=== PATIENT | male | born 1945 | race Caucasian/White ===

== ENCOUNTER 2016-08-05 01:53 | Inpatient (IN) | payer OTHER, MEDICARE ==
[2016-08-05] VITALS (31 sets, daily range): BP systolic 84–171; BP diastolic 50–73; PULSE 90–131; RESP 12–26; TEMP 97.7–98.4; O2SAT 83–100
[~2016-08-05] VITALS: Ht 182.9 cm; Wt 70.2 kg
[~2016-08-05 01:53] MED LIST: ALBU0.086 INH; PILO5TAB PO; PROT40TA PO; SYMB160A INH; SYNT75TA PO
[2016-08-05] MEDS ORDERED: methylPREDNISolone SOD SUCC 125 MG/2 ML VIAL IVP ONE (02:15)
[2016-08-05] MEDS ORDERED: SODIUM CHLORID 0.9% 500 ML INJ 500 ML IV ONE (02:15)
[2016-08-05] MEDS ORDERED: SODIUM CHLORIDE 0.9% FLUSH 5 ML FLUSH IVF PRN ×2 (02:15→03:45)
[2016-08-05] MEDS ORDERED: RESP: ALBUTEROL 2.5 MG/IPRATROPIUM 0.5 MG NEB (SCH) INH ONE (02:15)
[2016-08-05 02:23] LABS: AUTOMATED NEUTROPHIL # 12.1 TH/MM3 (1.8-7.7); BASOPHIL # 0.2 TH/MM3 (0-0.2); BASOPHIL % 1.7 % (0.0-2.0); HEMATOCRIT 45.5 % (39.0-51.0); LYMPH % 3.1 % (9.0-44.0); LYMPHOCYTE # 0.4 TH/MM3 (1.0-4.8); MEAN CELL VOLUME 83.2 FL (80.0-100.0); MEAN CORPUSCULAR HEMOGLOBIN 26.9 PG (27.0-34.0); MEAN CORPUSCULAR HGB CONC 32.4 % (32.0-36.0); MONO % 5.5 % (0.0-8.0); NEUT % 89.7 % (16.0-70.0); PLATELET COUNT 189 TH/MM3 (150-450); RED BLOOD COUNT 5.47 MIL/MM3 (4.50-5.90); RED CELL DISTRIBUTION WIDTH 12.4 % (11.6-17.2); WHITE BLOOD COUNT 13.4 TH/MM3 (4.0-11.0)
[2016-08-05 02:25] LABS: HEMO FLAGS DIFF FINAL
[2016-08-05 02:29] LABS: CHLORIDE 99 MEQ/L (98-107); POTASSIUM 3.5 MEQ/L (3.5-5.1); SODIUM (NA) 138 MEQ/L (136-145)
[2016-08-05 02:33] LABS: ANION GAP 11 MEQ/L (5-15); BLOOD UREA NITROGEN 17 MG/DL (7-18); MAGNESIUM 1.8 MG/DL (1.5-2.5)
[2016-08-05 02:34] LABS: APTT (PATIENT) 25.4 SEC (24.3-30.1); PROTHROMBIN TIME - PATIENT 11.1 SEC (9.8-11.6)
[2016-08-05 02:36] LABS: ALT (GPT) 21 U/L (12-78); AST (GOT) 16 U/L (15-37); GLOMERULAR FILTRATION RATE 60 ML/MIN (>89)
[2016-08-05 02:38] LABS: TOTAL BILIRUBIN ADULT 0.8 MG/DL (0.2-1.0)
[2016-08-05 02:39] LABS: ALKALINE PHOSPHATASE 87 U/L (45-117)
[2016-08-05 02:40] LABS: CREATINE KINASE 99 U/L (39-308)
[2016-08-05] MEDS ORDERED: ZOFR4TAB G-TUBE (02:45)
[2016-08-05] MEDS ORDERED: RESP: ALBUTEROL 2.5 MG/IPRATROPIUM 0.5 MG NEB (SCH) NEB ONE ×3 (02:45→04:15)
[2016-08-05] MEDS ORDERED: LEVO.075 G-TUBE (02:45)
[2016-08-05] MEDS ORDERED: SODIUM CHLOR 0.9% 1000 ML INJ 1,000 ML IV ONE ×4 (02:45→13:30)
[2016-08-05] MEDS ORDERED: CEFEPIME INJ 2,000 MG in SODIUM CHLORIDE 0.9% INJ 100 ML IV ONE (02:45)
[2016-08-05] MEDS ORDERED: ALBU0.08 NEB (02:45)
[2016-08-05] MEDS ORDERED: VANCOMYCIN INJ 1,000 MG in SODIUM CHLOR 0.9% 250 ML INJ 250 ML IV ONE (02:45)
[2016-08-05] MEDS ORDERED: SYMB160A INH (02:45)
--- NOTE | 2016-08-05 02:52 | RADHPO ---
EXAM DATE/TIME: 08/05/2016 02:17 [facility] COMPARISON: CHEST SINGLE AP, February 12, 2013, 2:16. INDICATIONS : Shortness of breath. MEDICAL HISTORY : None. SURGICAL HISTORY : None. ENCOUNTER: Initial ACUITY: 1 day PAIN SCORE: 0/10 LOCATION: Bilateral chest FINDINGS: The cardiac silhouette is normal in transverse diameter. There is patchy alveolar disease on the righ t compatible with pneumonia. The left lung is free of acute parenchymal opacity. No pleural effusions are identified. CONCLUSION: 1. Right basilar pneumonia Corey Preston MD on August 05, 2016 at 2:50 Board Certified Radiologist. This report was verified electronically.
--- NOTE | 2016-08-05 02:55 | PD ---
HPI Chief Complaint: Respiratory Distress Time Seen by Provider: 02:01 Travel History International Travel<30 days: No Contact w/Intl Traveler<30days: No Traveled to known affect area: No History of Present Illness HPI 70-year-old male presents to the emergency department for complaint of acute worsening shortness of breath. Patient is noted shortness of breath for today. Patient been coughing up yellow sputum with blood streaks. 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 Patient's urine is that specialist is Dr. Zepeda. Patient denies having any episodes of choking but did have an episode of spitting up bile today. Patient does not take anything by mouth and has a PEG tube in place. Patient has noted increasing shortness of breath. Patient denies any chest pain or pleuritic pain. Patient has not noticed any swelling of her pain to the lower extremities. No prior history of DVT or PE. Patient is no longer tobacco user. Patient has history of COPD and hypothyroidism. Patient was last hospitalized in 2012 with pneumonia and difficulty with breathing. Patient's had previous tracheostomy and has history of aphasia and dyskinesia the esophagus. Patient also has history of esophageal stricture chronic laryngitis and states that his current hoarseness is his baseline and has not worsened.. PFSH Past Medical History Narrative Medical COPD hypothyroidism pneumonia posterior tongue laryngeal cancer with chemotherapy radiation therapy and excisional therapy previous tracheostomy PEG tube no tobacco use nursing notes reviewed Anemia: Yes Blood Disorders: No Cancer: Yes Cardiovascular Problems: No Chemotherapy: Yes COPD: Yes Endocrine: No Gastrointestinal Disorders: Yes (G-TUBE PLACED: 2012 "EPIGLOTTIS DOESN'T WORK ") Genitourinary: No Immune Disorder: No Inguinal Hernia: Yes Kidney Stones: Yes Musculoskeletal: No Neurologic: No Psychiatric: No Reproductive: No Respiratory: No Pneumonia: Yes (ASPIRATION) Radiation Therapy: Yes Thyroid Disease: Yes Tetanus Vaccination: > 5 Years Influenza Vaccination: Yes Past Surgical History Abdominal Surgery: Yes (HERNIA) Oral Surgery: Yes (THROAT SURGERY RELATED TO CA.) Pacemaker: No Tonsillectomy: Yes Other Surgery: Yes (THROAT CANCER) Social History Alcohol Use: No Tobacco Use: No (QUIT 50 YRS AGO) Substance Use: No Allergies-Medications (Allergen,Severity, Reaction): Coded Allergies: No Known Allergies (Unverified , 08/05/16) Reported Meds & Prescriptions Reported Meds & Active Scripts Active Reported Synthroid (Levothyroxine Sodium) 75 Mcg Tab 75 Mcg G-TUBE DAILY Zofran (Ondansetron HCl) 4 Mg Tab 4 Mg G-TUBE Q6HR PRN Symbicort Inh (Budesonide/Formoterol Fumarate) 160-4.5 Mcg/Act Aero 2 Puff INH Q12HR Albuterol Neb (Albuterol Sulfate) 2.5 Mg/3 Ml Neb 2.5 Mg NEB Q4HR NEB PRN Review of Systems Except as stated in HPI: all other systems reviewed are Neg General / Constitutional: No: Fever, Chills HENT: Positive: Congestion Cardiovascular: No: Chest Pain or Discomfort Respiratory: Positive: Cough, Shortness of Breath, Wheezing Gastrointestinal: No: Abdominal Pain Genitourinary: No: Flank Pain Musculoskeletal: No: Myalgias, Arthralgias Skin: No Rash Neurologic: No: Weakness Psychiatric: No: Anxiety Hematologic/Lymphatic: No: Easy Bruising Physical Exam Narrative GENERAL: Thin well-developed male in moderate respiratory distress SKIN: Warm and dry. HEAD: Normocephalic. EYES: No scleral icterus. No injection or drainage. NECK: Supple, trachea midline. No JVD or lymphadenopathy. CARDIOVASCULAR: Increased Regular rate and rhythm without murmurs, gallops, or rubs. RESPIRATORY: Breath sounds equal bilaterally and diminished. No accessory muscle use. GASTROINTESTINAL: Abdomen soft, non-tender, nondistended. PEG tube noted. MUSCULOSKELETAL: No cyanosis, or edema. BACK: Nontender without obvious deformity. No CVA tenderness. Neurologic exam: Alert and oriented person place time and events cranial nerves II through XII grossly intact sensorimotor exams are grossly within range as tested ENT: Airway is patent mucous membranes moist posterior pharynx no edema erythema or exudative change Data Data Last Documented VS Vital Signs Date Time Temp Pulse Resp B/P Pulse Ox O2 Delivery O2 Flow Rate FiO2 08/05/16 03:18 Aerosol Mask 08/05/16 03:12 126 24 119/63 100 3.5 08/05/16 02:45 98.4 Orders Complete Blood Count With Diff (08/05/16 02:01) Comprehensive Metabolic Panel (08/05/16 02:01) B-Type Natriuretic Peptide (08/05/16 02:01) Act Partial Throm Time (Ptt) (08/05/16 02:01) Prothrombin Time / Inr (Pt) (08/05/16 02:01) Magnesium (Mg) (08/05/16 02:01) Ckmb (Isoenzyme) Profile (08/05/16 02:01) Troponin I (08/05/16 02:01) Arterial Blood Gas (Abg) (08/05/16 02:01) Blood Culture (08/05/16 02:01) Iv Access Insert/Monitor (08/05/16 02:01) Electrocardiogram (08/05/16 02:01) Ecg Monitoring (08/05/16 02:01) Oximetry (08/05/16 02:01) Oxygen Administration (08/05/16 02:01) Chest, Single Ap (08/05/16 02:01) Sodium Chloride 0.9% Flush (Ns Flush) (08/05/16 02:15) Methylprednisolone So Succ Inj (Solumedr (08/05/16 02:15) Albuterol-Ipratropium Neb (Duoneb Neb) (08/05/16 02:15) Sodium Chlorid 0.9% 500 Ml Inj (Ns 500 M (08/05/16 02:15) Lactic Acid (08/05/16 02:01) Cefepime Inj (Maxipime Inj) (08/05/16 02:45) Vancomycin Inj (Vancomycin Inj) (08/05/16 02:45) Albuterol-Ipratropium Neb (Duoneb Neb) (08/05/16 02:45) Sodium Chlor 0.9% 1000 Ml Inj (Ns 1000 M (08/05/16 02:45) Sputum Culture And Gram Stain (08/05/16 02:43) Ct Soft Tiss Neck W Iv Cont (08/05/16 ) Ct Pulmonary Angiogram (08/05/16 ) Albuterol-Ipratropium Neb (Duoneb Neb) (08/05/16 03:15) Admit Order (Ed Use Only) (08/05/16 ) ^ Saline Lock (08/05/16 03:38) Resp Oxygen Yogi C Titrat 1-4 L (08/05/16 ) ^ Notify Dr: Other (08/05/16 03:38) Sodium Chloride 0.9% Flush (Ns Flush) (08/05/16 09:00) Sodium Chloride 0.9% Flush (Ns Flush) (08/05/16 03:45) Labs Laboratory Tests Test 08/05/16 08/05/16 02:11 02:53 White Blood Count 13.4 TH/MM3 Red Blood Count 5.47 MIL/MM3 Hemoglobin 14.7 GM/DL Hematocrit 45.5 % Mean Corpuscular Volume 83.2 FL Mean Corpuscular Hemoglobin 26.9 PG Mean Corpuscular Hemoglobin 32.4 % Concent Red Cell Distribution Width 12.4 % Platelet Count 189 TH/MM3 Mean Platelet Volume 8.8 FL Neutrophils (%) (Auto) 89.7 % Lymphocytes (%) (Auto) 3.1 % Monocytes (%) (Auto) 5.5 % Eosinophils (%) (Auto) 0.0 % Basophils (%) (Auto) 1.7 % Neutrophils # (Auto) 12.1 TH/MM3 Lymphocytes # (Auto) 0.4 TH/MM3 Monocytes # (Auto) 0.7 TH/MM3 Eosinophils # (Auto) 0.0 TH/MM3 Basophils # (Auto) 0.2 TH/MM3 CBC Comment DIFF FINAL Differential Comment Prothrombin Time 11.1 SEC Prothromb Time International 1.0 RATIO Ratio Activated Partial 25.4 SEC Thromboplast Time Sodium Level 138 MEQ/L Potassium Level 3.5 MEQ/L Chloride Level 99 MEQ/L Carbon Dioxide Level 28.0 MEQ/L Anion Gap 11 MEQ/L Blood Urea Nitrogen 17 MG/DL Creatinine 1.20 MG/DL Estimat Glomerular Filtration 60 ML/MIN Rate Random Glucose 180 MG/DL Lactic Acid Level 4.3 mmol/L Calcium Level 9.1 MG/DL Magnesium Level 1.8 MG/DL Total Bilirubin 0.8 MG/DL Aspartate Amino Transf 16 U/L (AST/SGOT) Alanine Aminotransferase 21 U/L (ALT/SGPT) Alkaline Phosphatase 87 U/L Total Creatine Kinase 99 U/L Troponin I LESS THAN 0.02 NG/ML B-Type Natriuretic Peptide 42 PG/ML Total Protein 7.5 GM/DL Albumin 3.8 GM/DL Blood Gas Puncture Site LT RADIAL Blood Gas Patient Temperature 98.6 Blood Gas HCO3 25 mmol/L Blood Gas Base Excess 0.7 mmol/L Blood Gas Oxygen Saturation 88 % Arterial Blood pH 7.42 Arterial Blood Partial 39 mmHG Pressure CO2 Arterial Blood Partial 56 mmHG Pressure O2 Arterial Blood Oxygen Content 17.8 Vol % Arterial Blood 1.9 % Carboxyhemoglobin Arterial Blood Methemoglobin 1.0 % Blood Gas Hemoglobin 14.4 G/DL Oxygen Delivery Device NASAL CANNULA Blood Gas Liter Flow 2 L/M MDM Medical Decision Making Medical Screen Exam Complete: Yes Emergency Medical Condition: Yes Medical Record Reviewed: Yes Interpretation(s) Last Impressions Chest X-Ray 08/05/16 0201 Signed Impressions: Service Date/Time: Friday, August 05, 2016 02:17 - CONCLUSION: 1. Right basilar pneumonia Corey Preston MD Neck CT 08/05/16 0000 Signed Impressions: Service Date/Time: Friday, August 05, 2016 03:33 - CONCLUSION: 1. Unremarkable CT scan of the neck. No masses are identified. Corey Preston MD CT Angiography 08/05/16 0000 Signed Impressions: Service Date/Time: Friday, August 05, 2016 03:33 - CONCLUSION: 1. No evidence of pulmonary embolism. 2. Right basilar pneumonia Corey Preston MD Vital Signs Date Time Temp Pulse Resp B/P Pulse Ox O2 Delivery O2 Flow Rate FiO2 08/05/16 02:45 98.4 123 20 171/65 96 Nasal Cannula 2 08/05/16 02:12 92 Nasal Cannula 2.00 08/05/16 02:08 Aerosol Mask 08/05/16 01:59 88 Nasal Cannula 2 08/05/16 01:58 98.2 131 26 119/66 83 Room Air CBC & BMP Diagram 08/05/16 02:11 Differential Diagnosis Dyspnea, exacerbation COPD, pneumonia, aspiration pneumonia, pneumothorax, pleural effusion, PE, ACS, CHF Narrative Course Patient placed on cardiac technologist IV access obtained specimens collected and sent for resulting EKG performed shows sinus tachycardia without acute injury pattern change; patient given DuoNeb updraft and Solu-Medrol Blood cultures obtained along with lactic acid patient given presumptive IV antibiotic with cefepime and vancomycin Patient with ongoing updraft treatment and Solu-Medrol Chest x-ray consistent with right lower lobe infiltrate/pneumonia Patient's case discussed with on-call forensic document examiner will admit to their service aware that CT of the soft tissue of the neck and CT bony angiogram studies are pending CT soft tissue of neck. Reading radiologist reveals no acute abnormality and CT bony angiogram shows no evidence of PE and continues to show evidence of right lower lobe pneumonia Patient is aware plan for admission to ICU to [facility] Critical Care Narrative Aggregate critical care time was 40 minutes minutes. Time to perform other separately billable procedures was not included in the critical care time. My time did not include minutes spent treating any other patients simultaneously or on activities that did not directly contribute to the patient's treatment. The services I provided to this patient were to treat and/or prevent clinically significant deterioration that could result in: Respiratory failure, respiratory arrest, septic shock, I provided critical care services requiring my management, as noted below: Chart data review, documentation time, medication orders and management, vital sign assessments/reviewing monitor data, ordering and reviewing lab tests, ordering and interpreting/reviewing x-rays and diagnostic studies, care of the patient and discussion of the patient with the admitting physicians. Sepsis Criteria SIRS Criteria (2 or more): Heart rate over 90, RR > 20 or PaCO2 < 32, WBC > 03570, < 4000 or > 10% bands Sepsis Criteria (SIRS+source): Infect source susp/known Severe Sepsis (+one): Lactate >2 Physician Communication Physician Communication discussed with DR Garzon--[facility] ICU admission to forensic document examiner service Diagnosis Primary Impression: Pneumonia Qualified Code: J18.1 - Pneumonia of right lower lobe due to infectious organism Additional Impressions: COPD exacerbation Sepsis Qualified Code: A41.9 - Sepsis, due to unspecified organism Admitting Information Admitting Physician Requests: Admit Chiquita Leon MD Aug 05, 2016 02:55
[2016-08-05 02:58] LABS: BLOOD GAS BASE EXCESS 0.7 mmol/L (-2-2); BLOOD GAS CARBOXYHEMOGLOBIN 1.9 % (0-4); BLOOD GAS HCO3 25 mmol/L (22-26); BLOOD GAS O2 HGB SATURATION 88 % (90-100); BLOOD GAS OXYGEN CONTENT 17.8 Vol % (12.0-20.0); BLOOD GAS PCO2 39 mmHG (38-42); BLOOD GAS PO2 56 mmHG (61-120); BLOOD GAS TOTAL HGB 14.4 G/DL (12.0-16.0); CRITICAL VALUE YES; DRAW SITE LT RADIAL; LITER FLOW 2 L/M; NUMBER OF ARTERIAL PUNCTURES 1; OXYGEN DEVICE NASAL CANNULA; STAT YES; TEMP CORR TO 98.6; ULNAR PULSE Y
[2016-08-05] MEDS ORDERED: IOHEXOL 350 MG/ML 10 ML VIAL (for RAD DIAG) IV ONE (04:02)
[2016-08-05] MEDS ORDERED: IBUPROFEN SUSP 100 MG/5 ML UDC PEG ONE (04:15)
--- NOTE | 2016-08-05 04:16 | RADHPO ---
EXAM DATE/TIME: 08/05/2016 03:33 [facility] COMPARISON: CT PULMONARY ANGIOGRAM, February 12, 2013, 4:00. INDICATIONS : Shortness of breath. IV CONTRAST: 75 cc Omnipaque 350 (iohexol) IV ; Cumulative dose for multiple exams. RADIATION DOSE: 8.73 CTDIvol (mGy) MEDICAL HISTORY : Carcinoma, throat. SURGICAL HISTORY : Gastric feeding tube. ENCOUNTER: Initial ACUITY: 1 day PAIN SCALE: 5/10 LOCATION: chest TECHNIQUE: Volumetric scanning of the chest was performed using a pulmonary embolism protocol MIP images were re constructed. Using automated exposure control and adjustment of the mA and/or kV according to patien t size, radiation dose was kept as low as reasonably achievable to obtain optimal diagnostic quality images. FINDINGS: Examination of the pulmonary vasculature demonstrates good filling of the main, lobar and segmental b ranches. There are no filling defects to suggest pulmonary embolism. Multiplanar reconstructions are also unremarkable. There is right basilar alveolar disease characteristics of pneumonia. The left lung is free of acute parenchymal opacity. No pleural effusions are identified. Examination of the mediastinum demonstrates no abnormally enlarged lymph nodes by CT criteria. No axillary or hilar abnormalities are identified . Coronary artery calcifications are not present. The visualized upper abdomen demonstrates no abnorm ality. Gastrostomy tube is present in the stomach. CONCLUSION: 1. No evidence of pulmonary embolism. 2. Right basilar pneumonia Corey Preston MD on August 05, 2016 at 4:11 Board Certified Radiologist. This report was verified electronically.
--- NOTE | 2016-08-05 04:25 | RADHPO ---
EXAM DATE/TIME: 08/05/2016 03:33 [facility] COMPARISON: CT SOFT TISSUE NECK W CONTRAST, March 02, 2013, 22:45. INDICATIONS : Throat pain. IV CONTRAST: 75 cc Omnipaque 350 (iohexol) IV ; Cumulative dose for multiple exams. RADIATION DOSE: 19.85 CTDIvol (mGy) MEDICAL HISTORY : Chronic obstructive pulmonary disease. Carcinoma, throat. SURGICAL HISTORY : None. ENCOUNTER: Initial ACUITY: 1 day PAIN SCALE: 7/10 LOCATION: Bilateral neck TECHNIQUE: Volumetric scanning of the neck was performed. Using automated exposure control and adjustment of th e mA and/or kV according to patient size, radiation dose was kept as low as reasonably achievable to obtain optimal diagnostic quality images. FINDINGS: Examination of the skull base demonstrates no evidence of deep infiltrating mucosal lesion. The oroph arynx, hypopharynx, glottic and subglottic airway demonstrate no abnormality. Examination of the neck for adenopathy demonstrates no abnormally large lymph nodes by CT criteria. T he thyroid gland demonstrates no abnormality. Lung apices demonstrate no evidence of pulmonary nodule. Bone windows are unremarkable. CONCLUSION: 1. Unremarkable CT scan of the neck. No masses are identified. Corey Preston MD on August 05, 2016 at 4:20 Board Certified Radiologist. This report was verified electronically.
[2016-08-05] MEDS ORDERED: SODIUM CHLOR 0.9% 1000 ML INJ 1,000 ML IV SCH (05:53)
[2016-08-05] MEDS ORDERED: RESP: ALBUTEROL 2.5 MG/3 ML NEB (PRN) INH (06:00)
[2016-08-05] MEDS ORDERED: CHLORHEXIDINE GLUCONATE 2 % 1 PACK (2 CLOTHS) TOP PRN ×2 (06:00→06:45)
[2016-08-05] MEDS ORDERED: MISCELLANEOUS NURSING INFORMATION XX SCH ×2 (06:00→06:45)
[2016-08-05] MEDS ORDERED: SODIUM CHLORIDE 0.9% FLUSH 5 ML FLUSH IV FLUSH PRN ×2 (06:00→06:45)
[2016-08-05 06:42] LABS: BLOOD GAS BASE EXCESS -7.6 mmol/L (-2-2); BLOOD GAS CARBOXYHEMOGLOBIN 1.7 % (0-4); BLOOD GAS HCO3 17 mmol/L (22-26); BLOOD GAS METHEMOGLOBIN 1.2 % (0-2); BLOOD GAS O2 HGB SATURATION 95 % (90-100); BLOOD GAS OXYGEN CONTENT 17.4 Vol % (12.0-20.0); BLOOD GAS PCO2 35 mmHG (38-42); BLOOD GAS PO2 94 mmHG (61-120); TEMP CORR TO 98.6
[2016-08-05 06:43] LABS: CRITICAL VALUE YES; DRAW SITE LT RADIAL; LITER FLOW 3.5 L/M; NUMBER OF ARTERIAL PUNCTURES 1; OXYGEN DEVICE NASAL CANNULA; STAT YES; ULNAR PULSE Y
[2016-08-05] MEDS ORDERED: MAGNESIUM SULFATE INJ 4 GM in SODIUM CHLORIDE 0.9% INJ 92 ML IV PRN (06:45)
[2016-08-05] MEDS ORDERED: POTASSIUM CHLOR 20 MEQ PREMIX 100 ML IV PRN ×2 (06:45)
[2016-08-05] MEDS ORDERED: MAGNESIUM OXIDE 400 MG TAB PO PRN (06:45)
[2016-08-05] MEDS ORDERED: DEXTROSE 50% IN WATER 50 ML VIAL(D50) IV PUSH PRN (06:45)
[2016-08-05] MEDS ORDERED: POTASSIUM PHOSPHATE MONOBASIC 500 MG TAB PO PRN (06:45)
[2016-08-05] MEDS ORDERED: POTASSIUM PHOSPHATE INJ 30 MMOL in SODIUM CHLOR 0.9% 250 ML INJ 250 ML IV PRN (06:45)
[2016-08-05] MEDS ORDERED: POTASSIUM PHOSPHATE MONOBASIC 500 MG TAB PO/TUBE PRN (06:45)
[2016-08-05] MEDS ORDERED: SODIUM PHOSPHATE INJ 30 MMOL in SODIUM CHLOR 0.9% 250 ML INJ 240 ML IV PRN (06:45)
[2016-08-05] MEDS ORDERED: GLUCAGON 1 MG/ML VIAL OTHER PRN (06:45)
[2016-08-05] MEDS ORDERED: POTASSIUM CHLOR 40 MEQ PREMIX 100 ML IV PRN ×2 (06:45)
[2016-08-05] MEDS ORDERED: MAGNESIUM SULFATE INJ 2 GM in SODIUM CHLORIDE 0.9% INJ 96 ML IV PRN (06:45)
[2016-08-05] MEDS ORDERED: POTASSIUM CL 40 MEQ/30 ML LIQ UDC PO/TUBE PRN ×2 (06:45)
[2016-08-05] MEDS ORDERED: ACETAMINOPHEN 325 MG TAB PO PRN (06:45)
[2016-08-05] MEDS ORDERED: RESP: ALBUTEROL 2.5 MG/IPRATROPIUM 0.5 MG NEB (PRN) INH (06:45)
--- NOTE | 2016-08-05 07:21 | HHI.HP ---
[facility] Service Critical Care Medicine Primary Care Physician Lizandro [facility] Admission Diagnosis pneumonia; sepsis; copd;h/o larygeal cancer Diagnosis: Travel History International Travel<30 Days: No Contact w/Intl Traveler <30 Da: No Traveled to Known Affected Are: No History of Present Illness This is 70-year-old male that presented to the ED with complaints of acute progressive dyspnea. 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 Patient does not take anything by mouth and has a PEG tube in place. Patient has noted increasing shortness of breath. Patient has history of COPD and hypothyroidism. Patient was last hospitalized in 2012 with aspiration pneumonia and difficulty with breathing. Patient's had previous tracheostomy and has history of aphasia and dyskinesia the esophagus. Patient also has history of esophageal stricture chronic laryngitis and states that his current hoarseness is his baseline. In the ED, laboratory and imaging studies were obtained, revealing right lower lobe pneumonia, and an elevated lactic acid. Initially PaO2 on 2 L revealed a PaO2 of 58. The patient received bronchodilators, steroids, and antibiotics. Critical-care medicine is consulted for treatment and management. PFSH Past Medical History Narrative Medical COPD hypothyroidism pneumonia posterior tongue laryngeal cancer with chemotherapy radiation therapy and excisional therapy previous tracheostomy PEG tube no tobacco use nursing notes reviewed Anemia: Yes Blood Disorders: No Cancer: Yes Cardiovascular Problems: No Chemotherapy: Yes COPD: Yes Endocrine: No Gastrointestinal Disorders: Yes (G-TUBE PLACED: 2012 "EPIGLOTTIS DOESN'T WORK ") Genitourinary: No Immune Disorder: No Inguinal Hernia: Yes Kidney Stones: Yes Musculoskeletal: No Neurologic: No Psychiatric: No Reproductive: No Respiratory: No Pneumonia: Yes (ASPIRATION) Radiation Therapy: Yes Thyroid Disease: Yes Tetanus Vaccination: > 5 Years Influenza Vaccination: Yes Past Surgical History Abdominal Surgery: Yes (HERNIA) Oral Surgery: Yes (THROAT SURGERY RELATED TO CA.) Pacemaker: No Tonsillectomy: Yes Other Surgery: Yes (THROAT CANCER) Social History Alcohol Use: No Tobacco Use: No (QUIT 50 YRS AGO) Substance Use: No Allergies-Medications (Allergen,Severity, Reaction): Coded Allergies: No Known Allergies (Unverified , 08/05/16) Reported Meds & Prescriptions Reported Meds & Active Scripts Active Reported Synthroid (Levothyroxine Sodium) 75 Mcg Tab 75 Mcg G-TUBE DAILY Zofran (Ondansetron HCl) 4 Mg Tab 4 Mg G-TUBE Q6HR PRN Symbicort Inh (Budesonide/Formoterol Fumarate) 160-4.5 Mcg/Act Aero 2 Puff INH Q12HR Albuterol Neb (Albuterol Sulfate) 2.5 Mg/3 Ml Neb 2.5 Mg NEB Q4HR NEB PRN Review of Systems Except as stated in HPI: all other systems reviewed are Neg General / Constitutional: No: Fever, Chills HENT: Positive: Congestion Cardiovascular: No: Chest Pain or Discomfort Respiratory: Positive: Cough, Shortness of Breath, Wheezing Gastrointestinal: No: Abdominal Pain Genitourinary: No: Flank Pain Musculoskeletal: No: Myalgias, Arthralgias Skin: No Rash Neurologic: No: Weakness Psychiatric: No: Anxiety Hematologic/Lymphatic: No: Easy Bruising Physical Exam Vital Signs Vital Signs Date Time Temp Pulse Resp B/P Pulse Ox O2 Delivery O2 Flow Rate FiO2 08/05/16 05:49 117 20 113/53 96 Nasal Cannula 3.5 08/05/16 04:06 128 20 162/73 97 Nasal Cannula 4 08/05/16 03:18 Aerosol Mask 08/05/16 03:12 126 24 119/63 100 Nasal Cannula 3.5 08/05/16 02:45 98.4 123 20 171/65 96 Nasal Cannula 2 08/05/16 02:12 92 Nasal Cannula 2.00 08/05/16 02:08 Aerosol Mask 08/05/16 01:59 88 Nasal Cannula 2 08/05/16 01:58 98.2 131 26 119/66 83 Room Air 08/05/16 01:55 28 Physical Exam GENERAL: This is a thin critically ill-appearing male semi-recumbent in mild respiratory distress. SKIN: Warm and dry. HEAD: Atraumatic. Normocephalic. EYES: Pupils equal and round. No scleral icterus. No injection or drainage. ENT: No nasal bleeding or discharge. Mucous membranes pink and moist. Nasal cannula NECK: Trachea midline. No JVD. CARDIOVASCULAR: Normal rate, regular rhythm. RESPIRATORY: No accessory muscle use. Clear to auscultation. Breath sounds equal bilaterally. GASTROINTESTINAL: Abdomen soft, non-tender, nondistended. No guarding. PEG noted MUSCULOSKELETAL: Extremities without clubbing, cyanosis, or edema. No obvious deformities. NEUROLOGICAL: Awake and alert. RASS 0. No gross focal/sensory deficits. Follows commands in all 4 extremities. Laboratory Laboratory Tests Test 08/05/16 08/05/16 08/05/16 02:11 02:53 06:35 White Blood Count 13.4 Red Blood Count 5.47 Hemoglobin 14.7 Hematocrit 45.5 Mean Corpuscular Volume 83.2 Mean Corpuscular Hemoglobin 26.9 Mean Corpuscular Hemoglobin 32.4 Concent Red Cell Distribution Width 12.4 Platelet Count 189 Mean Platelet Volume 8.8 Neutrophils (%) (Auto) 89.7 Lymphocytes (%) (Auto) 3.1 Monocytes (%) (Auto) 5.5 Eosinophils (%) (Auto) 0.0 Basophils (%) (Auto) 1.7 Neutrophils # (Auto) 12.1 Lymphocytes # (Auto) 0.4 Monocytes # (Auto) 0.7 Eosinophils # (Auto) 0.0 Basophils # (Auto) 0.2 CBC Comment DIFF FINAL Differential Comment Prothrombin Time 11.1 Prothromb Time International 1.0 Ratio Activated Partial 25.4 Thromboplast Time Sodium Level 138 Potassium Level 3.5 Chloride Level 99 Carbon Dioxide Level 28.0 Anion Gap 11 Blood Urea Nitrogen 17 Creatinine 1.20 Estimat Glomerular Filtration 60 Rate Random Glucose 180 Lactic Acid Level 4.3 Calcium Level 9.1 Magnesium Level 1.8 Total Bilirubin 0.8 Aspartate Amino Transf 16 (AST/SGOT) Alanine Aminotransferase 21 (ALT/SGPT) Alkaline Phosphatase 87 Total Creatine Kinase 99 Troponin I LESS THAN 0.02 B-Type Natriuretic Peptide 42 Total Protein 7.5 Albumin 3.8 Blood Gas Puncture Site LT RADIAL LT RADIAL Blood Gas Patient Temperature 98.6 98.6 Blood Gas HCO3 25 17 Blood Gas Base Excess 0.7 -7.6 Blood Gas Oxygen Saturation 88 95 Arterial Blood pH 7.42 7.31 Arterial Blood Partial 39 35 Pressure CO2 Arterial Blood Partial 56 94 Pressure O2 Arterial Blood Oxygen Content 17.8 17.4 Arterial Blood 1.9 1.7 Carboxyhemoglobin Arterial Blood Methemoglobin 1.0 1.2 Blood Gas Hemoglobin 14.4 13.0 Oxygen Delivery Device NASAL CANNULA NASAL CANNULA Blood Gas Liter Flow 2 3.5 Date/Time Procedure Status Source Growth 08/05/16 03:10 Gram Stain Received Sputum Expectorated Sputum Pending 08/05/16 03:10 Sputum Culture Received Sputum Expectorated Sputum Pending 08/05/16 02:15 Aerobic Blood Culture Received Blood Peripheral Pending 08/05/16 02:15 Anaerobic Blood Culture Received Blood Peripheral Pending Result Diagram: 08/05/16 0211 08/05/16 0211 Imaging Last 24 hours Impressions Chest X-Ray 08/05/16 0201 Signed Impressions: Service Date/Time: Friday, August 05, 2016 02:17 - CONCLUSION: 1. Right basilar pneumonia Corye Preston MD Neck CT 08/05/16 0000 Signed Impressions: Service Date/Time: Friday, August 05, 2016 03:33 - CONCLUSION: 1. Unremarkable CT scan of the neck. No masses are identified. Corey Preston MD CT Angiography 08/05/16 0000 Signed Impressions: Service Date/Time: Friday, August 05, 2016 03:33 - CONCLUSION: 1. No evidence of pulmonary embolism. 2. Right basilar pneumonia Corey Preston MD Septic Shock Reassessment Heart: Other (tachycardia) Lungs: Clear Skin: Warm Peripheral Pulses: Bounding Right Radial Bounding Left Radial Bounding Right Dorsalis Pedis Bounding Left Dorsalis Pedis Capillary Refill: Brisk Assessment and Plan Assessment and Plan This is a 70-year-old male with a history of carcinoma of the throat, S/P surgery ,chemotherapy, radiation therapy, subsequent incompetence epiglottis and resultant PEG placement. The patient has had multiple episodes of aspiration pneumonia in the past. This most likely represents aspiration pneumonia however there may be additionally a bacterial component . The patient currently has mild respiratory distress, will admit to ICU for close monitoring and intervention if needed for management of airway. Plan by systems: Neurologic: No acute issues Neurochecks per ICU protocol Respiratory: Acute respiratory distress Pneumonia (right lower lobe) most likely aspiration Recurrent aspiration Maintain O2 sat greater than 92%. O2 via nasal cannula 3 L/m currently 93-94% ABG 7.42/39/56/25/0.7 upon presentation to the ED Repeat ABG Bronchodilators every 6 hours scheduled, every 2 hours when necessary Repeat chest x-ray in the a.m. Empiric coverage with antibiotics Cardiovascular: Sinus tachycardia Bolus 1 L normal saline Normal saline at 84 cc/hour Renal: Renal insufficiency Monitor BMP Creatinine 1.2 -- Strict I/Os No Romero FEN/GI: PEG Esophageal dyskinesia Dysphagia Dietary consult Maintain nothing by mouth, incompetent epiglottis. All medications to be administered IV or via PEG Patient normally consumes 2200-calories, Ensure Plus 6.5-7 cans daily Heme/ID: Right lower lobe pneumonia Leukocytosis Follow-up bacterial and sputum cultures Empiric coverage Zosyn, azithromycin additionally Flagyl for aspiration coverage Obtain serial lactate levels F/U pneumococcal, Legionella antigens, influenza A/B Monitor CBC, WBC 13.8 Endocrine: Hypothyroidism Hyperglycemia critical illness Obtain TSH level Continue levothyroxine (home medication) Glucose 180 Glucose monitoring every 6 hours, low dose regimen -- SSI MSK: PT evaluate and treat OOB to bedside commode, if tolerated Prophylaxis: GI Prophylaxis Protonix IV DVT Prophylaxis -- SCDs Heparin 5000u BID Lines: Peripheral IVs x 2 Dispo: This patient remains critically ill with one or more organ systems which are or may become a threat to life. I have spent in excess of 60 minutes discontinuously in the care and management of this patient. This time is exclusive of procedures, and includes, but is not limited to, evaluation of the patient, review of the medical record, discussions with family, consultants, nursing staff, or respiratory therapy, and documentation in the medical record. Code Status Full code Discussed Condition With Patient, Dr. Leon, and COLLISION ESTIMATOR Margo Tiwari MD Aug 05, 2016 07:21
[2016-08-05] MEDS ORDERED: RESP: ALBUTEROL 2.5 MG/IPRATROPIUM 0.5 MG NEB (SCH) INH (08:00)
[2016-08-05] MEDS: DOCUSATE SODIUM 100 MG CAP GT SCH ×2 (08:00→20:00)
[2016-08-05] MEDS: metroNIDAZOLE 500 MG INJ 100 ML IV SCH ×3 (08:13→23:48)
[2016-08-05] MEDS: SODIUM CHLOR 0.9% 1000 ML INJ 1,000 ML IV SCH ×2 (08:18→20:50)
[2016-08-05] MEDS: HEPARIN SODIUM - SQ 10,000 UNITS/ML VIAL SQ SCH ×2 (08:31→19:50)
[2016-08-05] MEDS: LEVOTHYROXINE SODIUM 75 MCG TAB G-TUBE SCH (08:31)
[2016-08-05] MEDS: PANTOPRAZOLE SODIUM 40 MG VIAL IV SCH (08:42)
[2016-08-05] MEDS ORDERED: PANTOPRAZOLE SODIUM 40 MG VIAL IV SCH (09:00)
[2016-08-05] MEDS ORDERED: SODIUM CHLORIDE 0.9% FLUSH 5 ML FLUSH IVF SCH (09:00)
[2016-08-05] MEDS ORDERED: SODIUM CHLORIDE 0.9% FLUSH 5 ML FLUSH IV FLUSH SCH (09:00)
[2016-08-05] MEDS: AZITHROMYCIN INJ 500 MG in SODIUM CHLOR 0.9% 250 ML INJ 250 ML IV SCH (09:26)
[2016-08-05] MEDS: SODIUM CHLORIDE 0.9% FLUSH 5 ML FLUSH IV FLUSH SCH ×2 (09:27→20:52)
[2016-08-05] MEDS: RESP: ALBUTEROL 2.5 MG/IPRATROPIUM 0.5 MG NEB (SCH) INH ×3 (10:06→21:29)
[2016-08-05] MEDS: PIPERACIL-TAZO 4.5 GM PREMIX 100 ML IV SCH ×3 (11:14→20:50)
[2016-08-05] MEDS: [UNRECOGNIZED DRUG - REMARK] SQ SCH ×3 (13:24→23:48)
[2016-08-05] MEDS: BUDESONIDE-FORMOTEROL 160/4.5 MCG INHALER INH SCH ×2 (13:30→20:50)
--- NOTE | 2016-08-05 16:41 | EKG ---
Date Performed: 08/05/2016 Time Performed: 01:57:44 PTAGE: 70 years EKG: Sinus tachycardia. Borderline atrial abnormality Generalized low voltage. When compared to previous tracing, QRS voltage is lower and Heart rate is faster. Abnormal ECG PREVIOUS TRACING : 03/04/2013 11.07.04 DOCTOR: Chan Spivey Interpretating Date/Time 08/05/2016 16:41:02
[2016-08-05] MEDS: ONDANSETRON HCL 4 MG/2 ML VIAL IV PRN (19:50)
[2016-08-05 23:05] LABS: POTASSIUM 4.1 MEQ/L (3.5-5.1)
[2016-08-06] VITALS (26 sets, daily range): BP systolic 115–180; BP diastolic 54–90; PULSE 92–112; RESP 17–28; TEMP 98.2–99.1; O2SAT 94–98
[2016-08-06] MEDS: PIPERACIL-TAZO 4.5 GM PREMIX 100 ML IV SCH ×4 (03:01→21:01)
[2016-08-06] MEDS: SODIUM CHLOR 0.9% 1000 ML INJ 1,000 ML IV SCH ×3 (03:01→23:46)
[2016-08-06] MEDS: RESP: ALBUTEROL 2.5 MG/IPRATROPIUM 0.5 MG NEB (SCH) INH ×4 (03:17→21:26)
[2016-08-06] MEDS ORDERED: CHLORHEXIDINE GLUCONATE 2 % 1 PACK (2 CLOTHS) TOP SCH (04:00)
[2016-08-06] MEDS: LEVOTHYROXINE SODIUM 75 MCG TAB G-TUBE SCH (05:37)
[2016-08-06] MEDS: CHLORHEXIDINE GLUCONATE 2 % 1 PACK (2 CLOTHS) TOP SCH (05:38)
[2016-08-06] MEDS: [UNRECOGNIZED DRUG - REMARK] SQ SCH ×3 (06:00→18:00)
[2016-08-06 06:07] LABS: AUTOMATED NEUTROPHIL # 19.9 TH/MM3 (1.8-7.7); BASOPHIL # 0.5 TH/MM3 (0-0.2); BASOPHIL % 2.3 % (0.0-2.0); LYMPH % 5.2 % (9.0-44.0); LYMPHOCYTE # 1.2 TH/MM3 (1.0-4.8); MEAN CELL VOLUME 84.7 FL (80.0-100.0); MEAN CORPUSCULAR HEMOGLOBIN 27.7 PG (27.0-34.0); MEAN CORPUSCULAR HGB CONC 32.7 % (32.0-36.0); MONO % 4.4 % (0.0-8.0); NEUT % 88.1 % (16.0-70.0); PLATELET COUNT 150 TH/MM3 (150-450); RED BLOOD COUNT 4.13 MIL/MM3 (4.50-5.90); RED CELL DISTRIBUTION WIDTH 13.3 % (11.6-17.2); WHITE BLOOD COUNT 22.6 TH/MM3 (4.0-11.0)
[2016-08-06 06:13] LABS: HEMO FLAGS AUTO DIFF
--- NOTE | 2016-08-06 06:28 | RADHPO ---
EXAM DATE/TIME: 08/06/2016 06:01 [facility] COMPARISON: CHEST SINGLE AP, August 05, 2016, 2:17. INDICATIONS : Shortness of breath. MEDICAL HISTORY : Carcinoma, throat SURGICAL HISTORY : Gastric feeding tube. ENCOUNTER: Subsequent ACUITY: 2 days PAIN SCORE: 5/10 LOCATION: Bilateral chest FINDINGS: The cardiac silhouette is normal in transverse diameter. There is patchy alveolar disease bilaterally compatible with edema or pneumonia. The findings have worsened when compared with the prior examinat ion. No pleural effusions are identified. CONCLUSION: 1. Worsening bilateral edema versus pneumonia Corey Preston MD on August 06, 2016 at 6:26 Board Certified Radiologist. This report was verified electronically.
[2016-08-06 06:39] LABS: BICARBONATE 24.9 MEQ/L (21.0-32.0); POTASSIUM 4.2 MEQ/L (3.5-5.1)
[2016-08-06 06:58] LABS: SCAN/DIFF AUTO DIFF CONFIRMED
[2016-08-06] MEDS: DOCUSATE SODIUM 100 MG CAP GT SCH ×2 (08:00→20:00)
[2016-08-06] MEDS: metroNIDAZOLE 500 MG INJ 100 ML IV SCH (08:13)
[2016-08-06] MEDS: PANTOPRAZOLE SODIUM 40 MG VIAL IV SCH (08:14)
[2016-08-06] MEDS: BUDESONIDE-FORMOTEROL 160/4.5 MCG INHALER INH SCH ×2 (08:15→21:01)
[2016-08-06] MEDS: HEPARIN SODIUM - SQ 10,000 UNITS/ML VIAL SQ SCH ×2 (08:15→21:02)
[2016-08-06] MEDS: SODIUM CHLORIDE 0.9% FLUSH 5 ML FLUSH IV FLUSH SCH ×2 (10:00→21:00)
[2016-08-06] MEDS: AZITHROMYCIN INJ 500 MG in SODIUM CHLOR 0.9% 250 ML INJ 250 ML IV SCH (10:38)
[2016-08-06] MEDS: ONDANSETRON HCL 4 MG/2 ML VIAL IV PRN ×2 (11:21→18:35)
[2016-08-06] MEDS ORDERED: FUROSEMIDE 40 MG/4 ML VIAL IV PUSH SCH (11:30)
--- NOTE | 2016-08-06 12:14 | HHI.PR ---
Subjective Remarks 70 year-old male who originally presented to hospital with several bouts of emesis. 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 The patient presents emergency department found to have signs of sepsis with leukocytosis, pneumonia, elevated lactic acid. On 2 L nasal cannula he had a PaO2 of 58. Because of those reasons patient was initially admitted to critical care in the ICU. Patient was evaluated by the critical care physicians and has been stabilized and request care transfer to medical team for continued management. Patient does have signs of right sided pneumonia likely aspiration. Patient has been stabilized and on 3 L nasal cannula for O2 supplementation. He is on Zosyn, Zithromax, Flagyl for antibiotic coverage. Patient states that is doing well. He is not expressing shortness of breath or dyspnea. Patient remains afebrile. Objective Vitals Vital Signs Date Time Temp Pulse Resp B/P Pulse Ox O2 Delivery O2 Flow Rate FiO2 08/06/16 09:19 95 Nasal Cannula 3.00 08/06/16 08:00 106 17 145/76 94 08/06/16 07:00 98.3 94 19 118/65 96 08/06/16 06:00 104 23 144/80 96 08/06/16 06:00 104 08/06/16 05:00 98 22 115/59 96 08/06/16 04:00 100 08/06/16 04:00 100 21 123/62 97 08/06/16 03:00 92 24 133/73 95 08/06/16 02:00 98 08/06/16 02:00 98 22 150/68 97 08/06/16 01:00 96 19 117/54 95 08/06/16 00:00 96 08/06/16 00:00 98.2 96 22 122/59 97 08/05/16 23:00 100 23 111/62 97 08/05/16 22:00 102 08/05/16 22:00 102 21 104/55 97 08/05/16 21:30 96 Nasal Cannula 3.00 08/05/16 21:00 100 23 126/71 97 08/05/16 20:00 95 08/05/16 20:00 97.7 94 21 115/65 97 08/05/16 19:00 96 21 119/67 98 08/05/16 18:00 90 2/18/17 18:00 90 18 104/64 97 08/05/16 17:00 96 08/05/16 17:00 96 19 117/55 97 08/05/16 16:00 98.2 98 22 113/58 96 08/05/16 16:00 98 08/05/16 15:00 106 23 136/73 95 08/05/16 15:00 106 08/05/16 14:00 106 23 136/73 95 08/05/16 14:00 96 08/05/16 14:00 96 18 124/60 100 08/05/16 13:00 94 18 100/55 98 08/05/16 13:00 94 08/05/16 12:00 98.3 102 16 98/54 95 08/05/16 12:00 102 I/O 08/05/16 08/05/16 08/05/16 08/06/16 08/06/16 08/06/16 07:00 15:00 23:00 07:00 15:00 23:00 Intake Total 1850 ml 2535 ml 1159 ml Output Total 500 ml 1100 ml 675 ml Balance 1350 ml 1435 ml 484 ml Intake Oral 0 ml 0 ml IV Total 1850 ml 2535 ml 1059 ml Tube Feeding 0 ml Tube Irrigant 100 ml Output Urine Total 500 ml 1100 ml 675 ml # Voids 2 # Bowel Movements 0 1 Result Diagram: 08/06/16 0535 08/06/16 0535 Objective Remarks GENERAL: Well-developed, well-nourished, in no acute distress. alert and orientated HEENT: Head is normocephalic without any lesions or masses noted. Facial features are symmetric. Eyes: Extraocular muscles are intact. Conjunctivae were clear. NECK: Supple without any masses. Trachea midline no deviation. No JVD, no bruits are appreciated CARDIAC: Regular rhythm, regular rate. S1/S2 are heard. No murmurs gallops or rubs. LUNGS: Clear to auscultation bilaterally. No wheeze, rhonchi or rales. No use of accessory muscles on inspiration or expiration. ABDOMEN: Soft, nontender. Nondistended. Bowel sounds heard in all 4 quadrants. No organomegaly or masses. Negative rebound, negative guarding. PEG tube noted EXTREMITIES: No edema, pulses are equal bilaterally. No cyanosis or clubbing NEUROLOGY: Mood and affect appear appropriate. Cranial nerves II through XII grossly intact. Moving all extremities, speech is clear Urinary Catheter: No Vascular Central Line Catheter: No A/P Assessment and Plan Sepsis. Patient still meets criteria with leukocytosis, tachycardia, lactic acid acidosis, pneumonia. Continue treatment for aspiration pneumonia. Influenza testing was negative. Legionella, strep pneumonia testing was negative. Blood cultures are negative for 1 day. Continue to follow CBC for leukocytosis. Follow lactic acid level Acute hypoxic respiratory failure, resolved. Secondary to aspiration pneumonia. Continue O2 supplementation to maintain O2 sats greater than 92%. Continue nebulizer treatments. Continue Symbicort. Acute aspiration pneumonia: Secondary to esophageal dyskinesia, dysphagia. Chest x-ray does indicate right basilar pneumonia. Repeat chest x-ray today does indicate worsening bilateral edema versus pneumonia. Patient on antibiotics to include Zosyn, Zithromax, Flagyl. Will discontinue Flagyl. Await sputum culture for appropriate antibiotics. Continue nebulizer treatments. Renal sufficiency: Improved. Continue monitor renal function. Avoid nephrotoxins Dysphagia, esophageal dyskinesia, history of tongue/throat cancer: Patient does have a PEG tube in place. Dietary was consulted to evaluate for PEG tube feeding. Resume tube feeds in a.m. (pt does not want to start now due to nausea) . He takes ensure plus 6 cans per day. Hyperglycemia: Likely from critical illness. Check hemoglobin A1c, patient on Accu-Cheks with sliding scale insulin. Has only required 1 unit of insulin since admission. If no longer requires insulin for tomorrow. Will discontinue Accu-Cheks and sliding scale Hypothyroidism: Replace her therapy continued DVT prevention: Subcutaneous heparin Written by Guille Keita PA-C, acting as scribe for Dr. Zabala on 08/06/16 at 15:00. The documentation accurately reflects the work and decisions performed face-to- face by Dr. Zabala on 08/06/16 at 15:00. Guille Keita Aug 06, 2016 12:14 Karon Zabala MD Aug 06, 2016 15:25
[2016-08-06] MEDS ORDERED: FUROSEMIDE 40 MG/4 ML VIAL IV PUSH ONE (17:15)
[2016-08-07] VITALS (20 sets, daily range): BP systolic 101–160; BP diastolic 58–87; PULSE 92–106; RESP 17–41; TEMP 97.8–98.6; O2SAT 94–98
[2016-08-07] MEDS: CHLORHEXIDINE GLUCONATE 2 % 1 PACK (2 CLOTHS) TOP SCH (02:54)
[2016-08-07] MEDS: PIPERACIL-TAZO 4.5 GM PREMIX 100 ML IV SCH ×2 (02:54→08:49)
[2016-08-07] MEDS: RESP: ALBUTEROL 2.5 MG/IPRATROPIUM 0.5 MG NEB (SCH) INH ×4 (03:29→20:50)
[2016-08-07 05:21] LABS: AUTOMATED NEUTROPHIL # 16.5 TH/MM3 (1.8-7.7); BASOPHIL % 0.2 % (0.0-2.0); EOSINOPHIL # 0.1 TH/MM3 (0-0.4); EOSINOPHIL % 0.4 % (0.0-4.0); HEMO FLAGS DIFF FINAL; LYMPH % 7.8 % (9.0-44.0); LYMPHOCYTE # 1.5 TH/MM3 (1.0-4.8); MEAN CELL VOLUME 84.5 FL (80.0-100.0); MEAN CORPUSCULAR HEMOGLOBIN 27.5 PG (27.0-34.0); MEAN CORPUSCULAR HGB CONC 32.6 % (32.0-36.0); MONO % 4.2 % (0.0-8.0); NEUT % 87.4 % (16.0-70.0); PLATELET COUNT 144 TH/MM3 (150-450); RED BLOOD COUNT 4.39 MIL/MM3 (4.50-5.90); RED CELL DISTRIBUTION WIDTH 12.9 % (11.6-17.2); WHITE BLOOD COUNT 18.9 TH/MM3 (4.0-11.0)
[2016-08-07] MEDS: LEVOTHYROXINE SODIUM 75 MCG TAB G-TUBE SCH (05:49)
[2016-08-07] MEDS: [UNRECOGNIZED DRUG - REMARK] SQ SCH ×2 (05:52)
[2016-08-07 06:05] LABS: BICARBONATE 28.3 MEQ/L (21.0-32.0); POTASSIUM 3.3 MEQ/L (3.5-5.1)
--- NOTE | 2016-08-07 06:52 | RADHPO ---
EXAM DATE/TIME: 08/07/2016 06:38 [facility] COMPARISON: CHEST SINGLE AP, August 06, 2016, 6:01. INDICATIONS : Short of breath. MEDICAL HISTORY : Carcinoma of the throat. SURGICAL HISTORY : Gastric feeding tube. ENCOUNTER: Subsequent ACUITY: 3 days PAIN SCORE: 5/10 LOCATION: Bilateral chest FINDINGS: The heart size is normal. There are bibasilar areas of consolidation being worse on the right. A sign ificant effusion is not seen. CONCLUSION: Bibasilar areas of consolidation being worse on the right. Bc Her MD on August 07, 2016 at 6:50 Board Certified Radiologist. This report was verified electronically.
[2016-08-07] MEDS: DOCUSATE SODIUM 100 MG CAP GT SCH ×2 (08:00→20:00)
[2016-08-07] MEDS: BUDESONIDE-FORMOTEROL 160/4.5 MCG INHALER INH SCH ×2 (08:48→21:21)
[2016-08-07] MEDS: HEPARIN SODIUM - SQ 10,000 UNITS/ML VIAL SQ SCH ×2 (08:48→21:19)
[2016-08-07] MEDS: PANTOPRAZOLE SODIUM 40 MG VIAL IV SCH (08:49)
[2016-08-07] MEDS ORDERED: FUROSEMIDE 40 MG/4 ML VIAL IV PUSH SCH ×2 (09:00)
[2016-08-07] MEDS: ONDANSETRON HCL 4 MG/2 ML VIAL IV PRN (09:38)
[2016-08-07] MEDS: AZITHROMYCIN INJ 500 MG in SODIUM CHLOR 0.9% 250 ML INJ 250 ML IV SCH (09:44)
--- NOTE | 2016-08-07 10:21 | HHI.PR ---
Subjective Remarks Patient seen and examined today with Dr. Zabala. Patient states that he is feeling much better. Only on 1 L nasal cannula for O2 supplementation. Objective Vitals Vital Signs Date Time Temp Pulse Resp B/P Pulse Ox O2 Delivery O2 Flow Rate FiO2 08/07/16 10:07 97 Nasal Cannula 1.00 08/07/16 06:01 106 27 160/87 96 08/07/16 06:00 106 08/07/16 05:00 94 19 114/67 96 08/07/16 04:00 98 08/07/16 04:00 97.8 98 18 129/65 97 08/07/16 03:00 92 17 101/58 95 08/07/16 02:00 96 24 129/67 97 08/07/16 02:00 96 08/07/16 01:00 96 18 131/80 97 08/07/16 00:00 100 08/07/16 00:00 98.0 100 18 141/76 96 08/06/16 23:00 104 20 118/64 96 08/06/16 22:00 112 20 159/81 96 08/06/16 22:00 112 08/06/16 21:25 98 Nasal Cannula 2.00 08/06/16 21:00 98 22 144/87 97 08/06/16 20:00 99.1 96 18 133/66 97 08/06/16 20:00 101 08/06/16 19:00 102 24 140/79 98 08/06/16 18:00 108 08/06/16 18:00 108 28 155/89 97 08/06/16 17:00 102 18 151/85 97 08/06/16 16:00 104 08/06/16 16:00 98.5 104 20 147/77 96 08/06/16 15:00 106 08/06/16 15:00 106 23 150/84 96 08/06/16 14:00 104 08/06/16 14:00 104 23 148/77 96 08/06/16 13:00 108 08/06/16 13:00 108 22 161/85 96 08/06/16 12:00 110 08/06/16 12:00 98.6 110 22 180/90 95 08/06/16 11:00 110 08/06/16 11:00 110 19 137/71 94 I/O 208/06/16 08/06/16 08/07/16 08/07/16 08/07/16 07:00 15:00 23:00 07:00 15:00 23:00 Intake Total 1159 ml 1004 ml 783 ml 860 ml Output Total 675 ml 2900 ml 1275 ml 400 ml Balance 484 ml -1896 ml -492 ml 460 ml Intake Oral 0 ml 0 ml 0 ml IV Total 1059 ml 1004 ml 723 ml 800 ml Tube Feeding 0 ml Tube Irrigant 100 ml Other 60 ml 60 ml Output Urine Total 675 ml 2900 ml 1275 ml 400 ml # Bowel Movements 1 0 0 0 Result Diagram: 08/07/1642908/07/16429 Objective Remarks GENERAL: Well-developed, well-nourished, in no acute distress. alert and orientated HEENT: Head is normocephalic without any lesions or masses noted. Facial features are symmetric. Eyes: Extraocular muscles are intact. Conjunctivae were clear. NECK: Supple without any masses. Trachea midline no deviation. No JVD, no bruits are appreciated CARDIAC: Regular rhythm, regular rate. S1/S2 are heard. No murmurs gallops or rubs. LUNGS: Clear to auscultation bilaterally but diminished in bases. No wheeze, rhonchi or rales. No use of accessory muscles on inspiration or expiration. ABDOMEN: Soft, nontender. Nondistended. Bowel sounds heard in all 4 quadrants. No organomegaly or masses. Negative rebound, negative guarding. PEG tube noted EXTREMITIES: No edema, pulses are equal bilaterally. No cyanosis or clubbing NEUROLOGY: Mood and affect appear appropriate. Cranial nerves II through XII grossly intact. Moving all extremities, speech is clear Urinary Catheter: No Vascular Central Line Catheter: No A/P Assessment and Plan Sepsis due to aspiration pneumonia in RLL. Influenza testing was negative. Legionella, strep pneumonia testing was negative. Blood cultures are negative for 1 day. Sputum culture heavy growth normal respiratory michael. Continue to follow CBC for leukocytosis. Lactic acid level returned to normal. Cont abx as below. Acute hypoxic respiratory failure, resolved. Secondary to aspiration pneumonia. Continue O2 supplementation to maintain O2 sats greater than 92%. Continue nebulizer treatments. Continue Symbicort. Acute aspiration pneumonia: Likely Secondary to esophageal dyskinesia, dysphagia. Chest x-ray does indicate right basilar pneumonia. Repeat chest x- ray today does indicate worsening bilateral edema versus pneumonia. Patient on antibiotics to include Zosyn, Zithromax, sputum culture heavy growth normal respiratory michael.. Continue nebulizer treatments. Renal sufficiency: Improved. Continue monitor renal function. Avoid nephrotoxins Dysphagia, esophageal dyskinesia, history of tongue/throat cancer: Patient does have a PEG tube in place. Dietary was consulted and made to feeding recommendations. Hyperglycemia: Likely from critical illness. Awaiting hemoglobin A1c, patient on Accu-Cheks with sliding scale insulin. Has only required 1 unit of insulin since admission. Discontinue Accu-Cheks and sliding scale insulin Hypothyroidism: Replacement therapy continued DVT prevention: Subcutaneous heparin Written by Guille Keita PA-C, acting as scribe for Dr. Zabala on 08/07/16 at 1100. The documentation accurately reflects the work and decisions performed face-to- face by Dr. Zabala on 08/07/16 at 1100. Discharge Planning Discharge home in 24-48 hours Guille Keita Aug 07, 2016 10:21 Karon Zabala MD Aug 07, 2016 11:05
[2016-08-07] MEDS ORDERED: POTASSIUM CL 40 MEQ/30 ML LIQ UDC PO ONE (10:30)
[2016-08-07] MEDS: SODIUM CHLORIDE 0.9% FLUSH 5 ML FLUSH IV FLUSH SCH ×2 (14:41→21:25)
[2016-08-07] MEDS: PIPERACILLIN/TAZ 4.5 GM VIAL 4.5 GM in SODIUM CHLORIDE 0.9% INJ 100 ML IV SCH ×2 (16:00→21:22)
[2016-08-07 16:25] LABS: HEMOGLOBIN A1a 1.3 %; HEMOGLOBIN A1b 0.9 %; HEMOGLOBIN Ao 84.3 %; HEMOGLOBIN F 2.4 %; HEMOGLOBIN LA1C 1.4 %; HEMOGLOBIN P3 3.4 %
[2016-08-07] MEDS: FERROUS SULFATE 300 MG /5ML UDC PEG SCH ×2 (17:44→21:27)
[2016-08-08] VITALS (7 sets, daily range): BP systolic 119–134; BP diastolic 71–88; PULSE 89–94; RESP 18–20; TEMP 96.4–98.5; O2SAT 95–96
[2016-08-08] MEDS: PIPERACILLIN/TAZ 4.5 GM VIAL 4.5 GM in SODIUM CHLORIDE 0.9% INJ 100 ML IV SCH (02:13)
[2016-08-08] MEDS: RESP: ALBUTEROL 2.5 MG/IPRATROPIUM 0.5 MG NEB (SCH) INH ×4 (02:44→20:51)
[2016-08-08] MEDS: CHLORHEXIDINE GLUCONATE 2 % 1 PACK (2 CLOTHS) TOP SCH (04:00)
[2016-08-08] MEDS: LEVOTHYROXINE SODIUM 75 MCG TAB G-TUBE SCH (05:39)
[2016-08-08 07:00] LABS: AUTOMATED NEUTROPHIL # 5.1 TH/MM3 (1.8-7.7); BASOPHIL # 0.1 TH/MM3 (0-0.2); EOSINOPHIL % 0.7 % (0.0-4.0); HEMATOCRIT 38.3 % (39.0-51.0); HEMO FLAGS DIFF FINAL; LYMPH % 15.9 % (9.0-44.0); LYMPHOCYTE # 1.1 TH/MM3 (1.0-4.8); MEAN CELL VOLUME 84.5 FL (80.0-100.0); MEAN CORPUSCULAR HEMOGLOBIN 27.4 PG (27.0-34.0); MEAN CORPUSCULAR HGB CONC 32.5 % (32.0-36.0); MONO % 8.7 % (0.0-8.0); NEUT % 73.7 % (16.0-70.0); PLATELET COUNT 181 TH/MM3 (150-450); RED BLOOD COUNT 4.54 MIL/MM3 (4.50-5.90); RED CELL DISTRIBUTION WIDTH 13.1 % (11.6-17.2); WHITE BLOOD COUNT 6.9 TH/MM3 (4.0-11.0)
[2016-08-08 07:07] LABS: POTASSIUM 3.7 MEQ/L (3.5-5.1)
[2016-08-08 07:13] LABS: BICARBONATE 28.2 MEQ/L (21.0-32.0)
[2016-08-08] MEDS: LANSOPRAZOLE SOLUTAB 30 MG TAB NG SCH (08:25)
[2016-08-08] MEDS: FERROUS SULFATE 300 MG /5ML UDC PEG SCH ×2 (08:25→21:56)
[2016-08-08] MEDS: FUROSEMIDE 20 MG TAB PO SCH (08:25)
[2016-08-08] MEDS: HEPARIN SODIUM - SQ 10,000 UNITS/ML VIAL SQ SCH ×2 (08:25→21:54)
[2016-08-08] MEDS: DOCUSATE SODIUM 100 MG CAP GT SCH ×2 (08:25→20:00)
[2016-08-08] MEDS: SODIUM CHLORIDE 0.9% FLUSH 5 ML FLUSH IV FLUSH SCH ×2 (08:26→21:53)
[2016-08-08] MEDS: BUDESONIDE-FORMOTEROL 160/4.5 MCG INHALER INH SCH ×2 (08:34→21:52)
[2016-08-08] MEDS ORDERED: PIPERACIL-TAZO 4.5 GM PREMIX 100 ML IV SCH (09:00)
[2016-08-08] MEDS: LEVOFLOXACIN 750 MG TAB PO SCH (10:08)
--- NOTE | 2016-08-08 13:05 | HHI.PR ---
Subjective Remarks The patient is stable on room air. He passed his walk tests and does not require home oxygen. He feels slightly more energetic. Leukocytosis has resolved. Objective Vitals Vital Signs Date Time Temp Pulse Resp B/P Pulse Ox O2 Delivery O2 Flow Rate FiO2 08/08/16 09:15 95 21 08/08/16 08:00 96.9 91 20 124/77 96 08/08/16 00:00 98.3 89 18 134/79 96 08/07/16 20:50 95 21 08/07/16 20:00 98.6 94 20 105/67 97 08/07/16 16:39 94 21 08/07/16 16:10 97.9 20 112/65 97 08/07/16 16:00 94 22 I/O 08/07/16 08/07/16 08/07/16 08/08/16 08/08/16 08/08/16 07:00 15:00 23:00 07:00 15:00 23:00 Intake Total 860 ml 735 ml 441 ml 515 ml Output Total 400 ml 1750 ml 450 ml 325 ml Balance 460 ml -1015 ml -9 ml 190 ml Intake Oral 0 ml 0 ml 0 ml IV Total 800 ml 615 ml 150 ml 150 ml Tube Feeding 120 ml 291 ml 365 ml Other 60 ml Output Urine Total 400 ml 1750 ml 450 ml 325 ml # Voids 5 # Bowel Movements 0 1 0 Result Diagram: 08/08/1663608/08/1637 Objective Remarks GENERAL: Well-developed, well-nourished, in no acute distress. alert and orientated HEENT: Head is normocephalic without any lesions or masses noted. Facial features are symmetric. Eyes: Extraocular muscles are intact. Conjunctivae were clear. NECK: Supple without any masses. Trachea midline no deviation. No JVD, no bruits are appreciated CARDIAC: Regular rhythm, regular rate. S1/S2 are heard. No murmurs gallops or rubs. LUNGS: Crackles in the right base and rhonchi in the left base. Nonlabored breathing on room air. ABDOMEN: Soft, nontender. Nondistended. Bowel sounds heard in all 4 quadrants. No organomegaly or masses. Negative rebound, negative guarding. PEG tube noted EXTREMITIES: No edema, pulses are equal bilaterally. No cyanosis or clubbing NEUROLOGY: Mood and affect appear appropriate. Cranial nerves II through XII grossly intact. Moving all extremities, speech is clear A/P Assessment and Plan Sepsis due to aspiration pneumonia in RLL. Influenza testing was negative. Legionella, strep pneumonia testing was negative. Blood cultures are negative. Sputum culture heavy growth normal respiratory michael. Leukocytosis has resolved. We'll transition to by mouth Levaquin today. Acute hypoxic respiratory failure, resolved now stable on room air. Secondary to aspiration pneumonia. Continue O2 supplementation to maintain O2 sats greater than 92%. Continue nebulizer treatments. Continue Symbicort. Acute aspiration pneumonia: Likely Secondary to esophageal dyskinesia, dysphagia. Chest x-ray does indicate right basilar pneumonia. sputum culture heavy growth normal respiratory michael Will transition to by mouth Levaquin. Continue nebulizer treatments. Renal sufficiency: Improved. Continue monitor renal function. Avoid nephrotoxins Dysphagia, esophageal dyskinesia, history of tongue/throat cancer: Patient does have a PEG tube in place. Dietary was consulted and made to feeding recommendations. Hyperglycemia: Likely from critical illness. Awaiting hemoglobin A1c, patient on Accu-Cheks with sliding scale insulin. Has only required 1 unit of insulin since admission. Discontinue Accu-Cheks and sliding scale insulin Hypothyroidism: Replacement therapy continued DVT prevention: Subcutaneous heparin Discharge Planning Anticipate discharge home tomorrow if remains stable on by mouth Levaquin. Karon Zabala MD Aug 08, 2016 13:05
[2016-08-09] VITALS: BP 121/68; PULSE 86; RESP 18; TEMP 96.1; O2SAT 96
[2016-08-09] MEDS: RESP: ALBUTEROL 2.5 MG/IPRATROPIUM 0.5 MG NEB (SCH) INH ×2 (03:44→10:00)
[2016-08-09] MEDS: CHLORHEXIDINE GLUCONATE 2 % 1 PACK (2 CLOTHS) TOP SCH (03:48)
[2016-08-09] MEDS: LEVOTHYROXINE SODIUM 75 MCG TAB G-TUBE SCH (05:50)
[2016-08-09 08:00] VITALS: BP 142/80; PULSE 91; RESP 22; TEMP 96; O2SAT 95
[2016-08-09] MEDS: LANSOPRAZOLE SOLUTAB 30 MG TAB NG SCH (09:43)
[2016-08-09] MEDS: FUROSEMIDE 20 MG TAB PO SCH (09:43)
[2016-08-09] MEDS: DOCUSATE SODIUM 100 MG CAP GT SCH (09:43)
[2016-08-09] MEDS: LEVOFLOXACIN 750 MG TAB PO SCH (09:43)
[2016-08-09] MEDS: BUDESONIDE-FORMOTEROL 160/4.5 MCG INHALER INH SCH (09:43)
[2016-08-09] MEDS: HEPARIN SODIUM - SQ 10,000 UNITS/ML VIAL SQ SCH (09:43)
[2016-08-09] MEDS: FERROUS SULFATE 300 MG /5ML UDC PEG SCH (09:44)
[2016-08-09] MEDS: SODIUM CHLORIDE 0.9% FLUSH 5 ML FLUSH IV FLUSH SCH (09:44)
[2016-08-09 10:04] VITALS: O2SAT 93
[2016-08-09] MEDS ORDERED: LEVA750T PO (10:40)
--- NOTE | 2016-08-09 10:42 | HHI.DCPOC ---
Discharge Care Plan Diagnosis: (1) Pneumonia Goals to Promote Your Health * To prevent worsening of your condition and complications * To maintain your health at the optimal level Directions to Meet Your Goals Take your medications as prescribed Follow your dietary instruction Follow activity as directed Keep your appointments as scheduled Take your immunizations and boosters as scheduled If your symptoms worsen call your PCP, if no PCP go to Urgent Care Center or Emergency Room Smoking is Dangerous to Your Health. Avoid second hand smoke Call the 24-hour hour crisis hotline for domestic abuse at Kami Juárez MD Aug 09, 2016 10:42
--- NOTE | 2016-08-09 10:45 | HHI.DS ---
Discharge Summary Admission Date Aug 05, 2016 at 03:40 Discharge Date: Aug 09, 2016 Admitting Diagnosis pneumonia; sepsis; copd;h/o larygeal cancer (1) Pneumonia ICD Code: J18.9 (2) Dysphagia ICD Code: R13.10 Procedures None Brief History - From Admission This is 70-year-old male that presented to the ED with complaints of acute progressive dyspnea. 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 Patient does not take anything by mouth and has a PEG tube in place. Patient has noted increasing shortness of breath. Patient has history of COPD and hypothyroidism. Patient was last hospitalized in 2012 with aspiration pneumonia and difficulty with breathing. Patient's had previous tracheostomy and has history of aphasia and dyskinesia the esophagus. Patient also has history of esophageal stricture chronic laryngitis and states that his current hoarseness is his baseline. In the ED, laboratory and imaging studies were obtained, revealing right lower lobe pneumonia, and an elevated lactic acid. Initially PaO2 on 2 L revealed a PaO2 of 58. The patient received bronchodilators, steroids, and antibiotics. Critical-care medicine is consulted for treatment and management. [facility] Past Medical History Narrative Medical COPD hypothyroidism pneumonia posterior tongue laryngeal cancer with chemotherapy radiation therapy and excisional therapy previous tracheostomy PEG tube no tobacco use nursing notes reviewed Anemia: Yes Blood Disorders: No Cancer: Yes Cardiovascular Problems: No Chemotherapy: Yes COPD: Yes Endocrine: No Gastrointestinal Disorders: Yes (G-TUBE PLACED: 2012 "EPIGLOTTIS DOESN'T WORK ") Genitourinary: No Immune Disorder: No Inguinal Hernia: Yes Kidney Stones: Yes Musculoskeletal: No Neurologic: No Psychiatric: No Reproductive: No Respiratory: No Pneumonia: Yes (ASPIRATION) Radiation Therapy: Yes Thyroid Disease: Yes Tetanus Vaccination: > 5 Years Influenza Vaccination: Yes Past Surgical History Abdominal Surgery: Yes (HERNIA) Oral Surgery: Yes (THROAT SURGERY RELATED TO CA.) Pacemaker: No Tonsillectomy: Yes Other Surgery: Yes (THROAT CANCER) Social History Alcohol Use: No Tobacco Use: No (QUIT 50 YRS AGO) Substance Use: No Allergies-Medications (Allergen,Severity, Reaction): Coded Allergies: No Known Allergies (Unverified , 08/05/16) Reported Meds & Prescriptions Reported Meds & Active Scripts Active Reported Synthroid (Levothyroxine Sodium) 75 Mcg Tab 75 Mcg G-TUBE DAILY Zofran (Ondansetron HCl) 4 Mg Tab 4 Mg G-TUBE Q6HR PRN Symbicort Inh (Budesonide/Formoterol Fumarate) 160-4.5 Mcg/Act Aero 2 Puff INH Q12HR Albuterol Neb (Albuterol Sulfate) 2.5 Mg/3 Ml Neb 2.5 Mg NEB Q4HR NEB PRN Review of Systems Except as stated in HPI: all other systems reviewed are Neg General / Constitutional: No: Fever, Chills HENT: Positive: Congestion Cardiovascular: No: Chest Pain or Discomfort Respiratory: Positive: Cough, Shortness of Breath, Wheezing Gastrointestinal: No: Abdominal Pain Genitourinary: No: Flank Pain Musculoskeletal: No: Myalgias, Arthralgias Skin: No Rash Neurologic: No: Weakness Psychiatric: No: Anxiety Hematologic/Lymphatic: No: Easy Bruising CBC/BMP: 08/08/16 0637 08/08/16 0637 Significant Findings Laboratory Tests Test 08/07/16 08/08/16 04:30 06:37 White Blood Count 18.9 TH/MM3 (4.0-11.0) Red Blood Count 4.39 MIL/MM3 (4.50-5.90) Hemoglobin 12.1 GM/DL 12.4 GM/DL (13.0-17.0) (13.0-17.0) Hematocrit 37.0 % 38.3 % (39.0-51.0) (39.0-51.0) Platelet Count 144 TH/MM3 (150-450) Neutrophils (%) (Auto) 87.4 % 73.7 % (16.0-70.0) (16.0-70.0) Lymphocytes (%) (Auto) 7.8 % (9.0-44.0) Neutrophils # (Auto) 16.5 TH/MM3 (1.8-7.7) Potassium Level 3.3 MEQ/L (3.5-5.1) Calcium Level 8.3 MG/DL 8.1 MG/DL (8.5-10.1) (8.5-10.1) Monocytes (%) (Auto) 8.7 % (0.0-8.0) Blood Urea Nitrogen 22 MG/DL (7-18) PE at Discharge GENERAL: This is a well-nourished, well-developed patient, in no apparent distress. CARDIOVASCULAR: Regular rate and rhythm without murmurs, gallops, or rubs. RESPIRATORY: Clear to auscultation. Breath sounds equal bilaterally. No wheezes , rales, or rhonchi. GASTROINTESTINAL: peg, Abdomen soft, non-tender, nondistended. Normal active bowel sounds MUSCULOSKELETAL: Extremities without clubbing, cyanosis, or edema. NEURO: Alert & Oriented x4 to person, place, time, situation. Moves all ext x4 Pt update on day of discharge Patient seen today in follow-up for discharge planning. Care plan discussed with patient, nursing team and with respiratory therapy. Questions answered for discharge plans patient Hospital Course Patient was seen and treated for pneumonia. He also did have COPD exacerbation. His tube feedings (patient has dysphasia due to incompetent epiglottis with throat cancer/carcinoma status post surgery and radiation. He has been doing much better with the bronchodilators and started antibiotics. No events overnight and patient be discharged home. Pt Condition on Discharge: Good Discharge Disposition: Discharge Home Discharge Time: > 30 minutes Discharge Instructions DIET: Follow Instructions for: As Tolerated, No Restrictions, On Tube Feeding Activities you can perform: Regular-No Restrictions Follow up Referrals: PCP Follow-up - [facility] New Medications: Levofloxacin (Levaquin) 750 Mg Tab 750 MG PO DAILY Infection #6 TAB Continued Medications: Albuterol Neb (Albuterol Neb) 2.5 Mg/3 Ml Neb 2.5 MG NEB Q4HR NEB PRN SHORTNESS OF BREATH #60 Ref 0 NEBULE Budesonide-Formoterol Inh (Symbicort Inh) 160-4.5 Mcg/Act Aero 2 PUFF INH Q12HR #1 Ref 0 INHALER Levothyroxine (Synthroid) 75 Mcg Tab 75 MCG G-TUBE DAILY Thyroid #30 Ref 0 TAB Ondansetron (Zofran) 4 Mg Tab 4 MG G-TUBE Q6HR PRN NAUSEA OR VOMITING Ref 0 TAB Additional Information Patient also discharged on Glucerna tube feeding as per dietitian recommendations Kami Juárez MD Aug 09, 2016 10:44
== END 2016-08-09 12:00 | disposition home or self-care (01) | DRG 871 ==
LOC: PHED 01:53 → PHEDA 03:40 → PHICU 07:50 → PH3A 08-07 17:45
PROVIDERS: ADMIT Hospitalist; ATTEND Hospitalist
DX: A41.9 Sepsis, unspecified organism (principal); J69.0 Pneumonitis due to inhalation of food and vomit; J96.01 Acute respiratory failure with hypoxia; E87.2 Acidosis; J44.0 Chronic obstructive pulmonary disease with (acute) lower respiratory infection; R13.12 Dysphagia, oropharyngeal phase; J44.1 Chronic obstructive pulmonary disease with (acute) exacerbation; R65.20 Severe sepsis without septic shock; E03.9 Hypothyroidism, unspecified; J37.0 Chronic laryngitis; D64.9 Anemia, unspecified; K22.4 Dyskinesia of esophagus; R73.9 Hyperglycemia, unspecified; Z93.1 Gastrostomy status; Z92.3 Personal history of irradiation; Z85.21 Personal history of malignant neoplasm of larynx
CPT/HCPCS: 36600; 70491; 71010; 71275; 76937; 80048; 80053; 82550; 82805; 82948; 83036; 83605; 83735; 83880; 84100; 84132; 84443; 84484; 85025; 85610; 85730; 87040; 87070; 87205; 87449; 87641; 87804; 93005; 94620; 94640; 94664; 96361; 96365; 96375; C9113; J0456; J0692; J1644; J1940; J2405; J2543; J2930; J3370; J3480; J7030; J7040; J7050; Q9967

== ENCOUNTER 2016-12-02 12:11 | Inpatient (IN) | payer OTHER, MEDICARE ==
[2016-12-02] VITALS (7 sets, daily range): BP systolic 94–149; BP diastolic 61–77; PULSE 85–117; RESP 16–20; TEMP 97.5–100.2; O2SAT 93–99
[~2016-12-02] VITALS: Ht 182.9 cm; Wt 73.5 kg
[~2016-12-02 12:11] MED LIST changes: +ALBU0.08 NEB; -ALBU0.086 INH; +LEVA750T PO; +LEVO.075 G-TUBE; -PILO5TAB PO; -PROT40TA PO; -SYNT75TA PO; +ZOFR4TAB G-TUBE
[2016-12-02 12:33] LABS: BLOOD, URINE SMALL (NEG); GLUCOSE,URINE NEG (NEG); KETONE, URINE NEG (NEG); NITRITE,URINE NEG (NEG); PH, URINE 6.5 (5.0-8.5)
[2016-12-02] MEDS ORDERED: SODIUM CHLOR 0.9% 1000 ML INJ 1,000 ML IV ONE ×2 (12:35)
[2016-12-02] MEDS ORDERED: SODIUM CHLOR 0.9% 1000 ML INJ 400 ML IV ONE (12:35)
[2016-12-02 12:36] LABS: METHOD OF COLLECTION CLEAN CATCH
[2016-12-02 12:37] LABS: COMMENT (UR) CULT NOT INDICATED; CULTURE IF INDICATED CULT NOT INDICATED; SQUAMOUS EPITHELIAL CELL URINE 0-5 /hpf (0-5); URINE COLOR YELLOW (YELLW/STRAW); WBC, URINE 0-2 /hpf (0-5)
[2016-12-02] MEDS ORDERED: PROCHLORPERAZINE INJ 10 MG/2 ML VIAL IV PUSH ONE (12:45)
[2016-12-02] MEDS ORDERED: ACETAMINOPHEN 325 MG TAB G-TUBE ONE (12:45)
[2016-12-02] MEDS ORDERED: diphenhydrAMINE HCL 50 MG/ML VIAL IV PUSH ONE (12:45)
[2016-12-02 12:56] LABS: AUTOMATED NEUTROPHIL # 8.7 TH/MM3 (1.8-7.7); BASOPHIL # 0.3 TH/MM3 (0-0.2); BASOPHIL % 2.6 % (0.0-2.0); EOSINOPHIL % 0.2 % (0.0-4.0); HEMATOCRIT 41.1 % (39.0-51.0); LYMPH % 4.7 % (9.0-44.0); LYMPHOCYTE # 0.5 TH/MM3 (1.0-4.8); MEAN CELL VOLUME 83.4 FL (80.0-100.0); MEAN CORPUSCULAR HEMOGLOBIN 28.2 PG (27.0-34.0); MEAN CORPUSCULAR HGB CONC 33.8 % (32.0-36.0); NEUT % 88.5 % (16.0-70.0); PLATELET COUNT 143 TH/MM3 (150-450); RED BLOOD COUNT 4.93 MIL/MM3 (4.50-5.90); RED CELL DISTRIBUTION WIDTH 12.3 % (11.6-17.2); WHITE BLOOD COUNT 9.9 TH/MM3 (4.0-11.0)
[2016-12-02 13:01] LABS: HEMO FLAGS DIFF FINAL
[2016-12-02 13:11] LABS: CHLORIDE 104 MEQ/L (98-107); POTASSIUM 4.2 MEQ/L (3.5-5.1); SODIUM (NA) 139 MEQ/L (136-145)
[2016-12-02 13:14] LABS: ANION GAP 8 MEQ/L (5-15); BICARBONATE 27.3 MEQ/L (21.0-32.0)
[2016-12-02 13:15] LABS: BLOOD UREA NITROGEN 17 MG/DL (7-18)
[2016-12-02 13:17] LABS: ALT (GPT) 28 U/L (12-78); AST (GOT) 22 U/L (15-37); GLOMERULAR FILTRATION RATE 77 ML/MIN (>89)
[2016-12-02 13:19] LABS: TOTAL BILIRUBIN ADULT 0.9 MG/DL (0.2-1.0)
[2016-12-02 13:20] LABS: ALKALINE PHOSPHATASE 98 U/L (45-117)
[2016-12-02] MEDS ORDERED: ACETAMINOPHEN 650 MG/20.3 ML UDC G-TUBE ONE (13:45)
--- NOTE | 2016-12-02 13:50 | RADHPO ---
EXAM DATE/TIME: 12/02/2016 13:27 [place] COMPARISON: CHEST SINGLE AP, August 06, 2016, 6:01. CHEST SINGLE AP, August 07, 2016, 6:38. INDICATIONS : Fever, cough MEDICAL HISTORY : Carcinoma, oral cavity. SURGICAL HISTORY : None. ENCOUNTER: Initial ACUITY: 1 day PAIN SCORE: 0/10 LOCATION: Bilateral chest FINDINGS: Portable AP view of the chest demonstrates a normal-sized cardiac silhouette. Mild opacity overlies t he right midlung zone. No effusion or pneumothorax is identified. Bones and soft tissues demonstrate no acute finding. CONCLUSION: There is a mild airspace opacity overlying the right midlung zone which could represent an infectious process given the clinical history of cough and fever. No effusion is seen. Suggest followup chest x -ray to confirm resolution. Bc Figueredo MD on December 02, 2016 at 13:47 Board Certified Radiologist. This report was verified electronically.
--- NOTE | 2016-12-02 14:01 | PD ---
HPI . Fevers and chills Chief Complaint: GI Complaint Time Seen by Provider: 12:25 Travel History International Travel<30 days: No Contact w/Intl Traveler<30days: No Traveled to known affect area: No History of Present Illness HPI Patient presents with the chief complaint of the acute onset of fevers, chills, weakness, vomiting, diarrhea. He also has some abdominal pain. All of his symptoms started today. He reports a MAXIMUM TEMPERATURE at home of 102. He rates his abdominal pain as 3/10. His states that the symptoms that he is having today are very similar to previous symptoms when he had aspiration pneumonia. Not had a cough or shortness of breath today. History of COPD so always have some difficulty breathing. Patient and notes no exacerbating or relieving factors. Symptoms have been pretty continuous since he became ill this morning. PFSH Past Medical History Anemia: Yes Cancer: Yes ("BASE OF THE TONGUE, THROAT") Cardiovascular Problems: No Chemotherapy: Yes (2006) COPD: Yes Diabetes: No Endocrine: No Gastrointestinal Disorders: Yes (G-TUBE PLACED: 2012 "EPIGLOTTIS DOESN'T WORK ") Genitourinary: Yes Immune Disorder: No Inguinal Hernia: Yes Kidney Stones: Yes Musculoskeletal: No Neurologic: No Psychiatric: No Reproductive: No Respiratory: Yes Pneumonia: Yes (ASPIRATION) Radiation Therapy: Yes (2006) Thyroid Disease: Yes Influenza Vaccination: Yes ?: Not Past Surgical History Abdominal Surgery: Yes ( INGUINAL HERNIA REPAIRS X3) Cardiac Surgery: No Ear Surgery: No Endocrine Surgery: No Eye Surgery: No Genitourinary Surgery: No Oral Surgery: Yes (THROAT SURGERY RELATED TO CA.) Pacemaker: No Thoracic Surgery: No Tonsillectomy: Yes Other Surgery: Yes (THROAT CANCER) Social History Alcohol Use: No Tobacco Use: No (QUIT AGE 20) Substance Use: No Allergies-Medications (Allergen,Severity, Reaction): Coded Allergies: *MDRO Multi-Drug Resistant Organism (Verified Allergy, Unknown, MRSA, 12/02) MRSA PCR (nares) POSITIVE - 08/05/16 Reported Meds & Prescriptions Reported Meds & Active Scripts Active Reported Synthroid (Levothyroxine Sodium) 75 Mcg Tab 75 Mcg G-TUBE DAILY Symbicort Inh (Budesonide/Formoterol Fumarate) 160-4.5 Mcg/Act Aero 2 Puff INH Q12HR Albuterol Neb (Albuterol Sulfate) 2.5 Mg/3 Ml Neb 2.5 Mg NEB Q4HR NEB PRN Review of Systems Except as stated in HPI: all other systems reviewed are Neg General / Constitutional: Positive: Fever, Chills Cardiovascular: No: Chest Pain or Discomfort Respiratory: No: Shortness of Breath Gastrointestinal: Positive: Nausea, Vomiting, Diarrhea, Abdominal Pain Genitourinary: No: Urgency, Frequency, Dysuria Neurologic: Positive: Weakness Physical Exam Narrative Vital Signs Date Time Temp Pulse Resp B/P Pulse Ox O2 Delivery O2 Flow Rate FiO2 12/02/16 12:54 105 18 94/61 96 12/02/16 12:50 96 Room Air 12/02/16 12:20 100.2 117 16 123/75 93 ENERAL: This is a chronically ill-appearing man who does not appear to be in any acute distress. SKIN: Warm and dry. He is hot to the touch. HEAD: Atraumatic. Normocephalic. EYES: Pupils equal and round. Extraocular movements are intact. ENT: No nasal bleeding or discharge. Mucous membranes pink and moist. NECK: Trachea midline. Neck is very thin. It is supple. CARDIOVASCULAR: Mild tachycardia. RESPIRATORY: No accessory muscle use. Lungs sounded clear with good air movement throughout. GASTROINTESTINAL: Abdomen soft, non-tender, nondistended. PEG tube in place. MUSCULOSKELETAL: No obvious deformities. No edema. NEUROLOGICAL: Awake and alert. No obvious cranial nerve deficits. Motor grossly within normal limits. Normal speech. PSYCHIATRIC: Appropriate mood and affect; insight and judgment normal. Data Data Last Documented VS Vital Signs Date Time Temp Pulse Resp B/P Pulse Ox O2 Delivery O2 Flow Rate FiO2 12/02/16 12:54 105 18 94/61 96 12/02/16 12:50 Room Air 12/02/16 12:20 100.2 Orders Urinalysis - C+S If Indicated (12/02/16 12:26) Complete Blood Count With Diff (12/02/16 12:35) Comprehensive Metabolic Panel (12/02/16 12:35) Lactic Acid Sepsis Protocol (12/02/16 12:35) Blood Culture (12/02/16 12:35) Chest, Single Ap (12/02/16 12:35) Blood Glucose (12/02/16 12:35) Ecg Monitoring (12/02/16 12:35) Iv Access Insert/Monitor (12/02/16 12:35) Oximetry (12/02/16 12:35) Oxygen Administration (12/02/16 12:35) Acetaminophen (Tylenol) (12/02/16 12:45) Sodium Chlor 0.9% 1000 Ml Inj (Ns 1000 M (12/02/16 12:35) Sodium Chlor 0.9% 1000 Ml Inj (Ns 1000 M (12/02/16 12:35) Sodium Chlor 0.9% 1000 Ml Inj (Ns 1000 M (12/02/16 12:35) Prochlorperazine Inj (Compazine Inj) (12/02/16 12:45) Diphenhydramine Inj (Benadryl Inj) (12/02/16 12:45) Acetaminophen 650 Mg/20 Ml Liq (Tylenol (12/02/16 13:45) Labs Laboratory Tests Test 12/02/16 12/02/16 12:25 12:45 Urine Collection Type CLEAN CATCH Urine Color YELLOW Urine Turbidity SLIGHT Urine pH 6.5 Urine Specific [place] 1.017 Urine Protein NEG mg/dL Urine Glucose (UA) NEG mg/dL Urine Ketones NEG mg/dL Urine Occult Blood SMALL Urine Nitrite NEG Urine Bilirubin NEG Urine Leukocyte Esterase NEG Urine RBC 10-14 /hpf Urine WBC 0-2 /hpf Urine Squamous Epithelial 0-5 /hpf Cells Urine Amorphous Sediment MOD Microscopic Urinalysis Comment CULT NOT INDICATED Urine Collection Time 12:25 White Blood Count 9.9 TH/MM3 Red Blood Count 4.93 MIL/MM3 Hemoglobin 13.9 GM/DL Hematocrit 41.1 % Mean Corpuscular Volume 83.4 FL Mean Corpuscular Hemoglobin 28.2 PG Mean Corpuscular Hemoglobin 33.8 % Concent Red Cell Distribution Width 12.3 % Platelet Count 143 TH/MM3 Mean Platelet Volume 8.3 FL Neutrophils (%) (Auto) 88.5 % Lymphocytes (%) (Auto) 4.7 % Monocytes (%) (Auto) 4.0 % Eosinophils (%) (Auto) 0.2 % Basophils (%) (Auto) 2.6 % Neutrophils # (Auto) 8.7 TH/MM3 Lymphocytes # (Auto) 0.5 TH/MM3 Monocytes # (Auto) 0.4 TH/MM3 Eosinophils # (Auto) 0.0 TH/MM3 Basophils # (Auto) 0.3 TH/MM3 CBC Comment DIFF FINAL Differential Comment Sodium Level 139 MEQ/L Potassium Level 4.2 MEQ/L Chloride Level 104 MEQ/L Carbon Dioxide Level 27.3 MEQ/L Anion Gap 8 MEQ/L Blood Urea Nitrogen 17 MG/DL Creatinine 0.97 MG/DL Estimat Glomerular Filtration 77 ML/MIN Rate Random Glucose 122 MG/DL Lactic Acid Level 1.6 mmol/L Calcium Level 8.8 MG/DL Total Bilirubin 0.9 MG/DL Aspartate Amino Transf 22 U/L (AST/SGOT) Alanine Aminotransferase 28 U/L (ALT/SGPT) Alkaline Phosphatase 98 U/L Total Protein 7.3 GM/DL Albumin 3.7 GM/DL [facility] Medical Decision Making Medical Screen Exam Complete: Yes Emergency Medical Condition: Yes Medical Record Reviewed: Yes (medical history significant for cancer at the base of the tongue and throat. He is an incompetent epiglottitis. He is fed through a PEG tube. He has been treated with chemotherapy and radiation therapy. Other medical problems include COPD and hypothyroidism.) Differential Diagnosis Differential diagnosis includes but is not limited to viral gastritis, food poisoning, pancreatitis, pneumonia, hepatitis, acute coronary syndrome, Narrative Course Patient presents for the evaluation of the acute onset of vomiting, diarrhea, abdominal pain, weakness, fevers and chills. An IV was established. He is receiving IV fluids. He has had Tylenol per PEG tube for fever. A septic workup has been done. CBC & BMP Diagram 12/02/16 12:45 Lactic acid is 1.6. UA has no signs of infection. CXR>>Portable AP view of the chest demonstrates a normal-sized cardiac silhouette. Mild opacity overlies the right midlung zone. No effusion or pneumothorax is identified. Bones and soft tissues demonstrate no acute finding. The chest x-ray was independently viewed by me. Patient feels that he should probably be admitted overnight. I agree. Diagnosis Primary Impression: Pneumonia Qualified Code: J18.1 - Pneumonia of right middle lobe due to infectious organism Admitting Information Admitting Physician Requests: Observation Condition: Stable Melody Salamanca MD Dec 02, 2016 14:00
[2016-12-02] MEDS ORDERED: cefTRIAXone INJ 2,000 MG in SODIUM CHLORIDE 0.9% INJ 100 ML IV ONE (14:15)
[2016-12-02] MEDS ORDERED: AZITHROMYCIN INJ 500 MG in SODIUM CHLOR 0.9% 250 ML INJ 250 ML IV ONE (14:15)
[2016-12-02] MEDS ORDERED: SODIUM CHLORIDE 0.9% FLUSH 10 ML FLUSH IV FLUSH PRN (14:30)
[2016-12-02] MEDS ORDERED: RESP: ALBUTEROL 2.5 MG/3 ML NEB (PRN) NEB (14:30)
--- NOTE | 2016-12-02 14:39 | HHI.HP ---
[facility] Service [facility] Primary Care Physician [facility] Admission Diagnosis pneumonia Diagnoses: Chief Complaint: Fevers and chills and cough Travel History International Travel<30 Days: No Contact w/Intl Traveler <30 Da: No Traveled to Known Affected Are: No Sepsis Criteria SIRS Criteria (2 or more): Temp > 100.9 or < 96.8, Heart rate over 90 Severe Sepsis (+one): Hypotension History of Present Illness Patient is a 71-year-old gentleman with a known history of laryngeal carcinoma and chronic aspiration who presented to the emergency room with 1 day of fevers and chills and vomiting. Abdominal pain and was instructed by his spouse to home to the hospital. Temperature home was 102. He has maintained a fever here. And has been tachycardic and hypotensive. X-rays on my review do show a right sided infiltrate. Patient has had multiple episodes of aspiration. So this is pretty similar. He was hypoxemic mildly on arrival at 93% on room air. He does have history of COPD and normally takes his bronchodilator at home. No chest pain complaint and the patient has been feeling "run down"for the last week. For these reasons the patient is admitted to the hospital for further evaluation. He has felt better with some IV hydration and with antiemetics and antibiotics. Review of Systems Constitutional: DENIES: Diaphoretic episodes, Fatigue, Fever, Weight gain, Weight loss, Chills, Dizziness, Change in appetite, Night Sweats Endocrine: DENIES: Heat/cold intolerance, Polydipsia, Polyuria, Polyphagia Eyes: DENIES: Blurred vision, Diplopia, Eye inflammation, Eye pain, Vision loss , Photosensitivity, Double Vision Ears, nose, mouth, throat: DENIES: Tinnitus, Hearing loss, Vertigo, Nasal discharge, Oral lesions, Throat pain, Hoarseness, Ear Pain, Running Nose, Epistaxis, Sinus Pain, Toothache, Odynophagia Respiratory: COMPLAINS OF: Cough, Sputum production, Shortness of breath, DENIES: Apneas, Snoring, Wheezing, Hemoptysis Cardiovascular: DENIES: Chest pain, Palpitations, Syncope, Dyspnea on Exertion , PND, Lower Extremity Edema, Orthopnea, Claudication Gastrointestinal: COMPLAINS OF: Difficulty Swallowing, DENIES: Abdominal pain , Black stools, Bloody stools, Constipation, Diarrhea, Nausea, Vomiting, Anorexia Genitourinary: DENIES: Sexual dysfunction, Urinary frequency, Urinary incontinence, Urgency, Hematuria, Dysuria, Nocturia, Penile Discharge, Testicular Pain, Testicular Swelling Musculoskeletal: DENIES: Joint pain, Muscle aches, Stiffness, Joint Swelling, Back pain, Neck pain Integumentary: DENIES: Abnormal pigmentation, Nail changes, Pruritus, Rash Hematologic/lymphatic: DENIES: Bruising, Lymphadenopathy Immunologic/allergic: DENIES: Eczema, Urticaria Neurologic: DENIES: Abnormal gait, Headache, Localized weakness, Paresthesias, Seizures, Speech Problems, Tremor, Poor Balance Psychiatric: DENIES: Anxiety, Confusion, Mood changes, Depression, Hallucinations, Agitation, Suicidal Ideation, Homicidal Ideation, Delusions Past Family Social History Past Medical History COPD Hypothyroidism Oral pharyngeal cancer status post chemotherapy and radiation Past Surgical History Previous tracheostomy, PEG tube placement and excisional treatment of a laryngeal cancer Reported Medications Reviewed in the medical record, no new medicines Allergies: Coded Allergies: *MDRO Multi-Drug Resistant Organism (Verified Allergy, Unknown, MRSA, 12/02) MRSA PCR (nares) POSITIVE - 08/05/16 Active Ordered Medications Reviewed in the medical record Family History Family history of hypertension Social History Patient denies any tobacco or alcohol dependency, lives with his Physical Exam Vital Signs Vital Signs Date Time Temp Pulse Resp B/P Pulse Ox O2 Delivery O2 Flow Rate FiO2 12/02/16 14:16 98 20 125/66 99 Nasal Cannula 2 12/02/16 12:54 105 18 94/61 96 12/02/16 12:50 96 Room Air 12/02/16 12:20 100.2 117 16 123/75 93 Physical Exam GENERAL: This is a frail, well-developed patient, coughing SKIN: No rashes, ecchymoses or lesions. Cool and dry. HEAD: Atraumatic. Normocephalic. No temporal or scalp tenderness. EYES: Pupils equal round and reactive. Extraocular motions intact. No scleral icterus. No injection or drainage. ENT: Nose without bleeding, purulent drainage or septal hematoma. Throat without erythema, tonsillar hypertrophy or exudate. Uvula midline. Airway patent. NECK: Trachea midline. No JVD or lymphadenopathy. Supple, nontender, no meningeal signs. CARDIOVASCULAR: Regular rate and rhythm without murmurs, gallops, or rubs. RESPIRATORY: Clear to auscultation. Breath sounds equal bilaterally. No wheezes , rales, or rhonchi. GASTROINTESTINAL: PEG tube, Abdomen soft, non-tender, nondistended. No hepato- splenomegaly, or palpable masses. No guarding. MUSCULOSKELETAL: Extremities without clubbing, cyanosis, or edema. No joint tenderness, effusion, or edema noted. No calf tenderness. Negative Homans sign bilaterally. NEUROLOGICAL: Awake and alert. Cranial nerves II through XII intact. Motor and sensory grossly within normal limits. Five out of 5 muscle strength in all muscle groups. Normal speech. Laboratory Laboratory Tests Test 12/02/16 12/02/16 12:25 12:45 Urine Collection Type CLEAN CATCH Urine Color YELLOW Urine Turbidity SLIGHT Urine pH 6.5 Urine Specific [place] 1.017 Urine Protein NEG Urine Glucose (UA) NEG Urine Ketones NEG Urine Occult Blood SMALL Urine Nitrite NEG Urine Bilirubin NEG Urine Leukocyte Esterase NEG Urine RBC 10-14 Urine WBC 0-2 Urine Squamous Epithelial 0-5 Cells Urine Amorphous Sediment MOD Microscopic Urinalysis Comment CULT NOT INDICATED Urine Collection Time 12:25 White Blood Count 9.9 Red Blood Count 4.93 Hemoglobin 13.9 Hematocrit 41.1 Mean Corpuscular Volume 83.4 Mean Corpuscular Hemoglobin 28.2 Mean Corpuscular Hemoglobin 33.8 Concent Red Cell Distribution Width 12.3 Platelet Count 143 Mean Platelet Volume 8.3 Neutrophils (%) (Auto) 88.5 Lymphocytes (%) (Auto) 4.7 Monocytes (%) (Auto) 4.0 Eosinophils (%) (Auto) 0.2 Basophils (%) (Auto) 2.6 Neutrophils # (Auto) 8.7 Lymphocytes # (Auto) 0.5 Monocytes # (Auto) 0.4 Eosinophils # (Auto) 0.0 Basophils # (Auto) 0.3 CBC Comment DIFF FINAL Differential Comment Sodium Level 139 Potassium Level 4.2 Chloride Level 104 Carbon Dioxide Level 27.3 Anion Gap 8 Blood Urea Nitrogen 17 Creatinine 0.97 Estimat Glomerular Filtration 77 Rate Random Glucose 122 Lactic Acid Level 1.6 Calcium Level 8.8 Total Bilirubin 0.9 Aspartate Amino Transf 22 (AST/SGOT) Alanine Aminotransferase 28 (ALT/SGPT) Alkaline Phosphatase 98 Total Protein 7.3 Albumin 3.7 Date/Time Procedure Status Source Growth 12/02/16 12:50 Aerobic Blood Culture Received Blood Peripheral Pending 12/02/16 12:50 Anaerobic Blood Culture Received Blood Peripheral Pending Result Diagram: 12/02/16 1245 12/02/16 1245 Imaging Last Impressions Chest X-Ray 12/02/16 1235 Signed Impressions: Service Date/Time: Friday, December 02, 2016 13:27 - CONCLUSION: There is a mild airspace opacity overlying the right midlung zone which could represent an infectious process given the clinical history of cough and fever. No effusion is seen. Suggest followup chest x-ray to confirm resolution. Bc Figueredo MD Septic Shock Reassessment Heart: Other (Tachycardia) Lungs: Diminished Skin: Warm Peripheral Pulses: Bounding Right Radial Bounding Left Radial Bounding Right Popliteal Bounding Left Popliteal Bounding Right Dorsalis Pedis Bounding Left Dorsalis Pedis Bounding Right Posterior Tibial Bounding Left Posterior Tibial Assessment and Plan Problem List: (1) Sepsis ICD Code: A41.9 Status: Acute Plan: Patient with severe sepsis on presentation which is Likely due to pneumonia (community-acquired versus aspiration) Patient with tachycardia, hypotension and temperature. Continue with azithromycin, clindamycin and Rocephin Sputum cultures pending (2) Pneumonia ICD Code: J18.9 Status: Acute Plan: Right midlung with signs and symptoms of the same. Continue with treatment as above Patient also with a history of COPD for which we will continue with bronchodilators and steroids and follow-up for oxygen needs (3) Dysphagia ICD Code: R13.10 Status: Acute Plan: With chronic incompetent epiglottis (4) Hypothyroidism ICD Code: E03.9 Status: Acute Plan: Continue home Synthroid Assessment and Plan PPI, SCDs plan of are to be determined by hospital course Code Status Full code Discussed Condition With Patient, ER MD Problem Qualifiers (1) Pneumonia: Qualified Code: J18.1 - Pneumonia of right middle lobe due to infectious organism Kami Juárez MD Dec 02, 2016 14:39
[2016-12-02] MEDS: SODIUM CHLOR 0.9% 1000 ML INJ 1,000 ML IV SCH (15:44)
[2016-12-02] MEDS: CLINDAMYCIN INJ 600 MG in SODIUM CHLORIDE 0.9% INJ 100 ML IV SCH (17:00)
[2016-12-02] MEDS: methylPREDNISolone SOD SUCC 125 MG/2 ML VIAL IV PUSH SCH (21:13)
[2016-12-02] MEDS: SODIUM CHLORIDE 0.9% FLUSH 10 ML FLUSH IV FLUSH SCH (21:13)
[2016-12-02] MEDS: BUDESONIDE-FORMOTEROL 160/4.5 MCG INHALER INH SCH (21:14)
[2016-12-02] MEDS: RANITIDINE HCL SYRUP 150 MG/10 ML UDC PO SCH (21:14)
[2016-12-02] MEDS ORDERED: CLINDAMYCIN INJ 600 MG in SODIUM CHLORIDE 0.9% INJ 100 ML IV SCH (22:00)
[2016-12-03 00:15] VITALS: BP 131/70; PULSE 86; RESP 18; TEMP 99.5; O2SAT 99
[2016-12-03] MEDS: SODIUM CHLOR 0.9% 1000 ML INJ 1,000 ML IV SCH ×2 (00:55→08:04)
[2016-12-03] MEDS: CLINDAMYCIN INJ 600 MG in SODIUM CHLORIDE 0.9% INJ 100 ML IV SCH ×2 (00:55→08:04)
[2016-12-03] MEDS ORDERED: LEVOTHYROXINE SODIUM 75 MCG TAB G-TUBE SCH (06:00)
[2016-12-03 07:53] VITALS: BP 135/81; PULSE 79; RESP 18; TEMP 97.7; O2SAT 98
[2016-12-03 07:57] LABS: AUTOMATED NEUTROPHIL # 18.1 TH/MM3 (1.8-7.7); BASOPHIL # 0.1 TH/MM3 (0-0.2); BASOPHIL % 0.3 % (0.0-2.0); EOSINOPHIL % 0.1 % (0.0-4.0); HEMATOCRIT 39.2 % (39.0-51.0); LYMPH % 3.2 % (9.0-44.0); LYMPHOCYTE # 0.6 TH/MM3 (1.0-4.8); MEAN CELL VOLUME 83.2 FL (80.0-100.0); MEAN CORPUSCULAR HEMOGLOBIN 27.9 PG (27.0-34.0); MEAN CORPUSCULAR HGB CONC 33.5 % (32.0-36.0); MONO % 1.9 % (0.0-8.0); NEUT % 94.5 % (16.0-70.0); PLATELET COUNT 140 TH/MM3 (150-450); RED BLOOD COUNT 4.72 MIL/MM3 (4.50-5.90); RED CELL DISTRIBUTION WIDTH 12.5 % (11.6-17.2); WHITE BLOOD COUNT 19.2 TH/MM3 (4.0-11.0)
[2016-12-03] MEDS: BUDESONIDE-FORMOTEROL 160/4.5 MCG INHALER INH SCH (08:03)
[2016-12-03] MEDS: SODIUM CHLORIDE 0.9% FLUSH 10 ML FLUSH IV FLUSH SCH (08:03)
[2016-12-03 08:04] LABS: HEMO FLAGS DIFF FINAL
[2016-12-03] MEDS: RANITIDINE HCL SYRUP 150 MG/10 ML UDC PO SCH ×2 (08:04→08:11)
[2016-12-03] MEDS: methylPREDNISolone SOD SUCC 125 MG/2 ML VIAL IV PUSH SCH (08:04)
[2016-12-03 08:05] LABS: POTASSIUM 4.3 MEQ/L (3.5-5.1)
[2016-12-03 08:06] VITALS: O2SAT 98
[2016-12-03 08:10] LABS: BICARBONATE 26.5 MEQ/L (21.0-32.0)
[2016-12-03] MEDS ORDERED: CLIN1CAP6 PO ×2 (09:05→09:09)
[2016-12-03] MEDS ORDERED: PRED20 PO (09:05)
--- NOTE | 2016-12-03 09:07 | HHI.DCPOC ---
Discharge Care Plan Diagnosis: (1) COPD exacerbation (2) Dysphagia (3) Pneumonia (4) Sepsis Goals to Promote Your Health * To prevent worsening of your condition and complications * To maintain your health at the optimal level Directions to Meet Your Goals Take your medications as prescribed Follow your dietary instruction Follow activity as directed Keep your appointments as scheduled Take your immunizations and boosters as scheduled If your symptoms worsen call your PCP, if no PCP go to Urgent Care Center or Emergency Room Smoking is Dangerous to Your Health. Avoid second hand smoke Call the 24-hour hour crisis hotline for domestic abuse at Kami Juárez MD Dec 03, 2016 09:07
--- NOTE | 2016-12-03 09:08 | HHI.DS ---
Discharge Summary Admission Date Dec 02, 2016 at 14:15 Discharge Date: Dec 03, 2016 Admitting Diagnosis pneumonia (1) Sepsis ICD Code: A41.9 (2) Pneumonia ICD Code: J18.9 (3) Dysphagia ICD Code: R13.10 (4) Hypothyroidism ICD Code: E03.9 Procedures None Brief History - From Admission Patient is a 71-year-old gentleman with a known history of laryngeal carcinoma and chronic aspiration who presented to the emergency room with 1 day of fevers and chills and vomiting. Abdominal pain and was instructed by his spouse to home to the hospital. Temperature home was 102. He has maintained a fever here. And has been tachycardic and hypotensive. X-rays on my review do show a right sided infiltrate. Patient has had multiple episodes of aspiration. So this is pretty similar. He was hypoxemic mildly on arrival at 93% on room air. He does have history of COPD and normally takes his bronchodilator at home. No chest pain complaint and the patient has been feeling "run down"for the last week. For these reasons the patient is admitted to the hospital for further evaluation. He has felt better with some IV hydration and with antiemetics and antibiotics. CBC/BMP: 12/03/16 0745 12/03/16 0745 Significant Findings Laboratory Tests Test 12/02/16 12/02/16 12/03/16 12:25 12:45 07:45 Urine Occult Blood SMALL (NEG) Urine RBC 10-14 /hpf (0-3) Platelet Count 143 TH/MM3 140 TH/MM3 (150-450) (150-450) Neutrophils (%) (Auto) 88.5 % 94.5 % (16.0-70.0) (16.0-70.0) Lymphocytes (%) (Auto) 4.7 % 3.2 % (9.0-44.0) (9.0-44.0) Basophils (%) (Auto) 2.6 % (0.0-2.0) Neutrophils # (Auto) 8.7 TH/MM3 18.1 TH/MM3 (1.8-7.7) (1.8-7.7) Lymphocytes # (Auto) 0.5 TH/MM3 0.6 TH/MM3 (1.0-4.8) (1.0-4.8) Basophils # (Auto) 0.3 TH/MM3 (0-0.2) Estimat Glomerular Filtration 77 ML/MIN (>89) Rate Random Glucose 122 MG/DL 139 MG/DL (74-106) (74-106) White Blood Count 19.2 TH/MM3 (4.0-11.0) Imaging Last Impressions Chest X-Ray 12/02/16 1235 Signed Impressions: Service Date/Time: Friday, December 02, 2016 13:27 - CONCLUSION: There is a mild airspace opacity overlying the right midlung zone which could represent an infectious process given the clinical history of cough and fever. No effusion is seen. Suggest followup chest x-ray to confirm resolution. Bc Figueredo MD PE at Discharge GENERAL: This is a well-nourished, well-developed patient, in no apparent distress. CARDIOVASCULAR: Regular rate and rhythm without murmurs, gallops, or rubs. RESPIRATORY: Clear to auscultation. Breath sounds equal bilaterally. No wheezes , rales, or rhonchi. GASTROINTESTINAL: PEG tube. Abdomen soft, non-tender, nondistended. Normal active bowel sounds MUSCULOSKELETAL: Extremities without clubbing, cyanosis, or edema. NEURO: Alert & Oriented x4 to person, place, time, situation. Moves all ext x4 Pt update on day of discharge Patient seen today and is remarkably improved from his initial presentation. His respiratory status and signs and symptoms of sepsis are improved. Patient is tolerating antibiotics Hospital Course Patient is a 71-year-old gentleman with a history of laryngeal cancer and chronic aspiration. He did develop signs and symptoms of sepsis treated for sepsis related to a possible aspiration pneumonia. Patient did well with antibiotics overnight. He also was treated for mild COPD exacerbation with steroids and bronchodilators. Markedly the patient improved and was discharged home to continue outpatient therapy. Pt Condition on Discharge: Good Discharge Disposition: Discharge Home Discharge Time: > 30 minutes Discharge Instructions DIET: Follow Instructions for: On Tube Feeding Activities you can perform: Regular-No Restrictions New Medications: Clindamycin (Clindamycin) 300 Mg Cap 600 MG PO Q8H Infection #30 Ref 0 CAP Prednisone (Prednisone) 20 Mg Tab 20 MG PO DAILY Inflammation #2 Ref 0 TAB Continued Medications: Albuterol Neb (Albuterol Neb) 2.5 Mg/3 Ml Neb 2.5 MG NEB Q4HR NEB PRN SHORTNESS OF BREATH #60 Ref 0 NEBULE Budesonide-Formoterol Inh (Symbicort Inh) 160-4.5 Mcg/Act Aero 2 PUFF INH Q12HR #1 Ref 0 INHALER Levothyroxine (Synthroid) 75 Mcg Tab 75 MCG G-TUBE DAILY Thyroid #30 Ref 0 TAB Kami Juárez MD Dec 03, 2016 09:08
[2016-12-03] MEDS ORDERED: cefTRIAXone INJ 1,000 MG in SODIUM CHLORIDE 0.9% INJ 100 ML IV SCH (14:00)
[2016-12-03] MEDS ORDERED: AZITHROMYCIN INJ 500 MG in SODIUM CHLOR 0.9% 250 ML INJ 250 ML IV SCH (15:00)
== END 2016-12-03 11:50 | disposition home or self-care (01) | DRG 871 ==
LOC: PHED 12:11 → PHEDA 14:15 → OBSVTOIN 14:40 → PH3A 15:28
PROVIDERS: ADMIT Hospitalist; ATTEND Hospitalist
DX: A41.9 Sepsis, unspecified organism (principal); J69.0 Pneumonitis due to inhalation of food and vomit; J44.0 Chronic obstructive pulmonary disease with (acute) lower respiratory infection; R13.10 Dysphagia, unspecified; J44.1 Chronic obstructive pulmonary disease with (acute) exacerbation; Z93.1 Gastrostomy status; R65.20 Severe sepsis without septic shock; R09.02 Hypoxemia; E03.9 Hypothyroidism, unspecified; Z85.21 Personal history of malignant neoplasm of larynx; Z92.21 Personal history of antineoplastic chemotherapy; Z92.3 Personal history of irradiation; Z87.442 Personal history of urinary calculi; Z87.01 Personal history of pneumonia (recurrent); Z87.891 Personal history of nicotine dependence
CPT/HCPCS: 71010; 80048; 80053; 81001; 83605; 85025; 87040; 87641; 94664; 96361; 96374; 96375; J0456; J0696; J0780; J1200; J2930; J7030; J7050; J7613

== ENCOUNTER 2016-12-12 00:39 | Observation (INO) | payer OTHER, MEDICARE ==
[~2016-12-12] VITALS: Ht 182.9 cm; Wt 72.8 kg
[2016-12-12] VITALS (17 sets, daily range): BP systolic 107–159; BP diastolic 52–97; PULSE 81–115; RESP 16–20; TEMP 96–99.1; O2SAT 95–99
[~2016-12-12 00:39] MED LIST changes: +CLIN1CAP6 PO; -LEVA750T PO; +PRED20 PO; -ZOFR4TAB G-TUBE
[2016-12-12] MEDS ORDERED: SODIUM CHLORIDE 0.9% FLUSH 10 ML FLUSH IVF PRN ×2 (01:00→03:15)
[2016-12-12] MEDS ORDERED: ONDANSETRON HCL 4 MG/2 ML VIAL IV PUSH ONE (01:00)
[2016-12-12] MEDS ORDERED: methylPREDNISolone SOD SUCC 125 MG/2 ML VIAL IVP ONE (01:00)
[2016-12-12] MEDS: RESP: ALBUTEROL 2.5 MG/IPRATROPIUM 0.5 MG NEB (SCH) INH ×2 (01:02→01:12)
[2016-12-12 01:09] LABS: AUTOMATED NEUTROPHIL # 9.7 TH/MM3 (1.8-7.7); BASOPHIL # 0.3 TH/MM3 (0-0.2); BASOPHIL % 2.9 % (0.0-2.0); EOSINOPHIL % 0.3 % (0.0-4.0); HEMATOCRIT 40.8 % (39.0-51.0); HEMO FLAGS DIFF FINAL; LYMPH % 5.6 % (9.0-44.0); LYMPHOCYTE # 0.6 TH/MM3 (1.0-4.8); MEAN CELL VOLUME 84.7 FL (80.0-100.0); MEAN CORPUSCULAR HEMOGLOBIN 27.8 PG (27.0-34.0); MEAN CORPUSCULAR HGB CONC 32.8 % (32.0-36.0); MONO % 0.4 % (0.0-8.0); NEUT % 90.8 % (16.0-70.0); PLATELET COUNT 189 TH/MM3 (150-450); RED BLOOD COUNT 4.82 MIL/MM3 (4.50-5.90); RED CELL DISTRIBUTION WIDTH 12.9 % (11.6-17.2); WHITE BLOOD COUNT 10.6 TH/MM3 (4.0-11.0)
[2016-12-12 01:17] LABS: CHLORIDE 101 MEQ/L (98-107); POTASSIUM 4.2 MEQ/L (3.5-5.1); SODIUM (NA) 139 MEQ/L (136-145)
[2016-12-12 01:20] LABS: ANION GAP 9 MEQ/L (5-15); BICARBONATE 29.3 MEQ/L (21.0-32.0); BLOOD UREA NITROGEN 20 MG/DL (7-18); MAGNESIUM 2.1 MG/DL (1.5-2.5)
--- NOTE | 2016-12-12 01:20 | RADRPT ---
EXAM DATE/TIME: 12/12/2016 00:55 [place] COMPARISON: CHEST SINGLE AP, December 02, 2016, 13:27. INDICATIONS : Shortness of breath. MEDICAL HISTORY : Carcinoma, throat. SURGICAL HISTORY : None. ENCOUNTER: Initial ACUITY: 1 day PAIN SCORE: Non-responsive. LOCATION: Bilateral chest FINDINGS: A single view of the chest demonstrates the lungs to be symmetrically aerated without evidence of mas s, infiltrate or effusion. The cardiomediastinal contours are unremarkable. Both hemidiaphragms nasim l delineated. Osseous structures are intact. CONCLUSION: No infiltrates seen in either lung. Rafy Rm MD on December 12, 2016 at 1:18 Board Certified Radiologist. This report was verified electronically.
[2016-12-12 01:21] LABS: APTT (PATIENT) 25.4 SEC (24.3-30.1); PROTHROMBIN TIME - PATIENT 10.7 SEC (9.8-11.6)
[2016-12-12 01:23] LABS: ALT (GPT) 36 U/L (12-78); AST (GOT) 35 U/L (15-37); GLOMERULAR FILTRATION RATE 82 ML/MIN (>89)
[2016-12-12 01:25] LABS: TOTAL BILIRUBIN ADULT 0.5 MG/DL (0.2-1.0)
[2016-12-12 01:26] LABS: ALKALINE PHOSPHATASE 113 U/L (45-117)
[2016-12-12] MEDS ORDERED: METOCLOPRAMIDE HCL 10 MG/2 ML VIAL IV PUSH ONE (01:30)
[2016-12-12] MEDS ORDERED: SODIUM CHLOR 0.9% 1000 ML INJ 1,000 ML IV ONE (01:30)
[2016-12-12] MEDS ORDERED: PIPERACIL-TAZO 4.5 GM PREMIX 100 ML IV ONE (01:30)
[2016-12-12] MEDS ORDERED: AZITHROMYCIN INJ 500 MG in SODIUM CHLOR 0.9% 250 ML INJ 250 ML IV ONE (01:30)
--- NOTE | 2016-12-12 03:02 | PD ---
HPI Chief Complaint: Respiratory Symptoms Time Seen by Provider: 00:50 Travel History International Travel<30 days: No Contact w/Intl Traveler<30days: No Traveled to known affect area: No History of Present Illness HPI 71-year-old male presents to the emergency department for complaint of progressively worsening shortness of breath work of breathing exacerbation of his COPD and concern for recurrent pneumonia. Patient has history of laryngeal cancer with recurrent aspiration pneumonia. Symptoms began approximately 3 hours prior to arrival to the emergency department with worsening. Patient was noted at home reportedly to have a temperature of 96.7F which family reports rapidly increased to 99.9F. Patient recently hospitalized 12/02/16 for sepsis and pneumonia. Patient has not been on outpatient antibiotic. Patient also reports marked nausea with dry heaving and 1 episode of nonbilious non-coffee- ground nonbloody emesis. Patient also coughing up hand sputum reportedly. Patient denies any chest pain. No diaphoresis. No referred neck jaw back shoulder arm or abdominal pain. PFSH Past Medical History Anemia: Yes Cancer: Yes Cardiovascular Problems: No Chemotherapy: Yes COPD: Yes Diabetes: No Diminished Hearing: No Endocrine: Yes Gastrointestinal Disorders: Yes (G-TUBE PLACED: 2012 "EPIGLOTTIS DOESN'T WORK ") Genitourinary: Yes Immune Disorder: No Inguinal Hernia: Yes Implanted Vascular Access Dvce: Yes Kidney Stones: Yes Musculoskeletal: No Neurologic: No Psychiatric: No Reproductive: No Respiratory: Yes Pneumonia: Yes (ASPIRATION) Radiation Therapy: Yes Thyroid Disease: Yes (HYPO ) Tetanus Vaccination: > 5 Years Influenza Vaccination: Yes Past Surgical History Abdominal Surgery: Yes (3 HERNIA REPAIRS ) Body Medical Devices: G TUBE Cardiac Surgery: No Ear Surgery: No Endocrine Surgery: No Eye Surgery: No Genitourinary Surgery: No Oral Surgery: Yes (THROAT CA- LYMPHNODE REMOVAL, TONSILS ) Pacemaker: No Thoracic Surgery: No Tonsillectomy: Yes Other Surgery: Yes (Tongue surgery from throat cancer) Social History Alcohol Use: No Tobacco Use: No (QUIT AGE 20) Substance Use: No Allergies-Medications (Allergen,Severity, Reaction): Coded Allergies: *MDRO Multi-Drug Resistant Organism (Verified Allergy, Unknown, MRSA, 12/12) MRSA PCR (nares) POSITIVE - 08/05/16 Reported Meds & Prescriptions Reported Meds & Active Scripts Active Reported Ensure Plus (Nutritional Supplements) 1 Liq Liq 2 Can G-TUBE QID Synthroid (Levothyroxine Sodium) 75 Mcg Tab 75 Mcg G-TUBE DAILY Symbicort Inh (Budesonide/Formoterol Fumarate) 160-4.5 Mcg/Act Aero 2 Puff INH Q12HR Albuterol Neb (Albuterol Sulfate) 2.5 Mg/3 Ml Neb 2.5 Mg NEB Q4HR NEB PRN Physical Exam Narrative GENERAL: Thin elderly female in no acute distress no respiratory distress with hoarseness intermittently demonstrating dry heaves and coughing up pack mucous SKIN: Warm and dry. HEAD: Normocephalic. EYES: No scleral icterus. No injection or drainage. NECK: Supple, trachea midline. No JVD or lymphadenopathy. CARDIOVASCULAR: Regular rate and rhythm without murmurs, gallops, or rubs. RESPIRATORY: Breath sounds equal bilaterally with diminished breath sounds and wheezing. No accessory muscle use. GASTROINTESTINAL: Abdomen soft, non-tender, nondistended. MUSCULOSKELETAL: No cyanosis, or edema. Radial and dorsalis pedis pulses 2+ to palpation. BACK: Nontender without obvious deformity. No CVA tenderness. Data Data Last Documented VS Vital Signs Date Time Temp Pulse Resp B/P Pulse Ox O2 Delivery O2 Flow Rate FiO2 12/12/16 02:40 105 18 144/97 99 Room Air 12/12/16 00:45 99.1 Orders Complete Blood Count With Diff (12/12/16 00:51) Comprehensive Metabolic Panel (12/12/16 00:51) Act Partial Throm Time (Ptt) (12/12/16 00:51) Prothrombin Time / Inr (Pt) (12/12/16 00:51) Magnesium (Mg) (12/12/16 00:51) Troponin I (12/12/16 00:51) Blood Culture (12/12/16 00:51) Iv Access Insert/Monitor (12/12/16 00:51) Electrocardiogram (12/12/16 00:51) Ecg Monitoring (12/12/16 00:51) Oximetry (12/12/16 00:51) Oxygen Administration (12/12/16 00:51) Chest, Single Ap (12/12/16 00:51) Sodium Chloride 0.9% Flush (Ns Flush) (12/12/16 01:00) Methylprednisolone So Succ Inj (Solumedr (12/12/16 01:00) Albuterol-Ipratropium Neb (Duoneb Neb) (12/12/16 01:00) Lactic Acid (12/12/16 00:51) Ondansetron Inj (Zofran Inj) (12/12/16 01:00) Sodium Chlor 0.9% 1000 Ml Inj (Ns 1000 M (12/12/16 01:30) Piperacil-Tazo 4.5 Gm Premix (Zosyn 4.5 (12/12/16 01:30) Azithromycin Inj (Zithromax Inj) (12/12/16 01:30) Metoclopramide Inj (Reglan Inj) (12/12/16 01:30) Place In Observation (12/12/16 ) Vital Signs (Adult) Q4H (12/12/16 03:09) Activity Oob With Assistance (12/12/16 03:09) Marketing Summer Intern / Telemetry .CONTINUOUS (12/12/16 03:09) Diet Heart Healthy (12/12/16 Breakfast) Sodium Chloride 0.9% Flush (Ns Flush) (12/12/16 03:15) Sodium Chloride 0.9% Flush (Ns Flush) (12/12/16 09:00) Basic Metabolic Panel (Bmp) (12/13/16 06:00) Complete Blood Count With Diff (12/13/16 06:00) Case Management Consult (12/12/16 03:09) Naloxone Inj (Narcan Inj) (12/12/16 03:15) Admit Order (Ed Use Only) (12/12/16 ) ^ Saline Lock (12/12/16 03:10) Resp Oxygen Yogi C Titrat 1-4 L (12/12/16 ) Notify Dr: Other (12/12/16 03:10) Sodium Chloride 0.9% Flush (Ns Flush) (12/12/16 09:00) Sodium Chloride 0.9% Flush (Ns Flush) (12/12/16 03:15) Levofloxacin 750 Mg Premix Inj (Levaquin (12/12/16 09:00) Albuterol-Ipratropium Neb (Duoneb Neb) (12/12/16 04:00) Albuterol-Ipratropium Neb (Duoneb Neb) (12/12/16 03:15) Methylprednisolone So Succ Inj (Solumedr (12/12/16 06:00) Pantoprazole (Protonix) (12/12/16 03:15) Labs Laboratory Tests Test 12/12/16 00:55 White Blood Count 10.6 TH/MM3 Red Blood Count 4.82 MIL/MM3 Hemoglobin 13.4 GM/DL Hematocrit 40.8 % Mean Corpuscular Volume 84.7 FL Mean Corpuscular Hemoglobin 27.8 PG Mean Corpuscular Hemoglobin 32.8 % Concent Red Cell Distribution Width 12.9 % Platelet Count 189 TH/MM3 Mean Platelet Volume 7.1 FL Neutrophils (%) (Auto) 90.8 % Lymphocytes (%) (Auto) 5.6 % Monocytes (%) (Auto) 0.4 % Eosinophils (%) (Auto) 0.3 % Basophils (%) (Auto) 2.9 % Neutrophils # (Auto) 9.7 TH/MM3 Lymphocytes # (Auto) 0.6 TH/MM3 Monocytes # (Auto) 0.0 TH/MM3 Eosinophils # (Auto) 0.0 TH/MM3 Basophils # (Auto) 0.3 TH/MM3 CBC Comment DIFF FINAL Differential Comment Prothrombin Time 10.7 SEC Prothromb Time International 1.0 RATIO Ratio Activated Partial 25.4 SEC Thromboplast Time Sodium Level 139 MEQ/L Potassium Level 4.2 MEQ/L Chloride Level 101 MEQ/L Carbon Dioxide Level 29.3 MEQ/L Anion Gap 9 MEQ/L Blood Urea Nitrogen 20 MG/DL Creatinine 0.91 MG/DL Estimat Glomerular Filtration 82 ML/MIN Rate Random Glucose 129 MG/DL Lactic Acid Level 2.3 mmol/L Calcium Level 8.7 MG/DL Magnesium Level 2.1 MG/DL Total Bilirubin 0.5 MG/DL Aspartate Amino Transf 35 U/L (AST/SGOT) Alanine Aminotransferase 36 U/L (ALT/SGPT) Alkaline Phosphatase 113 U/L Troponin I LESS THAN 0.02 NG/ML Total Protein 7.2 GM/DL Albumin 3.4 GM/DL [facility] Medical Decision Making Medical Screen Exam Complete: Yes Emergency Medical Condition: Yes Medical Record Reviewed: Yes Interpretation(s) EKG: Sinus tachycardia rate [address] elevation or injury pattern or ectopy Differential Diagnosis Dyspnea, exacerbation COPD, pneumonia, aspiration pneumonia, sepsis, sirs Narrative Course Patient placed on monitor and storage bin tender IV access obtained DuoNeb updrafts and Solu- Medrol ordered Blood cultures and lactic acid ordered Patient with recent hospitalization for pneumonia presents with cough shortness of breath and reports temperature elevation subjectively patient treated presumptively with IV antibiotics as well as updraft treatment Patient clinically improved plan will be to admit patient for exacerbation COPD ; case discussed with [facility] . Patient does not meet SIRS or sepsis criteria and at this time patient is noted to have elevated lactic acid. Sepsis Criteria SIRS Criteria (2 or more): Heart rate over 90 Diagnosis Primary Impression: COPD exacerbation Chiquita Leon MD Dec 12, 2016 03:02
[2016-12-12] MEDS ORDERED: ENSULIQ8 G-TUBE (03:13)
[2016-12-12] MEDS ORDERED: PANTOPRAZOLE SOD 40 MG DELAYED RELEASE TAB PO ONE (03:15)
[2016-12-12] MEDS ORDERED: SODIUM CHLORIDE 0.9% FLUSH 10 ML FLUSH IV FLUSH PRN (03:15)
[2016-12-12] MEDS ORDERED: NALOXONE HCL 0.4 MG/ML AMP IV PRN (03:15)
[2016-12-12] MEDS ORDERED: RESP: ALBUTEROL 2.5 MG/IPRATROPIUM 0.5 MG NEB (PRN) NEB (03:15)
[2016-12-12] MEDS: RESP: ALBUTEROL 2.5 MG/IPRATROPIUM 0.5 MG NEB (SCH) NEB ×4 (03:21→21:27)
[2016-12-12] MEDS: methylPREDNISolone SOD SUCC 40 MG/1 ML VIAL IV PUSH SCH ×3 (05:28→21:24)
[2016-12-12] MEDS: LEVOFLOXACIN 750 MG PREMIX INJ 150 ML IV SCH (08:37)
[2016-12-12] MEDS ORDERED: SODIUM CHLORIDE 0.9% FLUSH 10 ML FLUSH IV FLUSH SCH ×2 (09:00)
--- NOTE | 2016-12-12 12:51 | HHI.HP ---
HPI Service [facility] Hospitalists Primary Care Physician [facility] Admission Diagnosis exacerbation copd Diagnoses: (1) COPD exacerbation (2) Lactic acidosis (3) Hypothyroidism Chief Complaint: Shortness of breath Travel History International Travel<30 Days: No Contact w/Intl Traveler <30 Da: No Traveled to Known Affected Are: No History of Present Illness 71-year-old male with COPD, history of oropharyngeal cancer was recently admitted to [facility] on 12/02/16 and discharged home in stable condition after receiving treatment for sepsis and pneumonia came to the ED yesterday for evaluation of worsening symptoms of shortness of breath nonproductive cough and wheezing. Patient reported subjective fever and also described marked nausea with dry heaving along with one episode of nonbilious [id number] nonbloody emesis. Denies any chest pain or current GI bleed. During my exam patient reported improvement of symptoms. Review of Systems Except as stated in HPI: all other systems reviewed are Neg Past Family Social History Past Medical History COPD Hypothyroidism Oral pharyngeal cancer status post chemotherapy and radiation Past Surgical History Previous tracheostomy, PEG tube placement and excisional treatment of a laryngeal cancer Reported Medications Ensure Plus (Nutritional Supplements) 1 Liq Liq 2 Can G-TUBE QID Synthroid (Levothyroxine Sodium) 75 Mcg Tab 75 Mcg G-TUBE DAILY Symbicort Inh (Budesonide/Formoterol Fumarate) 160-4.5 Mcg/Act Aero 2 Puff INH Q12HR Albuterol Neb (Albuterol Sulfate) 2.5 Mg/3 Ml Neb 2.5 Mg NEB Q4HR NEB PRN Allergies: Coded Allergies: *MDRO Multi-Drug Resistant Organism (Verified Allergy, Unknown, MRSA, 12/12) MRSA PCR (nares) POSITIVE - 08/05/16 Family History Family history of hypertension Social History Patient denies any tobacco or alcohol dependency Physical Exam Vital Signs Vital Signs Date Time Temp Pulse Resp B/P Pulse Ox O2 Delivery O2 Flow Rate FiO2 12/12/16 12:27 97.1 86 19 122/61 96 12/12/16 09:25 97 21 12/12/16 08:46 96.0 97 19 117/70 95 12/12/16 04:25 104 18 117/52 96 12/12/16 04:20 98.9 102 18 109/58 96 12/12/16 03:40 99.0 102 16 127/57 98 Room Air 12/12/16 03:21 99 21 12/12/16 02:40 105 18 144/97 99 Room Air 12/12/16 02:10 112 18 159/72 96 Room Air 12/12/16 01:40 115 18 137/69 96 Room Air 12/12/16 01:10 112 18 119/74 96 Room Air 12/12/16 01:00 113 20 97 Room Air 12/12/16 00:50 97 Room Air 12/12/16 00:50 97 Room Air 12/12/16 00:45 99.1 113 20 154/78 98 Physical Exam GENERAL: This is a well-nourished, well-developed patient, in no apparent distress. SKIN: No rashes, ecchymoses or lesions. Cool and dry. HEAD: Atraumatic. Normocephalic. No temporal or scalp tenderness. EYES: Pupils equal round and reactive. Extraocular motions intact. No scleral icterus. No injection or drainage. ENT: Nose without bleeding, purulent drainage or septal hematoma. Throat without erythema, tonsillar hypertrophy or exudate. Uvula midline. Airway patent. NECK: Trachea midline. No JVD or lymphadenopathy. Supple, nontender, no meningeal signs. CARDIOVASCULAR: Regular rate and rhythm without murmurs, gallops, or rubs. RESPIRATORY: Clear to auscultation. Breath sounds decrease bilaterally. mild wheezes but no rales, or rhonchi. GASTROINTESTINAL: Abdomen soft, non-tender, nondistended. No hepato-splenomegaly , or palpable masses. No guarding. MUSCULOSKELETAL: Extremities without clubbing, cyanosis, or edema. No joint tenderness, effusion, or edema noted. No calf tenderness. Negative Homans sign bilaterally. NEUROLOGICAL: Awake and alert. Cranial nerves II through XII intact. Motor and sensory grossly within normal limits. Five out of 5 muscle strength in all muscle groups. Normal speech. Laboratory Laboratory Tests Test 12/12/16 12/12/16 00:55 03:55 White Blood Count 10.6 Red Blood Count 4.82 Hemoglobin 13.4 Hematocrit 40.8 Mean Corpuscular Volume 84.7 Mean Corpuscular Hemoglobin 27.8 Mean Corpuscular Hemoglobin 32.8 Concent Red Cell Distribution Width 12.9 Platelet Count 189 Mean Platelet Volume 7.1 Neutrophils (%) (Auto) 90.8 Lymphocytes (%) (Auto) 5.6 Monocytes (%) (Auto) 0.4 Eosinophils (%) (Auto) 0.3 Basophils (%) (Auto) 2.9 Neutrophils # (Auto) 9.7 Lymphocytes # (Auto) 0.6 Monocytes # (Auto) 0.0 Eosinophils # (Auto) 0.0 Basophils # (Auto) 0.3 CBC Comment DIFF FINAL Differential Comment Prothrombin Time 10.7 Prothromb Time International 1.0 Ratio Activated Partial 25.4 Thromboplast Time Sodium Level 139 Potassium Level 4.2 Chloride Level 101 Carbon Dioxide Level 29.3 Anion Gap 9 Blood Urea Nitrogen 20 Creatinine 0.91 Estimat Glomerular Filtration 82 Rate Random Glucose 129 Lactic Acid Level 2.3 2.4 Calcium Level 8.7 Magnesium Level 2.1 Total Bilirubin 0.5 Aspartate Amino Transf 35 (AST/SGOT) Alanine Aminotransferase 36 (ALT/SGPT) Alkaline Phosphatase 113 Troponin I LESS THAN 0.02 Total Protein 7.2 Albumin 3.4 Date/Time Procedure Status Source Growth 12/12/16 01:00 Aerobic Blood Culture Received Blood Peripheral Pending 12/12/16 01:00 Anaerobic Blood Culture Received Blood Peripheral Pending Result Diagram: 12/12/165412/12/1654 Imaging Last Impressions Chest X-Ray 12/12/1650 Signed Impressions: Service Date/Time: Monday, December 12, 2016 00:55 - CONCLUSION: No infiltrates seen in either lung. Rafy Rm MD Assessment and Plan Problem List: (1) COPD exacerbation ICD Code: J44.1 Status: Acute (2) Hypothyroidism ICD Code: E03.9 Status: Acute (3) Lactic acidosis ICD Code: E87.2 Status: Acute Assessment and Plan 71-year-old man with COPD exacerbation Chest x-ray noted and review by me with No infiltrates seen in either lung Currently on Solu-Medrol 40 mg IV every 6, which I will switch to 20 mg IV every 12 hours Start Spiriva,Symbicort, azithromycin 250 mg daily,Mucinex and scheduled as well as when necessary bronchodilator Maintain oxygen saturation above 90% Lactic acidosis Likely segment to above respiratory process Chest x-ray without any pulmonary infiltrate and no evidence of sepsis Repeat lactic acid Hypothyroidism Resume Synthroid History of oropharyngeal cancer Add ensure diet PT consult to treat and eval DVT prophylaxis Lovenox Code Status Full code Discussed Condition With Patient Physician Certification 2 Midnight Certification Type: Admission for Inpatient Services Order for Inpatient Services The services are ordered in accordance with Medicare regulations or non- Medicare payer requirements, as applicable. In the case of services not specified as inpatient-only, they are appropriately provided as inpatient services in accordance with the 2-midnight benchmark. Estimated LOS (days): 2 days is the estimated time the patient will need to remain in the hospital, assuming treatment plan goals are met and no additional complications. Post-Hospital Plan: Not yet determined Ashwin Vargas MD Dec 12, 2016 12:50
[2016-12-12] MEDS ORDERED: ACETAMINOPHEN 325 MG TAB PO PRN (13:00)
[2016-12-12] MEDS ORDERED: TEMAZEPAM 15 MG CAP PO PRN (13:00)
[2016-12-12] MEDS ORDERED: ONDANSETRON HCL 4 MG/2 ML VIAL IV PRN (13:00)
[2016-12-12] MEDS ORDERED: DOCUSATE SODIUM 50 MG/SENNA 8.6 MG TAB PO PRN (13:00)
--- NOTE | 2016-12-12 17:15 | EKG ---
Date Performed: 12/12/2016 Time Performed: 00:58:30 PTAGE: 71 years EKG: SINUS TACHYCARDIA ABNORMAL RHYTHM ECG WARNING: DATA QUALITY MAY AFFECT INTERPRETATION PREVIOUS TRACING : 08/05/2016 01.57 Compared to prior tracing no significant change DOCTOR: Kalpesh Cortés Interpretating Date/Time 12/12/2016 17:12:59
[2016-12-12] MEDS: guaiFENesin E.R. 600 MG TAB PO SCH ×2 (21:00→21:24)
[2016-12-12] MEDS: BUDESONIDE-FORMOTEROL 160/4.5 MCG INHALER INH SCH (21:23)
[2016-12-13] VITALS (9 sets, daily range): BP systolic 104–120; BP diastolic 61–73; PULSE 70–95; RESP 16–20; TEMP 95.8–97.4; O2SAT 94–98
[2016-12-13] MEDS: RESP: ALBUTEROL 2.5 MG/IPRATROPIUM 0.5 MG NEB (SCH) NEB ×4 (03:20→21:05)
[2016-12-13] MEDS: LEVOTHYROXINE SODIUM 75 MCG TAB G-TUBE SCH (05:17)
[2016-12-13 05:26] LABS: POTASSIUM 4.5 MEQ/L (3.5-5.1)
[2016-12-13 05:49] LABS: BASOPHIL % 0.1 % (0.0-2.0); EOSINOPHIL # 0.2 TH/MM3 (0-0.4); HEMATOCRIT 37.8 % (39.0-51.0); LYMPH % 2.8 % (9.0-44.0); LYMPHOCYTE # 0.7 TH/MM3 (1.0-4.8); MEAN CELL VOLUME 83.3 FL (80.0-100.0); MEAN CORPUSCULAR HEMOGLOBIN 28.2 PG (27.0-34.0); MEAN CORPUSCULAR HGB CONC 33.9 % (32.0-36.0); MONO % 2.1 % (0.0-8.0); PLATELET COUNT 194 TH/MM3 (150-450); RED BLOOD COUNT 4.53 MIL/MM3 (4.50-5.90); RED CELL DISTRIBUTION WIDTH 12.8 % (11.6-17.2); WHITE BLOOD COUNT 24.4 TH/MM3 (4.0-11.0)
[2016-12-13 06:20] LABS: HEMO FLAGS DIFF FINAL
[2016-12-13] MEDS: guaiFENesin E.R. 600 MG TAB PO SCH ×2 (09:00→21:00)
[2016-12-13] MEDS ORDERED: AZITHROMYCIN 250 MG TAB PO SCH (09:00)
--- NOTE | 2016-12-13 10:00 | HHI.PR ---
Subjective Remarks Follow up for shortness of breath, nonproductive cough. Patient is currently doing well on room air. He is ambulating in the room. Denies any chest pain, shortness of breath, fever or chills at this point. He is to feeding dependent and going to start to feeding today. Objective Vitals Vital Signs Date Time Temp Pulse Resp B/P Pulse Ox O2 Delivery O2 Flow Rate FiO2 12/13/16 09:27 98 12/13/16 08:00 96.6 82 20 116/73 97 12/13/16 04:00 95.8 95 20 120/64 97 12/13/16 00:00 97.4 84 20 113/61 96 12/12/16 21:27 97 21 12/12/16 21:00 83 12/12/16 20:00 97.4 81 20 113/61 97 12/12/16 16:34 96.2 81 19 107/66 97 12/12/16 12:27 97.1 86 19 122/61 96 I/O 12/12/16 12/12/16 12/12/16 12/13/16 12/13/16 12/13/16 07:00 15:00 23:00 07:00 15:00 23:00 Intake Total 1350 ml 950 ml 0 ml Output Total 850 ml Balance 500 ml 950 ml 0 ml Intake Oral 950 ml 0 ml IV Total 1350 ml Output Urine Total 850 ml # Voids 2 4 4 # Bowel Movements 0 1 Result Diagram: 12/13/16 0455 12/13/16 0455 Imaging Last Impressions Chest X-Ray 12/12/16 0051 Signed Impressions: Service Date/Time: Monday, December 12, 2016 00:55 - CONCLUSION: No infiltrates seen in either lung. Rafy Rm MD Objective Remarks GENERAL: Alert, oriented 3, NAD. SKIN: Warm and dry. HEAD: Normocephalic. EYES: No scleral icterus. No injection or drainage. NECK: Supple, trachea midline. No JVD or lymphadenopathy. CARDIOVASCULAR: Regular rate and rhythm without murmurs, gallops, or rubs. RESPIRATORY: Moderate air entry, bibasilar diminished breath sound. GASTROINTESTINAL: Abdomen soft, non-tender, nondistended. MUSCULOSKELETAL: No cyanosis, or edema. BACK: Nontender without obvious deformity. No CVA tenderness. Procedures None A/P Problem List: (1) COPD exacerbation ICD Code: J44.1 Status: Acute (2) Lactic acidosis ICD Code: E87.2 Status: Acute (3) Hypothyroidism ICD Code: E03.9 Status: Acute Assessment and Plan Mr. Eckert is a 71-year-old male with a history of oropharyngeal cancer who presented to the emergency department on 12/12/2016 due to nonproductive cough, shortness of breath. Patient has a history of recurrent aspiration. - Probable aspiration pneumonia - Patient's WBC is elevated which could partially be due to steroid use. - Will discontinue Levaquin and Azithromycin - Start Augmentin 400mg Liq Q 12hrs for 10 days. - Continue DuoNeb Q6hrs and PRN. Continue Symbicort. - Discontinue Solu-medrol 20mg IV Q12hrs - Patient is currently on room air - Patient is advised to follow up with a retail service representative in the outpatient setting. - Hypothyroidism - continue 75 g daily. Full code. Discharge plan: WBC elevation could be related to steroid use. We will observe patient overnight. If he continues to do well, will discharge in the morning. Colt Clemens DO Dec 13, 2016 10:00 am
[2016-12-13] MEDS: LEVOFLOXACIN 750 MG PREMIX INJ 150 ML IV SCH (10:18)
[2016-12-13] MEDS: BUDESONIDE-FORMOTEROL 160/4.5 MCG INHALER INH SCH ×2 (10:19→21:44)
[2016-12-13] MEDS: TIOTROPIUM BROMIDE 18 MCG INH INH SCH (10:19)
[2016-12-13] MEDS: methylPREDNISolone SOD SUCC 40 MG/1 ML VIAL IV PUSH SCH (10:20)
[2016-12-13] MEDS ORDERED: AMOXICIL-CLAVU 400 MG/5 ML LIQ 100 ML BTL PO ONE (15:00)
[2016-12-13] MEDS: AMOXICIL-CLAVU 400 MG/5 ML LIQ 100 ML BTL PO SCH (21:44)
[2016-12-14] VITALS: BP 122/65; PULSE 70; RESP 16; TEMP 97.4; O2SAT 97
[2016-12-14] MEDS: RESP: ALBUTEROL 2.5 MG/IPRATROPIUM 0.5 MG NEB (SCH) NEB ×2 (03:53→10:36)
[2016-12-14 04:00] VITALS: BP 116/70; PULSE 75; RESP 18; TEMP 97.5; O2SAT 97
[2016-12-14] MEDS: LEVOTHYROXINE SODIUM 75 MCG TAB G-TUBE SCH (05:59)
[2016-12-14 06:14] LABS: AUTOMATED NEUTROPHIL # 11.4 TH/MM3 (1.8-7.7); BASOPHIL % 0.3 % (0.0-2.0); EOSINOPHIL % 0.2 % (0.0-4.0); HEMATOCRIT 37.3 % (39.0-51.0); HEMO FLAGS DIFF FINAL; LYMPH % 14.2 % (9.0-44.0); MEAN CELL VOLUME 83.8 FL (80.0-100.0); MEAN CORPUSCULAR HEMOGLOBIN 28.2 PG (27.0-34.0); MEAN CORPUSCULAR HGB CONC 33.6 % (32.0-36.0); MONO % 5.7 % (0.0-8.0); NEUT % 79.6 % (16.0-70.0); PLATELET COUNT 181 TH/MM3 (150-450); RED BLOOD COUNT 4.46 MIL/MM3 (4.50-5.90); RED CELL DISTRIBUTION WIDTH 12.6 % (11.6-17.2); WHITE BLOOD COUNT 14.2 TH/MM3 (4.0-11.0)
[2016-12-14] MEDS: BUDESONIDE-FORMOTEROL 160/4.5 MCG INHALER INH SCH (07:56)
[2016-12-14] MEDS: TIOTROPIUM BROMIDE 18 MCG INH INH SCH (07:56)
[2016-12-14] MEDS: guaiFENesin E.R. 600 MG TAB PO SCH (07:57)
[2016-12-14] MEDS: AMOXICIL-CLAVU 400 MG/5 ML LIQ 100 ML BTL PO SCH (07:57)
[2016-12-14 08:00] VITALS: BP 137/81; PULSE 79; RESP 20; TEMP 96.4; O2SAT 97
[2016-12-14 10:41] VITALS: O2SAT 99
[2016-12-14] MEDS ORDERED: AUGM400S PO (10:48)
--- NOTE | 2016-12-14 10:51 | HHI.PR ---
Subjective Remarks Follow up for shortness of breath, nonproductive cough. Patient is currently doing well. Denies any acute concerns. No fever or chills. Objective Vitals Vital Signs Date Time Temp Pulse Resp B/P Pulse Ox O2 Delivery O2 Flow Rate FiO2 12/14/16 08:00 96.4 79 20 137/81 97 12/14/16 04:00 97.5 75 18 116/70 97 12/14/16 00:00 97.4 70 16 122/65 97 12/13/16 21:05 98 21 12/13/16 20:05 73 12/13/16 20:00 97.0 70 16 104/68 94 12/13/16 16:00 96.4 76 20 105/61 97 12/13/16 12:00 96.9 87 20 117/63 98 I/O 12/13/16 12/13/16 12/13/16 12/14/16 12/14/16 12/14/16 07:00 15:00 23:00 07:00 15:00 23:00 Intake Total 0 ml 720 ml 120 ml 120 ml Balance 0 ml 720 ml 120 ml 120 ml Intake Oral 0 ml 720 ml 0 ml Tube Irrigant 120 ml 120 ml # Voids 4 3 2 # Bowel Movements 2 Result Diagram: 12/14/16 0510 12/13/16 0455 Imaging Last Impressions Chest X-Ray 12/12/16 0051 Signed Impressions: Service Date/Time: Monday, December 12, 2016 00:55 - CONCLUSION: No infiltrates seen in either lung. Rafy Rm MD Objective Remarks GENERAL: Alert, oriented 3, NAD. SKIN: Warm and dry. HEAD: Normocephalic. EYES: No scleral icterus. No injection or drainage. NECK: Supple, trachea midline. No JVD or lymphadenopathy. CARDIOVASCULAR: Regular rate and rhythm without murmurs, gallops, or rubs. RESPIRATORY: Moderate air entry, bibasilar diminished breath sound. GASTROINTESTINAL: Abdomen soft, non-tender, nondistended. MUSCULOSKELETAL: No cyanosis, or edema. BACK: Nontender without obvious deformity. No CVA tenderness. Procedures None A/P Problem List: (1) COPD exacerbation ICD Code: J44.1 Status: Acute (2) Lactic acidosis ICD Code: E87.2 Status: Acute (3) Hypothyroidism ICD Code: E03.9 Status: Acute Assessment and Plan Mr. Eckert is a 71-year-old male with a history of oropharyngeal cancer who presented to the emergency department on 12/12/2016 due to nonproductive cough, shortness of breath. Patient has a history of recurrent aspiration. - Probable aspiration pneumonia - WBC improved from 24K to 14K. - Continue Augmentin 400mg Liq Q 12hrs for 10 days. - Continue DuoNeb Q6hrs and PRN. Continue Symbicort. - Discontinue Solu-medrol 20mg IV Q12hrs - Patient is currently on room air - Patient is advised to follow up with a professional skateboarder in the outpatient setting. - Hypothyroidism - continue 75 g daily. Full code. Discharge patient to home Condition on discharge: Improved Heart healthy Diet as tolerated Ad [facility] activity Rx written: - Augmentin 400mg Liq Q12hrs x 10 days. Follow-up with primary care physician within one week and Pulmonology within 1- 2 weeks. Colt Clemens DO Dec 14, 2016 10:51 am
== END 2016-12-14 12:12 | disposition home or self-care (01) ==
LOC: PHED 00:39 → PHEDA 03:14 → PH3A 04:23
PROVIDERS: ADMIT Hospitalist; ATTEND Hospitalist
DX: J44.1 Chronic obstructive pulmonary disease with (acute) exacerbation (principal); E87.2 Acidosis; R00.0 Tachycardia, unspecified; E03.9 Hypothyroidism, unspecified; Z85.818 Personal history of malignant neoplasm of other sites of lip, oral cavity, and pharynx; Z92.3 Personal history of irradiation; Z92.21 Personal history of antineoplastic chemotherapy; Z87.01 Personal history of pneumonia (recurrent)
CPT/HCPCS: 71010; 80048; 80053; 83605; 83735; 84484; 85025; 85610; 85730; 87040; 93005; 94640; 94664; 96361; 96374; 96375; 99285; G0378; J0456; J1956; J2405; J2543; J2765; J2920; J2930; J7030; J7050

== ENCOUNTER 2016-12-23 12:56 | Emergency (ER) | payer OTHER, MEDICARE ==
[~2016-12-23] VITALS: Ht 182.9 cm; Wt 70.0 kg
[~2016-12-23 12:56] MED LIST changes: +AUGM400S PO; -CLIN1CAP6 PO; +ENSULIQ8 G-TUBE; -PRED20 PO
[2016-12-23 12:59] VITALS: BP 136/69; PULSE 87; RESP 17; TEMP 98.2; O2SAT 98
--- NOTE | 2016-12-23 13:25 | PD ---
HPI . COPD Chief Complaint: Respiratory Symptoms Time Seen by Provider: 13:12 Travel History International Travel<30 days: No Contact w/Intl Traveler<30days: No Traveled to known affect area: No History of Present Illness HPI Patient presents to us with a prescription from a examiner rating clerk for PFTs and a CT of his chest. The prescription was written on 12/18. The patient reports that he took this prescription to the lead front desk agent of the hospital today and that they directed him here. The patient is having no respiratory symptoms today. PFSH Past Medical History Anemia: Yes Cancer: Yes Cardiovascular Problems: Yes Chemotherapy: Yes COPD: Yes Diabetes: No Diminished Hearing: No Endocrine: Yes Gastrointestinal Disorders: Yes (G-TUBE PLACED: 2012 "EPIGLOTTIS DOESN'T WORK ") Genitourinary: Yes Immune Disorder: No Inguinal Hernia: Yes Implanted Vascular Access Dvce: Yes Kidney Stones: Yes Musculoskeletal: No Neurologic: No Psychiatric: No Reproductive: No Respiratory: Yes Pneumonia: Yes (ASPIRATION) Radiation Therapy: Yes Thyroid Disease: No Past Surgical History Abdominal Surgery: Yes (3 HERNIA REPAIRS ) Body Medical Devices: G TUBE Cardiac Surgery: No Ear Surgery: No Endocrine Surgery: No Eye Surgery: No Genitourinary Surgery: No Oral Surgery: Yes (THROAT CA- LYMPHNODE REMOVAL, TONSILS ) Pacemaker: No Thoracic Surgery: No Tonsillectomy: Yes Other Surgery: Yes (Tongue surgery from throat cancer) Social History Alcohol Use: No Tobacco Use: No (QUIT AGE 20) Substance Use: No Allergies-Medications (Allergen,Severity, Reaction): Coded Allergies: *MDRO Multi-Drug Resistant Organism (Verified Allergy, Unknown, MRSA, 12/12) MRSA PCR (nares) POSITIVE - 08/05/16 Reported Meds & Prescriptions Reported Meds & Active Scripts Active Augmentin-400 Liq (Amoxicillin-Clavulanate Liq) 400-57 Mg/5 Ml Susp 400 Mg PO Q12HR Reported Ensure Plus (Nutritional Supplements) 1 Liq Liq 2 Can G-TUBE QID Synthroid (Levothyroxine Sodium) 75 Mcg Tab 75 Mcg G-TUBE DAILY Symbicort Inh (Budesonide/Formoterol Fumarate) 160-4.5 Mcg/Act Aero 2 Puff INH Q12HR Albuterol Neb (Albuterol Sulfate) 2.5 Mg/3 Ml Neb 2.5 Mg NEB Q4HR NEB PRN Review of Systems Except as stated in HPI: all other systems reviewed are Neg Physical Exam Narrative GENERAL: The patient is standing up in the room in no acute distress. SKIN: Warm and dry. HEAD: Atraumatic. Normocephalic. EYES: Pupils equal and round. Extraocular movements are intact. ENT: No nasal bleeding or discharge. Mucous membranes pink and moist. NECK: Trachea midline. Neck is supple. CARDIOVASCULAR: Regular rate and rhythm. Heart sounds are normal. RESPIRATORY: No accessory muscle use. Lungs are clear. GASTROINTESTINAL: Abdomen soft, non-tender, nondistended. MUSCULOSKELETAL: No obvious deformities. No edema. NEUROLOGICAL: Awake and alert. No obvious cranial nerve deficits. Motor grossly within normal limits. Normal speech. PSYCHIATRIC: Appropriate mood and affect; insight and judgment normal. Data Data Last Documented VS Vital Signs Date Time Temp Pulse Resp B/P Pulse Ox O2 Delivery O2 Flow Rate FiO2 12/23/16 12:59 98.2 87 17 136/69 98 MDM Medical Decision Making Medical Screen Exam Complete: Yes Emergency Medical Condition: Yes Differential Diagnosis Differential diagnosis of dyspnea includes but is not limited to congestive heart failure, pneumonia, wheezing, pneumothorax, pulmonary embolism Narrative Course The patient presents to us with no complaints. He has a prescription for pulmonary function studies and a CT of his chest from his examiner rating clerk. The patient was apparently misdirected to us for these studies. He'll be discharged home. He will be instructed to call [facility] on Sunday to make an appointment for the CT. He will need to call his examiner rating clerk office Sunday to find out where to go for the PFTs. Diagnosis Primary Impression: COPD (chronic obstructive pulmonary disease) Qualified Code: J44.9 - Chronic obstructive pulmonary disease, unspecified COPD type Patient Instructions: General Instructions Departure Forms: Tests/Procedures Additional Instructions: Call [facility] Sunday to get an appointment for the CT. Call your doctor's office Sunday to see where to go for pulmonary function studies. Disposition: DISCHARGE HOME Condition: Stable Melody Salamanca MD Dec 23, 2016 13:25
== END 2016-12-23 13:57 | disposition home or self-care (01) ==
LOC: NEPC 12:56
DX: J44.9 Chronic obstructive pulmonary disease, unspecified (principal); Z86.2 Personal history of diseases of the blood and blood-forming organs and certain disorders involving the immune mechanism; Z86.79 Personal history of other diseases of the circulatory system; Z87.09 Personal history of other diseases of the respiratory system; Z87.19 Personal history of other diseases of the digestive system; Z87.448 Personal history of other diseases of urinary system
CPT/HCPCS: 99281

== ENCOUNTER → 2017-01-08 | Outpatient (CLI) | payer MEDICARE ==
--- NOTE | 2017-01-15 12:14 | RSPPFT ---
DATE OF PROCEDURE: 01/08/17 COMMENTS: Spirometry demonstrates an FEV1 of 1.8 at 50% of predicted, FVC of 3.4 at 75%, FEV1/FVC ratio 53%. The FEF 25-75 is 25% of predicted. Post-bronchodilator study demonstrated mild improvements in the FEV1 and FEF 25-75. Lung volumes demonstrated reduced TLC suggesting restrictive disease. Airways resistance is increased. Diffusion capacity is moderately reduced. Flow volume loops suggest an obstructive pattern. IMPRESSION: 1. Moderately severe obstructive disease. 2. Additional mild restrictive disease. 3. Significant response to use of bronchodilator. 4. Moderate loss in diffusion capacity.
== END ==
LOC: HRSP 12:50
DX: J44.9 Chronic obstructive pulmonary disease, unspecified (principal)
CPT/HCPCS: 94060; 94726; 94729

== ENCOUNTER 2017-02-05 15:43 | Emergency (ER) | payer MEDICARE ==
[~2017-02-05] VITALS: Ht 182.9 cm; Wt 74.0 kg
[2017-02-05 15:54] VITALS: BP 148/72; PULSE 97; RESP 16
--- NOTE | 2017-02-05 16:41 | PD ---
HPI Chief Complaint: Dizziness Time Seen by Provider: 16:26 Travel History International Travel<30 days: No Contact w/Intl Traveler<30days: No Traveled to known affect area: No History of Present Illness HPI This 71-year-old male says that when he got up today he felt lightheaded and dizzy. He felt somewhat nauseated. He thought he was given a pass out. He says overall is also some spinning involves. He still having some symptoms but is not as bad as it was before. He did not have any numbness tingling or weakness. 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 He has had aspiration pneumonia in the past. He did not have any tinnitus. PFSH Past Medical History Anemia: Yes Cancer: Yes Cardiovascular Problems: Yes Chemotherapy: Yes COPD: Yes Diabetes: No Diminished Hearing: No Endocrine: Yes Gastrointestinal Disorders: Yes (G-TUBE PLACED: 2012 "EPIGLOTTIS DOESN'T WORK ") Genitourinary: Yes Immune Disorder: No Inguinal Hernia: Yes Implanted Vascular Access Dvce: Yes Kidney Stones: Yes Musculoskeletal: No Neurologic: No Psychiatric: No Reproductive: No Respiratory: Yes Pneumonia: Yes (ASPIRATION) Radiation Therapy: Yes Thyroid Disease: No Tetanus Vaccination: Unknown Past Surgical History Abdominal Surgery: Yes (3 HERNIA REPAIRS ) Body Medical Devices: G TUBE Cardiac Surgery: No Ear Surgery: No Endocrine Surgery: No Eye Surgery: No Genitourinary Surgery: No Oral Surgery: Yes (THROAT CA- LYMPHNODE REMOVAL, TONSILS ) Pacemaker: No Thoracic Surgery: No Tonsillectomy: Yes Other Surgery: Yes (Tongue surgery from throat cancer) Social History Alcohol Use: No Tobacco Use: No (QUIT AGE 20) Substance Use: No Allergies-Medications (Allergen,Severity, Reaction): Coded Allergies: *MDRO Multi-Drug Resistant Organism (Verified Allergy, Unknown, MRSA, 12/12) MRSA PCR (nares) POSITIVE - 08/05/16 Reported Meds & Prescriptions Reported Meds & Active Scripts Active Reported Ensure Plus (Nutritional Supplements) 1 Liq Liq 2 Can G-TUBE QID Synthroid (Levothyroxine Sodium) 75 Mcg Tab 75 Mcg G-TUBE DAILY Symbicort Inh (Budesonide/Formoterol Fumarate) 160-4.5 Mcg/Act Aero 2 Puff INH Q12HR Albuterol Neb (Albuterol Sulfate) 2.5 Mg/3 Ml Neb 2.5 Mg NEB Q4HR NEB PRN Review of Systems General / Constitutional: No: Fever, Chills Eyes: No: Diploplia, Blurred Vision HENT: Positive: Vertigo, Lightheadedness, No: Headaches, Sore Throat Cardiovascular: No: Chest Pain or Discomfort, Palpitations Respiratory: No: Cough, Shortness of Breath Gastrointestinal: Positive: Nausea, No: Vomiting, Diarrhea Genitourinary: No: Urgency, Frequency Musculoskeletal: No: Myalgias, Arthralgias Skin: No Rash Neurologic: Positive: Weakness Psychiatric: No: Anxiety, Depression Hematologic/Lymphatic: No: Easy Bruising Physical Exam Narrative GENERAL: Thin male no acute distress. SKIN: Focused skin assessment warm/dry. HEAD: Atraumatic. Normocephalic. EYES: Pupils equal and round. No scleral icterus. No injection or drainage. There is no nystagmus ENT: No nasal bleeding or discharge. Mucous membranes pink and moist. TMs are negative NECK: Trachea midline. No JVD. CARDIOVASCULAR: Regular rate and rhythm. No murmur appreciated. RESPIRATORY: No accessory muscle use. Clear to auscultation. Breath sounds equal bilaterally. GASTROINTESTINAL: Abdomen soft, non-tender, nondistended. Hepatic and splenic margins not palpable. MUSCULOSKELETAL: No obvious deformities. No clubbing. No cyanosis. No edema. NEUROLOGICAL: Awake and alert. No obvious cranial nerve deficits. Motor grossly within normal limits. Normal speech. PSYCHIATRIC: Appropriate mood and affect; insight and judgment normal. Data Data Last Documented VS Vital Signs Date Time Temp Pulse Resp B/P (MAP) Pulse Ox O2 Delivery O2 Flow Rate FiO2 02/05/17 17:35 72 18 147/74 (98) 76 18 155/74 (101) 81 18 160/81 (107) 02/05/17 16:21 95 Orders Orders Electrocardiogram (02/05/17 16:35) Complete Blood Count With Diff (02/05/17 16:35) Basic Metabolic Panel (Bmp) (02/05/17 16:35) Sodium Chlor 0.9% 1000 Ml Inj (Ns 1000 M (02/05/17 16:45) Ondansetron Inj (Zofran Inj) (02/05/17 16:45) Meclizine (Antivert) (02/05/17 16:45) Orthostatic Vital Signs (02/05/17 16:37) Labs Laboratory Tests Test 02/05/17 17:03 White Blood Count 5.9 TH/MM3 Red Blood Count 4.92 MIL/MM3 Hemoglobin 13.4 GM/DL Hematocrit 41.0 % Mean Corpuscular Volume 83.3 FL Mean Corpuscular Hemoglobin 27.3 PG Mean Corpuscular Hemoglobin Concent 32.8 % Red Cell Distribution Width 13.0 % Platelet Count 190 TH/MM3 Mean Platelet Volume 7.9 FL Neutrophils (%) (Auto) 72.6 % Lymphocytes (%) (Auto) 16.8 % Monocytes (%) (Auto) 8.2 % Eosinophils (%) (Auto) 1.0 % Basophils (%) (Auto) 1.4 % Neutrophils # (Auto) 4.2 TH/MM3 Lymphocytes # (Auto) 1.0 TH/MM3 Monocytes # (Auto) 0.5 TH/MM3 Eosinophils # (Auto) 0.1 TH/MM3 Basophils # (Auto) 0.1 TH/MM3 CBC Comment DIFF FINAL Differential Comment Blood Urea Nitrogen 16 MG/DL Creatinine 0.81 MG/DL Random Glucose 111 MG/DL Calcium Level 8.7 MG/DL Sodium Level 138 MEQ/L Potassium Level 4.2 MEQ/L Chloride Level 102 MEQ/L Carbon Dioxide Level 31.4 MEQ/L Anion Gap 5 MEQ/L Estimat Glomerular Filtration Rate 94 ML/MIN MDM Medical Decision Making Medical Screen Exam Complete: Yes Emergency Medical Condition: Yes Medical Record Reviewed: Yes Differential Diagnosis Differential includes vertigo, lightheadedness Narrative Course Patient appears to be having isolated vertigo. I recommended to him that he use meclizine as needed. I do not see any evidence of CVA Diagnosis Primary Impression: Vertigo Additional Instructions: Take meclizine as needed Disposition: 01 DISCHARGE HOME Condition: Stable Luiz Nichols MD Feb 05, 2017 16:41
[2017-02-05] MEDS ORDERED: SODIUM CHLOR 0.9% 1000 ML INJ 1,000 ML IV ONE (16:45)
[2017-02-05] MEDS ORDERED: ONDANSETRON HCL 4 MG/2 ML VIAL IV PUSH ONE (16:45)
[2017-02-05] MEDS ORDERED: MECLIZINE HCL 25 MG TAB PO ONE (16:45)
[2017-02-05 17:13] LABS: AUTOMATED NEUTROPHIL # 4.2 TH/MM3 (1.8-7.7); BASOPHIL # 0.1 TH/MM3 (0-0.2); BASOPHIL % 1.4 % (0.0-2.0); EOSINOPHIL # 0.1 TH/MM3 (0-0.4); HEMO FLAGS DIFF FINAL; LYMPH % 16.8 % (9.0-44.0); MEAN CELL VOLUME 83.3 FL (80.0-100.0); MEAN CORPUSCULAR HEMOGLOBIN 27.3 PG (27.0-34.0); MEAN CORPUSCULAR HGB CONC 32.8 % (32.0-36.0); MONO % 8.2 % (0.0-8.0); NEUT % 72.6 % (16.0-70.0); PLATELET COUNT 190 TH/MM3 (150-450); RED BLOOD COUNT 4.92 MIL/MM3 (4.50-5.90); WHITE BLOOD COUNT 5.9 TH/MM3 (4.0-11.0)
[2017-02-05 17:21] LABS: POTASSIUM 4.2 MEQ/L (3.5-5.1)
[2017-02-05 17:24] LABS: BICARBONATE 31.4 MEQ/L (21.0-32.0)
[2017-02-05 17:35] VITALS: BP_SYST 147; BP_SYST 155; BP_SYST 160; BP_DIAS 74; BP_DIAS 81; RESP 18
--- NOTE | 2017-02-06 13:44 | EKG ---
Date Performed: 02/05/2017 Time Performed: 16:44:04 PTAGE: 71 years EKG: Sinus rhythm NORMAL ECG Compared to prior tracing no significant change PREVIOUS TRACING : 12/12/2016 00.58 DOCTOR: Caitlyn Delatorre Interpretating Date/Time 02/06/2017 13:40:42
== END 2017-02-05 18:04 | disposition home or self-care (01) ==
LOC: PHED 15:43
DX: R42 Dizziness and giddiness (principal)
CPT/HCPCS: 80048; 85025; 93005; 96361; 96374; 99284; J2405; J7030

== ENCOUNTER 2017-08-07 06:50 | Observation (INO) | payer OTHER, MEDICARE ==
[~2017-08-07] VITALS: Ht 182.9 cm; Wt 70.9 kg
[2017-08-07] VITALS (8 sets, daily range): BP systolic 115–154; BP diastolic 58–75; PULSE 89–107; RESP 18–20; TEMP 97–98.6; O2SAT 94–98
[~2017-08-07 06:50] MED LIST changes: -AUGM400S PO
[2017-08-07] MEDS ORDERED: ZOFR4TAB PO (07:07)
--- NOTE | 2017-08-07 07:13 | PD ---
HPI Chief Complaint: Cold / Flu Symptoms Time Seen by Provider: 07:09 Travel History International Travel<30 days: No Contact w/Intl Traveler<30days: No Traveled to known affect area: No History of Present Illness HPI 71-year-old male patient with history of COPD, presents to the ER today because of 1 day history of nausea, vomiting, and has had some coughing, coughing up phlegm last week. He apparently had a CAT scan of the chest done a week or 2 ago and they had ordered a antibiotics for him but he has not yet gotten started on them. He denies any chest pains, fevers, abdominal pains, or other symptoms. He does not know of any sick contacts. Modifying Factors: None Associated Signs & Symptoms: Coughing, nausea, vomiting, shortness of breath Risk Factors: COPD PFSH Past Medical History Anemia: Yes Cancer: Yes Cardiovascular Problems: Yes Chemotherapy: Yes COPD: Yes Diabetes: No Diminished Hearing: No Endocrine: Yes Gastrointestinal Disorders: Yes (G-TUBE PLACED: 2012 "EPIGLOTTIS DOESN'T WORK ") Genitourinary: Yes Immune Disorder: No Inguinal Hernia: Yes Implanted Vascular Access Dvce: Yes Kidney Stones: Yes Musculoskeletal: No Neurologic: No Psychiatric: No Reproductive: No Respiratory: Yes Pneumonia: Yes (ASPIRATION) Radiation Therapy: Yes Thyroid Disease: Yes Influenza Vaccination: Yes Past Surgical History Abdominal Surgery: Yes (3 HERNIA REPAIRS ) Body Medical Devices: G TUBE Cardiac Surgery: No Ear Surgery: No Endocrine Surgery: No Eye Surgery: No Genitourinary Surgery: No Oral Surgery: Yes (THROAT CA- LYMPHNODE REMOVAL, TONSILS ) Pacemaker: No Thoracic Surgery: No Tonsillectomy: Yes Other Surgery: Yes (Tongue surgery from throat cancer) Social History Alcohol Use: No Tobacco Use: No (QUIT AGE 20) Substance Use: No Allergies-Medications (Allergen,Severity, Reaction): Coded Allergies: *MDRO Multi-Drug Resistant Organism (Verified Allergy, Unknown, MRSA, 08/07) MRSA PCR (nares) POSITIVE - 08/05/16 Reported Meds & Prescriptions Reported Meds & Active Scripts Active Reported Zofran (Ondansetron HCl) 4 Mg Tab 4 Mg PO Q6HR PRN Ensure Plus (Nutritional Supplements) 1 Liq Liq 2 Can G-TUBE QID Synthroid (Levothyroxine Sodium) 75 Mcg Tab 75 Mcg G-TUBE DAILY Symbicort Inh (Budesonide/Formoterol Fumarate) 160-4.5 Mcg/Act Aero 2 Puff INH Q12HR Albuterol Neb (Albuterol Sulfate) 2.5 Mg/3 Ml Neb 2.5 Mg NEB Q4HR NEB PRN Review of Systems Except as stated in HPI: all other systems reviewed are Neg Physical Exam Narrative GENERAL: Well-developed elderly white male patient currently in mild distress, vomiting in the ER. Awake and oriented 3. SKIN: Focused skin assessment warm/dry. HEAD: Atraumatic. Normocephalic. EYES: Pupils equal and round. No scleral icterus. No injection or drainage. ENT: No nasal bleeding or discharge. Mucous membranes pink and moist. NECK: Trachea midline. No JVD. Supple. CARDIOVASCULAR: Regular rate and rhythm. No murmur appreciated. RESPIRATORY: No accessory muscle use. Decreased throughout. Breath sounds equal bilaterally. GASTROINTESTINAL: Abdomen soft, non-tender, nondistended. Hepatic and splenic margins not palpable. MUSCULOSKELETAL: No obvious deformities. No clubbing. No cyanosis. No edema. NEUROLOGICAL: Awake and alert. No obvious cranial nerve deficits. Motor grossly within normal limits. Normal speech. PSYCHIATRIC: Appropriate mood and affect; insight and judgment normal. Data Data Last Documented VS Vital Signs Date Time Temp Pulse Resp B/P (MAP) Pulse Ox O2 Delivery O2 Flow Rate FiO2 08/07/17 08:31 106 18 154/66 (95) 97 Room Air 08/07/17 06:53 98.6 Orders Orders Complete Blood Count With Diff (08/07/17 07:04) Comprehensive Metabolic Panel (08/07/17 07:04) Lipase (08/07/17 07:04) Urinalysis - C+S If Indicated (08/07/17 07:04) Iv Access Insert/Monitor (08/07/17 07:04) Ecg Monitoring (08/07/17 07:04) Oximetry (08/07/17 07:04) Ondansetron Inj (Zofran Inj) (08/07/17 07:15) Sodium Chloride 0.9% Flush (Ns Flush) (08/07/17 07:15) Influenzae A/B Antigen (08/07/17 07:04) Sodium Chlorid 0.9% 500 Ml Inj (Ns 500 M (08/07/17 07:15) Chest, Single Ap (08/07/17 07:09) Lactic Acid Sepsis Protocol (08/07/17 08:04) Blood Culture (08/07/17 08:04) Ceftriaxone Inj (Rocephin Inj) (08/07/17 08:04) Azithromycin Inj (Zithromax Inj) (08/07/17 08:04) Admit Order (Ed Use Only) (08/07/17 08:55) Labs Laboratory Tests Test 08/07/17 07:20 08/07/17 08:18 08/07/17 08:50 White Blood Count 9.6 TH/MM3 Red Blood Count 5.05 MIL/MM3 Hemoglobin 13.7 GM/DL Hematocrit 41.9 % Mean Corpuscular Volume 83.0 FL Mean Corpuscular Hemoglobin 27.2 PG Mean Corpuscular Hemoglobin Concent 32.8 % Red Cell Distribution Width 13.0 % Platelet Count 161 TH/MM3 Mean Platelet Volume 8.4 FL Neutrophils (%) (Auto) 95.5 % Lymphocytes (%) (Auto) 2.4 % Monocytes (%) (Auto) 0.6 % Eosinophils (%) (Auto) 0.4 % Basophils (%) (Auto) 1.1 % Neutrophils # (Auto) 9.2 TH/MM3 Lymphocytes # (Auto) 0.2 TH/MM3 Monocytes # (Auto) 0.1 TH/MM3 Eosinophils # (Auto) 0.0 TH/MM3 Basophils # (Auto) 0.1 TH/MM3 CBC Comment AUTO DIFF Differential Total Cells Counted 100 Neutrophils % (Manual) 85 % Band Neutrophils % 6 % Lymphocytes % 6 % Monocytes % 3 % Neutrophils # (Manual) 8.7 TH/MM3 Differential Comment FINAL DIFF MANUAL Blood Urea Nitrogen 15 MG/DL Creatinine 0.89 MG/DL Random Glucose 172 MG/DL Total Protein 7.1 GM/DL Albumin 3.4 GM/DL Calcium Level 8.6 MG/DL Alkaline Phosphatase 96 U/L Aspartate Amino Transf (AST/SGOT) 21 U/L Alanine Aminotransferase (ALT/SGPT) 18 U/L Total Bilirubin 0.7 MG/DL Sodium Level 136 MEQ/L Potassium Level 4.3 MEQ/L Chloride Level 100 MEQ/L Carbon Dioxide Level 30.2 MEQ/L Anion Gap 6 MEQ/L Estimat Glomerular Filtration Rate 85 ML/MIN Lipase 130 U/L Lactic Acid Level 1.7 mmol/L Urine Collection Type CLEAN CATCH Urine Color YELLOW Urine Turbidity CLEAR Urine pH 8.0 Urine Specific [place] 1.015 Urine Protein NEG mg/dL Urine Glucose (UA) 100 mg/dL Urine Ketones NEG mg/dL Urine Occult Blood TRACE Urine Nitrite NEG Urine Bilirubin NEG Urine Leukocyte Esterase NEG Urine RBC 0-3 /hpf Microscopic Urinalysis Comment CULT NOT INDICATED MDM Medical Decision Making Medical Screen Exam Complete: Yes Emergency Medical Condition: Yes Medical Record Reviewed: Yes Interpretation(s) Laboratory Tests Test 08/07/17 07:20 08/07/17 08:18 08/07/17 08:50 Neutrophils (%) (Auto) 95.5 % (16.0-70.0) Lymphocytes (%) (Auto) 2.4 % (9.0-44.0) Neutrophils # (Auto) 9.2 TH/MM3 (1.8-7.7) Lymphocytes # (Auto) 0.2 TH/MM3 (1.0-4.8) Neutrophils % (Manual) 85 % (16-70) Lymphocytes % 6 % (9-44) Neutrophils # (Manual) 8.7 TH/MM3 (1.8-7.7) Random Glucose 172 MG/DL (74-106) Estimat Glomerular Filtration Rate 85 ML/MIN (>89) Urine Glucose (UA) 100 mg/dL (NEG) Last 24 hours Impressions Chest X-Ray 08/07/17 0709 Signed Impressions: Service Date/Time: Monday, August 07, 2017 07:11 - CONCLUSION: 1. New focal airspace disease in the right upper and mid lung zones consistent with pneumonia given history of cough. Recommend followup to resolution given nearly masslike configuration. Maximino Rene MD Differential Diagnosis COPD exacerbation versus pneumonia versus bronchitis versus influenza versus dehydration versus metabolic issues Narrative Course Chest x-ray shows a right-sided pneumonia. IV antibiotics were initiated after blood cultures were drawn. Patient still vomiting in the ER after given Zofran. He does not appear to be doing well as an outpatient, had taken ODT of Zofran as an outpatient as well. My plan would be to admit him for further IV antibiotics and treatment of pneumonia. Case was discussed with Dr. Juárez for admission. Diagnosis Primary Impression: Pneumonia Additional Impression: Sepsis Admitting Information Admitting Physician Requests: Admit Kevin Hastings MD Aug 07, 2017 07:13
[2017-08-07] MEDS ORDERED: ONDANSETRON HCL 4 MG/2 ML VIAL IVP ONE (07:15)
[2017-08-07] MEDS ORDERED: SODIUM CHLORIDE 0.9% FLUSH 10 ML FLUSH IV FLUSH PRN ×2 (07:15→10:15)
[2017-08-07] MEDS ORDERED: SODIUM CHLORID 0.9% 500 ML INJ 500 ML IV ONE (07:15)
[2017-08-07 07:29] LABS: AUTOMATED NEUTROPHIL # 9.2 TH/MM3 (1.8-7.7); BASOPHIL # 0.1 TH/MM3 (0-0.2); BASOPHIL % 1.1 % (0.0-2.0); EOSINOPHIL % 0.4 % (0.0-4.0); HEMATOCRIT 41.9 % (39.0-51.0); HEMOGLOBIN 13.7 GM/DL (13.0-17.0); LYMPH % 2.4 % (9.0-44.0); LYMPHOCYTE # 0.2 TH/MM3 (1.0-4.8); MEAN CORPUSCULAR HEMOGLOBIN 27.2 PG (27.0-34.0); MEAN CORPUSCULAR HGB CONC 32.8 % (32.0-36.0); MEAN PLATELET VOLUME 8.4 FL (7.0-11.0); MONO % 0.6 % (0.0-8.0); MONOCYTE # 0.1 TH/MM3 (0-0.9); NEUT % 95.5 % (16.0-70.0); PLATELET COUNT 161 TH/MM3 (150-450); RED BLOOD COUNT 5.05 MIL/MM3 (4.50-5.90); WHITE BLOOD COUNT 9.6 TH/MM3 (4.0-11.0)
--- NOTE | 2017-08-07 07:29 | RADRPT ---
EXAM DATE/TIME: 08/07/2017 07:11 [facility] COMPARISON: CHEST SINGLE AP, December 12, 2016, 0:55. INDICATIONS : Cough, body aches, nausea, vomiting. MEDICAL HISTORY : Chronic obstructive pulmonary disease. Thyroid disease, Throat CA. Aspiration pneumonia. Renal calculi. Anemia. Chemotherapy. Radiation therapy. SURGICAL HISTORY : Tonsillectomy. Lymph node removal. G-tube. Hernia repair. Tongue surgery. ENCOUNTER: Initial ACUITY: 1 day PAIN SCORE: 0/10 LOCATION: chest FINDINGS: New focal airspace disease in the right upper and midlung zones. Cardiomediastinal contours are withi n normal limits. Bony thorax is intact. CONCLUSION: 1. New focal airspace disease in the right upper and mid lung zones consistent with pneumonia given h istory of cough. Recommend followup to resolution given nearly masslike configuration. Maximino Rene MD on August 07, 2017 at 7:26 Board Certified Radiologist. This report was verified electronically.
[2017-08-07 07:36] LABS: CHLORIDE 100 MEQ/L (98-107); SODIUM (NA) 136 MEQ/L (136-145)
[2017-08-07 07:40] LABS: ALBUMIN 3.4 GM/DL (3.4-5.0); BICARBONATE 30.2 MEQ/L (21.0-32.0); BLOOD UREA NITROGEN 15 MG/DL (7-18); CALCIUM 8.6 MG/DL (8.5-10.1); GLUCOSE,RANDOM 172 MG/DL (74-106)
[2017-08-07 07:43] LABS: ALT (GPT) 18 U/L (12-78); AST (GOT) 21 U/L (15-37); CREATININE 0.89 MG/DL (0.60-1.30); GLOMERULAR FILTRATION RATE 85 ML/MIN (>89)
[2017-08-07 07:45] LABS: TOTAL BILIRUBIN ADULT 0.7 MG/DL (0.2-1.0); TOTAL PROTEIN 7.1 GM/DL (6.4-8.2)
[2017-08-07 07:46] LABS: ALKALINE PHOSPHATASE 96 U/L (45-117)
[2017-08-07 08:01] LABS: BANDS 6 % (0-6); LYMPHOCYTES 6 % (9-44); MONOCYTES 3 % (0-8); NEUTROPHIL # MANUAL DIFF 8.7 TH/MM3 (1.8-7.7); POLYS (SEG NEUTROPHILS) 85 % (16-70)
[2017-08-07] MEDS ORDERED: AZITHROMYCIN INJ 500 MG in SODIUM CHLOR 0.9% 250 ML INJ 250 ML IV STA (08:04)
[2017-08-07] MEDS ORDERED: cefTRIAXone INJ 2,000 MG in SODIUM CHLORIDE 0.9% INJ 100 ML IV STA (08:04)
[2017-08-07 09:01] LABS: BILIRUBIN, URINE NEG (NEG); BLOOD, URINE TRACE (NEG); GLUCOSE,URINE 100 mg/dL (NEG); KETONE, URINE NEG (NEG); NITRITE,URINE NEG (NEG); URINE LEUKOCYTE ESTERASE NEG (NEG)
[2017-08-07 09:08] LABS: URINE COLOR YELLOW (YELLW/STRAW)
[2017-08-07 09:09] LABS: RBC, URINE 0-3 /hpf (0-3)
[2017-08-07] MEDS ORDERED: NALOXONE HCL 0.4 MG/ML AMP IV PUSH PRN (10:15)
[2017-08-07] MEDS ORDERED: SENNOSIDES 8.6 MG TAB PO PRN (10:15)
[2017-08-07] MEDS ORDERED: ACETAMINOPHEN 325 MG TAB PO PRN (10:15)
--- NOTE | 2017-08-07 15:06 | HHI.HP ---
HPI Service [facility] Primary Care Physician [facility] Admission Diagnosis Pneumonia Diagnoses: (1) Pneumonia Chief Complaint: Nausea and vomiting Cough Travel History International Travel<30 Days: No Contact w/Intl Traveler <30 Da: No Traveled to Known Affected Are: No History of Present Illness This is a pleasant 71-year-old male patient with a known medical history of tongue cancer with chronic PEG placement and chronic aspiration, COPD who presented to the ED with complaints of nausea, vomiting and cough. Patient complaints that he was awoken this morning with complaints of abdominal pain with associate nausea and vomiting. Does admit to one bout of diarrhea last evening as well. Does admit to recent cough x 2 weeks and developed hemoptysis after his vomiting episode this morning. Denies any fever, chills, headache, sore throat, shortness of breath, or dysuria. Does follow with Dr. Goldberg for pulmonology and did have a chest CT 2 weeks ago showing right infiltrate and stable lung nodule. Antibiotics were written from his MD but patient was unable to obtain them from the pharmacy. Patient states that he has chronic dysphagia from tongue cancer and radiation treatment, has a PEG tube in place. Does admit to frequent bouts of pneumonia with associated hemoptysis. Patient has recently finished a course of antibiotics 3 weeks ago for a tooth infection. Last EGD 5 years ago which was reportedly negative. Has never had a colonoscopy, refuses. Denies any significant recent weight loss. Review of Systems Constitutional: COMPLAINS OF: Fatigue, Chills, DENIES: Diaphoretic episodes, Fever Endocrine: COMPLAINS OF: Heat/cold intolerance Eyes: DENIES: Blurred vision, Diplopia Respiratory: COMPLAINS OF: Hemoptysis, Sputum production, Shortness of breath, DENIES: Cough Cardiovascular: DENIES: Chest pain, Palpitations Gastrointestinal: COMPLAINS OF: Abdominal pain, Bloody stools, Diarrhea, Nausea , Vomiting, DENIES: Black stools, Constipation Immunologic/allergic: DENIES: Eczema Neurologic: DENIES: Abnormal gait Psychiatric: DENIES: Anxiety Except as stated in HPI: all other systems reviewed are Neg Past Family Social History Past Medical History COPD Anemia History of tongue cancer with chronic PEG tube and chronic aspiration History of hernia 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 Past Surgical History History of tongue cancer with PEG tube placement Hernia repair 3 Tonsillectomy Reported Medications Active Reported Zofran (Ondansetron HCl) 4 Mg Tab 4 Mg PO Q6HR PRN Ensure Plus (Nutritional Supplements) 1 Liq Liq 2 Can G-TUBE QID Synthroid (Levothyroxine Sodium) 75 Mcg Tab 75 Mcg G-TUBE DAILY Symbicort Inh (Budesonide/Formoterol Fumarate) 160-4.5 Mcg/Act Aero 2 Puff INH Q12HR Albuterol Neb (Albuterol Sulfate) 2.5 Mg/3 Ml Neb 2.5 Mg NEB Q4HR NEB PRN Allergies: Coded Allergies: No Known Allergies (Unverified , 08/07/17) Active Ordered Medications Current Medications Medications (Trade) Dose Ordered Sig/Marita Route Start Time Stop Time Status Last Admin Sodium Chloride 1,000 ml @ 100 mls/hr Q10H IV 08/07/17 10:11 (NS Flush) 2 ml UNSCH PRN IV FLUSH 08/07/17 10:15 (NS Flush) 2 ml BID IV FLUSH 08/07/17 21:00 (Tylenol) 650 mg Q4H PRN PO 08/07/17 10:15 (Narcan Inj) 0.4 mg UNSCH PRN IV PUSH 08/07/17 10:15 (Senokot) 17.2 mg Q12H PRN PO 08/07/17 10:15 Family History Mother had history of and emphysema, was a smoker. Brother has history of pancreatic cancer. Social History Denies any previous or current tobacco use. Denies any alcohol or illicit drug use. Physical Exam Vital Signs Vital Signs Date Time Temp Pulse Resp B/P (MAP) Pulse Ox O2 Delivery O2 Flow Rate FiO2 08/07/17 10:25 99 18 140/67 (91) 97 08/07/17 08:31 106 18 154/66 (95) 97 Room Air 08/07/17 07:09 107 18 127/75 (92) 96 Room Air 08/07/17 06:53 98.6 106 18 154/75 (101) 94 Physical Exam GENERAL: Well-developed thin appearing patient in NAD. SKIN: Warm and dry. No rash. HEAD: Normocephalic. Atraumatic. EYES: Pupils equal and round. No scleral icterus. No injection or drainage. ENT: No nasal bleeding or discharge. Mucous membranes pink and moist. NECK: Supple. Trachea midline. CARDIOVASCULAR: Regular rate and rhythm. S1, S2 noted. No murmur appreciated. RESPIRATORY: No accessory muscle use. Clear to auscultation. Breath sounds equal bilaterally. GASTROINTESTINAL: Abdomen soft, non-tender, nondistended. Normoactive bowel sounds x4. PEG tube in place, site clean, no erythema. MUSCULOSKELETAL: No obvious deformities. Extremities without clubbing, cyanosis , or edema. NEUROLOGICAL: Awake and alert. No obvious cranial nerve deficits. Motor grossly within normal limits. 5/5 muscle strength in bilateral upper and lower extremities. Normal speech. PSYCHIATRIC: Appropriate mood and affect; insight and judgment normal. Laboratory Laboratory Tests Test 08/07/17 07:20 08/07/17 08:18 08/07/17 08:50 White Blood Count 9.6 Red Blood Count 5.05 Hemoglobin 13.7 Hematocrit 41.9 Mean Corpuscular Volume 83.0 Mean Corpuscular Hemoglobin 27.2 Mean Corpuscular Hemoglobin Concent 32.8 Red Cell Distribution Width 13.0 Platelet Count 161 Mean Platelet Volume 8.4 Neutrophils (%) (Auto) 95.5 Lymphocytes (%) (Auto) 2.4 Monocytes (%) (Auto) 0.6 Eosinophils (%) (Auto) 0.4 Basophils (%) (Auto) 1.1 Neutrophils # (Auto) 9.2 Lymphocytes # (Auto) 0.2 Monocytes # (Auto) 0.1 Eosinophils # (Auto) 0.0 Basophils # (Auto) 0.1 CBC Comment AUTO DIFF Differential Total Cells Counted 100 Neutrophils % (Manual) 85 Band Neutrophils % 6 Lymphocytes % 6 Monocytes % 3 Neutrophils # (Manual) 8.7 Differential Comment FINAL DIFF MANUAL Blood Urea Nitrogen 15 Creatinine 0.89 Random Glucose 172 Total Protein 7.1 Albumin 3.4 Calcium Level 8.6 Alkaline Phosphatase 96 Aspartate Amino Transf (AST/SGOT) 21 Alanine Aminotransferase (ALT/SGPT) 18 Total Bilirubin 0.7 Sodium Level 136 Potassium Level 4.3 Chloride Level 100 Carbon Dioxide Level 30.2 Anion Gap 6 Estimat Glomerular Filtration Rate 85 Lipase 130 Lactic Acid Level 1.7 Urine Collection Type CLEAN CATCH Urine Color YELLOW Urine Turbidity CLEAR Urine pH 8.0 Urine Specific [place] 1.015 Urine Protein NEG Urine Glucose (UA) 100 Urine Ketones NEG Urine Occult Blood TRACE Urine Nitrite NEG Urine Bilirubin NEG Urine Leukocyte Esterase NEG Urine RBC 0-3 Microscopic Urinalysis Comment CULT NOT INDICATED Date/Time Source Procedure Growth Status 08/07/17 07:20 Blood Peripheral Aerobic Blood Culture Pending Received 08/07/17 07:20 Blood Peripheral Anaerobic Blood Culture Pending Received 08/07/17 07:15 Nasal Washing Influenza Types A,B Antigen (TARIQ) - Final NEGATIVE FOR FLU A AND B ANTIGEN.... Complete Result Diagram: 08/07/1771908/07/17719 Imaging Last Impressions Chest X-Ray 08/07/17708 Signed Impressions: Service Date/Time: Monday, August 07, 2017 07:11 - CONCLUSION: 1. New focal airspace disease in the right upper and mid lung zones consistent with pneumonia given history of cough. Recommend followup to resolution given nearly masslike configuration. Maximino Rene MD Septic Shock Reassessment Septic shock perfusion: reassessment completed Caprini VTE Risk Assessment Caprini VTE Risk Assessment: Mod/High Risk (score >= 2) Caprini Risk Assessment Model Point Value = 1 Point Value = 2 Point Value = 3 Point Value = 5 Age 41-60 Minor surgery BMI > 25 kg/m2 Swollen legs Varicose veins or History of unexplained or recurrent spontaneous Oral contraceptives or hormone replacement Sepsis (< 1 month) Serious lung disease, including pneumonia (< 1 month) Abnormal pulmonary function Acute myocardial infarction Congestive heart failure (< 1 month) History of inflammatory bowel disease Medical patient at bed rest Age 61-74 Arthroscopic surgery Major open surgery (> 45 min) Laparoscopic surgery (> 45 min) Malignancy Confined to bed (> 72 hours) Immobilizing plaster cast Central venous access Age >= 75 History of VTE Family history of VTE Factor V Leiden Prothrombin [id number] Lupus anticoagulant Anticardiolipin antibodies Elevated serum homocysteine Heparin-induced thrombocytopenia Other congenital or acquired thrombophilia Stroke (< 1 month) Elective arthroplasty Hip, pelvis, or leg fracture Acute spinal cord injury (< 1 month) Prophylaxis Regimen Total Risk Factor Score Risk Level Prophylaxis Regimen 0-1 Low Early ambulation 2 Moderate Order ONE of the following: *Sequential Compression Device (SCD) *Heparin 5000 units SQ BID 3-4 Higher Order ONE of the following medications: *Heparin 5000 units SQ TID *Enoxaparin/Lovenox 40 mg SQ daily (WT < 150 kg, CrCl > 30 mL/min) *Enoxaparin/Lovenox 30 mg SQ daily (WT < 150 kg, CrCl > 10-29 mL/min) *Enoxaparin/Lovenox 30 mg SQ BID (WT < 150 kg, CrCl > 30 mL/min) AND/OR *Sequential Compression Device (SCD) 5 or more Highest Order ONE of the following medications: *Heparin 5000 units SQ TID (Preferred with Epidurals) *Enoxaparin/Lovenox 40 mg SQ daily (WT < 150 kg, CrCl > 30 mL/min) *Enoxaparin/Lovenox 30 mg SQ daily (WT < 150 kg, CrCl > 10-29 mL/min) *Enoxaparin/Lovenox 30 mg SQ BID (WT < 150 kg, CrCl > 30 mL/min) AND *Sequential Compression Device (SCD) Assessment and Plan Problem List: (1) Pneumonia ICD Code: J18.9 - Pneumonia, unspecified organism Status: Acute Assessment and Plan This is a pleasant 71-year-old male patient with a known medical history of tongue cancer with chronic PEG placement and chronic aspiration, COPD who presented to the ED with complaints of nausea, vomiting and cough. Aspiration pneumonia suspect secondary to chronic dysphagia Presence of mild hemoptysis, now resolved History of tongue cancer with chronic dysphagia and chronic PEG placement No sepsis. No leukocytosis. Lactic acid 1.7. CBC and BMP reviewed and essentially unremarkable. UA reviewed and unremarkable. Blood cultures drawn and pending, follow growth. Influenza negative. Chest x-ray reviewed showing new focal airspace disease in the right upper and midlung. Will add sputum culture. Was given IV Azithromycin and Ceftriaxone in the ED. Will continue Ceftriaxone, add IV Flagyl for suspected aspiration pneumonia. Patient had CT chest 2 weeks ago, records obtained showing stable 5 mm nodule in the left mid lung with right middle lobe infiltrate. Hemoptysis resolved. Patient sees Dr. Goldberg for pulmonology, has follow up appointment next week. Continue IVF. Continue PEG bolus feedings as tolerated. Control nausea, Zofran available as needed. COPD not in exacerbation: Continue home inhalers and Duonebs. Supplemental O2 as needed, patient is comfortable on RA at this time. 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 Continue home Levothyroxine. DVT Prophylaxis: SCDs. Problem Qualifiers (1) Pneumonia: Grace Lozano Aug 07, 2017 15:06
[2017-08-07] MEDS: SODIUM CHLOR 0.9% 1000 ML INJ 1,000 ML IV SCH (17:04)
[2017-08-07] MEDS: metroNIDAZOLE 500 MG INJ 100 ML IV SCH (17:04)
[2017-08-07] MEDS: RESP: ALBUTEROL 2.5 MG/3 ML NEB (PRN) NEB (17:32)
[2017-08-07] MEDS: BUDESONIDE-FORMOTEROL 160/4.5 MCG INHALER INH SCH (20:50)
[2017-08-07] MEDS: SODIUM CHLORIDE 0.9% FLUSH 10 ML FLUSH IV FLUSH SCH (21:00)
[2017-08-08] VITALS (7 sets, daily range): BP systolic 112–154; BP diastolic 60–84; PULSE 83–89; RESP 14–22; TEMP 97.1–97.9; O2SAT 95–98
[2017-08-08] MEDS: metroNIDAZOLE 500 MG INJ 100 ML IV SCH ×3 (00:29→15:34)
[2017-08-08] MEDS: SODIUM CHLOR 0.9% 1000 ML INJ 1,000 ML IV SCH ×3 (04:16→15:34)
[2017-08-08 05:43] LABS: AUTOMATED NEUTROPHIL # 6.3 TH/MM3 (1.8-7.7); BASOPHIL # 0.1 TH/MM3 (0-0.2); BASOPHIL % 0.8 % (0.0-2.0); EOSINOPHIL # 0.1 TH/MM3 (0-0.4); EOSINOPHIL % 1.4 % (0.0-4.0); HEMATOCRIT 36.6 % (39.0-51.0); HEMOGLOBIN 12.4 GM/DL (13.0-17.0); LYMPHOCYTE # 1.3 TH/MM3 (1.0-4.8); MEAN CELL VOLUME 83.6 FL (80.0-100.0); MEAN CORPUSCULAR HEMOGLOBIN 28.2 PG (27.0-34.0); MEAN CORPUSCULAR HGB CONC 33.7 % (32.0-36.0); MEAN PLATELET VOLUME 8.3 FL (7.0-11.0); MONO % 8.3 % (0.0-8.0); MONOCYTE # 0.7 TH/MM3 (0-0.9); NEUT % 74.5 % (16.0-70.0); PLATELET COUNT 158 TH/MM3 (150-450); RED BLOOD COUNT 4.38 MIL/MM3 (4.50-5.90); RED CELL DISTRIBUTION WIDTH 13.2 % (11.6-17.2); WHITE BLOOD COUNT 8.5 TH/MM3 (4.0-11.0)
[2017-08-08 06:02] LABS: CALCIUM 8.2 MG/DL (8.5-10.1)
[2017-08-08 06:03] LABS: BICARBONATE 27.7 MEQ/L (21.0-32.0)
[2017-08-08 06:06] LABS: CREATININE 0.75 MG/DL (0.60-1.30)
[2017-08-08] MEDS: LEVOTHYROXINE SODIUM 75 MCG TAB G-TUBE SCH (06:08)
[2017-08-08] MEDS: ONDANSETRON HCL 4 MG/2 ML VIAL IV PUSH PRN ×4 (06:08→23:03)
[2017-08-08] MEDS: SODIUM CHLORIDE 0.9% FLUSH 10 ML FLUSH IV FLUSH SCH ×2 (09:00→21:17)
[2017-08-08] MEDS: BUDESONIDE-FORMOTEROL 160/4.5 MCG INHALER INH SCH ×2 (09:01→21:17)
[2017-08-08] MEDS: cefTRIAXone INJ 1,000 MG in SODIUM CHLORIDE 0.9% INJ 100 ML IV SCH (09:59)
--- NOTE | 2017-08-08 10:42 | HHI.PR ---
Subjective Remarks Follow-up aspiration pneumonia and nausea. Patient seen and examined, lying in bed. Patient states that he has had continuous nausea, unable to tolerate PEG feedings. Zofran has been ineffective. Does complain of dry heaves. Vital signs are stable. Afebrile. Objective Vitals Vital Signs Date Time Temp Pulse Resp B/P (MAP) Pulse Ox O2 Delivery O2 Flow Rate FiO2 08/08/17 00:00 97.1 83 20 118/60 (79) 96 08/07/17 20:00 97.2 89 20 115/58 (77) 97 08/07/17 17:35 95 21 08/07/17 16:00 98.4 90 18 130/72 (91) 98 08/07/17 12:30 97.0 97 18 120/60 (80) 97 I/O 08/07/17 08/07/17 08/07/17 08/08/17 08/08/17 08/08/17 07:00 15:00 23:00 07:00 15:00 23:00 Intake Total 850 ml 100 ml 1100 ml Output Total 300 ml Balance 550 ml 100 ml 1100 ml Intake Oral 0 ml IV Total 850 ml 100 ml 1100 ml Output Urine Total 300 ml # Voids 1 5 2 # Bowel Movements 0 Result Diagram: 08/08/1752408/08/17 05 Objective Remarks GENERAL: Well-developed, thin appearing male patient in NAD. Complaints of nausea SKIN: Warm and dry. No rash. HEAD: Normocephalic. Atraumatic. EYES: Pupils equal and round. No scleral icterus. No injection or drainage. ENT: No nasal bleeding or discharge. Mucous membranes pink and moist. NECK: Supple. Trachea midline. CARDIOVASCULAR: Regular rate and rhythm. S1, S2 noted. No murmur appreciated. RESPIRATORY: No accessory muscle use. Clear to auscultation. Breath sounds equal bilaterally. GASTROINTESTINAL: Abdomen soft, non-tender, nondistended. Normoactive bowel sounds x4. PEG tube in place MUSCULOSKELETAL: No obvious deformities. Extremities without clubbing, cyanosis , or edema. NEUROLOGICAL: Awake and alert. No obvious cranial nerve deficits. Motor grossly within normal limits. 5/5 muscle strength in bilateral upper and lower extremities. Normal speech. PSYCHIATRIC: Appropriate mood and affect; insight and judgment normal. A/P Problem List: (1) Pneumonia ICD Code: J18.9 - Pneumonia, unspecified organism Status: Acute Assessment and Plan This is a pleasant 71-year-old male patient with a known medical history of tongue cancer with chronic PEG placement and chronic aspiration, COPD who presented to the ED with complaints of nausea, vomiting and cough. Aspiration pneumonia suspect secondary to chronic dysphagia Presence of mild hemoptysis, now resolved. History of tongue cancer with chronic dysphagia and chronic PEG placement No sepsis. No leukocytosis. Lactic acid 1.7. CBC and BMP reviewed and essentially unremarkable. UA reviewed and unremarkable. Blood cultures drawn and pending, follow growth. Influenza negative. Chest x-ray reviewed showing new focal airspace disease in the right upper and midlung. Will add sputum culture. Was given IV Azithromycin and Ceftriaxone in the ED. Will continue Ceftriaxone, add IV Flagyl for suspected aspiration pneumonia. Patient had CT chest 2 weeks ago, records obtained showing stable 5 mm nodule in the left mid lung with right middle lobe infiltrate. Hemoptysis resolved. Patient sees Dr. Goldberg for pulmonology, has follow up appointment next week. Continue IVF. Continue PEG bolus feedings as tolerated. Control nausea, Zofran available as needed. Nausea Inability to tolerate PEG feedings Patient given Zofran which has been ineffective for nausea. No emesis noted but complains of dry heaves. Patient will be given Phenergan and Ativan cocktail. Assess response. A KUB has been ordered, continue to follow. Consult gastroenterology, appreciate further input and recommendations. 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 COPD not in exacerbation: Continue home inhalers and Duonebs. Supplemental O2 as needed, patient is comfortable on RA at this time. 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 Continue home Levothyroxine. DVT Prophylaxis: SCDs. Problem Qualifiers (1) Pneumonia: Grace Lozano Aug 08, 2017 10:42
[2017-08-08] MEDS: RESP: ALBUTEROL 2.5 MG/3 ML NEB (PRN) NEB ×2 (10:51→19:50)
[2017-08-08] MEDS ORDERED: PANTOPRAZOLE SODIUM 40 MG VIAL IV PUSH SCH (11:00)
--- NOTE | 2017-08-08 11:35 | RADRPT ---
EXAM DATE/TIME: 08/08/2017 10:56 [facility] COMPARISON: No previous studies available for comparison. INDICATIONS : Nausea MEDICAL HISTORY : Chronic obstructive pulmonary disease. Thyroid disease, Throat CA. SURGICAL HISTORY : Tonsillectomy. Lymph node removal. G-tube. Hernia repair. Tongue surgery. ENCOUNTER: Subsequent ACUITY: 2 days PAIN SCORE: 0/10 LOCATION: Abdomen FINDINGS: Supine view of the abdomen was performed. The abdominal bowel gas pattern is normal. No abnormal ma sses, calcifications, or organomegaly is seen. Scattered pelvic phleboliths. Degenerative changes in the spine and hips.. CONCLUSION: Nonspecific, benign abdomen appearance. Bc Fritz MD on August 08, 2017 at 11:33 Board Certified Radiologist. This report was verified electronically.
[2017-08-08] MEDS ORDERED: LORazepam 0.5 MG TAB PEG PRN (12:00)
[2017-08-08] MEDS ORDERED: ACETAMINOPHEN 325 MG TAB PEG PRN (18:15)
--- NOTE | 2017-08-08 20:22 | PD.CONS ---
HPI History of Present Illness This is a 71 year old male known to have a history of tongue cancer in the remote past. He is status post surgery and radiation treatment. He has a gastrostomy tube for enteral feeding. He is unable to swallow liquids and solids. He has swallow studies demonstrating high risk of aspiration aspiration. The patient was admitted to the hospital for treatment of aspiration pneumonia. He complains of upper abdominal pain nausea and dyspepsia. 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 Family History Mother had history of and emphysema, was a smoker. Brother has history of pancreatic cancer. Social History Denies any previous or current tobacco use. Denies any alcohol or illicit drug use. Review of Systems Gastrointestinal: COMPLAINS OF: Abdominal pain, Nausea, Difficulty Swallowing, DENIES: Black stools, Bloody stools, Constipation, Diarrhea, Vomiting, Anorexia , Odynophagia, Swelling of Abdomen, Heartburn, Hematemesis GI Exam Vitals I&O Vital Signs Date Time Temp Pulse Resp B/P (MAP) Pulse Ox O2 Delivery O2 Flow Rate FiO2 08/08/17 16:00 97.9 84 14 126/69 (88) 98 08/08/17 12:00 97.3 85 16 112/64 (80) 95 08/08/17 10:58 18 08/08/17 10:52 96 21 08/08/17 07:50 97.8 85 20 146/81 (102) 97 08/08/17 00:00 97.1 83 20 118/60 (79) 96 I/O 08/07/17 08/07/17 08/07/17 08/08/17 08/08/17 08/08/17 07:00 15:00 23:00 07:00 15:00 23:00 Intake Total 850 ml 100 ml 1100 ml 1360 ml 1580 ml Output Total 300 ml Balance 550 ml 100 ml 1100 ml 1360 ml 1580 ml Intake Oral 0 ml IV Total 850 ml 100 ml 1100 ml 200 ml 1000 ml Tube Feeding 960 ml 480 ml Tube Irrigant 200 ml 100 ml Output Urine Total 300 ml # Voids 1 5 2 2 11 # Bowel Movements 0 1 0 Laboratory Test 08/08/17 05:25 White Blood Count 8.5 TH/MM3 Red Blood Count 4.38 MIL/MM3 Hemoglobin 12.4 GM/DL Hematocrit 36.6 % Mean Corpuscular Volume 83.6 FL Mean Corpuscular Hemoglobin 28.2 PG Mean Corpuscular Hemoglobin Concent 33.7 % Red Cell Distribution Width 13.2 % Platelet Count 158 TH/MM3 Mean Platelet Volume 8.3 FL Neutrophils (%) (Auto) 74.5 % Lymphocytes (%) (Auto) 15.0 % Monocytes (%) (Auto) 8.3 % Eosinophils (%) (Auto) 1.4 % Basophils (%) (Auto) 0.8 % Neutrophils # (Auto) 6.3 TH/MM3 Lymphocytes # (Auto) 1.3 TH/MM3 Monocytes # (Auto) 0.7 TH/MM3 Eosinophils # (Auto) 0.1 TH/MM3 Basophils # (Auto) 0.1 TH/MM3 CBC Comment DIFF FINAL Differential Comment Blood Urea Nitrogen 11 MG/DL Creatinine 0.75 MG/DL Random Glucose 98 MG/DL Calcium Level 8.2 MG/DL Sodium Level 138 MEQ/L Potassium Level 4.1 MEQ/L Chloride Level 104 MEQ/L Carbon Dioxide Level 27.7 MEQ/L Anion Gap 6 MEQ/L Estimat Glomerular Filtration Rate 103 ML/MIN Date/Time Source Procedure Growth Status 08/07/17 07:20 Blood Peripheral Aerobic Blood Culture - Preliminary NO GROWTH IN 1 DAY Resulted 08/07/17 07:20 Blood Peripheral Anaerobic Blood Culture - Preliminary NO GROWTH IN 1 DAY Resulted 08/08/17 19:40 Sputum Expectorated Sputum Gram Stain Pending Received 08/08/17 19:40 Sputum Expectorated Sputum Sputum Culture Pending Received Physical Examination HEENT: Pupils round and reactive to light; normocephalic; atraumatic; no jaundice. Throat is clear. NECK: Neck is supple, no JVD, no lymphadenopathy. CHEST: Bilateral rales and rhonchi mainly at bases CARDIAC: Regular rate and rhythm with no murmur gallop or rubs. ABDOMEN: Soft, nondistended, nontender; no hepatosplenomegaly button PEG tube visualized with healthy skin around it; bowel sounds are present in all four quadrants. EXTREMITIES: No clubbing, cyanosis, or edema. SKIN: Normal; no rash; no jaundice. BUHR DRESSER: No focal deficits; alert and oriented times three. Assessment and Plan Assessment: (1) Dyspepsia ICD Codes: R10.13 - Epigastric pain (2) Epigastric pain ICD Codes: R10.13 - Epigastric pain (3) Dysphagia ICD Codes: R13.10 - Dysphagia, unspecified Status: Acute (4) Hypothyroidism ICD Codes: E03.9 - Hypothyroidism, unspecified Status: Acute (5) COPD exacerbation ICD Codes: J44.1 - Chronic obstructive pulmonary disease with (acute) exacerbation Status: Acute (6) Pneumonia ICD Codes: J18.9 - Pneumonia, unspecified organism Status: Acute (7) Sepsis ICD Codes: A41.9 - Sepsis, unspecified organism Status: Acute Plan 1. Patient's upper abdominal pain and dyspepsia likely due to GERD 2. Remote possibility of underlying peptic ulcer disease and pancreatic disease 3. Family history of pancreatic cancer 4. Recommend CT scan of the abdomen 5. IV Protonix 40 mg twice daily 6. Upper endoscopic evaluation technically not possible Problem Qualifiers (1) Pneumonia: Bennie Cronin MD Aug 08, 2017 20:22
[2017-08-08] MEDS ORDERED: DIATRIZOATE MEGLUM/DIATRIZOATE SOD 9 ML CUP PO ONE (21:15)
[2017-08-08] MEDS: PANTOPRAZOLE SODIUM 40 MG VIAL IV PUSH SCH (21:16)
[2017-08-08] MEDS: PROMETHAZINE HCL 12.5 MG SUPP RECTAL PRN (21:49)
[2017-08-08] MEDS ORDERED: ACETAMINOPHEN 650 MG SUPP RECTAL ONE (22:45)
[2017-08-09] VITALS: BP 147/82; PULSE 99; RESP 20; TEMP 98.6; O2SAT 96
[2017-08-09] MEDS: metroNIDAZOLE 500 MG INJ 100 ML IV SCH ×3 (00:12→16:00)
[2017-08-09] MEDS: SODIUM CHLOR 0.9% 1000 ML INJ 1,000 ML IV SCH ×2 (02:41→12:35)
[2017-08-09] MEDS: LEVOTHYROXINE SODIUM 75 MCG TAB G-TUBE SCH (05:50)
[2017-08-09 07:50] VITALS: BP 145/85; PULSE 85; RESP 20; TEMP 96.2; O2SAT 96
[2017-08-09] MEDS ORDERED: DIATRIZOATE MEGLUM/DIATRIZOATE SOD 9 ML CUP PO ONE (10:15)
--- NOTE | 2017-08-09 10:44 | HHI.PR ---
Subjective Remarks Follow-up aspiration pneumonia and nausea. Patient seen and examined, lying in bed comfortably states he has had an uneventful night. Pain is more controlled. Continue nausea. Gastroenterology is seen patient. Awaiting CT abdomen imaging. Has been tolerating tube feeds. No vomiting. Vital signs are stable. Afebrile. Objective Vitals Vital Signs Date Time Temp Pulse Resp B/P (MAP) Pulse Ox O2 Delivery O2 Flow Rate FiO2 08/09/17 07:50 96.2 85 20 145/85 (105) 96 08/09/17 00:00 98.6 99 20 147/82 (103) 96 08/08/17 20:00 97.1 89 22 154/84 (107) 97 08/08/17 19:50 97 21 08/08/17 16:00 97.9 84 14 126/69 (88) 98 08/08/17 12:00 97.3 85 16 112/64 (80) 95 08/08/17 10:58 18 08/08/17 10:52 96 21 I/O 08/08/17 08/08/17 08/08/17 08/09/17 08/09/17 08/09/17 07:00 15:00 23:00 07:00 15:00 23:00 Intake Total 1100 ml 1360 ml 1580 ml 1480 ml Output Total 200 ml Balance 1100 ml 1360 ml 1580 ml 1280 ml Intake Oral 0 ml 480 ml IV Total 1100 ml 200 ml 1000 ml 1000 ml Tube Feeding 960 ml 480 ml Tube Irrigant 200 ml 100 ml Output Urine Total 200 ml # Voids 2 2 11 3 # Bowel Movements 1 0 0 Result Diagram: 08/08/17 0525 08/08/17 0525 Imaging Last Impressions Abdomen X-Ray 08/08/17 0000 Signed Impressions: Service Date/Time: Tuesday, August 08, 2017 10:56 - CONCLUSION: Nonspecific, benign abdomen appearance. Bc Fritz MD Chest X-Ray 08/07/17 0709 Signed Impressions: Service Date/Time: Monday, August 07, 2017 07:11 - CONCLUSION: 1. New focal airspace disease in the right upper and mid lung zones consistent with pneumonia given history of cough. Recommend followup to resolution given nearly masslike configuration. Maximino Rene MD Objective Remarks GENERAL: Well-developed, thin appearing male patient in NAD. Complaints of nausea SKIN: Warm and dry. No rash. HEAD: Normocephalic. Atraumatic. EYES: Pupils equal and round. No scleral icterus. No injection or drainage. ENT: No nasal bleeding or discharge. Mucous membranes pink and moist. NECK: Supple. Trachea midline. CARDIOVASCULAR: Regular rate and rhythm. S1, S2 noted. No murmur appreciated. RESPIRATORY: No accessory muscle use. Clear to auscultation. Breath sounds equal bilaterally. GASTROINTESTINAL: Abdomen soft, non-tender, nondistended. Normoactive bowel sounds x4. PEG tube in place MUSCULOSKELETAL: No obvious deformities. Extremities without clubbing, cyanosis , or edema. NEUROLOGICAL: Awake and alert. No obvious cranial nerve deficits. Motor grossly within normal limits. 5/5 muscle strength in bilateral upper and lower extremities. Normal speech. PSYCHIATRIC: Appropriate mood and affect; insight and judgment normal. A/P Problem List: (1) Pneumonia ICD Code: J18.9 - Pneumonia, unspecified organism Status: Acute Assessment and Plan This is a pleasant 71-year-old male patient with a known medical history of tongue cancer with chronic PEG placement and chronic aspiration, COPD who presented to the ED with complaints of nausea, vomiting and cough. Aspiration pneumonia suspect secondary to chronic dysphagia Presence of mild hemoptysis, now resolved. History of tongue cancer with chronic dysphagia and chronic PEG placement No sepsis. No leukocytosis. Lactic acid 1.7. CBC and BMP reviewed and essentially unremarkable. UA reviewed and unremarkable. Blood cultures drawn and pending, follow growth. Influenza negative. Chest x-ray reviewed showing new focal airspace disease in the right upper and midlung. Will add sputum culture. Was given IV Azithromycin and Ceftriaxone in the ED. Will continue Ceftriaxone, continue IV Flagyl for suspected aspiration pneumonia. Patient had CT chest 2 weeks ago, records obtained showing stable 5 mm nodule in the left mid lung with right middle lobe infiltrate. Hemoptysis resolved. Patient sees Dr. Goldberg for pulmonology, has follow up appointment next week. Continue IVF. Continue PEG bolus feedings as tolerated. Control nausea, Zofran available as needed. Nausea Inability to tolerate PEG feedings. Resolved. Patient given Zofran which has been ineffective for nausea. No emesis noted but complains of dry heaves. Patient will be given Phenergan and Ativan cocktail. Did well with GI cocktail. KUB unremarkable. Ow. Consult gastroenterology, appreciate further input and recommendations. Has seen patient, awaiting CT abdomen ordered. Continue to follow. COPD not in exacerbation: Continue home inhalers and Duonebs. Supplemental O2 as needed, patient is comfortable on RA at this time. 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 Continue home Levothyroxine. DVT Prophylaxis: SCDs. Problem Qualifiers (1) Pneumonia: Grace Lozano Aug 09, 2017 10:43
[2017-08-09] MEDS: BUDESONIDE-FORMOTEROL 160/4.5 MCG INHALER INH SCH (11:16)
[2017-08-09] MEDS: PANTOPRAZOLE SODIUM 40 MG VIAL IV PUSH SCH (11:17)
[2017-08-09] MEDS: cefTRIAXone INJ 1,000 MG in SODIUM CHLORIDE 0.9% INJ 100 ML IV SCH (11:17)
[2017-08-09] MEDS: SODIUM CHLORIDE 0.9% FLUSH 10 ML FLUSH IV FLUSH SCH (11:18)
[2017-08-09] MEDS: PROMETHAZINE HCL 12.5 MG SUPP RECTAL PRN (11:19)
[2017-08-09 11:44] VITALS: BP 185/92; PULSE 101; RESP 20; TEMP 97.9; O2SAT 97
[2017-08-09 12:17] VITALS: BP 150/89; PULSE 88
[2017-08-09] MEDS ORDERED: IOHEXOL 350 MG/ML 10 ML VIAL (for RAD DIAG) IVCONTRAST ONE (15:17)
--- NOTE | 2017-08-09 15:40 | RADRPT ---
EXAM DATE/TIME: 08/09/2017 15:10 [facility] COMPARISON: CT PULMONARY ANGIOGRAM, August 05, 2016, 3:33. INDICATIONS : Upper abdominal pain and nausea x 2 days. IV CONTRAST: 85 cc Omnipaque 350 (iohexol) IV ORAL CONTRAST: Prescribed oral contrast ingested. RADIATION DOSE: 7.60 CTDIvol (mGy) MEDICAL HISTORY : Chronic obstructive pulmonary disease. Renal calculi. Hernia, inguinal.Throat cancer. SURGICAL HISTORY : Inguinal hernia repair. G-tube. ENCOUNTER: Initial ACUITY: 2 days PAIN SCALE: 2/10 LOCATION: Bilateral upper quadrant TECHNIQUE: Volumetric scanning of the abdomen and pelvis was performed. Using automated exposure control and ad justment of the mA and/or kV according to patient size, radiation dose was kept as low as reasonably achievable to obtain optimal diagnostic quality images. DICOM format image data is available electro nically for review and comparison. FINDINGS: LOWER LUNGS: Small areas of patchy parenchymal consolidation in the left lower lobe is new from the prior study. T he consolidation within the visualized portions of the right lower lobe has resolved. LIVER: Homogeneous density without lesion. There is no dilation of the biliary tree. No calcified gallston es. SPLEEN: Normal size without lesion. PANCREAS: Within normal limits. KIDNEYS: Normal in size and shape. There is no mass or hydronephrosis. A 2 mm nonobstructing stone involving the upper pole of the right kidney. ADRENAL GLANDS: Within normal limits. VASCULAR: There is no aortic aneurysm. BOWEL/MESENTERY: A gastrostomy tube is noted in good position. The stomach, small bowel, and colon demonstrate no acut e abnormality. There is no free intraperitoneal air or fluid. ABDOMINAL WALL: Within normal limits. RETROPERITONEUM: There is no lymphadenopathy. BLADDER: No wall thickening or mass. REPRODUCTIVE: Within normal limits. INGUINAL: There is no lymphadenopathy or hernia. MUSCULOSKELETAL: Degenerative changes of the lumbar spine, SI joints, and hips. CONCLUSION: 1. No acute abnormality to explain patient's pain. 2. Gastrostomy tube. 3. Resolved right lower lobe infiltrate with minimal infiltrate within the left lung base. 4. 2 mm nonobstructing right renal stone. Rafy Bee Jr., MD on August 09, 2017 at 15:33 Board Certified Radiologist. This report was verified electronically.
[2017-08-09] MEDS ORDERED: PROT40TA PO (16:36)
[2017-08-09] MEDS ORDERED: SENN187 PO (16:36)
[2017-08-09] MEDS ORDERED: AMOX875T2 PO (16:36)
[2017-08-09] MEDS ORDERED: [UNRECOGNIZED DRUG - CODE] RECTAL (16:36)
--- NOTE | 2017-08-09 16:37 | HHI.DCPOC ---
Discharge Care Plan Diagnosis: (1) Dyspepsia (2) Dysphagia (3) Epigastric pain (4) Pneumonia Goals to Promote Your Health * To prevent worsening of your condition and complications * To maintain your health at the optimal level Directions to Meet Your Goals Take your medications as prescribed Follow your dietary instruction Follow activity as directed Keep your appointments as scheduled Take your immunizations and boosters as scheduled If your symptoms worsen call your PCP, if no PCP go to Urgent Care Center or Emergency Room Smoking is Dangerous to Your Health. Avoid second hand smoke Call the 24-hour hour crisis hotline for domestic abuse at Grace Lozano Aug 09, 2017 16:37
[2017-08-09 17:02] VITALS: BP 148/90; PULSE 91; RESP 16; TEMP 98.5; O2SAT 98
== END 2017-08-09 18:50 | disposition home or self-care (01) ==
LOC: PHED 06:50 → PHEDA 08:56 → INTOOBSV 08:56 → PH3B 10:18
PROVIDERS: ADMIT Hospitalist; ATTEND Hospitalist
DX: J18.9 Pneumonia, unspecified organism (principal); J69.0 Pneumonitis due to inhalation of food and vomit; A41.9 Sepsis, unspecified organism; J44.9 Chronic obstructive pulmonary disease, unspecified; R13.10 Dysphagia, unspecified; R04.2 Hemoptysis; E89.0 Postprocedural hypothyroidism; R91.1 Solitary pulmonary nodule; N20.0 Calculus of kidney; Z79.899 Other long term (current) drug therapy; K21.9 Gastro-esophageal reflux disease without esophagitis; Z85.810 Personal history of malignant neoplasm of tongue; Z93.1 Gastrostomy status; Z92.3 Personal history of irradiation; Z80.0 Family history of malignant neoplasm of digestive organs
CPT/HCPCS: 71045; 74018; 74177; 80048; 80053; 81001; 83605; 83690; 85007; 85025; 85027; 87040; 87070; 87205; 87804; 94640; 94664; 96361; 96365; 96366; 96367; 96368; 96375; 96376; 99285; C9113; G0378; J0456; J0696; J2405; J7030; J7040; J7050; J7613; Q9963; Q9967

== ENCOUNTER 2017-08-19 06:42 | Inpatient (IN) | payer OTHER, MEDICARE ==
[~2017-08-19] VITALS: Ht 182.9 cm; Wt 69.9 kg
[2017-08-19] VITALS (12 sets, daily range): BP systolic 114–156; BP diastolic 62–79; PULSE 88–108; RESP 18–20; TEMP 97.2–97.6; O2SAT 93–99
[~2017-08-19 06:42] MED LIST changes: +AMOX875T2 PO; +PROT40TA PO; +SENN187 PO; +ZOFR4TAB PO; +[UNRECOGNIZED DRUG - CODE] RECTAL
--- NOTE | 2017-08-19 07:24 | PD ---
HPI Chief Complaint: GI Complaint Time Seen by Provider: 07:21 Travel History International Travel<30 days: No Contact w/Intl Traveler<30days: No Traveled to known affect area: No History of Present Illness HPI pt c/o having nausea and bringing up phlegm like emesis started yesterday at approx 12 noon. Patient has been diagnosed with aspiration pneumonia in the recent past. Also has a history of tongue cancer for which tongue was removed and he has been on G-tube or PEG tube feedings. Patient denies ever drinking orally. Patient has had increased coughing and shortness of breath worsening over the past 24 HRS. No known drug allergy History of throat CA with tongue, lymph node and tonsil removals, COPD, aspiration pneumonia, G-tube placed because "epiglottis does not work", kidney stones anemia previous chemo and radiation. PFSH Past Medical History Anemia: Yes Cancer: Yes Cardiovascular Problems: Yes Chemotherapy: Yes COPD: Yes Diabetes: No Diminished Hearing: No Endocrine: Yes Gastrointestinal Disorders: Yes (G-TUBE PLACED: 2012 "EPIGLOTTIS DOESN'T WORK ") Genitourinary: Yes Immune Disorder: No Inguinal Hernia: Yes Implanted Vascular Access Dvce: Yes Kidney Stones: Yes Musculoskeletal: No Neurologic: No Psychiatric: No Reproductive: No Respiratory: Yes Pneumonia: Yes (ASPIRATION) Radiation Therapy: Yes Thyroid Disease: Yes Past Surgical History Abdominal Surgery: Yes (3 HERNIA REPAIRS ) Body Medical Devices: G TUBE Cardiac Surgery: No Ear Surgery: No Endocrine Surgery: No Eye Surgery: No Genitourinary Surgery: No Oral Surgery: Yes (THROAT CA- LYMPHNODE REMOVAL, TONSILS ) Pacemaker: No Thoracic Surgery: No Tonsillectomy: Yes Other Surgery: Yes (Tongue surgery from throat cancer) Social History Alcohol Use: No Tobacco Use: No (QUIT AGE 20) Substance Use: No Allergies-Medications (Allergen,Severity, Reaction): Coded Allergies: No Known Allergies (Unverified , 08/07/17) Reported Meds & Prescriptions Reported Meds & Active Scripts Active Promethegan Supp (Promethazine HCl) 12.5 Mg Supp 12.5 Mg RECTAL Q6HR PRN 30 Days Reported Zofran (Ondansetron HCl) 4 Mg Tab 4 Mg PO Q6HR PRN Ensure Plus (Nutritional Supplements) 1 Liq Liq 2 Can G-TUBE QID Synthroid (Levothyroxine Sodium) 75 Mcg Tab 75 Mcg G-TUBE DAILY Symbicort Inh (Budesonide/Formoterol Fumarate) 160-4.5 Mcg/Act Aero 2 Puff INH Q12HR Albuterol Neb (Albuterol Sulfate) 2.5 Mg/3 Ml Neb 2.5 Mg NEB Q4HR NEB PRN Review of Systems General / Constitutional: No: Fever Eyes: No: Visual changes HENT: No: Headaches Cardiovascular: No: Chest Pain or Discomfort Respiratory: No: Shortness of Breath Gastrointestinal: No: Abdominal Pain Genitourinary: No: Dysuria Musculoskeletal: No: Pain Skin: No Rash Neurologic: No: Weakness Psychiatric: No: Depression Endocrine: No: Polydipsia Hematologic/Lymphatic: No: Easy Bruising Physical Exam Narrative GENERAL: Elderly thin white male, with some nausea.... Patient also had productive sounding cough SKIN: Warm and dry. HEAD: Atraumatic. Normocephalic. EYES: Pupils equal and round. No scleral icterus. No injection or drainage. ENT: No nasal bleeding or discharge. Mucous membranes pink and moist. NECK: Trachea midline. No JVD. CARDIOVASCULAR: Regular rate and rhythm. RESPIRATORY: No accessory muscle use. Patient had bilateral rhonchi present. Tidal volume equal bilaterally. GASTROINTESTINAL: Abdomen soft, non-tender, nondistended. MUSCULOSKELETAL: Extremities without clubbing, cyanosis, or edema. No obvious deformities. NEUROLOGICAL: Awake and alert. No obvious cranial nerve deficits. Motor grossly within normal limits. Five out of 5 muscle strength in the arms and legs. Normal speech. PSYCHIATRIC: Appropriate mood and affect; insight and judgment normal. Data Data Last Documented VS Vital Signs Date Time Temp Pulse Resp B/P (MAP) Pulse Ox O2 Delivery O2 Flow Rate FiO2 08/19/17 11:37 99 20 156/79 (104) 96 Nasal Cannula 2.00 08/19/17 06:48 97.2 Orders Orders Sepsis Workup Initiated (08/19/17 ) Complete Blood Count With Diff (08/19/17 08:41) Comprehensive Metabolic Panel (08/19/17 08:41) Prothrombin Time / Inr (Pt) (08/19/17 08:41) Act Partial Throm Time (Ptt) (08/19/17 08:41) Lactic Acid Sepsis Protocol (08/19/17 08:41) Lipase (08/19/17 08:41) Ckmb (Isoenzyme) Profile (08/19/17 08:41) Troponin I (08/19/17 08:41) Urinalysis - C+S If Indicated (08/19/17 08:41) Influenzae A/B Antigen (08/19/17 08:41) Blood Culture (08/19/17 08:41) Sputum Culture And Gram Stain (08/19/17 08:41) Blood Glucose (08/19/17 08:41) Ecg Monitoring (08/19/17 08:41) Iv Access Insert/Monitor (08/19/17 08:41) Oximetry (08/19/17 08:41) Oxygen Administration (08/19/17 08:41) Ct Thorax/ Chest W Iv Contrast (08/19/17 08:41) Ondansetron Inj (Zofran Inj) (08/19/17 09:45) Iohexol 350 Inj (Omnipaque 350 Inj) (08/19/17 10:12) Methylprednisolone So Succ Inj (Solumedr (08/19/17 11:00) Albuterol Neb (Albuterol Neb) (08/19/17 11:00) Magnesium Sulfate 1 Gm Premix (Magnesium (08/19/17 13:00) Levofloxacin 500 Mg Premix Inj (Levaquin (08/19/17 11:00) Clindamycin 600 Mg/Ns Premix (Cleocin 60 (08/19/17 10:45) Metronidazole 500 Mg Inj (Flagyl 500 Mg (08/19/17 12:00) Metoclopramide Inj (Reglan Inj) (08/19/17 11:00) Promethazine Inj (Phenergan Inj) (08/19/17 11:00) Urine Culture (08/19/17 10:30) Labs Laboratory Tests Test 08/19/17 08:05 08/19/17 10:30 White Blood Count 24.1 TH/MM3 Red Blood Count 5.06 MIL/MM3 Hemoglobin 14.1 GM/DL Hematocrit 42.2 % Mean Corpuscular Volume 83.3 FL Mean Corpuscular Hemoglobin 27.9 PG Mean Corpuscular Hemoglobin Concent 33.4 % Red Cell Distribution Width 13.1 % Platelet Count 277 TH/MM3 Mean Platelet Volume 8.6 FL Neutrophils (%) (Auto) 93.3 % Lymphocytes (%) (Auto) 2.6 % Monocytes (%) (Auto) 3.9 % Eosinophils (%) (Auto) 0.1 % Basophils (%) (Auto) 0.1 % Neutrophils # (Auto) 22.6 TH/MM3 Lymphocytes # (Auto) 0.6 TH/MM3 Monocytes # (Auto) 0.9 TH/MM3 Eosinophils # (Auto) 0.0 TH/MM3 Basophils # (Auto) 0.0 TH/MM3 CBC Comment DIFF FINAL Differential Comment Prothrombin Time 12.1 SEC Prothromb Time International Ratio 1.2 RATIO Activated Partial Thromboplast Time 31.0 SEC Blood Urea Nitrogen 20 MG/DL Creatinine 0.95 MG/DL Random Glucose 148 MG/DL Total Protein 7.4 GM/DL Albumin 3.3 GM/DL Calcium Level 9.4 MG/DL Alkaline Phosphatase 82 U/L Aspartate Amino Transf (AST/SGOT) 16 U/L Alanine Aminotransferase (ALT/SGPT) 18 U/L Total Bilirubin 0.8 MG/DL Sodium Level 138 MEQ/L Potassium Level 4.6 MEQ/L Chloride Level 102 MEQ/L Carbon Dioxide Level 29.1 MEQ/L Anion Gap 7 MEQ/L Estimat Glomerular Filtration Rate 78 ML/MIN Lactic Acid Level 1.5 mmol/L Total Creatine Kinase 75 U/L Troponin I LESS THAN 0.02 NG/ML Lipase 78 U/L Urine Color YELLOW Urine Turbidity CLEAR Urine pH 7.0 Urine Specific [place] 1.015 Urine Protein 30 mg/dL Urine Glucose (UA) NEG mg/dL Urine Ketones NEG mg/dL Urine Occult Blood SMALL Urine Nitrite NEG Urine Bilirubin NEG Urine Urobilinogen 0.2 MG/DL Urine Leukocyte Esterase NEG Urine RBC 10-14 /hpf Urine WBC 9-14 /hpf Urine Squamous Epithelial Cells 0-5 /hpf Urine Bacteria OCC /hpf Urine Mucus MANY /lpf Microscopic Urinalysis Comment CATH-CULTURE IND MDM Medical Decision Making Medical Screen Exam Complete: Yes Emergency Medical Condition: Yes Medical Record Reviewed: Yes Differential Diagnosis COPD exacerbation versus pneumonia versus aspiration pneumonia versus pulmonary edema versus pneumothorax Narrative Course CBC shows leukocytosis of 24,000 with a left shift of 93%, vision also has no evidence of anemia and has normal platelet count. Coagulation profile is within normal limits Complete metabolic profile shows normal electrolytes, normal lactic acid 1.5 decreased GFR 78 however does have a normal lipase normal LFTs and a negative troponin of less than 0.02 CT chest reveals patchy airspace disease noted on both right and left lungs, with no axillary adenopathy, minimal nonspecific mediastinal adenopathy is present. No pericardial effusion, no pleural effusion noted by radiologist. Of note is a previous CAT scan of the abdomen and pelvis performed on August 09 with contrast with the following findings: 1. No acute abnormality to explain patient's pain. 2. Gastrostomy tube. 3. Resolved right lower lobe infiltrate with minimal infiltrate within the left lung base. 4. 2 mm nonobstructing right renal stone. Critical Care Narrative CRITICAL CARE NOTE: With evaluation of the patient, labs, EKG, receipt of radiologic studies, administration of medications, reevaluation the patient and discussion of the patient with the admitting physicians, the total critical care time was [45] minutes. Time to perform other separately billable procedures was not included in the critical care time. Diagnosis Primary Impression: COPD exacerbation Additional Impressions: bilateral pneumonia Possible dyspeptic syndrome UTI Admitting Information Admitting Physician Requests: Admit Anival Rodarte MD Aug 19, 2017 07:24
[2017-08-19 09:32] LABS: AUTOMATED NEUTROPHIL # 22.6 TH/MM3 (1.8-7.7); BASOPHIL % 0.1 % (0.0-2.0); EOSINOPHIL % 0.1 % (0.0-4.0); HEMATOCRIT 42.2 % (39.0-51.0); HEMOGLOBIN 14.1 GM/DL (13.0-17.0); LYMPH % 2.6 % (9.0-44.0); LYMPHOCYTE # 0.6 TH/MM3 (1.0-4.8); MEAN CELL VOLUME 83.3 FL (80.0-100.0); MEAN CORPUSCULAR HEMOGLOBIN 27.9 PG (27.0-34.0); MEAN CORPUSCULAR HGB CONC 33.4 % (32.0-36.0); MEAN PLATELET VOLUME 8.6 FL (7.0-11.0); MONO % 3.9 % (0.0-8.0); MONOCYTE # 0.9 TH/MM3 (0-0.9); NEUT % 93.3 % (16.0-70.0); PLATELET COUNT 277 TH/MM3 (150-450); RED BLOOD COUNT 5.06 MIL/MM3 (4.50-5.90); RED CELL DISTRIBUTION WIDTH 13.1 % (11.6-17.2); WHITE BLOOD COUNT 24.1 TH/MM3 (4.0-11.0)
[2017-08-19 09:33] LABS: INTERNATIONAL NORMALIZED RATIO 1.2 RATIO; PROTHROMBIN TIME - PATIENT 12.1 SEC (9.8-11.6)
[2017-08-19] MEDS ORDERED: ONDANSETRON HCL 4 MG/2 ML VIAL IV PUSH ONE (09:45)
[2017-08-19 09:50] LABS: CALCIUM 9.4 MG/DL (8.5-10.1)
[2017-08-19 09:51] LABS: BICARBONATE 29.1 MEQ/L (21.0-32.0); GLUCOSE,RANDOM 148 MG/DL (74-106)
[2017-08-19 09:53] LABS: ALBUMIN 3.3 GM/DL (3.4-5.0); TOTAL BILIRUBIN ADULT 0.8 MG/DL (0.2-1.0)
[2017-08-19 09:54] LABS: TROPONIN I LESS THAN 0.02 NG/ML (0.02-0.05)
[2017-08-19 09:55] LABS: ALT (GPT) 18 U/L (12-78); CHLORIDE 102 MEQ/L (98-107); SODIUM (NA) 138 MEQ/L (136-145)
[2017-08-19 09:56] LABS: CREATININE 0.95 MG/DL (0.60-1.30); GLOMERULAR FILTRATION RATE 78 ML/MIN (>89)
[2017-08-19 09:57] LABS: TOTAL PROTEIN 7.4 GM/DL (6.4-8.2)
[2017-08-19 09:58] LABS: ALKALINE PHOSPHATASE 82 U/L (45-117); BLOOD UREA NITROGEN 20 MG/DL (7-18)
[2017-08-19 09:59] LABS: AST (GOT) 16 U/L (15-37)
[2017-08-19] MEDS ORDERED: IOHEXOL 350 MG/ML 10 ML VIAL (for RAD DIAG) IVCONTRAST ONE (10:12)
--- NOTE | 2017-08-19 10:17 | RADRPT ---
EXAM DATE/TIME: 08/19/2017 10:07 [facility] COMPARISON: No previous studies available for comparison. INDICATIONS : Retching since yesterday. Evaluate for mass. IV CONTRAST: 65 cc Omnipaque 350 (iohexol) IV RADIATION DOSE: 6.80 CTDIvol (mGy) MEDICAL HISTORY : Chronic obstructive pulmonary disease. Throat cancer. SURGICAL HISTORY : Throat cancer with tongue, lymph node and tonsil removals ENCOUNTER: Initial ACUITY: 2 days PAIN SCALE: 3/10 LOCATION: chest TECHNIQUE: Volumetric scanning of the chest was performed. Using automated exposure control and adjustment of t he mA and/or kV according to patient size, radiation dose was kept as low as reasonably achievable to obtain optimal diagnostic quality images. DICOM format image data is available electronically for review and comparison. Follow-up recommendations for detected pulmonary nodules are based at a minimum on nodule size and pa tient risk factors according to Fleischner Society Guidelines. FINDINGS: Patchy airspace disease is seen in both the right and left lungs thought to be related to the laborat ory process. There is no axillary adenopathy. Minimal nonspecific mediastinal adenopathy is present . There is no pericardial effusion There is no pleural effusion Portion of the upper abdomen contents visualized are unremarkable. Degenerative changes thoracic spine. CONCLUSION: Patchy airspace disease. Serial films resolution are suggested to exclude neoplastic process. Zach Nair MD FACR on August 19, 2017 at 10:15 Board Certified Radiologist. This report was verified electronically.
[2017-08-19 10:40] LABS: BILIRUBIN, URINE NEG (NEG); BLOOD, URINE SMALL (NEG); GLUCOSE,URINE NEG (NEG); KETONE, URINE NEG (NEG); NITRITE,URINE NEG (NEG); URINE COLOR YELLOW (YELLW/STRAW); URINE LEUKOCYTE ESTERASE NEG (NEG)
[2017-08-19] MEDS ORDERED: CLINDAMYCIN 600 MG/NS PREMIX 50 ML IV ONE (10:45)
[2017-08-19] MEDS: RESP: ALBUTEROL 2.5 MG/3 ML NEB (SCH) INH ×2 (10:54→10:55)
[2017-08-19 10:55] LABS: MUCUS URINE MANY /lpf (OCC)
[2017-08-19 10:56] LABS: BACTERIA, URINE OCC /hpf; SQUAMOUS EPITHELIAL CELL URINE 0-5 /hpf (0-5)
[2017-08-19] MEDS ORDERED: METOCLOPRAMIDE HCL 10 MG/2 ML VIAL IV PUSH ONE (11:00)
[2017-08-19] MEDS ORDERED: methylPREDNISolone SOD SUCC 125 MG/2 ML VIAL IV PUSH ONE (11:00)
[2017-08-19] MEDS ORDERED: LEVOFLOXACIN 500 MG PREMIX INJ 100 ML IV ONE (11:00)
[2017-08-19] MEDS ORDERED: PROMETHAZINE INJ 25 MG/ML VIAL IM ONE (11:00)
[2017-08-19] MEDS ORDERED: metroNIDAZOLE 500 MG INJ 100 ML IV ONE (12:00)
[2017-08-19] MEDS ORDERED: MAGNESIUM SULFATE 1 GM PREMIX 100 ML IV ONE (13:00)
--- NOTE | 2017-08-19 13:54 | HHI.HP ---
[facility] Service [facility] Primary Care Physician [facility] Admission Diagnosis COPD EXAC,BILATERAL PNA, UTI Diagnoses: (1) Nausea & vomiting Diagnosis: Principal (2) Pneumonia Diagnosis: Principal Chief Complaint: Nausea, vomiting, constant retching Travel History International Travel<30 Days: No Contact w/Intl Traveler <30 Da: No Traveled to Known Affected Are: No History of Present Illness 71 year-old male with rather unfortunate history of tongue cancer status post resection and chronic PEG tube feeding. Patient does have history of chronic obstructive pulmonary disease, chronic aspiration pneumonia and he presented to the hospital today because of intractable nausea, vomiting, retching. Patient was just recently and observe in the hospital back on August 07, 2017 and was discharged on August 09, 2017. During his stay he did improve and went home and was doing well up until yesterday when he started having the persistent retching again. It is difficult to explain he states that he is actually not vomiting that he does have constant retching but nothing comes up because there is nothing in his stomach. He has had increased sputum production which is light green in color. Patient does not know when the last time he had endoscopy, however he does get his PEG tube changed every 6 months. The next time he is supposed to be changed his next month. The patient indicates that there is no tube feeding neck comes out with his retching. Apparently he is tolerating the tube feeding he does have history of recurrent aspiration pneumonia. Patient was evaluated in emergency department and CT scan chest that showed bilateral patchy infiltrates which as compared to previous CT the abdomen from 10 days ago it would appear as if the right sided airspace disease is persistent. Patient denies any fever, chills. He has had a cough with phlegm production. Laboratory studies do indicate a leukocytosis, because of those reasons is recommended by the ER physician that patient to be admitted for further evaluation and management. Patient denies any fever, chills, shortness of breath, dyspnea, congestion, sore throat, runny nose, chest pain. 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 Past Surgical History History of tongue cancer with PEG tube placement Hernia repair 3 Tonsillectomy Reported Medications Reported Meds & Active Scripts Active Promethegan Supp (Promethazine HCl) 12.5 Mg Supp 12.5 Mg RECTAL Q6HR PRN 30 Days Reported Zofran (Ondansetron HCl) 4 Mg Tab 4 Mg PO Q6HR PRN Ensure Plus (Nutritional Supplements) 1 Liq Liq 2 Can G-TUBE QID Synthroid (Levothyroxine Sodium) 75 Mcg Tab 75 Mcg G-TUBE DAILY Symbicort Inh (Budesonide/Formoterol Fumarate) 160-4.5 Mcg/Act Aero 2 Puff INH Q12HR Albuterol Neb (Albuterol Sulfate) 2.5 Mg/3 Ml Neb 2.5 Mg NEB Q4HR NEB PRN Allergies: Coded Allergies: No Known Allergies (Unverified , 08/07/17) Family History Reviewed is significant for mother with emphysema and tobacco use. Brother has history of pancreatic cancer Social History Patient denies any tobacco, alcohol or illicit drugs Physical Exam Vital Signs Vital Signs Date Time Temp Pulse Resp B/P (MAP) Pulse Ox O2 Delivery O2 Flow Rate FiO2 08/19/17 13:31 104 19 141/75 (97) 97 2.00 08/19/17 11:37 99 20 156/79 (104) 96 Nasal Cannula 2.00 08/19/17 11:25 96 Nasal Cannula 2.00 08/19/17 10:50 98 20 114/67 (83) 97 Nasal Cannula 2.00 08/19/17 09:28 95 20 151/79 (103) 99 Nasal Cannula 2.00 08/19/17 09:18 97 Nasal Cannula 2.00 08/19/17 09:18 Nasal Cannula 08/19/17 09:18 Nasal Cannula 2.00 08/19/17 07:38 100 20 98 Nasal Cannula 2.00 08/19/17 07:24 101 20 126/71 (89) 94 Room Air 08/19/17 07:19 20 08/19/17 07:14 20 08/19/17 06:48 97.2 108 20 148/71 (96) 93 Physical Exam GENERAL: Well-developed, cachectic, in no acute distress. alert and orientated HEENT: Head is normocephalic without any lesions or masses noted. Facial features are symmetric. Eyes: Pupils equal round reactive to light. Extraocular muscles are intact. Conjunctivae were clear. Oropharyngeal: Pharynx without any erythema edema. Buccal mucosa is moist without any masses or lesions NECK: Supple without any masses. Trachea midline no deviation. No JVD, no bruits are appreciated CARDIAC: Regular rhythm, regular rate. S1/S2 are heard. No murmurs gallops or rubs. LUNGS: Clear to auscultation bilaterally. No wheeze, rhonchi or rales. No use of accessory muscles on inspiration or expiration. ABDOMEN: Soft, nontender. Nondistended. Bowel sounds heard in all 4 quadrants. No organomegaly or masses. Negative rebound, negative guarding EXTREMITIES: No edema, pulses are equal bilaterally. No cyanosis or clubbing NEUROLOGY: Mood and affect appear appropriate. Cranial nerves II through XII grossly intact. Muscle strength 5/5 in upper and lower extremities bilaterally. Deep tendon reflexes are 2+ in upper and lower extremities bilaterally. Laboratory Laboratory Tests Test 08/19/17 08:05 08/19/17 10:30 White Blood Count 24.1 Red Blood Count 5.06 Hemoglobin 14.1 Hematocrit 42.2 Mean Corpuscular Volume 83.3 Mean Corpuscular Hemoglobin 27.9 Mean Corpuscular Hemoglobin Concent 33.4 Red Cell Distribution Width 13.1 Platelet Count 277 Mean Platelet Volume 8.6 Neutrophils (%) (Auto) 93.3 Lymphocytes (%) (Auto) 2.6 Monocytes (%) (Auto) 3.9 Eosinophils (%) (Auto) 0.1 Basophils (%) (Auto) 0.1 Neutrophils # (Auto) 22.6 Lymphocytes # (Auto) 0.6 Monocytes # (Auto) 0.9 Eosinophils # (Auto) 0.0 Basophils # (Auto) 0.0 CBC Comment DIFF FINAL Differential Comment Prothrombin Time 12.1 Prothromb Time International Ratio 1.2 Activated Partial Thromboplast Time 31.0 Blood Urea Nitrogen 20 Creatinine 0.95 Random Glucose 148 Total Protein 7.4 Albumin 3.3 Calcium Level 9.4 Alkaline Phosphatase 82 Aspartate Amino Transf (AST/SGOT) 16 Alanine Aminotransferase (ALT/SGPT) 18 Total Bilirubin 0.8 Sodium Level 138 Potassium Level 4.6 Chloride Level 102 Carbon Dioxide Level 29.1 Anion Gap 7 Estimat Glomerular Filtration Rate 78 Lactic Acid Level 1.5 Total Creatine Kinase 75 Troponin I LESS THAN 0.02 Lipase 78 Urine Color YELLOW Urine Turbidity CLEAR Urine pH 7.0 Urine Specific Adell 1.015 Urine Protein 30 Urine Glucose (UA) NEG Urine Ketones NEG Urine Occult Blood SMALL Urine Nitrite NEG Urine Bilirubin NEG Urine Urobilinogen 0.2 Urine Leukocyte Esterase NEG Urine RBC 10-14 Urine WBC 9-14 Urine Squamous Epithelial Cells 0-5 Urine Bacteria OCC Urine Mucus MANY Microscopic Urinalysis Comment CATH-CULTURE IND Date/Time Source Procedure Growth Status 08/19/17 09:10 Blood Peripheral Aerobic Blood Culture Pending Received 08/19/17 09:10 Blood Peripheral Anaerobic Blood Culture Pending Received 08/19/17 09:25 Sputum Expectorated Sputum Gram Stain Pending Received 08/19/17 09:25 Sputum Expectorated Sputum Sputum Culture Pending Received 08/19/17 10:30 Urine Catheterized Urine Urine Culture Pending Received Result Diagram: 08/19/17 0805 08/19/17 0805 Imaging Last Impressions Chest CT 08/19/17 0841 Signed Impressions: Service Date/Time: Saturday, August 19, 2017 10:07 - CONCLUSION: Patchy airspace disease. Serial films resolution are suggested to exclude neoplastic process. Zach Nair MD FACR Caprini VTE Risk Assessment Caprini VTE Risk Assessment: Mod/High Risk (score >= 2) Caprini Risk Assessment Model Point Value = 1 Point Value = 2 Point Value = 3 Point Value = 5 Age 41-60 Minor surgery BMI > 25 kg/m2 Swollen legs Varicose veins or History of unexplained or recurrent spontaneous Oral contraceptives or hormone replacement Sepsis (< 1 month) Serious lung disease, including pneumonia (< 1 month) Abnormal pulmonary function Acute myocardial infarction Congestive heart failure (< 1 month) History of inflammatory bowel disease Medical patient at bed rest Age 61-74 Arthroscopic surgery Major open surgery (> 45 min) Laparoscopic surgery (> 45 min) Malignancy Confined to bed (> 72 hours) Immobilizing plaster cast Central venous access Age >= 75 History of VTE Family history of VTE Factor V Leiden Prothrombin [id number] Lupus anticoagulant Anticardiolipin antibodies Elevated serum homocysteine Heparin-induced thrombocytopenia Other congenital or acquired thrombophilia Stroke (< 1 month) Elective arthroplasty Hip, pelvis, or leg fracture Acute spinal cord injury (< 1 month) Prophylaxis Regimen Total Risk Factor Score Risk Level Prophylaxis Regimen 0-1 Low Early ambulation 2 Moderate Order ONE of the following: *Sequential Compression Device (SCD) *Heparin 5000 units SQ BID 3-4 Higher Order ONE of the following medications: *Heparin 5000 units SQ TID *Enoxaparin/Lovenox 40 mg SQ daily (WT < 150 kg, CrCl > 30 mL/min) *Enoxaparin/Lovenox 30 mg SQ daily (WT < 150 kg, CrCl > 10-29 mL/min) *Enoxaparin/Lovenox 30 mg SQ BID (WT < 150 kg, CrCl > 30 mL/min) AND/OR *Sequential Compression Device (SCD) 5 or more Highest Order ONE of the following medications: *Heparin 5000 units SQ TID (Preferred with Epidurals) *Enoxaparin/Lovenox 40 mg SQ daily (WT < 150 kg, CrCl > 30 mL/min) *Enoxaparin/Lovenox 30 mg SQ daily (WT < 150 kg, CrCl > 10-29 mL/min) *Enoxaparin/Lovenox 30 mg SQ BID (WT < 150 kg, CrCl > 30 mL/min) AND *Sequential Compression Device (SCD) Assessment and Plan Assessment and Plan Nausea, vomiting, retching, recurrent and intractable Unknown etiology at this time, could be secondary to esophagitis, gastritis, vagal nerve abnormality We'll consult GI for further recommendations. Start Pepcid Patchy airspace disease seen on CT, in a patient with chronic aspiration pneumonia When compared to previous CT findings to appear as if it could be residual or persistent We'll continue antibiotics for aspiration pneumonia to include Levaquin, Flagyl Consider discontinuing antibiotics if patient clinically stabilizes Obtain sputum culture Continue duo nebs every 6 hours and every 2 hours as needed Leukocytosis Could be reactive to nausea, vomiting, retching, dehydration, Monitor CBC Urinary tract infection Patient is on Levaquin at this time Await cultures for appropriate antibiotics DVT prevention sequential compression devices Physician Certification 2 Midnight Certification Type: Admission for Inpatient Services Order for Inpatient Services The services are ordered in accordance with Medicare regulations or non- Medicare payer requirements, as applicable. In the case of services not specified as inpatient-only, they are appropriately provided as inpatient services in accordance with the 2-midnight benchmark. Estimated LOS (days): 2 days is the estimated time the patient will need to remain in the hospital, assuming treatment plan goals are met and no additional complications. Post-Hospital Plan: Not yet determined Guille Keita Aug 19, 2017 13:54
[2017-08-19] MEDS ORDERED: BISACODYL 10 MG SUPP RECTAL PRN (14:15)
[2017-08-19] MEDS ORDERED: NALOXONE HCL 0.4 MG/ML AMP IV PUSH PRN (14:15)
[2017-08-19] MEDS ORDERED: LACTULOSE SYRUP 20 GM/30 ML CUP PEG PRN (14:15)
[2017-08-19] MEDS ORDERED: MAGNESIUM HYDROXIDE SUSP 30 ML CUP PEG PRN (15:00)
[2017-08-19] MEDS: SODIUM CHLOR 0.9% 1000 ML INJ 1,000 ML IV SCH (15:00)
[2017-08-19] MEDS ORDERED: SENNOSIDES 8.6 MG TAB PEG PRN (15:00)
[2017-08-19] MEDS ORDERED: METOCLOPRAMIDE HCL 10 MG/2 ML VIAL IV PUSH PRN (15:00)
[2017-08-19] MEDS ORDERED: ACETAMINOPHEN 325 MG TAB PEG PRN (15:00)
[2017-08-19] MEDS: metroNIDAZOLE 500 MG INJ 100 ML IV SCH (17:15)
[2017-08-19] MEDS: RESP: ALBUTEROL 2.5 MG/IPRATROPIUM 0.5 MG NEB (SCH) NEB (20:12)
[2017-08-19] MEDS: DOCUSATE SODIUM 50 MG/SENNA 8.6 MG TAB PEG SCH (20:42)
[2017-08-19] MEDS: SODIUM CHLORIDE 0.9% FLUSH 10 ML FLUSH IV FLUSH SCH (21:00)
[2017-08-19] MEDS: BUDESONIDE-FORMOTEROL 160/4.5 MCG INHALER INH SCH (21:03)
[2017-08-19] MEDS: FAMOTIDINE 40 MG/5 ML LIQ 50 ML BTL PEG SCH (21:04)
[2017-08-20] VITALS (8 sets, daily range): BP systolic 101–138; BP diastolic 61–73; PULSE 85–95; RESP 16–20; TEMP 96–99; O2SAT 95–99
[2017-08-20] MEDS: metroNIDAZOLE 500 MG INJ 100 ML IV SCH ×3 (02:00→17:05)
[2017-08-20] MEDS: SODIUM CHLOR 0.9% 1000 ML INJ 1,000 ML IV SCH ×3 (02:01→20:07)
[2017-08-20] MEDS: LEVOTHYROXINE SODIUM 75 MCG TAB G-TUBE SCH (05:44)
[2017-08-20 06:43] LABS: CALCIUM 8.8 MG/DL (8.5-10.1)
[2017-08-20 06:44] LABS: BICARBONATE 27.5 MEQ/L (21.0-32.0)
[2017-08-20 06:47] LABS: CREATININE 0.84 MG/DL (0.60-1.30)
[2017-08-20 07:06] LABS: AUTOMATED NEUTROPHIL # 18.2 TH/MM3 (1.8-7.7); BASOPHIL % 0.1 % (0.0-2.0); EOSINOPHIL % 0.2 % (0.0-4.0); HEMATOCRIT 39.3 % (39.0-51.0); HEMOGLOBIN 12.9 GM/DL (13.0-17.0); LYMPH % 2.7 % (9.0-44.0); LYMPHOCYTE # 0.5 TH/MM3 (1.0-4.8); MEAN CELL VOLUME 84.6 FL (80.0-100.0); MEAN CORPUSCULAR HEMOGLOBIN 27.9 PG (27.0-34.0); MEAN CORPUSCULAR HGB CONC 32.9 % (32.0-36.0); MEAN PLATELET VOLUME 8.9 FL (7.0-11.0); MONO % 4.3 % (0.0-8.0); MONOCYTE # 0.8 TH/MM3 (0-0.9); NEUT % 92.7 % (16.0-70.0); PLATELET COUNT 237 TH/MM3 (150-450); RED BLOOD COUNT 4.64 MIL/MM3 (4.50-5.90); RED CELL DISTRIBUTION WIDTH 13.2 % (11.6-17.2); WHITE BLOOD COUNT 19.5 TH/MM3 (4.0-11.0)
[2017-08-20] MEDS: RESP: ALBUTEROL 2.5 MG/IPRATROPIUM 0.5 MG NEB (SCH) NEB ×3 (07:51→20:10)
[2017-08-20] MEDS: DOCUSATE SODIUM 50 MG/SENNA 8.6 MG TAB PEG SCH ×3 (09:00→21:00)
--- NOTE | 2017-08-20 09:09 | HHI.PR ---
Subjective Remarks Patient seen and examined today for follow-up on intractable retching, nausea, vomiting. Patient doing well. Has not had any recurrent retching since being in the hospital. Awaiting GI for recommendations. Continue present treatment plan. Vital signs are stable, afebrile Objective Vitals Vital Signs Date Time Temp Pulse Resp B/P (MAP) Pulse Ox O2 Delivery O2 Flow Rate FiO2 08/20/17 08:00 96.6 08/20/17 08:00 88 16 101/61 (74) 95 08/20/17 07:52 98 Nasal Cannula 2.00 08/20/17 00:00 99.0 88 20 117/64 (81) 98 08/19/17 20:17 99 Nasal Cannula 2.00 08/19/17 20:00 98 Nasal Cannula 2.00 08/19/17 20:00 97.6 88 20 121/67 (85) 98 08/19/17 14:43 18 08/19/17 14:00 97.5 102 18 119/62 (81) 98 08/19/17 13:31 104 19 141/75 (97) 97 2.00 08/19/17 11:37 99 20 156/79 (104) 96 Nasal Cannula 2.00 08/19/17 11:25 96 Nasal Cannula 2.00 08/19/17 10:50 98 20 114/67 (83) 97 Nasal Cannula 2.00 08/19/17 09:28 95 20 151/79 (103) 99 Nasal Cannula 2.00 08/19/17 09:18 97 Nasal Cannula 2.00 08/19/17 09:18 Nasal Cannula 08/19/17 09:18 Nasal Cannula 2.00 I/O 08/19/17 08/19/17 08/19/17 08/20/17 08/20/17 08/20/17 07:00 15:00 23:00 07:00 15:00 23:00 Intake Total 300 ml 586 ml 804 ml Output Total 630 ml Balance 300 ml 586 ml 174 ml Intake IV Total 300 ml 586 ml 804 ml Output Urine Total 630 ml # Voids 1 # Bowel Movements 1 Result Diagram: 08/20/1760408/20/17 06 Objective Remarks GENERAL: Well-developed, cachectic, in no acute distress. alert and orientated HEENT: Head is normocephalic without any lesions or masses noted. Facial features are symmetric. Eyes: Pupils equal round reactive to light. Extraocular muscles are intact. Conjunctivae were clear. NECK: Supple without any masses. Trachea midline no deviation. No JVD, CARDIAC: Regular rhythm, regular rate. S1/S2 are heard. No murmurs gallops or rubs. LUNGS: Clear to auscultation bilaterally. No wheeze, rhonchi or rales. No use of accessory muscles on inspiration or expiration. ABDOMEN: Soft, nontender. Nondistended. Bowel sounds heard in all 4 quadrants. No organomegaly or masses. Negative rebound, negative guarding EXTREMITIES: No edema, pulses are equal bilaterally. No cyanosis or clubbing NEUROLOGY: Mood and affect appear appropriate. Cranial nerves II through XII grossly intact. Moving all extremities, speech is clear Urinary Catheter: No Vascular Central Line Catheter: No A/P Assessment and Plan Nausea, vomiting, retching, recurrent and intractable Unknown etiology at this time, could be secondary to esophagitis, gastritis, vagal nerve abnormality Awaiting consult GI for further recommendations. Continue Pepcid Patchy airspace disease seen on CT, in a patient with chronic aspiration pneumonia When compared to previous CT findings to appear as if it could be residual or persistent We'll continue antibiotics for aspiration pneumonia to include Levaquin, Flagyl Consider discontinuing antibiotics if patient clinically stabilizes Awaiting sputum culture Continue duo nebs every 6 hours and every 2 hours as needed Leukocytosis, improving Could be reactive to nausea, vomiting, retching, dehydration, Monitor CBC Urinary tract infection Patient is on Levaquin at this time Await cultures for appropriate antibiotics DVT prevention sequential compression devices Discharge Planning Discharge planning in 24-48 hrs. depending on patient's response to treatment and GI recommendations Guille Keita Aug 20, 2017 09:09
[2017-08-20] MEDS: SODIUM CHLORIDE 0.9% FLUSH 10 ML FLUSH IV FLUSH SCH ×2 (09:25→21:00)
[2017-08-20] MEDS: FAMOTIDINE 40 MG/5 ML LIQ 50 ML BTL PEG SCH ×2 (09:25→21:26)
[2017-08-20] MEDS: BUDESONIDE-FORMOTEROL 160/4.5 MCG INHALER INH SCH ×2 (09:25→21:36)
[2017-08-20] MEDS: LEVOFLOXACIN 750 MG PREMIX INJ 150 ML IV SCH (15:05)
--- NOTE | 2017-08-20 15:20 | PD.CONS ---
HPI History of Present Illness This is a 71 year old male who is known to have history of cancer of the tongue , status post radiation treatment. He has been only on chronic PEG tube feeding after the treatment for tongue cancer with no oral feeding. Patient was admitted to the hospital with history of nausea vomiting and uncontrollable retching. He describes these symptoms mainly after PEG tube feeding. Symptoms have improved since he has stopped PEG tube feeding. Workup in the hospital showed presence of bilateral lung infiltrates on CT scan, and elevated white cell count, suggestive of aspiration pneumonia. He denies any history of headaches dizziness, tinnitus hearing loss, fever chills, dysuria, abdominal pain constipation diarrhea GI bleeding anorexia or weight loss. 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 Brother has history of pancreatic cancer Social History Patient denies any tobacco, alcohol or illicit drugs Review of Systems Gastrointestinal: COMPLAINS OF: Nausea, Vomiting, Difficulty Swallowing, DENIES : Abdominal pain, Black stools, Bloody stools, Constipation, Diarrhea, Anorexia , Odynophagia, Swelling of Abdomen, Heartburn, Hematemesis GI Exam Vitals I&O Vital Signs Date Time Temp Pulse Resp B/P (MAP) Pulse Ox O2 Delivery O2 Flow Rate FiO2 08/20/17 13:29 97 21 08/20/17 12:00 96.0 85 16 113/67 (82) 98 08/20/17 08:00 95 Nasal Cannula 2.00 08/20/17 08:00 96.6 08/20/17 08:00 88 16 101/61 (74) 95 08/20/17 07:52 98 Nasal Cannula 2.00 08/20/17 00:00 99.0 88 20 117/64 (81) 98 08/19/17 20:17 99 Nasal Cannula 2.00 08/19/17 20:00 98 Nasal Cannula 2.00 08/19/17 20:00 97.6 88 20 121/67 (85) 98 I/O 08/19/17 08/19/17 08/19/17 08/20/17 08/20/17 08/20/17 07:00 15:00 23:00 07:00 15:00 23:00 Intake Total 300 ml 586 ml 804 ml 0 ml Output Total 630 ml Balance 300 ml 586 ml 174 ml 0 ml Intake Oral 0 ml IV Total 300 ml 586 ml 804 ml Output Urine Total 630 ml # Voids 1 # Bowel Movements 1 Laboratory Test 08/20/17 06:05 White Blood Count 19.5 TH/MM3 Red Blood Count 4.64 MIL/MM3 Hemoglobin 12.9 GM/DL Hematocrit 39.3 % Mean Corpuscular Volume 84.6 FL Mean Corpuscular Hemoglobin 27.9 PG Mean Corpuscular Hemoglobin Concent 32.9 % Red Cell Distribution Width 13.2 % Platelet Count 237 TH/MM3 Mean Platelet Volume 8.9 FL Neutrophils (%) (Auto) 92.7 % Lymphocytes (%) (Auto) 2.7 % Monocytes (%) (Auto) 4.3 % Eosinophils (%) (Auto) 0.2 % Basophils (%) (Auto) 0.1 % Neutrophils # (Auto) 18.2 TH/MM3 Lymphocytes # (Auto) 0.5 TH/MM3 Monocytes # (Auto) 0.8 TH/MM3 Eosinophils # (Auto) 0.0 TH/MM3 Basophils # (Auto) 0.0 TH/MM3 CBC Comment DIFF FINAL Differential Comment Blood Urea Nitrogen 17 MG/DL Creatinine 0.84 MG/DL Random Glucose 119 MG/DL Calcium Level 8.8 MG/DL Sodium Level 137 MEQ/L Potassium Level 4.5 MEQ/L Chloride Level 105 MEQ/L Carbon Dioxide Level 27.5 MEQ/L Anion Gap 5 MEQ/L Estimat Glomerular Filtration Rate 90 ML/MIN Date/Time Source Procedure Growth Status 08/19/17 09:10 Blood Peripheral Aerobic Blood Culture - Preliminary NO GROWTH IN 1 DAY Resulted 08/19/17 09:10 Blood Peripheral Anaerobic Blood Culture - Preliminary NO GROWTH IN 1 DAY Resulted 08/19/17 09:25 Sputum Expectorated Sputum Gram Stain - Final Resulted 08/19/17 09:25 Sputum Expectorated Sputum Sputum Culture - Preliminary HEAVY GROWTH NORMAL RESPIRATORY MANUEL... Resulted 08/19/17 10:30 Urine Catheterized Urine Urine Culture - Preliminary IMMATURE GROWTH - REINCUBATE Resulted Physical Examination HEENT: Pupils round and reactive to light; normocephalic; atraumatic; no jaundice. Throat is clear. NECK: Neck is supple, no JVD, no lymphadenopathy. CHEST: Chest is clear to auscultation and percussion. CARDIAC: Regular rate and rhythm with no murmur gallop or rubs. ABDOMEN: Soft, nondistended, nontender; no hepatosplenomegaly; bowel sounds are present in all four quadrants. PEG tube site appears healthy EXTREMITIES: No clubbing, cyanosis, or edema. SKIN: Normal; no rash; no jaundice. CLARITY DEVELOPER: No focal deficits; alert and oriented times three. Assessment and Plan Assessment: (1) Aspiration pneumonia ICD Codes: J69.0 - Pneumonitis due to inhalation of food and vomit (2) GERD (gastroesophageal reflux disease) ICD Codes: K21.9 - Gastro-esophageal reflux disease without esophagitis (3) Nausea & vomiting ICD Codes: R11.2 - Nausea with vomiting, unspecified (4) Epigastric pain ICD Codes: R10.13 - Epigastric pain Plan 1. Patient's symptoms are likely due to GERD 2. Low probability of underlying gallbladder pancreatic disease. partial bowel obstruction 3. Start treatment with Protonix 40 mg IV twice daily 4. CT scan of the abdomen and pelvis 5. Evaluation by speech/swallow team 6. Labs-check TSH Bennie Cronin MD Aug 20, 2017 15:20
[2017-08-20] MEDS: PANTOPRAZOLE SODIUM 40 MG VIAL IV PUSH SCH ×2 (17:13→21:28)
[2017-08-20] MEDS ORDERED: IOHEXOL 350 MG/ML 10 ML VIAL (for RAD DIAG) IVCONTRAST ONE (22:09)
--- NOTE | 2017-08-20 23:21 | RADRPT ---
EXAM DATE/TIME: 08/20/2017 21:52 [place] COMPARISON: CT THORAX W CONTRAST, August 19, 2017, 10:07. CT ABDOMEN & PELVIS W CONTRAST, August 09, 2017, 15:1 0. INDICATIONS : Nausea. IV CONTRAST: 95 cc Omnipaque 350 (iohexol) IV ORAL CONTRAST: No oral contrast ingested. RADIATION DOSE: 6.96 CTDIvol (mGy) MEDICAL HISTORY : Renal calculi. Chronic obstructive pulmonary disease. Tongue cancer. SURGICAL HISTORY : Hernia repair. G tube. ENCOUNTER: Initial ACUITY: 2 days PAIN SCALE: 0/10 LOCATION: abdomen TECHNIQUE: Volumetric scanning of the abdomen and pelvis was performed. Using automated exposure control and ad justment of the mA and/or kV according to patient size, radiation dose was kept as low as reasonably achievable to obtain optimal diagnostic quality images. DICOM format image data is available electro nically for review and comparison. FINDINGS: LOWER LUNGS: There is patchy airspace consolidation in the left lower lobe with what appears to represent material within the bronchi. This has increased since yesterday's examination. There is partially visualized airspace opacity in the right middle lobe. LIVER: Homogeneous density without lesion. There is no dilation of the biliary tree. Mild increased densit y within the gallbladder is most likely vicarious excretion of contrast material. No stones were seen on the prior study. SPLEEN: Normal size without lesion. PANCREAS: Within normal limits. KIDNEYS: Normal in size and shape. There is no mass or hydronephrosis. There is a stable 2 mm nonobstructing stone in the right upper pole collecting system. ADRENAL GLANDS: Within normal limits. VASCULAR: There is no aortic aneurysm. There is severe atherosclerotic disease. BOWEL/MESENTERY: Stomach demonstrates no acute finding. A small hiatal hernia is present. There is a G-tube present wi th balloon in the distal body. Small bowel demonstrates no acute finding. Terminal ileum is normal. N o acute colon abnormality is seen. There is no free air or free fluid. ABDOMINAL WALL: No acute abnormality. RETROPERITONEUM: There is no lymphadenopathy. BLADDER: No wall thickening or mass. REPRODUCTIVE: Within normal limits. INGUINAL: There is no lymphadenopathy. There is a small fat containing left inguinal hernia and there are yang es in the left inguinal region suggesting prior hernia repair. MUSCULOSKELETAL: There are degenerative changes of the lumbar spine with partial fusion of the sacroiliac joints. No a cute osseous abnormality is identified. CONCLUSION: 1. Increased patchy airspace consolidation in the left lower lobe compared to yesterday's examination . There appears to be material within the left lower lobe bronchi suggesting aspiration. There is als o partially visualized airspace consolidation in the right middle lobe. 2. Nonacute findings include 2 mm nonobstructing right renal stone, small hiatal hernia, and severe a therosclerotic disease. Bc Figueredo MD on August 20, 2017 at 23:12 Board Certified Radiologist. This report was verified electronically.
[2017-08-21] VITALS (9 sets, daily range): BP systolic 131–157; BP diastolic 65–91; PULSE 95–107; RESP 18–21; TEMP 96.5–97.9; O2SAT 95–99
[2017-08-21] MEDS: metroNIDAZOLE 500 MG INJ 100 ML IV SCH ×3 (01:55→17:33)
[2017-08-21] MEDS: RESP: ALBUTEROL 2.5 MG/IPRATROPIUM 0.5 MG NEB (PRN) NEB (02:10)
[2017-08-21] MEDS: SODIUM CHLOR 0.9% 1000 ML INJ 1,000 ML IV SCH ×2 (05:25→17:34)
[2017-08-21] MEDS: LEVOTHYROXINE SODIUM 75 MCG TAB G-TUBE SCH (06:04)
[2017-08-21] MEDS: RESP: ALBUTEROL 2.5 MG/IPRATROPIUM 0.5 MG NEB (SCH) NEB ×3 (07:57→19:52)
[2017-08-21] MEDS: DOCUSATE SODIUM 50 MG/SENNA 8.6 MG TAB PEG SCH ×2 (09:00→21:00)
[2017-08-21] MEDS: FAMOTIDINE 40 MG/5 ML LIQ 50 ML BTL PEG SCH ×2 (09:36→22:12)
[2017-08-21] MEDS: PANTOPRAZOLE SODIUM 40 MG VIAL IV PUSH SCH ×2 (09:37→22:09)
[2017-08-21] MEDS: BUDESONIDE-FORMOTEROL 160/4.5 MCG INHALER INH SCH ×2 (09:37→22:08)
[2017-08-21] MEDS: SODIUM CHLORIDE 0.9% FLUSH 10 ML FLUSH IV FLUSH SCH ×2 (09:37→22:09)
--- NOTE | 2017-08-21 09:43 | HHI.PR ---
Subjective Remarks Follow-up nausea or vomiting and chronic aspiration pneumonia. Patient seen and examined, lying in bed comfortably. Nausea not present at the time. Has not tolerated tube feeds without nausea, encouraged to attempt tube feeding today as tolerated. Appreciate GI recommendations. Afebrile. Vital signs are stable. Objective Vitals Vital Signs Date Time Temp Pulse Resp B/P (MAP) Pulse Ox O2 Delivery O2 Flow Rate FiO2 08/21/17 01:53 97.1 106 21 137/91 (106) 98 08/21/17 00:00 97.3 107 21 133/65 (87) 95 08/20/17 20:10 98 21 08/20/17 20:00 98.0 95 20 138/73 (94) 99 08/20/17 19:45 Room Air 08/20/17 16:00 97.2 86 16 127/66 (86) 96 08/20/17 13:29 97 21 08/20/17 12:00 96.0 85 16 113/67 (82) 98 I/O 08/20/17 08/20/17 08/20/17 08/21/17 08/21/17 08/21/17 07:00 15:00 23:00 07:00 15:00 23:00 Intake Total 804 ml 0 ml 1340 ml Output Total 630 ml Balance 174 ml 0 ml 1340 ml Intake Oral 0 ml 240 ml IV Total 804 ml 1100 ml Output Urine Total 630 ml # Voids 4 # Bowel Movements 0 Result Diagram: 08/20/17 0605 08/20/17 0605 Imaging Last Impressions Abdomen/Pelvis CT 08/20/17 0000 Signed Impressions: Service Date/Time: Sunday, August 20, 2017 21:52 - CONCLUSION: 1. Increased patchy airspace consolidation in the left lower lobe compared to yesterday's examination. There appears to be material within the left lower lobe bronchi suggesting aspiration. There is also partially visualized airspace consolidation in the right middle lobe. 2. Nonacute findings include 2 mm nonobstructing right renal stone, small hiatal hernia, and severe atherosclerotic disease. Bc Figueredo MD Chest CT 08/19/17 0841 Signed Impressions: Service Date/Time: Saturday, August 19, 2017 10:07 - CONCLUSION: Patchy airspace disease. Serial films resolution are suggested to exclude neoplastic process. Zach Nair MD FACR Objective Remarks GENERAL: Well-developed, well-nourished patient in NAD. SKIN: Warm and dry. No rash. HEAD: Normocephalic. Atraumatic. EYES: Pupils equal and round. No scleral icterus. No injection or drainage. ENT: No nasal bleeding or discharge. Mucous membranes pink and moist. NECK: Supple. Trachea midline. CARDIOVASCULAR: Regular rate and rhythm. S1, S2 noted. No murmur appreciated. RESPIRATORY: No accessory muscle use. Diminished breath sounds throughout posterior base lung blanc. Breath sounds equal bilaterally. GASTROINTESTINAL: Abdomen soft, non-tender, nondistended. Normoactive bowel sounds x4. PEG tube in place. MUSCULOSKELETAL: No obvious deformities. Extremities without clubbing, cyanosis , or edema. NEUROLOGICAL: Awake and alert. No obvious cranial nerve deficits. Motor grossly within normal limits. 5/5 muscle strength in bilateral upper and lower extremities. Normal speech. A/P Problem List: (1) Nausea & vomiting ICD Code: R11.2 - Nausea with vomiting, unspecified (2) Pneumonia ICD Code: J18.9 - Pneumonia, unspecified organism Status: Acute Assessment and Plan Nausea, vomiting, retching, recurrent and intractable Unknown etiology at this time, could be secondary to esophagitis, gastritis, vagal nerve abnormality. GI with suspicion of symptoms related to GERD. Protonix IV BID. Continue Pepcid. Phenergan suppository and Ativan cocktail for nausea. Patchy airspace disease seen on CT, in a patient with chronic aspiration pneumonia When compared to previous CT findings to appear as if it could be residual or persistent Will continue antibiotics for aspiration pneumonia to include Levaquin, Flagyl Consider discontinuing antibiotics if patient clinically stabilizes Sputum culture growing streptococcus pneumoniae. Continue duo nebs every 6 hours and every 2 hours as needed Leukocytosis, improving Could be reactive to nausea, vomiting, retching, dehydration Monitor CBC Urinary tract infection Patient is on Levaquin at this time Await cultures for appropriate antibiotics DVT prevention sequential compression devices Discharge Planning Discharge planning in 24-48 hrs. depending on patient's response to treatment and GI recommendations. Grace Lozano Aug 21, 2017 09:43
[2017-08-21] MEDS: LORazepam 0.5 MG TAB PO PRN ×2 (10:38→17:29)
[2017-08-21] MEDS: LEVOFLOXACIN 750 MG PREMIX INJ 150 ML IV SCH (10:49)
[2017-08-21] MEDS: PROMETHAZINE HCL 12.5 MG SUPP RECTAL PRN (13:16)
--- NOTE | 2017-08-21 15:36 | HHI.GIFU ---
GI Follow-up Note Consult Follow-up Subjective: Patient laying in bed comfortably, no new complaints except Nausea post feedings Objective: PHYSICAL EXAMINATION: Vitals signs stable No fever HEENT: Pupils round and reactive to light; normocephalic; atraumatic; no jaundice. Throat is clear. NECK: Neck is supple, no JVD, no lymphadenopathy. CHEST: Chest is clear to auscultation and percussion. CARDIAC: Regular rate and rhythm with no murmur gallop or rubs. ABDOMEN: Soft, nondistended, nontender; no hepatosplenomegaly; bowel sounds are present in all four quadrants. EXTREMITIES: No clubbing, cyanosis, or edema. SKIN: Normal; no rash; no jaundice. VP PURCHASING: No focal deficits; alert and oriented times three. Available Data (labs, X- Rays, Procedues) : Allergies Coded Allergies No Known Allergies (Unverified08/07/17) Last Impressions Abdomen/Pelvis CT 08/20/17 0000 Signed Impressions: Service Date/Time: Sunday, August 20, 2017 21:52 - CONCLUSION: 1. Increased patchy airspace consolidation in the left lower lobe compared to yesterday's examination. There appears to be material within the left lower lobe bronchi suggesting aspiration. There is also partially visualized airspace consolidation in the right middle lobe. 2. Nonacute findings include 2 mm nonobstructing right renal stone, small hiatal hernia, and severe atherosclerotic disease. Bc Figueredo MD Chest CT 08/19/17 0841 Signed Impressions: Service Date/Time: Saturday, August 19, 2017 10:07 - CONCLUSION: Patchy airspace disease. Serial films resolution are suggested to exclude neoplastic process. Zach Nair MD FACR Laboratory Tests Test 08/20/17 06:05 White Blood Count 19.5 TH/MM3 Red Blood Count 4.64 MIL/MM3 Hemoglobin 12.9 GM/DL Hematocrit 39.3 % Mean Corpuscular Volume 84.6 FL Mean Corpuscular Hemoglobin 27.9 PG Mean Corpuscular Hemoglobin Concent 32.9 % Red Cell Distribution Width 13.2 % Platelet Count 237 TH/MM3 Mean Platelet Volume 8.9 FL Neutrophils (%) (Auto) 92.7 % Lymphocytes (%) (Auto) 2.7 % Monocytes (%) (Auto) 4.3 % Eosinophils (%) (Auto) 0.2 % Basophils (%) (Auto) 0.1 % Neutrophils # (Auto) 18.2 TH/MM3 Lymphocytes # (Auto) 0.5 TH/MM3 Monocytes # (Auto) 0.8 TH/MM3 Eosinophils # (Auto) 0.0 TH/MM3 Basophils # (Auto) 0.0 TH/MM3 CBC Comment DIFF FINAL Differential Comment Blood Urea Nitrogen 17 MG/DL Creatinine 0.84 MG/DL Random Glucose 119 MG/DL Calcium Level 8.8 MG/DL Sodium Level 137 MEQ/L Potassium Level 4.5 MEQ/L Chloride Level 105 MEQ/L Carbon Dioxide Level 27.5 MEQ/L Anion Gap 5 MEQ/L Estimat Glomerular Filtration Rate 90 ML/MIN Thyroid Stimulating Hormone 3rd Gen 0.751 uIU/ML ASSESSMENT/PLAN: Seen and examined. CT? speech evaluation reviewed. Mr. Eckert will benefit from a G/J tube. Discussed with him. IR consulted. Thank you It was a pleasure seeing Boogie Eckert. Thank you for this consult. Entered by: More Alatorre MD Aug 21, 2017 15:36
--- NOTE | 2017-08-21 15:39 | HHI.GIFU ---
GI Follow-up Note Consult Follow-up Subjective: Patient laying in bed comfortably, no new complaints except Nausea. Post prandial. Objective: PHYSICAL EXAMINATION: Vitals signs stable No fever HEENT: Pupils round and reactive to light; normocephalic; atraumatic; no jaundice. Throat is clear. NECK: Neck is supple, no JVD, no lymphadenopathy. CHEST: Chest is clear to auscultation and percussion. CARDIAC: Regular rate and rhythm with no murmur gallop or rubs. ABDOMEN: Soft, nondistended, nontender; no hepatosplenomegaly; bowel sounds are present in all four quadrants. EXTREMITIES: No clubbing, cyanosis, or edema. SKIN: Normal; no rash; no jaundice. CORK TIPPER: No focal deficits; alert and oriented times three. Available Data (labs, X- Rays, Procedues) : Last Impressions Abdomen/Pelvis CT 08/20/17 0000 Signed Impressions: Service Date/Time: Sunday, August 20, 2017 21:52 - CONCLUSION: 1. Increased patchy airspace consolidation in the left lower lobe compared to yesterday's examination. There appears to be material within the left lower lobe bronchi suggesting aspiration. There is also partially visualized airspace consolidation in the right middle lobe. 2. Nonacute findings include 2 mm nonobstructing right renal stone, small hiatal hernia, and severe atherosclerotic disease. Bc Figueredo MD Chest CT 08/19/17 0841 Signed Impressions: Service Date/Time: Saturday, August 19, 2017 10:07 - CONCLUSION: Patchy airspace disease. Serial films resolution are suggested to exclude neoplastic process. Zach Nair MD FACR Laboratory Tests Test 08/20/17 06:05 White Blood Count 19.5 TH/MM3 Red Blood Count 4.64 MIL/MM3 Hemoglobin 12.9 GM/DL Hematocrit 39.3 % Mean Corpuscular Volume 84.6 FL Mean Corpuscular Hemoglobin 27.9 PG Mean Corpuscular Hemoglobin Concent 32.9 % Red Cell Distribution Width 13.2 % Platelet Count 237 TH/MM3 Mean Platelet Volume 8.9 FL Neutrophils (%) (Auto) 92.7 % Lymphocytes (%) (Auto) 2.7 % Monocytes (%) (Auto) 4.3 % Eosinophils (%) (Auto) 0.2 % Basophils (%) (Auto) 0.1 % Neutrophils # (Auto) 18.2 TH/MM3 Lymphocytes # (Auto) 0.5 TH/MM3 Monocytes # (Auto) 0.8 TH/MM3 Eosinophils # (Auto) 0.0 TH/MM3 Basophils # (Auto) 0.0 TH/MM3 CBC Comment DIFF FINAL Differential Comment Blood Urea Nitrogen 17 MG/DL Creatinine 0.84 MG/DL Random Glucose 119 MG/DL Calcium Level 8.8 MG/DL Sodium Level 137 MEQ/L Potassium Level 4.5 MEQ/L Chloride Level 105 MEQ/L Carbon Dioxide Level 27.5 MEQ/L Anion Gap 5 MEQ/L Estimat Glomerular Filtration Rate 90 ML/MIN Thyroid Stimulating Hormone 3rd Gen 0.751 uIU/ML Allergies Coded Allergies Type Severity Reaction Last Updated Verified No Known Allergies 08/07/17 No Active Scripts Medications Dose Route/Sig Max Daily Dose Days Date Category Promethegan Supp (Promethazine HCl) 12.5 Mg Supp 12.5 Mg RECTAL Q6HR PRN 30 08/09/17 Rx Zofran (Ondansetron HCl) 4 Mg Tab 4 Mg PO Q6HR PRN 08/07/17 Reported Ensure Plus (Nutritional Supplements) 1 Liq Liq 2 Can G-TUBE QID 12/12/16 Reported Synthroid (Levothyroxine Sodium) 75 Mcg Tab 75 Mcg G-TUBE DAILY 08/05/16 Reported Symbicort Inh (Budesonide/Formoterol Fumarate) 160-4.5 Mcg/Act Aero 2 Puff INH Q12HR 08/05/16 Reported Albuterol Neb (Albuterol Sulfate) 2.5 Mg/3 Ml Neb 2.5 Mg NEB Q4HR NEB PRN 08/05/16 Reported ASSESSMENT/PLAN: Seen and examined, Still with post prandial nausea. CT reviewed. Speech note appreciated. Mr. Eckert will benefit from G/J tube. Discussed with him. he is agreeable. IR consulted. Discussed with the nurse. It was a pleasure seeing Boogie Eckert. Thank you for this consult. Entered by: More Alatorre MD Aug 21, 2017 15:39
[2017-08-21] MEDS: ONDANSETRON HCL 4 MG/2 ML VIAL IVP PRN (17:30)
[2017-08-21] MEDS: HEPARIN SODIUM - SQ 10,000 UNITS/ML VIAL SQ SCH (22:10)
[2017-08-22] VITALS (12 sets, daily range): BP systolic 110–174; BP diastolic 67–102; PULSE 84–106; RESP 14–20; TEMP 96.1–98.2; O2SAT 94–98
[2017-08-22] MEDS: SODIUM CHLOR 0.9% 1000 ML INJ 1,000 ML IV SCH ×2 (02:11→12:07)
[2017-08-22] MEDS: metroNIDAZOLE 500 MG INJ 100 ML IV SCH ×3 (02:11→18:26)
[2017-08-22] MEDS: LEVOTHYROXINE SODIUM 75 MCG TAB G-TUBE SCH (04:53)
[2017-08-22 07:35] LABS: AUTOMATED NEUTROPHIL # 4.8 TH/MM3 (1.8-7.7); BASOPHIL # 0.1 TH/MM3 (0-0.2); BASOPHIL % 1.4 % (0.0-2.0); EOSINOPHIL % 0.4 % (0.0-4.0); HEMATOCRIT 37.5 % (39.0-51.0); HEMOGLOBIN 12.6 GM/DL (13.0-17.0); LYMPH % 13.1 % (9.0-44.0); LYMPHOCYTE # 0.8 TH/MM3 (1.0-4.8); MEAN CELL VOLUME 82.6 FL (80.0-100.0); MEAN CORPUSCULAR HEMOGLOBIN 27.7 PG (27.0-34.0); MEAN CORPUSCULAR HGB CONC 33.5 % (32.0-36.0); MEAN PLATELET VOLUME 7.7 FL (7.0-11.0); MONO % 10.6 % (0.0-8.0); MONOCYTE # 0.7 TH/MM3 (0-0.9); NEUT % 74.5 % (16.0-70.0); PLATELET COUNT 223 TH/MM3 (150-450); RED BLOOD COUNT 4.54 MIL/MM3 (4.50-5.90); WHITE BLOOD COUNT 6.4 TH/MM3 (4.0-11.0)
[2017-08-22] MEDS: RESP: ALBUTEROL 2.5 MG/IPRATROPIUM 0.5 MG NEB (SCH) NEB ×3 (08:00→20:57)
[2017-08-22] MEDS: FAMOTIDINE 40 MG/5 ML LIQ 50 ML BTL PEG SCH ×2 (09:00→21:22)
[2017-08-22] MEDS: DOCUSATE SODIUM 50 MG/SENNA 8.6 MG TAB PEG SCH ×2 (09:00→21:00)
[2017-08-22] MEDS: HEPARIN SODIUM - SQ 10,000 UNITS/ML VIAL SQ SCH ×2 (09:00→21:00)
--- NOTE | 2017-08-22 09:02 | HHI.PR ---
Subjective Remarks Follow-up nausea and vomiting. Patient seen and examined, lying in bed comfortably. Status post GJ tube insertion. Tolerated well. Vital signs are stable. Afebrile. Will attempt feedings later today after 4 hours. Monitor for any nausea. Awaiting HIDA scan today. Comfortable on room air Objective Vitals Vital Signs Date Time Temp Pulse Resp B/P (MAP) Pulse Ox O2 Delivery O2 Flow Rate FiO2 08/22/17 04:50 97.8 97 18 152/87 (108) 97 08/22/17 00:00 97.4 100 20 143/86 (105) 96 08/21/17 20:00 97.6 99 20 135/74 (94) 97 08/21/17 19:52 99 Nasal Cannula 1.00 08/21/17 16:00 96.7 95 18 157/75 (102) 97 08/21/17 15:05 98 Nasal Cannula 2.00 08/21/17 12:00 96.5 97 20 131/76 (94) 96 I/O 08/21/17 08/21/17 08/21/17 08/22/17 08/22/17 08/22/17 07:00 15:00 23:00 07:00 15:00 23:00 Intake Total 1340 ml 30 ml 2600 ml Output Total 300 ml Balance 1340 ml 30 ml 2300 ml Intake Oral 240 ml 0 ml IV Total 1100 ml 2600 ml Tube Irrigant 30 ml Output Urine Total 300 ml # Voids 4 8 2 # Bowel Movements 0 1 Result Diagram: 08/22/17 0715 08/20/17 0605 Imaging Last Impressions Abdomen/Pelvis CT 08/20/17 0000 Signed Impressions: Service Date/Time: Sunday, August 20, 2017 21:52 - CONCLUSION: 1. Increased patchy airspace consolidation in the left lower lobe compared to yesterday's examination. There appears to be material within the left lower lobe bronchi suggesting aspiration. There is also partially visualized airspace consolidation in the right middle lobe. 2. Nonacute findings include 2 mm nonobstructing right renal stone, small hiatal hernia, and severe atherosclerotic disease. Bc Figueredo MD Chest CT 08/19/17 0841 Signed Impressions: Service Date/Time: Saturday, August 19, 2017 10:07 - CONCLUSION: Patchy airspace disease. Serial films resolution are suggested to exclude neoplastic process. Zach Nair MD FACR Objective Remarks GENERAL: Well-developed, well-nourished patient in NAD. SKIN: Warm and dry. No rash. HEAD: Normocephalic. Atraumatic. EYES: Pupils equal and round. No scleral icterus. No injection or drainage. ENT: No nasal bleeding or discharge. Mucous membranes pink and moist. NECK: Supple. Trachea midline. CARDIOVASCULAR: Regular rate and rhythm. S1, S2 noted. No murmur appreciated. RESPIRATORY: No accessory muscle use. Diminished breath sounds throughout posterior base lung blanc. Breath sounds equal bilaterally. GASTROINTESTINAL: Abdomen soft, non-tender, nondistended. Normoactive bowel sounds x4. PEG tube in place. MUSCULOSKELETAL: No obvious deformities. Extremities without clubbing, cyanosis , or edema. NEUROLOGICAL: Awake and alert. No obvious cranial nerve deficits. Motor grossly within normal limits. 5/5 muscle strength in bilateral upper and lower extremities. Normal speech. A/P Problem List: (1) Nausea & vomiting ICD Code: R11.2 - Nausea with vomiting, unspecified (2) Pneumonia ICD Code: J18.9 - Pneumonia, unspecified organism Status: Acute Assessment and Plan Nausea, vomiting, retching, recurrent and intractable Unknown etiology at this time, could be secondary to esophagitis, gastritis, vagal nerve abnormality. GI with suspicion of symptoms related to GERD. Protonix IV BID. Continue Pepcid. Phenergan suppository and Ativan cocktail for nausea. Denies any further vomiting. Occasional nausea. Patchy airspace disease seen on CT, in a patient with chronic aspiration pneumonia When compared to previous CT findings to appear as if it could be residual or persistent Will continue antibiotics for aspiration pneumonia to include Levaquin, Flagyl Sputum culture growing streptococcus pneumoniae and Pseudomonas. Continue duo nebs every 6 hours and every 2 hours as needed Leukocytosis, improved. Could be reactive to nausea, vomiting, retching, dehydration Monitor CBC. Afebrile. Urinary tract infection, probable contaminants. DVT prevention sequential compression devices. Was placed on heparin, patient complains of hemorrhoidal bleeding after heparin. Patient is refusing. Discharge Planning Discharge possibly tomorrow if tolerating tube feed. Grace Lozano Aug 22, 2017 09:02
[2017-08-22] MEDS ORDERED: MIDAZOLAM HCL 2 MG/2 ML VIAL IV ONE (09:30)
--- NOTE | 2017-08-22 10:12 | PD.RAD ---
Post Procedure Progress Note Pre Procedure Diagnosis: (1) Aspiration pneumonia Post Procedure Diagnosis: (1) Aspiration pneumonia Procedure Date: Aug 22, 2017 Supervising Radiologist: Rafy Bee JR Proceduralist/Assist: Braulio Hartman RT(R), Sheri Zheng RT(R)(CV) Anesthesia: Conscious Sedation Plan of Activity Patient to Unit: PACU Patient Condition: Good See PACS Report for procedural detail/treatment Feeding Tube G to GJ Conversion Japanese: 22 Findings: Exchanged existing G tube for transgastric GJ tube. Tip in proximal jejunum. Functions well. Jr. Rohit,Rafy Sanchez MD Aug 22, 2017 10:12
[2017-08-22] MEDS ORDERED: IOHEXOL 350 MG/ML 50 ML BTL (for RAD DIAG) G-TUBE ONE (10:25)
[2017-08-22] MEDS ORDERED: guaiFENesin SOLUTION 200 MG/10 ML CUP PO PRN (10:30)
--- NOTE | 2017-08-22 12:06 | RADRPT ---
EXAM DATE/TIME: 08/22/2017 09:16 [facility] COMPARISON: No previous studies available for comparison. INDICATIONS : Patient presents with gastrostomy tube placement in need of gastrostomy jejunal tube placement for nu trition. Aspiration pneumonia with current gastrostomy tube. MEDICAL HISTORY : COPD Anemia History of tongue cancer with chronic PEG tube and chronic aspiration History of hernia 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 SURGICAL HISTORY : History of tongue cancer with PEG tube placement Hernia repair x3 Tonsillectomy ENCOUNTER: Initial ACUITY: 3 days PAIN SCORE: 0/10 LOCATION: N/A FLUORO TIME: 7.2 minutes IMAGE SERIES: 2 SEDATION TIME: 30 minutes CONTRAST: 15 cc Omnipaque (iohexol) 350 MEDICATION(S): 1.) 3 mg midazolam (Versed) IV 2.) 150 mcg Fentanyl (Sublimaze) IV DEVICE(S): 1.) 22 Fr Transgastric tube PROCEDURE: 1. Fluoroscopically guided gastrostomy to gastrojejunostomy conversion 2. Conscious sedation with continuous EKG and oximetry monitoring. TECHNIQUE: Under sterile conditions and using aseptic technique a guidewire was passed through the previous mendoza rostomy tube and the wire was manipulated into the small bowel. The prescribed gastrojejunostomy tube was placed over the guidewire. The balloon was inflated with appropriate volume of saline. Injection of positive contrast demonstrates good position of the gastric and jejunal sections of the tube. Conscious sedation was performed with the prescribed dosages and duration as above in the presence of an independent trained radiology nurse to assist in the monitoring of the patient. EKG and oximetry remained stable throughout the procedure. CONCLUSION: Conversion of an existing gastrostomy tube to a gastrojejunostomy tube. Rafy Bee Jr., MD on August 22, 2017 at 12:04 Board Certified Radiologist. This report was verified electronically.
[2017-08-22] MEDS ORDERED: SINCALIDE 5 MCG/5 ML VIAL IV ONE (13:01)
[2017-08-22] MEDS: PANTOPRAZOLE SODIUM 40 MG VIAL IV PUSH SCH ×2 (13:24→21:18)
[2017-08-22] MEDS: SODIUM CHLORIDE 0.9% FLUSH 10 ML FLUSH IV FLUSH SCH ×2 (13:24→21:18)
--- NOTE | 2017-08-22 13:28 | RADRPT ---
EXAM DATE/TIME: 08/22/2017 08:10 [facility] COMPARISON: No previous studies available for comparison. INDICATIONS : Nausea and vomiting. DOSE: 4 mCi Tc99m Mebrofenin IV MEDICATION: 1.8 mcg Cholecystokinin IV; No symptomatic response. Cholecystokinin was administered by slow infusion over 8 minutes beginning at 60 minutes. MEDICAL HISTORY : Gastroesophageal reflux disease. Chronic obstructive pulmonary disease. Carcinoma, tongue. SURGICAL HISTORY : Inguinal hernia repair. Tonsillectomy. Tongue removal. ENCOUNTER: Initial ACUITY: 3 days PAIN SCALE: 0/10 LOCATION: Right upper quadrant TECHNIQUE: Following the intravenous administration of radiotracer, dynamic sequential image were performed with continuous acquisition. Time-activity curves were generated. FINDINGS: HEPATIC KINETICS: There is prompt uptake of radiotracer in the liver. No focal defects are seen. There is normal rate of washout from the hepatic parenchyma. BILIARY CLEARANCE: Activity is first seen in the extrahepatic biliary system at 10 minutes. There is normal excretion i nto the small bowel. GALLBLADDER: Activity is first seen in the gallbladder at 15 minutes. POST CHOLECYSTOKININ: After Cholecystokinin administration, there is prompt emptying of the gallbladder with a 20 % ejectio n fraction. Common bile duct kinetics are normal and there is no evidence of biliary obstruction. BILIARY ENTERIC REFLUX: None observed. CLINICAL: The patient was asymptomatic after Cholecystokinin administration. CONCLUSION: Normal examination. Rafy Bee Jr., MD on August 22, 2017 at 13:22 Board Certified Radiologist. This report was verified electronically.
[2017-08-22] MEDS: LEVOFLOXACIN 750 MG PREMIX INJ 150 ML IV SCH (15:03)
[2017-08-22] MEDS: BUDESONIDE-FORMOTEROL 160/4.5 MCG INHALER INH SCH ×2 (15:04→22:48)
[2017-08-22] MEDS ORDERED: cloNIDine HCL 0.1 MG TAB PO PRN (17:30)
[2017-08-22] MEDS: ONDANSETRON HCL 4 MG/2 ML VIAL IVP PRN (17:37)
[2017-08-22] MEDS: LORazepam 0.5 MG TAB PO PRN (17:37)
[2017-08-23] VITALS (7 sets, daily range): BP systolic 116–160; BP diastolic 62–83; PULSE 93–102; RESP 18–20; TEMP 96.8–97.5; O2SAT 96–99
[2017-08-23] MEDS: SODIUM CHLOR 0.9% 1000 ML INJ 1,000 ML IV SCH ×2 (02:08→16:30)
[2017-08-23] MEDS: metroNIDAZOLE 500 MG INJ 100 ML IV SCH ×2 (02:08→08:35)
[2017-08-23] MEDS: LEVOTHYROXINE SODIUM 75 MCG TAB G-TUBE SCH (04:58)
[2017-08-23 06:02] LABS: AUTOMATED NEUTROPHIL # 4.7 TH/MM3 (1.8-7.7); BASOPHIL % 0.5 % (0.0-2.0); EOSINOPHIL % 0.3 % (0.0-4.0); HEMATOCRIT 37.2 % (39.0-51.0); HEMOGLOBIN 11.9 GM/DL (13.0-17.0); LYMPHOCYTE # 0.7 TH/MM3 (1.0-4.8); MEAN CELL VOLUME 82.6 FL (80.0-100.0); MEAN CORPUSCULAR HEMOGLOBIN 26.5 PG (27.0-34.0); MEAN PLATELET VOLUME 7.3 FL (7.0-11.0); MONO % 11.9 % (0.0-8.0); MONOCYTE # 0.7 TH/MM3 (0-0.9); NEUT % 76.3 % (16.0-70.0); PLATELET COUNT 237 TH/MM3 (150-450); RED CELL DISTRIBUTION WIDTH 12.5 % (11.6-17.2); WHITE BLOOD COUNT 6.1 TH/MM3 (4.0-11.0)
[2017-08-23 06:15] LABS: BICARBONATE 25.3 MEQ/L (21.0-32.0); CALCIUM 8.2 MG/DL (8.5-10.1)
[2017-08-23 06:19] LABS: CREATININE 0.68 MG/DL (0.60-1.30)
[2017-08-23] MEDS: RESP: ALBUTEROL 2.5 MG/IPRATROPIUM 0.5 MG NEB (SCH) NEB ×2 (07:38→14:19)
[2017-08-23] MEDS: HEPARIN SODIUM - SQ 10,000 UNITS/ML VIAL SQ SCH ×3 (08:34→21:00)
[2017-08-23] MEDS: FAMOTIDINE 40 MG/5 ML LIQ 50 ML BTL PEG SCH ×2 (08:34→22:05)
[2017-08-23] MEDS: ONDANSETRON HCL 4 MG/2 ML VIAL IVP PRN ×2 (08:35→15:28)
[2017-08-23] MEDS: PANTOPRAZOLE SODIUM 40 MG VIAL IV PUSH SCH (08:35)
[2017-08-23] MEDS: SODIUM CHLORIDE 0.9% FLUSH 10 ML FLUSH IV FLUSH SCH ×2 (08:36→21:00)
[2017-08-23] MEDS: BUDESONIDE-FORMOTEROL 160/4.5 MCG INHALER INH SCH ×2 (08:36→22:06)
[2017-08-23] MEDS: DOCUSATE SODIUM 50 MG/SENNA 8.6 MG TAB PEG SCH ×2 (09:00→21:00)
--- NOTE | 2017-08-23 10:07 | HHI.PR ---
Subjective Remarks Follow-up nausea vomiting. Patient seen and examined, lying in bed. States that he was able to tolerate tube feeding this morning although now complains of diarrhea. Nausea and vomiting have improved. Denies any pain. Vital signs are stable. Afebrile. Objective Vitals Vital Signs Date Time Temp Pulse Resp B/P (MAP) Pulse Ox O2 Delivery O2 Flow Rate FiO2 08/23/17 08:00 97.5 93 18 160/70 (100) 97 08/23/17 07:40 96 21 08/23/17 00:00 97.3 99 18 134/73 (93) 99 08/22/17 20:57 97 21 08/22/17 20:00 97.0 102 18 144/85 (104) 95 08/22/17 16:00 96.1 106 18 174/102 (126) 96 08/22/17 16:00 96.1 106 18 174/102 (126) 96 08/22/17 14:28 96 21 08/22/17 13:45 98.2 91 16 166/93 (117) 98 08/22/17 13:45 98.2 91 16 166/93 (117) 98 08/22/17 11:20 88 14 110/69 (83) 96 08/22/17 10:55 84 14 112/70 (84) 95 08/22/17 10:40 87 14 118/67 (84) 95 08/22/17 10:25 98.2 92 14 122/81 (95) 94 I/O 08/22/17 08/22/17 08/22/17 08/23/17 08/23/17 08/23/17 07:00 15:00 23:00 07:00 15:00 23:00 Intake Total 2600 ml 100 ml 250 ml 1160 ml Output Total 300 ml Balance 2300 ml 100 ml 250 ml 1160 ml Intake Oral 0 ml IV Total 2600 ml 100 ml 250 ml 1100 ml Other 60 ml Output Urine Total 300 ml # Voids 2 6 # Bowel Movements 2 1 Result Diagram: 08/23/17 0551 08/23/17 0551 Imaging Last Impressions Hepatobiliary Scan Nuclear Medicine 08/22/17 0000 Signed Impressions: Service Date/Time: Tuesday, August 22, 2017 08:10 - CONCLUSION: Normal examination. Rafy Bee Jr., MD Gastrostomy Tube Change 08/22/17 0000 Signed Impressions: Service Date/Time: Tuesday, August 22, 2017 09:16 - CONCLUSION: Conversion of an existing gastrostomy tube to a gastrojejunostomy tube. Rafy Bee Jr., MD Abdomen/Pelvis CT 08/20/17 0000 Signed Impressions: Service Date/Time: Sunday, August 20, 2017 21:52 - CONCLUSION: 1. Increased patchy airspace consolidation in the left lower lobe compared to yesterday's examination. There appears to be material within the left lower lobe bronchi suggesting aspiration. There is also partially visualized airspace consolidation in the right middle lobe. 2. Nonacute findings include 2 mm nonobstructing right renal stone, small hiatal hernia, and severe atherosclerotic disease. Bc Figueredo MD Chest CT 08/19/17 0841 Signed Impressions: Service Date/Time: Saturday, August 19, 2017 10:07 - CONCLUSION: Patchy airspace disease. Serial films resolution are suggested to exclude neoplastic process. Zach Nair MD FACR Objective Remarks GENERAL: Well-developed, well-nourished patient in NAD. SKIN: Warm and dry. No rash. HEAD: Normocephalic. Atraumatic. EYES: Pupils equal and round. No scleral icterus. No injection or drainage. ENT: No nasal bleeding or discharge. Mucous membranes pink and moist. NECK: Supple. Trachea midline. CARDIOVASCULAR: Regular rate and rhythm. S1, S2 noted. No murmur appreciated. RESPIRATORY: No accessory muscle use. Diminished breath sounds throughout posterior base lung blanc. Breath sounds equal bilaterally. GASTROINTESTINAL: Abdomen soft, non-tender, nondistended. Normoactive bowel sounds x4. PEG tube in place. MUSCULOSKELETAL: No obvious deformities. Extremities without clubbing, cyanosis , or edema. NEUROLOGICAL: Awake and alert. No obvious cranial nerve deficits. Motor grossly within normal limits. 5/5 muscle strength in bilateral upper and lower extremities. Normal speech. A/P Problem List: (1) Nausea & vomiting ICD Code: R11.2 - Nausea with vomiting, unspecified (2) Pneumonia ICD Code: J18.9 - Pneumonia, unspecified organism Status: Acute Assessment and Plan Nausea, vomiting, retching, recurrent and intractable. Resolved. Unknown etiology at this time, could be secondary to esophagitis, gastritis, vagal nerve abnormality. GI with suspicion of symptoms related to GERD. Continue Protonix IV BID. We will switch to p.o. Continue Pepcid. Phenergan suppository and Ativan cocktail for nausea. Denies any further vomiting. Diarrhea Added Questran. Assess response. Patchy airspace disease seen on CT, in a patient with chronic aspiration pneumonia When compared to previous CT findings to appear as if it could be residual or persistent Will continue antibiotics for aspiration pneumonia to include Levaquin, Flagyl. Will switch from IV to p.o. antibiotics. Sputum culture growing streptococcus pneumoniae and Pseudomonas. Repeat sputum, follow. Continue duo nebs every 6 hours and every 2 hours as needed Cough improved, Robitussin available. Leukocytosis, improved. Could be reactive to nausea, vomiting, retching, dehydration Monitor CBC. Afebrile. DVT prevention sequential compression devices. Was placed on heparin, patient complains of hemorrhoidal bleeding after heparin. Patient is refusing. Discharge Planning Possible discharge later this afternoon if diarrhea slowing down. Grace Lozano Aug 23, 2017 10:07
[2017-08-23] MEDS: LEVOFLOXACIN 750 MG PREMIX INJ 150 ML IV SCH (10:33)
[2017-08-23] MEDS: CHOLESTYRAMINE 4 GM PACKET PO SCH ×3 (12:00→22:06)
[2017-08-23] MEDS: LISINOPRIL 10 MG TAB PO SCH (15:27)
[2017-08-23] MEDS: metroNIDAZOLE 500 MG TAB PO SCH ×2 (15:28→22:03)
--- NOTE | 2017-08-23 16:18 | HHI.GIFU ---
GI Follow-up Note Consult Follow-up Subjective: Patient laying in bed comfortably, no new complaints except diarrhea after feedings Objective: PHYSICAL EXAMINATION: Vitals signs stable No fever HEENT: Pupils round and reactive to light; normocephalic; atraumatic; no jaundice. Throat is clear. NECK: Neck is supple, no JVD, no lymphadenopathy. CHEST: Chest is clear to auscultation and percussion. CARDIAC: Regular rate and rhythm with no murmur gallop or rubs. ABDOMEN: Soft, nondistended, nontender; no hepatosplenomegaly; bowel sounds are present in all four quadrants. EXTREMITIES: No clubbing, cyanosis, or edema. SKIN: Normal; no rash; no jaundice. 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 Available Data (labs, X- Rays, Procedues) : Last Impressions Hepatobiliary Scan Nuclear Medicine 08/22/17 0000 Signed Impressions: Service Date/Time: Tuesday, August 22, 2017 08:10 - CONCLUSION: Normal examination. Rafy Bee Jr., MD Gastrostomy Tube Change 08/22/17 0000 Signed Impressions: Service Date/Time: Tuesday, August 22, 2017 09:16 - CONCLUSION: Conversion of an existing gastrostomy tube to a gastrojejunostomy tube. Rafy Bee Jr., MD Abdomen/Pelvis CT 08/20/17 0000 Signed Impressions: Service Date/Time: Sunday, August 20, 2017 21:52 - CONCLUSION: 1. Increased patchy airspace consolidation in the left lower lobe compared to yesterday's examination. There appears to be material within the left lower lobe bronchi suggesting aspiration. There is also partially visualized airspace consolidation in the right middle lobe. 2. Nonacute findings include 2 mm nonobstructing right renal stone, small hiatal hernia, and severe atherosclerotic disease. Bc Figueredo MD Chest CT 08/19/17 0841 Signed Impressions: Service Date/Time: Saturday, August 19, 2017 10:07 - CONCLUSION: Patchy airspace disease. Serial films resolution are suggested to exclude neoplastic process. Zach Nair MD FACR Laboratory Tests Test 08/22/17 07:15 08/23/17 05:51 White Blood Count 6.4 TH/MM3 6.1 TH/MM3 Red Blood Count 4.54 MIL/MM3 4.50 MIL/MM3 Hemoglobin 12.6 GM/DL 11.9 GM/DL Hematocrit 37.5 % 37.2 % Mean Corpuscular Volume 82.6 FL 82.6 FL Mean Corpuscular Hemoglobin 27.7 PG 26.5 PG Mean Corpuscular Hemoglobin Concent 33.5 % 32.0 % Red Cell Distribution Width 13.0 % 12.5 % Platelet Count 223 TH/MM3 237 TH/MM3 Mean Platelet Volume 7.7 FL 7.3 FL Neutrophils (%) (Auto) 74.5 % 76.3 % Lymphocytes (%) (Auto) 13.1 % 11.0 % Monocytes (%) (Auto) 10.6 % 11.9 % Eosinophils (%) (Auto) 0.4 % 0.3 % Basophils (%) (Auto) 1.4 % 0.5 % Neutrophils # (Auto) 4.8 TH/MM3 4.7 TH/MM3 Lymphocytes # (Auto) 0.8 TH/MM3 0.7 TH/MM3 Monocytes # (Auto) 0.7 TH/MM3 0.7 TH/MM3 Eosinophils # (Auto) 0.0 TH/MM3 0.0 TH/MM3 Basophils # (Auto) 0.1 TH/MM3 0.0 TH/MM3 CBC Comment DIFF FINAL DIFF FINAL Differential Comment Blood Urea Nitrogen 12 MG/DL Creatinine 0.68 MG/DL Random Glucose 100 MG/DL Calcium Level 8.2 MG/DL Sodium Level 135 MEQ/L Potassium Level 4.0 MEQ/L Chloride Level 102 MEQ/L Carbon Dioxide Level 25.3 MEQ/L Anion Gap 8 MEQ/L Estimat Glomerular Filtration Rate 115 ML/MIN Allergies Coded Allergies Type Severity Reaction Last Updated Verified No Known Allergies 08/07/17 No Active Scripts Medications Dose Route/Sig Max Daily Dose Days Date Category Promethegan Supp (Promethazine HCl) 12.5 Mg Supp 12.5 Mg RECTAL Q6HR PRN 30 08/09/17 Rx Zofran (Ondansetron HCl) 4 Mg Tab 4 Mg PO Q6HR PRN 08/07/17 Reported Ensure Plus (Nutritional Supplements) 1 Liq Liq 2 Can G-TUBE QID 12/12/16 Reported Synthroid (Levothyroxine Sodium) 75 Mcg Tab 75 Mcg G-TUBE DAILY 08/05/16 Reported Symbicort Inh (Budesonide/Formoterol Fumarate) 160-4.5 Mcg/Act Aero 2 Puff INH Q12HR 08/05/16 Reported Albuterol Neb (Albuterol Sulfate) 2.5 Mg/3 Ml Neb 2.5 Mg NEB Q4HR NEB PRN 08/05/16 Reported ASSESSMENT/PLAN: Seen and examined. Still with some retching and diarrhea. Check stool for c diff. Start TF 1 can through J tube tid. It was a pleasure seeing Boogie Eckert. Thank you for this consult. Entered by: More Alatorre MD Aug 23, 2017 16:18
[2017-08-23] MEDS: LORazepam 0.5 MG TAB PO PRN (16:31)
[2017-08-23] MEDS: PROMETHAZINE HCL 12.5 MG SUPP RECTAL PRN (16:31)
[2017-08-23] MEDS: METOCLOPRAMIDE HCL 10 MG TAB PO SCH ×2 (16:32→22:03)
[2017-08-23] MEDS ORDERED: KANGAROO JOEY P1 MIS (17:17)
[2017-08-23] MEDS: RESP: ALBUTEROL 2.5 MG/IPRATROPIUM 0.5 MG NEB (PRN) NEB (20:11)
[2017-08-23] MEDS: PANTOPRAZOLE SOD 40 MG DELAYED RELEASE TAB PO SCH (22:04)
[2017-08-24] VITALS: BP 124/59; PULSE 98; RESP 18; TEMP 97; O2SAT 93
[2017-08-24] MEDS: ONDANSETRON HCL 4 MG/2 ML VIAL IVP PRN (02:51)
[2017-08-24] MEDS: SODIUM CHLORIDE 0.9% FLUSH 10 ML FLUSH IV FLUSH PRN (02:51)
[2017-08-24] MEDS: SODIUM CHLOR 0.9% 1000 ML INJ 1,000 ML IV SCH ×2 (04:25→16:20)
[2017-08-24] MEDS: LEVOTHYROXINE SODIUM 75 MCG TAB G-TUBE SCH (05:56)
[2017-08-24] MEDS: metroNIDAZOLE 500 MG TAB PO SCH ×3 (05:56→22:00)
[2017-08-24] MEDS: CHOLESTYRAMINE 4 GM PACKET PO SCH ×3 (05:56→18:42)
[2017-08-24 08:00] VITALS: BP 143/76; PULSE 89; RESP 20; TEMP 97.9; O2SAT 95
[2017-08-24] MEDS: LISINOPRIL 10 MG TAB PO SCH (08:13)
[2017-08-24] MEDS: LEVOFLOXACIN 750 MG TAB PO SCH (08:13)
[2017-08-24] MEDS: FAMOTIDINE 40 MG/5 ML LIQ 50 ML BTL PEG SCH ×2 (08:13→23:00)
[2017-08-24] MEDS: METOCLOPRAMIDE HCL 10 MG TAB PO SCH ×4 (08:13→23:00)
[2017-08-24] MEDS: PANTOPRAZOLE SOD 40 MG DELAYED RELEASE TAB PO SCH ×2 (08:13→23:00)
[2017-08-24] MEDS: DOCUSATE SODIUM 50 MG/SENNA 8.6 MG TAB PEG SCH ×2 (08:14→23:00)
[2017-08-24] MEDS: BUDESONIDE-FORMOTEROL 160/4.5 MCG INHALER INH SCH ×2 (08:14→23:00)
[2017-08-24] MEDS: HEPARIN SODIUM - SQ 10,000 UNITS/ML VIAL SQ SCH ×2 (08:14→23:16)
[2017-08-24] MEDS: SODIUM CHLORIDE 0.9% FLUSH 10 ML FLUSH IV FLUSH SCH ×2 (08:28→23:13)
--- NOTE | 2017-08-24 10:33 | HHI.GIFU ---
Subjective Remarks Patient laying in bed, seems to be comfortable, he said his last bowel movement was yesterday morning, no abdominal pain, no other GI symptom Objective Vitals I&O Vital Signs Date Time Temp Pulse Resp B/P (MAP) Pulse Ox O2 Delivery O2 Flow Rate FiO2 08/24/17 08:00 97.9 89 20 143/76 (98) 95 08/24/17 00:00 97.0 98 18 124/59 (80) 93 08/23/17 20:12 96 21 08/23/17 20:00 97.1 101 18 116/62 (80) 97 08/23/17 16:00 97.2 102 20 145/83 (103) 97 08/23/17 12:00 96.8 95 18 153/83 (106) 98 I/O 08/23/17 08/23/17 08/23/17 08/24/17 08/24/17 08/24/17 07:00 15:00 23:00 07:00 15:00 23:00 Intake Total 1160 ml 250 ml 0 ml Output Total 350 ml Balance 1160 ml 250 ml -350 ml 0 ml Intake Oral 0 ml 0 ml IV Total 1100 ml 250 ml Other 60 ml Output Urine Total 350 ml # Voids 4 # Bowel Movements 1 1 1 Laboratory Date/Time Source Procedure Growth Status 08/19/17 09:10 Blood Peripheral Aerobic Blood Culture - Preliminary NO GROWTH IN 4 DAYS Resulted 08/19/17 09:10 Blood Peripheral Anaerobic Blood Culture - Preliminary NO GROWTH IN 4 DAYS Resulted 08/22/17 08:00 Sputum Expectorated Sputum Gram Stain - Final Complete 08/22/17 08:00 Sputum Expectorated Sputum Sputum Culture - Final HEAVY GROWTH NORMAL RESPIRATORY MANUEL Complete 08/19/17 10:30 Urine Catheterized Urine Urine Culture - Final 10-50,000 CFU/ML MIXED GRAM POSITIVE ... Complete Physical Exam HEENT: Pupils round and reactive to light; normocephalic; atraumatic; no jaundice. Throat is clear. Hoarseness NECK: Neck is supple, no JVD, no lymphadenopathy. CHEST: Chest is clear to auscultation and percussion. CARDIAC: Regular rate and rhythm with no murmur gallop or rubs. ABDOMEN: Soft, nondistended, nontender; no hepatosplenomegaly; bowel sounds are present in all four quadrants. PEG tube in place EXTREMITIES: No clubbing, cyanosis, or edema. SKIN: Normal; no rash; no jaundice. 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 Assessment and Plan Assessment: (1) Aspiration pneumonia ICD Codes: J69.0 - Pneumonitis due to inhalation of food and vomit (2) GERD (gastroesophageal reflux disease) ICD Codes: K21.9 - Gastro-esophageal reflux disease without esophagitis (3) Nausea & vomiting ICD Codes: R11.2 - Nausea with vomiting, unspecified (4) Epigastric pain ICD Codes: R10.13 - Epigastric pain Plan Patient was seen and examined, patient is laying in bed seems to be comfortable , no GI symptom at this time, has lost diarrhea was yesterday and in the morning , no reflux symptoms or abdominal pain at this time 1. Continue PPI 2- continue tube feeding 3 continue antibiotic for C. difficile 4- if patient has diarrhea will need to get stool specimen Tim Vernon MD Aug 24, 2017 10:33
--- NOTE | 2017-08-24 10:48 | HHI.PR ---
Subjective Remarks Follow-up nausea and vomiting. Patient seen and examined, lying in bed, states he is miserable. Continue nausea and retching. Denies any further diarrhea since about yesterday after GJ tube placement. Patient has been on trickle feeds via tube feeding pump, and actually tolerating well without vomiting or diarrhea. Vital signs are stable. Afebrile. Patient denies any abdominal pain. Gastroenterology following. Objective Vitals Vital Signs Date Time Temp Pulse Resp B/P (MAP) Pulse Ox O2 Delivery O2 Flow Rate FiO2 08/24/17 08:00 97.9 89 20 143/76 (98) 95 08/24/17 00:00 97.0 98 18 124/59 (80) 93 08/23/17 20:12 96 21 08/23/17 20:00 97.1 101 18 116/62 (80) 97 08/23/17 16:00 97.2 102 20 145/83 (103) 97 08/23/17 12:00 96.8 95 18 153/83 (106) 98 I/O 08/23/17 08/23/17 08/23/17 08/24/17 08/24/17 08/24/17 07:00 15:00 23:00 07:00 15:00 23:00 Intake Total 1160 ml 250 ml 0 ml Output Total 350 ml Balance 1160 ml 250 ml -350 ml 0 ml Intake Oral 0 ml 0 ml IV Total 1100 ml 250 ml Other 60 ml Output Urine Total 350 ml # Voids 4 # Bowel Movements 1 1 1 Result Diagram: 08/23/17 0551 08/23/17 0551 Imaging Last Impressions Hepatobiliary Scan Nuclear Medicine 08/22/17 0000 Signed Impressions: Service Date/Time: Tuesday, August 22, 2017 08:10 - CONCLUSION: Normal examination. Rafy Bee Jr., MD Gastrostomy Tube Change 08/22/17 0000 Signed Impressions: Service Date/Time: Tuesday, August 22, 2017 09:16 - CONCLUSION: Conversion of an existing gastrostomy tube to a gastrojejunostomy tube. Rafy Bee Jr., MD Abdomen/Pelvis CT 08/20/17 0000 Signed Impressions: Service Date/Time: Sunday, August 20, 2017 21:52 - CONCLUSION: 1. Increased patchy airspace consolidation in the left lower lobe compared to yesterday's examination. There appears to be material within the left lower lobe bronchi suggesting aspiration. There is also partially visualized airspace consolidation in the right middle lobe. 2. Nonacute findings include 2 mm nonobstructing right renal stone, small hiatal hernia, and severe atherosclerotic disease. Bc Figueredo MD Chest CT 08/19/17 0841 Signed Impressions: Service Date/Time: Saturday, August 19, 2017 10:07 - CONCLUSION: Patchy airspace disease. Serial films resolution are suggested to exclude neoplastic process. Zach Nair MD FACR Objective Remarks GENERAL: Well-developed, well-nourished patient in NAD. SKIN: Warm and dry. No rash. HEAD: Normocephalic. Atraumatic. EYES: Pupils equal and round. No scleral icterus. No injection or drainage. ENT: No nasal bleeding or discharge. Mucous membranes pink and moist. NECK: Supple. Trachea midline. CARDIOVASCULAR: Regular rate and rhythm. S1, S2 noted. No murmur appreciated. RESPIRATORY: No accessory muscle use. Diminished breath sounds throughout posterior base lung blanc. Breath sounds equal bilaterally. GASTROINTESTINAL: Abdomen soft, non-tender, nondistended. Normoactive bowel sounds x4. PEG tube in place. MUSCULOSKELETAL: No obvious deformities. Extremities without clubbing, cyanosis , or edema. NEUROLOGICAL: Awake and alert. No obvious cranial nerve deficits. Motor grossly within normal limits. 5/5 muscle strength in bilateral upper and lower extremities. Normal speech. A/P Problem List: (1) Nausea & vomiting ICD Code: R11.2 - Nausea with vomiting, unspecified (2) Pneumonia ICD Code: J18.9 - Pneumonia, unspecified organism Status: Acute Assessment and Plan Nausea, vomiting, retching, recurrent and intractable. Resolved. Unknown etiology, GI with suspicion of symptoms related to GERD. Continue Protonix IV BID. We will switch to p.o. Continue Pepcid. Phenergan suppository and Ativan cocktail for nausea. Denies any further vomiting. Does continue to have nausea and retching. Diarrhea Patient has not had a bout of diarrhea since yesterday afternoon. Added Questran. Assess response. C. difficile specimen ordered, if patient has bowel movement obtained. Follow. Patchy airspace disease seen on CT, in a patient with chronic aspiration pneumonia When compared to previous CT findings to appear as if it could be residual or persistent Will continue antibiotics for aspiration pneumonia to include Levaquin, Flagyl. Will switch from IV to p.o. antibiotics. Sputum culture growing streptococcus pneumoniae and Pseudomonas. Sputum culture negative. Continue duo nebs every 6 hours and every 2 hours as needed Cough improved, Robitussin available. Leukocytosis, improved. Could be reactive to nausea, vomiting, retching, dehydration Monitor CBC. Afebrile. DVT prevention sequential compression devices. Was placed on heparin, patient complains of hemorrhoidal bleeding after heparin. Patient is refusing. Discharge Planning When patient meets goal rate of tube feeding with resolution of diarrhea and nausea, will be able to discharge. Hoping for tomorrow. Grace Lozano Aug 24, 2017 10:48
[2017-08-24 11:23] VITALS: BP 136/77; PULSE 93; RESP 19; TEMP 97.2; O2SAT 96
[2017-08-24] MEDS: RESP: ALBUTEROL 2.5 MG/IPRATROPIUM 0.5 MG NEB (PRN) NEB (11:38)
[2017-08-24 11:41] VITALS: O2SAT 97
[2017-08-24] MEDS: LORazepam 0.5 MG TAB PO PRN (15:39)
[2017-08-24] MEDS: PROMETHAZINE HCL 12.5 MG SUPP RECTAL PRN (15:40)
[2017-08-24 16:00] VITALS: BP 142/78; PULSE 92; RESP 14; TEMP 98; O2SAT 96
[2017-08-24 20:00] VITALS: BP 140/70; PULSE 93; RESP 18; TEMP 98.4; O2SAT 96
[2017-08-25] VITALS: BP 145/82; PULSE 98; RESP 20; TEMP 97.4; O2SAT 96
[2017-08-25 01:13] LABS: HEMOGLOBIN 12.9 GM/DL (13.0-17.0)
[2017-08-25] MEDS: CHOLESTYRAMINE 4 GM PACKET PO SCH ×2 (06:25)
[2017-08-25] MEDS: metroNIDAZOLE 500 MG TAB PO SCH (06:26)
[2017-08-25] MEDS: LEVOTHYROXINE SODIUM 75 MCG TAB G-TUBE SCH (06:26)
[2017-08-25 08:00] VITALS: BP 139/86; PULSE 90; RESP 18; TEMP 96.9; O2SAT 97
[2017-08-25] MEDS: METOCLOPRAMIDE HCL 10 MG TAB PO SCH (08:00)
[2017-08-25 08:08] VITALS: O2SAT 99
[2017-08-25] MEDS: RESP: ALBUTEROL 2.5 MG/IPRATROPIUM 0.5 MG NEB (PRN) NEB ×2 (08:18→22:29)
[2017-08-25] MEDS: DOCUSATE SODIUM 50 MG/SENNA 8.6 MG TAB PEG SCH ×2 (09:00→20:56)
[2017-08-25] MEDS: PANTOPRAZOLE SOD 40 MG DELAYED RELEASE TAB PO SCH (09:00)
[2017-08-25] MEDS: LISINOPRIL 10 MG TAB PO SCH (09:00)
[2017-08-25] MEDS: LEVOFLOXACIN 750 MG TAB PO SCH (09:00)
[2017-08-25] MEDS: HEPARIN SODIUM - SQ 10,000 UNITS/ML VIAL SQ SCH (09:00)
[2017-08-25] MEDS: SODIUM CHLORIDE 0.9% FLUSH 10 ML FLUSH IV FLUSH SCH ×2 (09:17→20:56)
[2017-08-25] MEDS: BUDESONIDE-FORMOTEROL 160/4.5 MCG INHALER INH SCH ×2 (09:17→20:55)
[2017-08-25] MEDS: FAMOTIDINE 40 MG/5 ML LIQ 50 ML BTL PEG SCH ×2 (09:18→20:56)
--- NOTE | 2017-08-25 10:42 | HHI.PR ---
Subjective Remarks Follow-up nausea and vomiting. Patient seen and examined, lying in bed states that nausea has somewhat improved. There is reports of a bloody bowel movement overnight. C. difficile negative. Hemoglobin rechecked this morning, actually higher than before. No drop in H&H. Continue to monitor for active bleeding. We will continue to increase per dietitian recommendations. Continue antinausea medications. Vital signs are stable. Lab work unremarkable today. Objective Vitals Vital Signs Date Time Temp Pulse Resp B/P (MAP) Pulse Ox O2 Delivery O2 Flow Rate FiO2 08/25/17 08:08 99 08/25/17 08:00 96.9 90 18 139/86 (103) 97 08/25/17 00:00 97.4 98 20 145/82 (103) 96 08/24/17 20:00 98.4 93 18 140/70 (93) 96 08/24/17 16:00 98.0 92 14 142/78 (99) 96 08/24/17 11:41 97 21 08/24/17 11:23 97.2 93 19 136/77 (96) 96 I/O 08/24/17 08/24/17 08/24/17 08/25/17 08/25/17 08/25/17 07:00 15:00 23:00 07:00 15:00 23:00 Intake Total 0 ml 0 ml Output Total 350 ml 300 ml Balance -350 ml 0 ml -300 ml Intake Oral 0 ml 0 ml Output Urine Total 350 ml 300 ml # Voids 5 # Bowel Movements 1 0 1 Result Diagram: 08/25/17 0050 08/23/17 0551 Imaging Last Impressions Hepatobiliary Scan Nuclear Medicine 08/22/17 0000 Signed Impressions: Service Date/Time: Tuesday, August 22, 2017 08:10 - CONCLUSION: Normal examination. Rafy Bee Jr., MD Gastrostomy Tube Change 08/22/17 0000 Signed Impressions: Service Date/Time: Tuesday, August 22, 2017 09:16 - CONCLUSION: Conversion of an existing gastrostomy tube to a gastrojejunostomy tube. Rafy Bee Jr., MD Abdomen/Pelvis CT 08/20/17 0000 Signed Impressions: Service Date/Time: Sunday, August 20, 2017 21:52 - CONCLUSION: 1. Increased patchy airspace consolidation in the left lower lobe compared to yesterday's examination. There appears to be material within the left lower lobe bronchi suggesting aspiration. There is also partially visualized airspace consolidation in the right middle lobe. 2. Nonacute findings include 2 mm nonobstructing right renal stone, small hiatal hernia, and severe atherosclerotic disease. Bc Figueredo MD Chest CT 08/19/17 0841 Signed Impressions: Service Date/Time: Saturday, August 19, 2017 10:07 - CONCLUSION: Patchy airspace disease. Serial films resolution are suggested to exclude neoplastic process. Zach Nair MD FACR Objective Remarks GENERAL: Well-developed, well-nourished patient in NAD. SKIN: Warm and dry. No rash. HEAD: Normocephalic. Atraumatic. EYES: Pupils equal and round. No scleral icterus. No injection or drainage. ENT: No nasal bleeding or discharge. Mucous membranes pink and moist. NECK: Supple. Trachea midline. CARDIOVASCULAR: Regular rate and rhythm. S1, S2 noted. No murmur appreciated. RESPIRATORY: No accessory muscle use. Diminished breath sounds throughout posterior base lung blanc. Breath sounds equal bilaterally. GASTROINTESTINAL: Abdomen soft, non-tender, nondistended. Normoactive bowel sounds x4. PEG tube in place. MUSCULOSKELETAL: No obvious deformities. Extremities without clubbing, cyanosis , or edema. NEUROLOGICAL: Awake and alert. No obvious cranial nerve deficits. Motor grossly within normal limits. 5/5 muscle strength in bilateral upper and lower extremities. Normal speech. A/P Problem List: (1) Nausea & vomiting ICD Code: R11.2 - Nausea with vomiting, unspecified (2) Pneumonia ICD Code: J18.9 - Pneumonia, unspecified organism Status: Acute Assessment and Plan Nausea, vomiting, retching, recurrent and intractable. Resolved. Unknown etiology, GI with suspicion of symptoms related to GERD. Continue Protonix IV BID. We will switch to p.o. Continue Pepcid. Phenergan suppository and Ativan cocktail for nausea. Denies any further vomiting. Does continue to have nausea and retching. Patient on continuous tube feedings, tolerating well at 50 mL's an hour. Dietitian's recommendations: For continuous TF'ing via J-tube, Rec TwoCal HN @ goal rate of 50ml/hr x 22hr(TF'ing stopped for Synthroid). For TF'ing w/TwoCal HN, once tolerated w/continuous feeds, Rec increase TF'ing rate, as tolerated , to 80ml/hr x 14-hr. To allow for a shorter TF'ing run time, Rec increase TF' ing rate, as tolerated, to 95ml/hr x 12-hr. Rec free water flushes 215ml Q 4hr to meet hydration needs. Diarrhea Hematozemia Diarrhea slowed up. C. difficile negative. Question continued. Reports of bloody bowel movement overnight. Monitor H&H. Monitor for any active bleeding. Gastroenterology updated about hematozemia, will assess patient today. Patient declines any further intervention such as colonoscopy if needed. Patchy airspace disease seen on CT, in a patient with chronic aspiration pneumonia When compared to previous CT findings to appear as if it could be residual or persistent Will continue antibiotics for aspiration pneumonia to include Levaquin, Flagyl. Will switch from IV to p.o. antibiotics. Sputum culture growing streptococcus pneumoniae and Pseudomonas. Sputum culture negative. Continue duo nebs every 6 hours and every 2 hours as needed Cough improved, Robitussin available. Will finish antibiotics tomorrow, 08/25. Leukocytosis, improved. Could be reactive to nausea, vomiting, retching, dehydration Monitor CBC. Afebrile. DVT prevention sequential compression devices. Was placed on heparin, patient complains of hemorrhoidal bleeding after heparin. Patient is refusing. Discharge Planning Awaiting tube feeding pump for home. Grace Lozano Aug 25, 2017 10:42
[2017-08-25] MEDS ORDERED: LORazepam 0.5 MG TAB PEG PRN (11:00)
[2017-08-25 11:32] LABS: HEMATOCRIT 40.7 % (39.0-51.0); HEMOGLOBIN 13.3 GM/DL (13.0-17.0); MEAN CELL VOLUME 82.4 FL (80.0-100.0); MEAN CORPUSCULAR HEMOGLOBIN 26.9 PG (27.0-34.0); MEAN CORPUSCULAR HGB CONC 32.7 % (32.0-36.0); MEAN PLATELET VOLUME 7.6 FL (7.0-11.0); PLATELET COUNT 249 TH/MM3 (150-450); RED BLOOD COUNT 4.94 MIL/MM3 (4.50-5.90); RED CELL DISTRIBUTION WIDTH 12.6 % (11.6-17.2); WHITE BLOOD COUNT 4.3 TH/MM3 (4.0-11.0)
[2017-08-25 12:00] VITALS: BP 126/81; PULSE 95; RESP 18; TEMP 97.6; O2SAT 97
[2017-08-25] MEDS ORDERED: cloNIDine HCL 0.1 MG TAB PEG PRN (12:00)
[2017-08-25 12:08] LABS: BANDS 1 % (0-6); LYMPHOCYTES 15 % (9-44); MONOCYTES 17 % (0-8); NEUTROPHIL # MANUAL DIFF 2.9 TH/MM3 (1.8-7.7); POLYS (SEG NEUTROPHILS) 67 % (16-70)
[2017-08-25] MEDS: PANTOPRAZOLE SODIUM 40 MG VIAL IV PUSH SCH (12:25)
[2017-08-25] MEDS: CHOLESTYRAMINE 4 GM PACKET PEG SCH ×2 (12:27→17:34)
[2017-08-25] MEDS: METOCLOPRAMIDE HCL 10 MG TAB PEG SCH ×3 (12:27→20:56)
[2017-08-25] MEDS: metroNIDAZOLE 500 MG TAB PEG SCH ×2 (14:53→22:00)
[2017-08-25] MEDS ORDERED: guaiFENesin SOLUTION 200 MG/10 ML CUP PEG PRN (15:00)
[2017-08-25 16:00] VITALS: BP 142/79; PULSE 91; RESP 18; TEMP 98.2; O2SAT 98
[2017-08-25] MEDS: SODIUM CHLOR 0.9% 1000 ML INJ 1,000 ML IV SCH ×2 (17:34→17:35)
[2017-08-25 20:00] VITALS: BP 129/69; PULSE 95; RESP 20; TEMP 96.3; O2SAT 95; O2SAT 96
[2017-08-26] VITALS (7 sets, daily range): BP systolic 122–145; BP diastolic 69–79; PULSE 89–99; RESP 16–20; TEMP 97.4–98.6; O2SAT 94–98
[2017-08-26] MEDS: SODIUM CHLOR 0.9% 1000 ML INJ 1,000 ML IV SCH ×2 (04:05→16:54)
[2017-08-26] MEDS: metroNIDAZOLE 500 MG TAB PEG SCH (06:00)
[2017-08-26] MEDS: LEVOTHYROXINE SODIUM 75 MCG TAB G-TUBE SCH (06:00)
[2017-08-26] MEDS: CHOLESTYRAMINE 4 GM PACKET PEG SCH ×4 (06:00→17:02)
[2017-08-26] MEDS: METOCLOPRAMIDE HCL 10 MG TAB PEG SCH ×4 (08:06→22:04)
[2017-08-26] MEDS: LISINOPRIL 10 MG TAB PEG SCH (08:07)
[2017-08-26] MEDS: DOCUSATE SODIUM 50 MG/SENNA 8.6 MG TAB PEG SCH ×2 (08:08→21:00)
[2017-08-26] MEDS: BUDESONIDE-FORMOTEROL 160/4.5 MCG INHALER INH SCH ×2 (08:08→22:02)
[2017-08-26] MEDS: SODIUM CHLORIDE 0.9% FLUSH 10 ML FLUSH IV FLUSH SCH ×2 (08:08→22:03)
[2017-08-26] MEDS: FAMOTIDINE 40 MG/5 ML LIQ 50 ML BTL PEG SCH ×2 (08:08→22:02)
[2017-08-26] MEDS: RESP: ALBUTEROL 2.5 MG/IPRATROPIUM 0.5 MG NEB (PRN) NEB ×2 (08:22→21:44)
[2017-08-26] MEDS ORDERED: LEVOFLOXACIN 750 MG TAB PEG SCH (11:00)
[2017-08-26] MEDS: PANTOPRAZOLE SODIUM 40 MG VIAL IV PUSH SCH ×2 (12:06)
[2017-08-26] MEDS: ONDANSETRON HCL 4 MG/2 ML VIAL IVP PRN (12:06)
--- NOTE | 2017-08-26 12:45 | HHI.PR ---
Subjective Remarks Follow-up nausea and vomiting. Patient seen and examined, states he feels much improved. Nausea is relieved. Denies any further diarrhea. C. difficile negative. Hemoglobin stable. No further blood in bowel movement. Tolerating continuous feedings. Vital signs are stable. Arranging for discharge, awaiting tube feeding pump. Objective Vitals Vital Signs Date Time Temp Pulse Resp B/P (MAP) Pulse Ox O2 Delivery O2 Flow Rate FiO2 08/26/17 08:23 97 08/26/17 08:00 97.4 89 18 139/77 (97) 96 08/26/17 00:00 97.9 99 20 122/69 (86) 94 08/25/17 20:00 96 21 08/25/17 20:00 96.3 95 20 129/69 (89) 95 08/25/17 16:00 98.2 91 18 142/79 (100) 98 I/O 08/25/17 08/25/17 08/25/17 08/26/17 08/26/17 08/26/17 07:00 15:00 23:00 07:00 15:00 23:00 Intake Total 0 ml 1170 ml 90 ml Output Total 300 ml 550 ml 350 ml Balance -300 ml 620 ml -260 ml Intake Oral 0 ml 0 ml IV Total 0 ml Tube Feeding 650 ml 90 ml Other 520 ml Output Urine Total 300 ml 550 ml 350 ml # Bowel Movements 1 1 Result Diagram: 08/25/17 1120 08/23/17 0551 Imaging Last Impressions Hepatobiliary Scan Nuclear Medicine 08/22/17 0000 Signed Impressions: Service Date/Time: Tuesday, August 22, 2017 08:10 - CONCLUSION: Normal examination. Rafy Bee Jr., MD Gastrostomy Tube Change 08/22/17 0000 Signed Impressions: Service Date/Time: Tuesday, August 22, 2017 09:16 - CONCLUSION: Conversion of an existing gastrostomy tube to a gastrojejunostomy tube. Rafy Bee Jr., MD Abdomen/Pelvis CT 08/20/17 0000 Signed Impressions: Service Date/Time: Sunday, August 20, 2017 21:52 - CONCLUSION: 1. Increased patchy airspace consolidation in the left lower lobe compared to yesterday's examination. There appears to be material within the left lower lobe bronchi suggesting aspiration. There is also partially visualized airspace consolidation in the right middle lobe. 2. Nonacute findings include 2 mm nonobstructing right renal stone, small hiatal hernia, and severe atherosclerotic disease. Bc Figueredo MD Chest CT 08/19/17 0841 Signed Impressions: Service Date/Time: Saturday, August 19, 2017 10:07 - CONCLUSION: Patchy airspace disease. Serial films resolution are suggested to exclude neoplastic process. Zach Nair MD FACR Objective Remarks GENERAL: Well-developed, well-nourished patient in NAD. SKIN: Warm and dry. No rash. HEAD: Normocephalic. Atraumatic. EYES: Pupils equal and round. No scleral icterus. No injection or drainage. ENT: No nasal bleeding or discharge. Mucous membranes pink and moist. NECK: Supple. Trachea midline. CARDIOVASCULAR: Regular rate and rhythm. S1, S2 noted. No murmur appreciated. RESPIRATORY: No accessory muscle use. Diminished breath sounds throughout posterior base lung blanc. Breath sounds equal bilaterally. GASTROINTESTINAL: Abdomen soft, non-tender, nondistended. Normoactive bowel sounds x4. PEG tube in place. MUSCULOSKELETAL: No obvious deformities. Extremities without clubbing, cyanosis , or edema. NEUROLOGICAL: Awake and alert. No obvious cranial nerve deficits. Motor grossly within normal limits. 5/5 muscle strength in bilateral upper and lower extremities. Normal speech. A/P Problem List: (1) Nausea & vomiting ICD Code: R11.2 - Nausea with vomiting, unspecified (2) Pneumonia ICD Code: J18.9 - Pneumonia, unspecified organism Status: Acute Assessment and Plan Nausea, vomiting, retching, recurrent and intractable. Resolved. Unknown etiology, GI with suspicion of symptoms related to GERD. Continue Protonix IV BID. We will switch to p.o. Continue Pepcid. Phenergan suppository and Ativan cocktail for nausea -patient has not been using, will discontinue. Denies any further vomiting. Nausea improved. Patient on continuous tube feedings, tolerating well at 50 mL's an hour. Dietitian's recommendations: For TF'ing w/Osmolite 1.0, Rec increase 10ml Q 4hr , as tolerated, to goal rate 100ml/hr x 22-hr(TF'ing held for Synthroid), to offer 2200 kcal, 97.5g Protein, 1852.4ml free water. Rec TF'ing w/Osmolite 1.5 AFTER pt is discharged. For TF'ing w/Osmolite 1.5, Rec 30ml/hr, increase 10ml Q 4hr, as tolerated, to goal rate 70ml/hr x 22-hr(TFing held for Synthroid)to offer 2310 kcal, 96.6g Protein and 1173.5ml free water. Rec free water flushes 150ml Q 4hr to meet hydration needs. Diarrhea Hematozemia Diarrhea slowed up. C. difficile negative. Questran continued. No further bloody bowel movements, hemoglobin stable. Monitor for any active bleeding. Gastroenterology updated about hematozemia, no further recommendations. Patient declines any further intervention such as colonoscopy if needed. Patchy airspace disease seen on CT, in a patient with chronic aspiration pneumonia When compared to previous CT findings to appear as if it could be residual or persistent Antibiotics for aspiration pneumonia to include Levaquin, Flagyl. Stop today , reached therapeutic duration. Sputum culture growing streptococcus pneumoniae and Pseudomonas. Sputum culture negative. Continue duo nebs every 6 hours and every 2 hours as needed Cough improved, Robitussin available. Leukocytosis, improved. DVT prevention sequential compression devices. Was placed on heparin, patient complains of hemorrhoidal bleeding after heparin. Patient is refusing. Discharge Planning Awaiting tube feeding pump for home. Grace Lozano Aug 26, 2017 12:45
[2017-08-27] VITALS: BP 173/91; PULSE 101; RESP 18; TEMP 97.9; O2SAT 97
[2017-08-27] MEDS: CHOLESTYRAMINE 4 GM PACKET PEG SCH ×4 (00:24→18:00)
[2017-08-27] MEDS: PANTOPRAZOLE SODIUM 40 MG VIAL IV PUSH SCH ×2 (00:24→12:00)
[2017-08-27] MEDS ORDERED: ENALAPRILAT 1.25 MG/ML VIAL IV PUSH ONE (01:00)
[2017-08-27] MEDS: SODIUM CHLORIDE 0.9% FLUSH 10 ML FLUSH IV FLUSH PRN (01:03)
[2017-08-27] MEDS: SODIUM CHLOR 0.9% 1000 ML INJ 1,000 ML IV SCH (01:03)
[2017-08-27] MEDS: RESP: ALBUTEROL 2.5 MG/IPRATROPIUM 0.5 MG NEB (PRN) NEB (04:45)
[2017-08-27] MEDS: LEVOTHYROXINE SODIUM 75 MCG TAB G-TUBE SCH (06:17)
[2017-08-27 08:00] VITALS: BP 159/82; PULSE 96; RESP 16; TEMP 97.8; O2SAT 98
[2017-08-27] MEDS: SODIUM CHLORIDE 0.9% FLUSH 10 ML FLUSH IV FLUSH SCH (09:00)
--- NOTE | 2017-08-27 09:29 | HHI.DCPOC ---
Discharge Care Plan Diagnosis: (1) COPD (chronic obstructive pulmonary disease) (2) Hypothyroidism (3) Aspiration pneumonia (4) GERD (gastroesophageal reflux disease) (5) Nausea & vomiting Goals to Promote Your Health * To prevent worsening of your condition and complications * To maintain your health at the optimal level Directions to Meet Your Goals Take your medications as prescribed Follow your dietary instruction Follow activity as directed Keep your appointments as scheduled Take your immunizations and boosters as scheduled If your symptoms worsen call your PCP, if no PCP go to Urgent Care Center or Emergency Room Smoking is Dangerous to Your Health. Avoid second hand smoke Call the 24-hour hour crisis hotline for domestic abuse at Grace Lozano Aug 27, 2017 09:28
--- NOTE | 2017-08-27 09:29 | HHI.DS ---
Discharge Summary Admission Date Aug 19, 2017 at 12:15 Discharge Date: Aug 27, 2017 Admitting Diagnosis COPD EXAC,BILATERAL PNA, UTI (1) Nausea & vomiting ICD Code: R11.2 - Nausea with vomiting, unspecified (2) Pneumonia ICD Code: J18.9 - Pneumonia, unspecified organism Status: Acute Procedures Please see below Brief History - From Admission 71 year-old male with rather unfortunate history of tongue cancer status post resection and chronic PEG tube feeding. Patient does have history of chronic obstructive pulmonary disease, chronic aspiration pneumonia and he presented to the hospital today because of intractable nausea, vomiting, retching. Patient was just recently and observe in the hospital back on August 07, 2017 and was discharged on August 09, 2017. During his stay he did improve and went home and was doing well up until yesterday when he started having the persistent retching again. It is difficult to explain he states that he is actually not vomiting that he does have constant retching but nothing comes up because there is nothing in his stomach. He has had increased sputum production which is light green in color. Patient does not know when the last time he had endoscopy, however he does get his PEG tube changed every 6 months. The next time he is supposed to be changed his next month. The patient indicates that there is no tube feeding neck comes out with his retching. Apparently he is tolerating the tube feeding he does have history of recurrent aspiration pneumonia. Patient was evaluated in emergency department and CT scan chest that showed bilateral patchy infiltrates which as compared to previous CT the abdomen from 10 days ago it would appear as if the right sided airspace disease is persistent. Patient denies any fever, chills. He has had a cough with phlegm production. Laboratory studies do indicate a leukocytosis, because of those reasons is recommended by the ER physician that patient to be admitted for further evaluation and management. Patient denies any fever, chills, shortness of breath, dyspnea, congestion, sore throat, runny nose, chest pain. CBC/BMP: 08/25/17 1120 08/23/17 0551 Significant Findings Laboratory Tests Test 08/25/17 00:50 08/25/17 09:20 08/25/17 11:20 Hemoglobin 12.9 GM/DL (13.0-17.0) Mean Corpuscular Hemoglobin 26.9 PG (27.0-34.0) Monocytes % 17 % (0-8) Imaging Last Impressions Hepatobiliary Scan Nuclear Medicine 08/22/17 0000 Signed Impressions: Service Date/Time: Tuesday, August 22, 2017 08:10 - CONCLUSION: Normal examination. Rafy Bee Jr., MD Gastrostomy Tube Change 08/22/17 0000 Signed Impressions: Service Date/Time: Tuesday, August 22, 2017 09:16 - CONCLUSION: Conversion of an existing gastrostomy tube to a gastrojejunostomy tube. Rafy Bee Jr., MD Abdomen/Pelvis CT 08/20/17 0000 Signed Impressions: Service Date/Time: Sunday, August 20, 2017 21:52 - CONCLUSION: 1. Increased patchy airspace consolidation in the left lower lobe compared to yesterday's examination. There appears to be material within the left lower lobe bronchi suggesting aspiration. There is also partially visualized airspace consolidation in the right middle lobe. 2. Nonacute findings include 2 mm nonobstructing right renal stone, small hiatal hernia, and severe atherosclerotic disease. Bc Figueredo MD Chest CT 08/19/17 0841 Signed Impressions: Service Date/Time: Saturday, August 19, 2017 10:07 - CONCLUSION: Patchy airspace disease. Serial films resolution are suggested to exclude neoplastic process. Zach Nair MD FACR PE at Discharge GENERAL: Well-developed, well-nourished patient in NAD. SKIN: Warm and dry. No rash. HEAD: Normocephalic. Atraumatic. EYES: Pupils equal and round. No scleral icterus. No injection or drainage. ENT: No nasal bleeding or discharge. Mucous membranes pink and moist. NECK: Supple. Trachea midline. CARDIOVASCULAR: Regular rate and rhythm. S1, S2 noted. No murmur appreciated. RESPIRATORY: No accessory muscle use. Diminished breath sounds throughout posterior base lung blanc. Breath sounds equal bilaterally. GASTROINTESTINAL: Abdomen soft, non-tender, nondistended. Normoactive bowel sounds x4. PEG tube in place. MUSCULOSKELETAL: No obvious deformities. Extremities without clubbing, cyanosis , or edema. NEUROLOGICAL: Awake and alert. No obvious cranial nerve deficits. Motor grossly within normal limits. 5/5 muscle strength in bilateral upper and lower extremities. Normal speech. Hospital Course Nausea, vomiting, retching, recurrent and intractable upon presentation. Unknown etiology, GI with suspicion of symptoms related to GERD. Continue Protonix BID. Continue Pepcid. Denies any further vomiting. Nausea improved. Diarrhea & Hematozemia on presnetation. C. difficile negative. Questran added. No further bloody bowel movements, hemoglobin stable. Gastroenterology updated about hematozemia, no further recommendations. Patient declines any further intervention such as colonoscopy if needed. Patchy airspace disease seen on CT, in a patient with chronic aspiration pneumonia, when compared to previous CT findings to appear as if it could be residual or persistent. Antibiotics for aspiration pneumonia to include Levaquin, Flagyl. Duration complete. Sputum culture growing streptococcus pneumoniae and Pseudomonas. Sputum culture negative. Continue duo nebs every 6 hours and every 2 hours as needed Cough improved, Robitussin was given. Patient labs returned to normal, cough resolved, nausea improved, tolerating continuous feedings. Patient is stable for DC to f/u with PCP and GI. Pt Condition on Discharge: Stable Discharge Disposition: Disch w/ Home Health Serv Discharge Time: > 30 minutes Discharge Instructions DIET: Follow Instructions for: On Tube Feeding Additional Diet Instructions: For TF'ing w/Osmolite 1.0, Rec increase 10ml Q 4hr, as tolerated, to goal rate 100ml/hr x 22-hr(TF'ing held for Synthroid) Rec TF'ing w/Osmolite 1.5 AFTER pt is discharged For TF'ing w/Osmolite 1.5, Rec 30ml/hr, increase 10ml Q 4hr, as tolerated, to goal rate 70ml/hr x 22-hr(TFing held for Synthroid)Rec free water flushes 150ml Q 4hr to meet hydration needs Activities you can perform: Regular-No Restrictions Follow up Referrals: Gastroenterology - 1 Week PCP Follow-up - 1 Week New Medications: Kangaroo Yadiel Feeding Tube Pump Set (Kangaroo Yadiel Feeding Tube Pump Set) 1 Mis Mis EA .XX DIRECTED, #1 Nutritional Supplements (Osmolite 1.2 Ernesto) 0.06 Gram-1.2 Kcal/Ml Liq 70 ML PEG CONTINUOUS for nutrition for 60 Days, #30 BOTTLE Pantoprazole Liq (Protonix Liq) 40 Mg Pkt 40 MG PO DAILY for Reflux for 30 Days, #30 PKT 0 Refills Cholestyramine (Cholestyramine) 4 Gm/Pkt Powd 4 GM PEG Q6HR for bulking for 30 Days, #120 PACK 1 packet contains 4 grams of cholestyramine. Famotidine Liq (Famotidine Liq) 40 Mg/5 Ml Susp 40 MG PEG BID for gi for 30 Days, #60 TAB Lisinopril (Lisinopril) 10 Mg Tab 10 MG PEG DAILY for htn for 30 Days, #30 TAB Metoclopramide (Metoclopramide) 10 Mg Tab 5 MG PEG ACHS for motility for 30 Days, #120 TAB Continued Medications: Albuterol Neb (Albuterol Neb) 2.5 Mg/3 Ml Neb 2.5 MG NEB Q4HR NEB PRN for SHORTNESS OF BREATH, #60 NEBULE 0 Refills Budesonide-Formoterol Inh (Symbicort Inh) 160-4.5 Mcg/Act Aero 2 PUFF INH Q12HR, #1 INHALER 0 Refills Levothyroxine (Synthroid) 75 Mcg Tab 75 MCG G-TUBE DAILY for Thyroid, #30 TAB 0 Refills Ondansetron (Zofran) 4 Mg Tab 4 MG PO Q6HR PRN for NAUSEA OR VOMITING, TAB 0 Refills Discontinued Medications: Nutritional Supplements (Ensure Plus) 1 Liq Liq 2 CAN G-TUBE QID Promethazine Supp (Promethegan Supp) 12.5 Mg Supp 12.5 MG RECTAL Q6HR PRN for nausea for 30 Days, #120 SUPP Grace Lozano Aug 27, 2017 09:29
[2017-08-27] MEDS ORDERED: METO10TA PEG (09:35)
[2017-08-27] MEDS ORDERED: LISI10TA3 PEG (09:35)
[2017-08-27] MEDS ORDERED: FAMO40SU4 PEG (09:35)
[2017-08-27] MEDS ORDERED: PROTPAK PO (09:35)
[2017-08-27] MEDS ORDERED: CHOL4POW4 PEG (09:35)
[2017-08-27] MEDS ORDERED: OSMOLIQ PEG (09:38)
--- NOTE | 2017-08-27 09:39 | HHI.FF ---
Face to Face Verification Diagnosis: (1) Nausea & vomiting (2) GERD (gastroesophageal reflux disease) (3) Aspiration pneumonia (4) Dysphagia Home Health Nursing Order: Medical education Signs/symptoms of disease process Medication education-adverse effect Nursing assessment with vital signs I have seen patient Boogie Eckert on 08/27/17. My clinical findings support the need for the requested home health care services because: Deconditioned w/ increased weakness Limited ability to care for self I certify that my clinical findings support that this patient is homebound because: Impaired cognitive ability/safety Grace Lozano Aug 27, 2017 09:39
[2017-08-27] MEDS: DOCUSATE SODIUM 50 MG/SENNA 8.6 MG TAB PEG SCH (09:52)
[2017-08-27] MEDS: LISINOPRIL 10 MG TAB PEG SCH (09:52)
[2017-08-27] MEDS: BUDESONIDE-FORMOTEROL 160/4.5 MCG INHALER INH SCH (09:53)
[2017-08-27] MEDS: FAMOTIDINE 40 MG/5 ML LIQ 50 ML BTL PEG SCH (09:53)
[2017-08-27] MEDS: METOCLOPRAMIDE HCL 10 MG TAB PEG SCH ×3 (09:53→18:32)
[2017-08-27 12:00] VITALS: BP 152/83; PULSE 91; RESP 14; TEMP 97.5; O2SAT 97
--- NOTE | 2017-08-27 14:03 | HHI.PR ---
Subjective Remarks Follow-up nausea and vomiting. Patient seen and examined lying in bed comfortably. States he is much improved. Denies any nausea. Awaiting tube feed pump. Patient is medically stable for discharge. Objective Vitals Vital Signs Date Time Temp Pulse Resp B/P (MAP) Pulse Ox O2 Delivery O2 Flow Rate FiO2 08/27/17 12:00 97.5 91 14 152/83 (106) 97 08/27/17 08:00 97.8 96 16 159/82 (107) 98 08/27/17 00:00 97.9 101 18 173/91 (118) 97 08/26/17 21:44 98 21 08/26/17 20:00 98.6 93 16 144/79 (100) 97 08/26/17 16:00 98.0 93 18 135/70 (91) 97 I/O 08/26/17 08/26/17 08/26/17 08/27/17 08/27/17 08/27/17 07:00 15:00 23:00 07:00 15:00 23:00 Intake Total 90 ml 1170 ml 1882 ml Output Total 350 ml 1300 ml Balance -260 ml 1170 ml 582 ml Intake Oral 0 ml IV Total 908 ml Tube Feeding 90 ml 720 ml 624 ml Tube Irrigant 350 ml Other 450 ml Output Urine Total 350 ml 1300 ml # Voids 3 1 # Bowel Movements 1 1 Result Diagram: 08/25/17 1120 08/23/17 0551 Imaging Last Impressions Hepatobiliary Scan Nuclear Medicine 08/22/17 0000 Signed Impressions: Service Date/Time: Tuesday, August 22, 2017 08:10 - CONCLUSION: Normal examination. Rafy Bee Jr., MD Gastrostomy Tube Change 08/22/17 0000 Signed Impressions: Service Date/Time: Tuesday, August 22, 2017 09:16 - CONCLUSION: Conversion of an existing gastrostomy tube to a gastrojejunostomy tube. Rafy Bee Jr., MD Abdomen/Pelvis CT 08/20/17 0000 Signed Impressions: Service Date/Time: Sunday, August 20, 2017 21:52 - CONCLUSION: 1. Increased patchy airspace consolidation in the left lower lobe compared to yesterday's examination. There appears to be material within the left lower lobe bronchi suggesting aspiration. There is also partially visualized airspace consolidation in the right middle lobe. 2. Nonacute findings include 2 mm nonobstructing right renal stone, small hiatal hernia, and severe atherosclerotic disease. Bc Figueredo MD Chest CT 08/19/17 0841 Signed Impressions: Service Date/Time: Saturday, August 19, 2017 10:07 - CONCLUSION: Patchy airspace disease. Serial films resolution are suggested to exclude neoplastic process. Zach Nair MD FACR Objective Remarks GENERAL: Well-developed, well-nourished patient in NAD. SKIN: Warm and dry. No rash. HEAD: Normocephalic. Atraumatic. EYES: Pupils equal and round. No scleral icterus. No injection or drainage. ENT: No nasal bleeding or discharge. Mucous membranes pink and moist. NECK: Supple. Trachea midline. CARDIOVASCULAR: Regular rate and rhythm. S1, S2 noted. No murmur appreciated. RESPIRATORY: No accessory muscle use. Diminished breath sounds throughout posterior base lung blanc. Breath sounds equal bilaterally. GASTROINTESTINAL: Abdomen soft, non-tender, nondistended. Normoactive bowel sounds x4. PEG tube in place. MUSCULOSKELETAL: No obvious deformities. Extremities without clubbing, cyanosis , or edema. NEUROLOGICAL: Awake and alert. No obvious cranial nerve deficits. Motor grossly within normal limits. 5/5 muscle strength in bilateral upper and lower extremities. Normal speech. Procedures Please see below A/P Problem List: (1) Nausea & vomiting ICD Code: R11.2 - Nausea with vomiting, unspecified (2) Pneumonia ICD Code: J18.9 - Pneumonia, unspecified organism Status: Acute Assessment and Plan Nausea, vomiting, retching, recurrent and intractable. Resolved. Unknown etiology, GI with suspicion of symptoms related to GERD. Continue Protonix PO BID. Continue Pepcid. Denies any further vomiting. Nausea improved. Patient on continuous tube feedings, Patrol Officer recommendations. For TF'ing w/ Osmolite 1.0, Rec increase 10ml Q 4hr, as tolerated, to goal rate 100ml/hr x 22- hr(TF'ing held for Synthroid). Rec TF'ing w/Osmolite 1.5 AFTER pt is discharged. For TF'ing w/Osmolite 1.5, Rec 30ml/hr, increase 10ml Q 4hr, as tolerated, to goal rate 70ml/hr x 22-hr(TFing held for Synthroid). Rec free water flushes 150ml Q 4hr to meet hydration needs. Diarrhea Hematozemia Diarrhea slowed up. C. difficile negative. Questran continued. No further bloody bowel movements, hemoglobin stable. Monitor for any active bleeding. Gastroenterology updated about hematozemia, no further recommendations. Patient declines any further intervention such as colonoscopy. Patchy airspace disease seen on CT, in a patient with chronic aspiration pneumonia When compared to previous CT findings to appear as if it could be residual or persistent Antibiotics for aspiration pneumonia to include Levaquin, Flagyl. Stop today , reached therapeutic duration. Sputum culture growing streptococcus pneumoniae and Pseudomonas. Sputum culture negative. Continue duo nebs every 6 hours and every 2 hours as needed Cough improved, Robitussin available. Leukocytosis, improved. DVT prevention sequential compression devices. Was placed on heparin, patient complains of hemorrhoidal bleeding after heparin. Patient is refusing. Discharge Planning Case management assisting with discharge. [facility] saying the only [facility] Nutren tube feeding. Therefore I spoke with Katie dietitian, who stated that Osmolite 1.5 is equivalent to Nutren 1.5 and to continue recommended tube feed regimen as previously prescribed postdischarge. Recommendations: : Rec TF'ing w/ Nutren 1.5 AFTER pt is discharged. For TF'ing w/Nutren 1.5, Rec 30ml/hr, increase 10ml Q 4hr, as tolerated, to goal rate 70ml/hr x 22-hr(TFing held for Synthroid). Rec free water flushes 150ml Q 4hr to meet hydration needs Grace Lozano Aug 27, 2017 14:03
[2017-08-27 16:00] VITALS: BP 152/79; PULSE 91; RESP 16; TEMP 97.4; O2SAT 96
== END 2017-08-27 20:07 | disposition home health service (06) | DRG 178 ==
LOC: PHED 06:42 → PHEDA 12:15 → PH3A 13:22
PROVIDERS: ADMIT Hospitalist; ATTEND Hospitalist
PROC: 0DHA3UZ Insertion of Feeding Device into Jejunum, Percutaneous Approach (ICD-10-PCS; principal; 2017-08-22)
DX: J69.0 Pneumonitis due to inhalation of food and vomit (principal); K92.1 Melena; J44.9 Chronic obstructive pulmonary disease, unspecified; K21.9 Gastro-esophageal reflux disease without esophagitis; D64.9 Anemia, unspecified; E03.9 Hypothyroidism, unspecified; E86.0 Dehydration; K64.9 Unspecified hemorrhoids; R19.7 Diarrhea, unspecified; Z85.810 Personal history of malignant neoplasm of tongue; Z87.891 Personal history of nicotine dependence; Z92.21 Personal history of antineoplastic chemotherapy; Z92.3 Personal history of irradiation; Z93.1 Gastrostomy status
CPT/HCPCS: 49446; 71260; 74177; 78227; 80048; 80053; 81001; 82550; 83605; 83690; 84443; 84484; 85007; 85014; 85018; 85025; 85027; 85610; 85730; 86403; 87040; 87070; 87086; 87184; 87186; 87205; 87493; 87804; 94640; 94664; 96365; 96372; 96375; 99152; 99153; A9537; C1874; C1894; C9113; J1644; J1956; J2250; J2405; J2550; J2765; J2805; J2930; J3010; J3475; J7030; J7613; Q9967

== ENCOUNTER 2017-09-22 13:33 | Emergency (ER) | payer OTHER, MEDICARE ==
[~2017-09-22] VITALS: Ht 182.9 cm; Wt 70.0 kg
[~2017-09-22 13:33] MED LIST changes: -AMOX875T2 PO; +CHOL4POW4 PEG; -ENSULIQ8 G-TUBE; +FAMO40SU4 PEG; +KANGAROO JOEY P1 MIS; +LISI10TA3 PEG; +METO10TA PEG; +OSMOLIQ PEG; -PROT40TA PO; +PROTPAK PO; -SENN187 PO; -[UNRECOGNIZED DRUG - CODE] RECTAL
[2017-09-22 13:40] VITALS: BP 95/57; PULSE 87; RESP 20; TEMP 97.7; O2SAT 99
[2017-09-23] MEDS ORDERED: RANI75SY PO (09:20)
== END 2017-09-22 16:15 | disposition left against medical advice (07) ==
LOC: NED 13:33
DX: Z53.21 Procedure and treatment not carried out due to patient leaving prior to being seen by health care provider (principal)
CPT/HCPCS: 99281

== ENCOUNTER 2017-09-23 09:07 | Emergency (ER) | payer OTHER, MEDICARE ==
[~2017-09-23] VITALS: Ht 182.9 cm; Wt 67.0 kg
[2017-09-23 09:10] VITALS: BP 134/59; PULSE 93; RESP 18; TEMP 97.7; O2SAT 97
[2017-09-23] MEDS ORDERED: RANI75SY PO (09:20)
--- NOTE | 2017-09-23 09:51 | PD ---
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 Patient had a conversion from G-tube to GJ tube about 1 month ago. He has had no problems since then. Patient receives tube feedings continuously throughout the day with about a 4 hour break. States the machine flushes every 3 hours with 100 mL's water and he flushes every hour with 30 mL's water. States his tube was working fine at 2:00 in the morning 2 nights ago but when he woke up at 6:00 in the morning yesterday morning he could not flush the J side. The G side flushes without difficulty. He tried using Coca-Cola at home without improvement. He came to the emergency room yesterday but was too busy so he left. Patient cannot eat anything by mouth. He denies any nausea, vomiting, or abdominal pain. PFSH Past Medical History Anemia: Yes Blood Disorders: No Cancer: Yes (base of tongue 11 yrs ago) Cardiovascular Problems: No Chemotherapy: Yes (11 YEARS AGO) COPD: Yes Diabetes: No Diminished Hearing: No Endocrine: Yes Gastrointestinal Disorders: Yes (G-TUBE PLACED: 2012 "EPIGLOTTIS DOESN'T WORK ") Genitourinary: Yes Immune Disorder: No Inguinal Hernia: Yes Implanted Vascular Access Dvce: Yes Kidney Stones: Yes Musculoskeletal: No Neurologic: No Psychiatric: No Reproductive: No Respiratory: Yes (COPD) Pneumonia: Yes (ASPIRATION) Radiation Therapy: Yes Thyroid Disease: Yes Past Surgical History Abdominal Surgery: Yes (3 HERNIA REPAIRS ) Body Medical Devices: G TUBE Cardiac Surgery: No Ear Surgery: No Endocrine Surgery: No Eye Surgery: No Genitourinary Surgery: No Oral Surgery: Yes (THROAT CA- LYMPHNODE REMOVAL, TONSILS ) Pacemaker: No Thoracic Surgery: No Tonsillectomy: Yes Other Surgery: Yes (Tongue surgery from from base & throat cancer) Social History Alcohol Use: No Tobacco Use: No (QUIT AGE 20) Substance Use: No Allergies-Medications (Allergen,Severity, Reaction): Coded Allergies: No Known Allergies (Unverified , 4/8/18) Reported Meds & Prescriptions Reported Meds & Active Scripts Active Reported Ranitidine Liq (Ranitidine HCl) 15 Mg/Ml Syp 150 Mg PO BID Synthroid (Levothyroxine Sodium) 75 Mcg Tab 75 Mcg G-TUBE DAILY Symbicort Inh (Budesonide/Formoterol Fumarate) 160-4.5 Mcg/Act Aero 2 Puff INH Q12HR Albuterol Neb (Albuterol Sulfate) 2.5 Mg/3 Ml Neb 2.5 Mg NEB Q4HR NEB PRN Review of Systems Except as stated in HPI: all other systems reviewed are Neg Physical Exam Narrative GENERAL: Well-nourished, well-developed male in no acute distress. Afebrile. Ambulatory. SKIN: Focused skin assessment warm/dry. HEAD: Normocephalic. EYES: No scleral icterus. No injection or drainage. NECK: Supple, trachea midline. No JVD or lymphadenopathy. CARDIOVASCULAR: Regular rate and rhythm without murmurs, gallops, or rubs. RESPIRATORY: Breath sounds equal bilaterally. No accessory muscle use. GASTROINTESTINAL: Abdomen soft, non-tender, nondistended. GJ tube site clean without any surrounding drainage or erythema. Nontender. Data Data Last Documented VS Vital Signs Date Time Temp Pulse Resp B/P (MAP) Pulse Ox O2 Delivery O2 Flow Rate FiO2 09/23/17 09:10 97.7 93 18 134/59 (84) 97 MDM Medical Decision Making Medical Screen Exam Complete: Yes Emergency Medical Condition: Yes Medical Record Reviewed: Yes Differential Diagnosis GJ tube obstruction, tube dislodgment, GERD Narrative Course 71-year-old male presents to the emergency room for evaluation of GJ tube obstruction. Patient states yesterday morning at 6:00 he was unable to flush his J-tube. He had conversion from G-tube to GJ tube 1 month ago and has had no problems since then. He cannot eat anything by mouth. Physical exam reveals GJ tube in the abdomen. Abdomen soft, nontender. Bowel sounds present. No surrounding erythema or evidence of infection. The nurse flushed the tube 2 times with Coca-Cola with success. Patient discharged with instructions to follow-up as needed or return for worsening symptoms. He understands and agrees to plan. Diagnosis Primary Impression: Gastrostomy tube obstruction Referrals: Primary Care Physician Additional Instructions: Follow-up with a primary care physician. Return to the emergency room for worsening symptoms. Med/Other Pt SpecificInfo: Prescription(s) given Disposition: 01 DISCHARGE HOME Condition: Stable Susie Jefferson Sep 23, 2017 09:51
== END 2017-09-23 11:18 | disposition home or self-care (01) ==
LOC: PHEFT 09:07
DX: K94.29 Other complications of gastrostomy (principal); J44.9 Chronic obstructive pulmonary disease, unspecified; Z85.810 Personal history of malignant neoplasm of tongue; Z79.899 Other long term (current) drug therapy
CPT/HCPCS: 99281

== ENCOUNTER 2017-09-25 07:58 | Emergency (ER) | payer OTHER, MEDICARE ==
[~2017-09-25] VITALS: Ht 182.9 cm; Wt 66.3 kg
[~2017-09-25 07:58] MED LIST changes: -CHOL4POW4 PEG; -FAMO40SU4 PEG; -KANGAROO JOEY P1 MIS; -LISI10TA3 PEG; -METO10TA PEG; -OSMOLIQ PEG; -PROTPAK PO; +RANI75SY PO; -ZOFR4TAB PO
[2017-09-25] MEDS ORDERED: IOHEXOL 350 MG/ML 50 ML BTL (for RAD DIAG) G-TUBE ONE (07:59)
[2017-09-25 08:03] VITALS: BP 114/57; PULSE 88; RESP 16; TEMP 97.5; O2SAT 98
[2017-09-25] MEDS ORDERED: SODIUM CHLOR 0.9% 1000 ML INJ 1,000 ML IV ONE (08:30)
[2017-09-25 08:44] LABS: AUTOMATED NEUTROPHIL # 1.6 TH/MM3 (1.8-7.7); BASOPHIL # 0.1 TH/MM3 (0-0.2); BASOPHIL % 1.7 % (0.0-2.0); EOSINOPHIL # 0.1 TH/MM3 (0-0.4); EOSINOPHIL % 1.4 % (0.0-4.0); HEMATOCRIT 41.8 % (39.0-51.0); HEMOGLOBIN 13.6 GM/DL (13.0-17.0); LYMPH % 37.8 % (9.0-44.0); LYMPHOCYTE # 1.4 TH/MM3 (1.0-4.8); MEAN CELL VOLUME 83.7 FL (80.0-100.0); MEAN CORPUSCULAR HEMOGLOBIN 27.3 PG (27.0-34.0); MEAN CORPUSCULAR HGB CONC 32.6 % (32.0-36.0); MEAN PLATELET VOLUME 8.4 FL (7.0-11.0); MONO % 16.1 % (0.0-8.0); MONOCYTE # 0.6 TH/MM3 (0-0.9); PLATELET COUNT 196 TH/MM3 (150-450); RED BLOOD COUNT 4.99 MIL/MM3 (4.50-5.90); RED CELL DISTRIBUTION WIDTH 13.6 % (11.6-17.2); WHITE BLOOD COUNT 3.8 TH/MM3 (4.0-11.0)
[2017-09-25 08:53] LABS: BICARBONATE 29.5 MEQ/L (21.0-32.0); CALCIUM 9.2 MG/DL (8.5-10.1)
[2017-09-25 08:57] LABS: CREATININE 0.89 MG/DL (0.60-1.30)
--- NOTE | 2017-09-25 11:43 | PD.RAD ---
Post Procedure Progress Note Pre Procedure Diagnosis: (1) GERD (gastroesophageal reflux disease) Post Procedure Diagnosis: (1) GERD (gastroesophageal reflux disease) Procedure Date: Sep 25, 2017 Supervising Radiologist: Corey Preston Proceduralist/Assist: Alexa William, RT(R)(), Braulio Hartman RT(R) Anesthesia: Local Plan of Activity Patient to Unit: Nursing Unit Patient Condition: Good See PACS Report for procedural detail/treatment Feeding Tube Gastro/Jejunostomy Replacement Corey Preston MD Sep 25, 2017 11:43
[2017-09-25 11:46] VITALS: BP 142/79; PULSE 76; RESP 16; O2SAT 98
--- NOTE | 2017-09-25 11:53 | PD ---
HPI Chief Complaint: GI Complaint Time Seen by Provider: 08:16 Travel History International Travel<30 days: No Contact w/Intl Traveler<30days: No Traveled to known affect area: No History of Present Illness HPI 71-year-old male presents with complaint that his gastrojejunostomy tube has a leak in IT. He has a history of cancer of the tongue and relies on the GJ tube for nutrition. He is not able to take food by mouth. He noted a leak in the 2 yesterday. He has been able to take some water but has not been able to do any nutrition. PFSH Past Medical History Anemia: Yes Blood Disorders: No Cancer: Yes (base of tongue 11 yrs ago) Cardiovascular Problems: No Chemotherapy: Yes (11 YEARS AGO) COPD: Yes Diabetes: No Diminished Hearing: No Endocrine: Yes Gastrointestinal Disorders: Yes (G-TUBE PLACED: 2012 "EPIGLOTTIS DOESN'T WORK ") Genitourinary: Yes Immune Disorder: No Inguinal Hernia: Yes Implanted Vascular Access Dvce: Yes Kidney Stones: Yes Musculoskeletal: No Neurologic: Yes Psychiatric: No Reproductive: No Respiratory: Yes (COPD) Pneumonia: Yes (ASPIRATION) Radiation Therapy: Yes Thyroid Disease: Yes Influenza Vaccination: Yes ?: Not Past Surgical History Abdominal Surgery: Yes (3 HERNIA REPAIRS ) Body Medical Devices: G TUBE Cardiac Surgery: No Ear Surgery: No Endocrine Surgery: No Eye Surgery: No Genitourinary Surgery: No Oral Surgery: Yes (THROAT CA- LYMPHNODE REMOVAL, TONSILS ) Pacemaker: No Thoracic Surgery: No Tonsillectomy: Yes Other Surgery: Yes (Tongue surgery from from base & throat cancer) Social History Alcohol Use: No Tobacco Use: No (QUIT AGE 20) Substance Use: No Allergies-Medications (Allergen,Severity, Reaction): Coded Allergies: No Known Allergies (Unverified , 09/25/17) Reported Meds & Prescriptions Reported Meds & Active Scripts Active Reported Ranitidine Liq (Ranitidine HCl) 15 Mg/Ml Syp 150 Mg PO BID Synthroid (Levothyroxine Sodium) 75 Mcg Tab 75 Mcg G-TUBE DAILY Symbicort Inh (Budesonide/Formoterol Fumarate) 160-4.5 Mcg/Act Aero 2 Puff INH Q12HR Albuterol Neb (Albuterol Sulfate) 2.5 Mg/3 Ml Neb 2.5 Mg NEB Q4HR NEB PRN Review of Systems Except as stated in HPI: all other systems reviewed are Neg General / Constitutional: No: Fever, Chills Physical Exam Narrative GENERAL: Well-developed male SKIN: Focused skin assessment warm/dry. HEAD: Atraumatic. Normocephalic. EYES: Pupils equal and round. No scleral icterus. No injection or drainage. ENT: No nasal bleeding or discharge. Mucous membranes pink and moist. NECK: Trachea midline. No JVD. GASTROINTESTINAL: Abdomen soft, non-tender, nondistended. Hepatic and splenic margins not palpable. GJ tube has a visible hole MUSCULOSKELETAL: No obvious deformities. No clubbing. No cyanosis. No edema. NEUROLOGICAL: Awake and alert. No obvious cranial nerve deficits. Motor grossly within normal limits. Normal speech. PSYCHIATRIC: Appropriate mood and affect; insight and judgment normal. Data Data Last Documented VS Vital Signs Date Time Temp Pulse Resp B/P (MAP) Pulse Ox O2 Delivery O2 Flow Rate FiO2 09/25/17 11:46 76 16 142/79 (100) 98 Room Air 09/25/17 08:03 97.5 Orders Orders Complete Blood Count With Diff (09/25/17 08:17) Basic Metabolic Panel (Bmp) (09/25/17 08:17) Sodium Chlor 0.9% 1000 Ml Inj (Ns 1000 M (09/25/17 08:30) Vital Signs (Adult) Q15MX2 (09/25/17 11:43) Wound Care (09/25/17 11:43) Activity Bed Rest (09/25/17 11:43) Discharge Instructions (09/25/17 11:43) Iohexol 350 Inj (Omnipaque 350 Inj) (09/25/17 07:59) Change Of Gj-Tube (09/25/17 ) Labs Laboratory Tests Test 09/25/17 08:25 White Blood Count 3.8 TH/MM3 Red Blood Count 4.99 MIL/MM3 Hemoglobin 13.6 GM/DL Hematocrit 41.8 % Mean Corpuscular Volume 83.7 FL Mean Corpuscular Hemoglobin 27.3 PG Mean Corpuscular Hemoglobin Concent 32.6 % Red Cell Distribution Width 13.6 % Platelet Count 196 TH/MM3 Mean Platelet Volume 8.4 FL Neutrophils (%) (Auto) 43.0 % Lymphocytes (%) (Auto) 37.8 % Monocytes (%) (Auto) 16.1 % Eosinophils (%) (Auto) 1.4 % Basophils (%) (Auto) 1.7 % Neutrophils # (Auto) 1.6 TH/MM3 Lymphocytes # (Auto) 1.4 TH/MM3 Monocytes # (Auto) 0.6 TH/MM3 Eosinophils # (Auto) 0.1 TH/MM3 Basophils # (Auto) 0.1 TH/MM3 CBC Comment DIFF FINAL Differential Comment Blood Urea Nitrogen 16 MG/DL Creatinine 0.89 MG/DL Random Glucose 95 MG/DL Calcium Level 9.2 MG/DL Sodium Level 137 MEQ/L Potassium Level 3.6 MEQ/L Chloride Level 101 MEQ/L Carbon Dioxide Level 29.5 MEQ/L Anion Gap 7 MEQ/L Estimat Glomerular Filtration Rate 85 ML/MIN MDM Medical Decision Making Medical Screen Exam Complete: Yes Emergency Medical Condition: Yes Medical Record Reviewed: Yes Differential Diagnosis Differential includes leaking GJ tube Narrative Course Conventional radiology has been consulted and they have replaced the 2 Diagnosis Primary Impression: Encounter for gastrojejunal (GJ) tube placement Disposition: 01 DISCHARGE HOME Condition: Stable Luiz Nichols MD Sep 25, 2017 11:53
--- NOTE | 2017-09-25 14:23 | RADRPT ---
EXAM DATE/TIME: 09/25/2017 10:34 [place] COMPARISON: No previous studies available for comparison. INDICATIONS : Patient presents with clogged tube in need of transgastric jejunal tube exchange for nutrition. 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 Fluoroscopically guided gastrojejunostomy tube exchange. 2. Conscious sedation with continuous EKG and oximetry monitoring. The risks, benefits and alternatives to the procedure were explained and verbal and written consent w as obtained. The site was prepped in sterile fashion. Full sterile technique was used, including ca p, mask, sterile gloves and gown and a large sterile sheet. Hand hygiene and 2% chlorhexidine and/or betadine/alcohol prep was utilized per protocol for cutaneous antisepsis. The skin and subcutaneous tissues were infiltrated with local anesthetic solution. With fluoroscopic guidance a guidewire was passed through the previous gastrojejunostomy tube and a f resh tube was placed over the guidewire. The balloon was inflated with appropriate volume of saline. Injection of positive contrast demonstrates good position of the gastric and jejunal lumens of the tube. Conscious sedation was performed with the prescribed dosages and duration as above in the presence of an independent trained radiology nurse to assist in the monitoring of the patient. EKG and oximetry remained stable throughout the procedure. The patient tolerated the procedure well and there were n o complications. The patient was sent to post anesthesia recovery in stable condition. CONCLUSION: 1. Uncomplicated gastrojejunostomy tube exchange Corey Preston MD on September 25, 2017 at 13:59 Board Certified Radiologist. This report was verified electronically.
== END 2017-09-25 12:16 | disposition home or self-care (01) ==
LOC: PHED 07:58
DX: Z43.1 Encounter for attention to gastrostomy (principal); J44.9 Chronic obstructive pulmonary disease, unspecified; E07.9 Disorder of thyroid, unspecified; Z85.810 Personal history of malignant neoplasm of tongue; Z87.442 Personal history of urinary calculi; Z79.899 Other long term (current) drug therapy
CPT/HCPCS: 49452; 80048; 85025; 96360; 99284; C1874; J7030; Q9967

== ENCOUNTER 2018-01-13 05:40 | Observation (INO) ==
[2018-01-13] MEDS ORDERED: Pantoprazole Inj 40 MG Vial IV.PUSH ONE (06:05)
--- NOTE | 2018-01-13 06:08 | ED ---
HPI General Chief complaint: Shortness of Breath/Dyspnea Stated complaint: Difficulty breathing since 11p Time Seen by Provider: 01/13/18 05:57 Source: patient, family, RN notes reviewed and old records reviewed Mode of arrival: ambulatory History of Present Illness HPI narrative: 72yM presenting with aspiration event. The patient has a history of dysphagia/ complete NPO status with G-J tube in place secondary to basal tongue cancer and radiation therapy. He says that he's been having issues with GERD for the past several weeks, was seen in our department earlier in the week for abdominal pain, had a normal CT scan, and was sent home. He says that last night around 11:30 PM he was in bed and began to have severe substernal "burning " pain consistent with his previous reflux pain followed by nausea and 2-3 episodes of vomiting. He receives tube feeding through the jejunostomy port of his feeding tube so he says that he only vomited small amounts each time. His says that he had forceful coughing and complained of difficulty breathing afterward. He took 2 neb treatments at home with minimal improvement in symptoms. Related Data Home Medications Medication Instructions Recorded Confirmed albuterol sulfate 1.25 mg INHALATION Q4-6H PRN 01/13/18 01/13/18 budesonide-formoterol [Symbicort] 2 puff INHALATION BID 01/13/18 01/13/18 levothyroxine 75 mcg FEEDING TUBE DAILY 01/13/18 01/13/18 Allergies Allergy/AdvReac Type Severity Reaction Status Date / Time No Known Allergies Allergy Verified 01/13/18 05:51 Review of Systems Except as stated in HPI: all other systems reviewed are negative Constitutional Denies chills and Denies fever(s) Cardiovascular Reports chest pain Respiratory Reports cough Gastrointestinal Reports heartburn PMFSH History History Provided By: Patient Medical History Medical History Aspiration pneumonia (Acute) COPD (chronic obstructive pulmonary disease) (Acute) G tube feedings (Acute) GERD (gastroesophageal reflux disease) (Acute) Gastrojejunostomy tube status (Acute) Hypothyroid (Acute) Tongue cancer (Acute) Surgical History Surgical History H/O hernia repair (Acute) S/P radiation therapy (Acute) Status post chemotherapy (Acute) Social History Social History Substance History: No History of Abuse Second Hand Smoke Exposure: No Smoking Status: Never smoker How Often Do You Have a Drink Containing Alcohol: Never Recent Travel in [facility] within the Last 8 Weeks: No Recent Out of Country Travel within the Last 8 Weeks: No Immunization History Tetanus Immunization: >5 Years Hx Influenza Vaccine This Season: Yes Exam Const Other: Frail, holding emesis bag during exam HENMT Head: normocephalic and atraumatic Face and sinus: normal facial exam Eyes General: appearance normal, both eyes and all related structures Pupils: PERRL Chest Chest: normal inspection of the chest Resp Other: Coarse at bases bilaterally Normal work of breathing, speaking in complete sentences, tachypneic O2 sats mid 90s on room air Cardio Rate: tachycardic Rhythm: regular rhythm GI Other: G-J tube present, no discharge or exudate from site, abdomen soft and non -tender Skin General: no rashes or lesions noted Neuro General: alert, awake, oriented x3 and no focal motor deficits Psych Affect: normal affect Course Initial Documented Vital Signs Temperature 98 F 01/13/18 05:45 Pulse Rate 107 H 01/13/18 05:45 Respiratory Rate 18 01/13/18 05:45 Blood Pressure 111/70 01/13/18 05:45 Pulse Oximetry 97 01/13/18 05:45 Last Documented Vital Signs Temperature 98 F 01/13/18 05:45 Pulse Rate 98 H 01/13/18 06:47 Respiratory Rate 20 01/13/18 06:47 Blood Pressure 151/79 H 01/13/18 06:32 Pulse Oximetry 95 01/13/18 06:32 Medical Decision Making [facility] Narrative Medical decision making narrative: Assessment: 72yM presenting with vomiting and aspiration Plan: EKG and monitor Antiemetics, PPI, IV fluids CXR Labs Nebs PRN Addendum: CXR negative, labs show leukocytosis of 13.4 with left shift but labs otherwise unremarkable. Patient's O2 sats low to mid 90s but remains tachypneic , reports some improvement in dyspnea after duoneb. This patient cannot go home as he has aspiration pneumonitis and gastritis/ GERD complicated by G-J tube placement. He will need close monitoring for respiratory decompensation, PPI, and possible specialist consultation. I discussed this plan with the patient and his , who understand and agree. Case discussed with ALEXEI Edwards with [facility]. Lab Data Result diagrams: 01/13/18 06:15 01/13/18 06:15 Lab Results 01/13/18 01/13/18 01/13/18 Range/Units 06:15 06:15 06:15 CBC w Diff Auto diff final WBC 13.4 H (4.0-11.0) th/mm3 RBC 4.57 (4.50-5.90) mil/mm3 Hgb 12.6 L (13.0-17.0) gm/dL Hct 37.6 L (39.0-51.0) % MCV 82.3 (80.0-100.0) fL MCH 27.5 (27.0-34.0) pg MCHC 33.5 (32.0-36.0) % RDW 12.4 (11.6-17.2) % Plt Count 190 (150-450) th/mm3 MPV 9.3 (7.0-11.0) fL Neut % (Auto) 78.1 H (16.0-70.0) % Lymph % (Auto) 8.4 L (9.0-44.0) % [place] % (Auto) 9.3 H (0.0-8.0) % Eos % (Auto) 0.2 (0.0-4.0) % Baso % (Auto) 4.0 H (0.0-2.0) % Neut # (Auto) 10.6 H (1.8-7.7) th/mm3 Lymph # (Auto) 1.1 (1.0-4.8) th/mm3 [place] # (Auto) 1.2 H (0.0-0.9) th/mm3 Eos # (Auto) 0.0 (0.0-0.4) th/mm3 Baso # (Auto) 0.5 H (0.0-0.2) th/mm3 WBC Differential . Differential Comment . Sodium 136 (136-145) meq/L Potassium 3.8 (3.5-5.1) meq/L Chloride 101 (98-107) meq/L Carbon Dioxide 26.7 (21.0-32.0) meq/L Anion Gap 8 (5-15) meq/L BUN 19 H (7-18) mg/dL Creatinine 0.87 (0.60-1.30) mg/dL Estimated GFR 87 L (>89) mL/min Random Glucose 159 H (74-106) mg/dL Calcium 8.5 (8.5-10.1) mg/dL Lipase 204 (73-393) U/L Imaging Data Radiologist's impression: Chest X-Ray 01/13/18 06:05 CONCLUSION: 1. No acute abnormality or significant interval change. ECG Data Attestation: I personally reviewed and interpreted this ECG as follows: Interpretation: Rate: 104 BPM Rhythm: Sinus [place]: Normal Intervals: Normal intervals, no blocks, QTc 390 ms Q waves: None T waves: Upright, no inversions ST segments: No elevations or depressions Impression: Sinus tachycardia, no changes as compared to EKG from 02/05/2017. Discharge Plan Discharge Disposition Patient Disposition: 30 Still Patient Discharge Condition Condition: Stable Discharge Details Diagnosis: Aspiration pneumonitis Physicians Team ED Provider: Jeanette Garcia Primary Care Provider: [facility],Physician [facility] /Orders / Referrals /Forms Prescriptions: No Action budesonide-formoterol [Symbicort] 160-4.5 mcg/actuation Hfa Aerosol Inhaler 2 puff INHALATION BID RF: 0 levothyroxine 75 mcg Capsule 75 mcg Feeding Tube DAILY RF: 0 albuterol sulfate 1.25 mg/3 mL Solution For Nebulization 1.25 mg INHALATION Q4-6H PRN (Reason: Respiratory Distress) RF: 0 Discharge Interventions Interventions: Vital Signs Last Done: 01/13/18 06:32 Status ED Status: With Doctor
[2018-01-13] MEDS ORDERED: Sod Chloride 0.9% Inj 1,000 ML IV.SIG ONE (06:16)
--- NOTE | 2018-01-13 06:22 | XR ---
EXAM DATE: 01/13/2018 6:17 AM EDT AGE/SEX: 72 years / Male INDICATIONS: Dyspnea due to possible aspiration. CLINICAL DATA: This is the patient's initial encounter. Patient reports that signs and symptoms have been present for 1 day and indicates a pain score of 0/10. MEDICAL/SURGICAL HISTORY: . Carcinoma, tongue. Chronic obstructive pulmonary disease. Gastroeso phageal reflux disease. . . Gastronomy tube. Jejunostomy tube. Hernia repair. COMPARISON: POI, XR CHEST PA AND LAT, 12/24/2017. . FINDINGS: No new focal pleural or parenchymal opacities. The cardiomediastinal contours are unremarkable. Osse ous structures are intact. CONCLUSION: 1. No acute abnormality or significant interval change. Electronically signed by: Maximino Rene MD 01/13/2018 6:20 AM EDT
[2018-01-13 06:29] LABS: Baso # (Auto) 0.5 th/mm3 (0.0-0.2); Eos % (Auto) 0.2 % (0.0-4.0); Hematocrit 37.6 % (39.0-51.0); Hemoglobin 12.6 gm/dL (13.0-17.0); Lymph # (Auto) 1.1 th/mm3 (1.0-4.8); Lymph % (Auto) 8.4 % (9.0-44.0); Mean Corpuscular HGB Conc 33.5 % (32.0-36.0); Mean Corpuscular Hemoglobin 27.5 pg (27.0-34.0); Mean Corpuscular Volume 82.3 fL (80.0-100.0); Mean Platelet Volume 9.3 fL (7.0-11.0); Mono # (Auto) 1.2 th/mm3 (0.0-0.9); Mono % (Auto) 9.3 % (0.0-8.0); Neut # (Auto) 10.6 th/mm3 (1.8-7.7); Neut % (Auto) 78.1 % (16.0-70.0); Platelet Count 190 th/mm3 (150-450); Red Blood Count 4.57 mil/mm3 (4.50-5.90); Red Cell Distribution Width 12.4 % (11.6-17.2); White Blood Count 13.4 th/mm3 (4.0-11.0)
[2018-01-13 06:42] LABS: Potassium 3.8 meq/L (3.5-5.1)
[2018-01-13 06:44] LABS: Calcium 8.5 mg/dL (8.5-10.1)
[2018-01-13 06:45] LABS: Carbon Dioxide 26.7 meq/L (21.0-32.0)
[2018-01-13] MEDS ORDERED: Diatrizoate Meglum/Diatrizoate Sod Liq 120 ML Bottle (for RAD diag) G-TUBE ONE (07:17)
[2018-01-13] MEDS ORDERED: Acetaminophen 325 MG Tablet PO PRN (08:53)
[2018-01-13] MEDS ORDERED: Temazepam 15 MG Capsule PO PRN (08:53)
[2018-01-13] MEDS ORDERED: Bisacodyl 10 MG Supp RECTAL PRN (08:53)
[2018-01-13] MEDS ORDERED: Senna/Docusate Sodium 8.6/50 MG Tablet PO SCH (09:00)
--- NOTE | 2018-01-13 09:30 | P.HP ---
History of Present Illness Primary Care Physician: Physician s [facility] Chief Complaint: shortness of breath, reflux History of Present Illness: This is a 71-year-old female with a known medical history of tongue cancer status post resection and chronic PEG tube, history of COPD and frequent aspiration pneumonia who presented to the ED with complaints of GERD 1 week as well as an episode of shortness of breath overnight. Patient states that he does have a history of dysphasia, completely n.p.o. and has a GJ tube in place secondary to basal tongue cancer. Patient states that over the past week he has been having worsening burning when he flushes his PEG tube with both water and medications. He states he went to the emergency department a couple days ago for abdominal pain, and CT scan was done which was reviewed and reportedly negative. Over the past couple days the burning has been pretty consistent, has attempted to take omeprazole without relief. Around 1130 last evening while he was in bed he had severe burning as well as associated shortness of breath, states he attempted to use his inhaler without relief. He does state that he feels like he aspirated. Denies any recent antibiotic use. Last seen his PCP in August, was last hospitalized from 08/19-08/27/2017 for persistent nausea, vomiting, c diff infection and aspiration pneumonia. Patient states his PEG tube was [facility] at [facility] in October of this year. He does admit to cough with blood-tinged sputum. Denies any bloody or black stools. Does admit to one bout of nausea resolved with Zofran. Denies any recent fever, chills, headache, dysuria. - Diagnosis (1) Aspiration pneumonitis Review of Systems All other systems reviewed negative except as stated in HPI PMFSH - History History Provided By: Patient - Medical History Medical History: Medical History (Last Reviewed 01/13/18 @ 09:03 by Franko Sheridan) Aspiration pneumonia COPD (chronic obstructive pulmonary disease) G tube feedings GERD (gastroesophageal reflux disease) Gastrojejunostomy tube status Hypothyroid Tongue cancer - Surgical History Surgical History: Surgical History (Last Reviewed 01/13/18 @ 09:03 by Franko Sheridan) S/P radiation therapy Status post chemotherapy H/O hernia repair - Tobacco History Second Hand Smoke Exposure: No Tobacco Use In Past 30 Days: No Smoking Status: Never smoker - Alcohol History How Often Do You Have a Drink Containing Alcohol: Never - Substance Use History Substance History: No History of Abuse - Travel History Recent Travel in the [place] Within the Last 8 Weeks: No Recent Travel Out of the Country Within the Last 8 Weeks: No - Immunization History Tetanus Immunization: >5 Years Hx Influenza Vaccine This Season: Yes Medications and Allergies Active Medications: Active Medications Acetaminophen (Tylenol) 650 mg PO Q4H PRN PRN Reason: Temp > 100.4 Al Hydroxide/Mg Hydroxide (Milk Of Magnesia Liq) 30 ml PO Q12H PRN PRN Reason: Mild Constipation Bisacodyl (Dulcolax Supp) 10 mg RECTAL DAILY PRN PRN Reason: SEVERE CONSITIPATION Docusate Sodium (Colace Liq) 50 mg PO BID [place] Sodium Chloride (Ns Inj) 1,000 mls @ 100 mls/hr IV.CONT .Q10H NADE[place] Lactulose (Lactulose Liq) 30 ml PO DAILY PRN PRN Reason: SEVERE CONSITIPATION Pantoprazole Sodium (Protonix Inj) 40 mg IV.PUSH Q24H [place] Sennosides (Senokot) 17.2 mg PO Q12H PRN PRN Reason: Moderate Constipation Sennosides (Senna Liq) 8.8 mg PO BID NADE[place] Temazepam (Restoril) 15 mg PO HS PRN PRN Reason: INSOMNIA Allergies Allergy/AdvReac Type Severity Reaction Status Date / Time No Known Allergies Allergy Verified 01/13/18 05:51 Home Medications Medication Instructions Recorded Confirmed Type albuterol sulfate 1.25 mg INHALATION Q4-6H PRN 01/13/18 01/13/18 History budesonide-formoterol [Symbicort] 2 puff INHALATION BID 01/13/18 01/13/18 History levothyroxine 75 mcg FEEDING TUBE DAILY 01/13/18 01/13/18 History Exam Vital signs: Vital Signs 01/13/18 05:45 01/13/18 05:54 01/13/18 06:22 Temperature 98 F Pulse Rate 107 H 104 H Respiratory Rate 18 24 Blood Pressure 111/70 Pulse Oximetry 97 97 01/13/18 06:32 01/13/18 06:47 01/13/18 07:54 Temperature Pulse Rate 100 H 98 H 98 H Respiratory Rate 22 20 18 Blood Pressure 151/79 H 142/73 H Pulse Oximetry 95 99 01/13/18 08:50 Temperature 96.7 F L Pulse Rate 96 H Respiratory Rate 20 Blood Pressure 165/74 H Pulse Oximetry 98 Intake & Output 01/12/18 01/13/18 01/13/18 18:59 06:59 18:59 Intake Total 1000 / 1000 Output Total 250 / 250 Balance 750 / 750 Weight 69 kg 69.1 kg Intake: IV 1000 / 1000 NS Inj 1,000 ML @ Wide Open IV. 1000 / 1000 SIG BOLUS ONE Rx#:[id number] Output: Urine 250 / 250 Other: Weight On Admission 69.1 kg Narrative: GENERAL: Well-developed, well-nourished patient in [facility]. SKIN: Warm and dry. No rash. HEAD: Normocephalic. Atraumatic. EYES: Pupils equal and round. No scleral icterus. No injection or drainage. ENT: No nasal bleeding or discharge. Mucous membranes pink and moist. NECK: Supple. Trachea midline. CARDIOVASCULAR: Regular rate and rhythm. S1, S2 noted. No murmur appreciated. RESPIRATORY: No accessory muscle use. Clear to auscultation. Breath sounds equal bilaterally. GASTROINTESTINAL: Abdomen soft, non-tender, nondistended. Normoactive bowel sounds x4. Midepigastric PEG tube in place, surrounding area erythema, no drainage. MUSCULOSKELETAL: No obvious deformities. Extremities without clubbing, cyanosis , or edema. NEUROLOGICAL: Awake and alert. No obvious cranial nerve deficits. Motor grossly within normal limits. 5/5 muscle strength in bilateral upper and lower extremities. Normal speech. PSYCHIATRIC: Appropriate mood and affect; insight and judgment normal. Results - Labs CBC & Chem 7: 01/13/18 06:15 01/13/18 06:15 Labs: Laboratory Results - last 24 hr 01/13/18 01/13/18 01/13/18 06:15 06:15 06:15 CBC w Diff Auto diff final WBC 13.4 H RBC 4.57 Hgb 12.6 L Hct 37.6 L MCV 82.3 MCH 27.5 MCHC 33.5 RDW 12.4 Plt Count 190 MPV 9.3 Neut % (Auto) 78.1 H Lymph % (Auto) 8.4 L [place] % (Auto) 9.3 H Eos % (Auto) 0.2 Baso % (Auto) 4.0 H Neut # (Auto) 10.6 H Lymph # (Auto) 1.1 [place] # (Auto) 1.2 H Eos # (Auto) 0.0 Baso # (Auto) 0.5 H WBC Differential . Differential Comment . Sodium 136 Potassium 3.8 Chloride 101 Carbon Dioxide 26.7 Anion Gap 8 BUN 19 H Creatinine 0.87 Estimated GFR 87 L Random Glucose 159 H Calcium 8.5 Lipase 204 - Imaging Impressions Chest X-Ray 01/13/18 06:05 CONCLUSION: 1. No acute abnormality or significant interval change. Caprini VTE Risk Assessment Caprini VTE Risk Assessment: Moderate/High Risk (score >= 2) Caprini Risk Assessment Model: Point Value = 1 Point Value = 2 Point Value = 3 Point Value = 5 Age 41-60 Minor surgery BMI > 25 kg/m2 Swollen legs Varicose veins or History of unexplained or recurrent spontaneous Oral contraceptives or hormone replacement Sepsis (< 1 month) Serious lung disease, including pneumonia (< 1 month) Abnormal pulmonary function Acute myocardial infarction Congestive heart failure (< 1 month) History of inflammatory bowel disease Medical patient at bed rest Age 61-74 Arthroscopic surgery Major open surgery (> 45 min) Laparoscopic surgery (> 45 min) Malignancy Confined to bed (> 72 hours) Immobilizing plaster cast Central venous access Age >= 75 History of VTE Family history of VTE Factor V Leiden Prothrombin [id number] Lupus anticoagulant Anticardiolipin antibodies Elevated serum homocysteine Heparin-induced thrombocytopenia Other congenital or acquired thrombophilia Stroke (< 1 month) Elective arthroplasty Hip, pelvis, or leg fracture Acute spinal cord injury (< 1 month) Prophylaxis Regimen: Total Risk Factor Score Risk Level Prophylaxis Regimen 0-1 Low Early ambulation 2 Moderate Order ONE of the following: *Sequential Compression Device (SCD) *Heparin 5000 units SQ BID 3-4 Higher Order ONE of the following medications: *Heparin 5000 units SQ TID *Enoxaparin/Lovenox 40 mg SQ daily (WT < 150 kg, CrCl > 30 mL/min) *Enoxaparin/Lovenox 30 mg SQ daily (WT < 150 kg, CrCl > 10-29 mL/min) *Enoxaparin/Lovenox 30 mg SQ BID (WT < 150 kg, CrCl > 30 mL/min) AND/OR *Sequential Compression Device (SCD) 5 or more Highest Order ONE of the following medications: *Heparin 5000 units SQ TID (Preferred with Epidurals) *Enoxaparin/Lovenox 40 mg SQ daily (WT < 150 kg, CrCl > 30 mL/min) *Enoxaparin/Lovenox 30 mg SQ daily (WT < 150 kg, CrCl > 10-29 mL/min) *Enoxaparin/Lovenox 30 mg SQ BID (WT < 150 kg, CrCl > 30 mL/min) AND *Sequential Compression Device (SCD) Assessment and Plan - Assessment (1) Aspiration pneumonitis Code(s): J69.0 - Pneumonitis due to inhalation of food and vomit Status: Acute - Plan This is a 71-year-old female with a known medical history of tongue cancer status post resection and chronic PEG tube, history of COPD and frequent aspiration pneumonia who presented to the ED with complaints of GERD 1 week as well as an episode of shortness of breath overnight. SIRS Aspiration pneumonitis -Met SIRS criteria with leukocytosis WBC 13.4, and tachycardia. Unknown source, possible aspiration pneumonia. -Chest x-ray reviewed showing no acute abnormality. Although patient does complain of possible aspiration last evening with bout and nausea and vomiting. -Will place on Unasyn IV for now. Aspiration precautions. -Monitor CBC. Acute on chronic GERD Chronic dysphagia and PEG placement History of carcinoma of the tongue with history of radiation -For now will keep NPO. -Last [facility] change was at the [facility] at October 2017. -Zofran available for nausea. -Placed on Protonix IV. Continue. -Ensure hydration, continue IVF. Was given 1 L in ED. DVT Prophylaxis: SCDs, ambulation.
[2018-01-13] MEDS ORDERED: Pantoprazole Inj 40 MG Vial IV.PUSH SCH (10:00)
[2018-01-13] MEDS: Sennosides Liq 8.8 MG/5 ML UDC PO SCH ×2 (10:11→20:29)
[2018-01-13] MEDS: Docusate Sodium Liq 100 MG/10 ML UDC PO SCH ×2 (10:11→20:29)
[2018-01-13] MEDS: Sod Chloride 0.9% Inj 1,000 ML IV.CONT SCH ×2 (10:12→19:25)
[2018-01-13] MEDS: Ampicillin/Sulbactam Inj 1,500 MG in Sodium Chloride 0.9% Inj 100 ML IV.SIG SCH ×2 (13:29→19:24)
--- NOTE | 2018-01-13 14:51 | ECG ---
Date Performed: 01/13/2018 Time Performed: 06:21:09 PTAGE: 72 years EKG: SINUS TACHYCARDIA POSSIBLE LEFT ATRIAL ENLARGEMENT Since previous tracing, no significant c hange noted ABNORMAL RHYTHM ECG PREVIOUS TRACING : 02/05/2017 16.44 DOCTOR: Kalpesh Cortés Interpretating Date/Time 01/13/2018 14:49:38
[2018-01-13] MEDS ORDERED: Morphine Sulfate Inj 2 MG/ML Vial IV.PUSH PRN (15:45)
[2018-01-13] MEDS: Budesonide-Formoterol 160/4.5 MCG 6 GM Inhaler INH SCH (20:29)
[2018-01-14] MEDS: Ampicillin/Sulbactam Inj 1,500 MG in Sodium Chloride 0.9% Inj 100 ML IV.SIG SCH ×4 (01:09→19:24)
[2018-01-14] MEDS: Levothyroxine 75 MCG Tablet PO SCH (05:42)
[2018-01-14] MEDS: Sod Chloride 0.9% Inj 1,000 ML IV.CONT SCH ×3 (06:27→21:24)
[2018-01-14 06:29] LABS: Baso % (Auto) 0.9 % (0.0-2.0); Eos # (Auto) 0.1 th/mm3 (0.0-0.4); Eos % (Auto) 1.4 % (0.0-4.0); Hematocrit 35.8 % (39.0-51.0); Hemoglobin 11.6 gm/dL (13.0-17.0); Lymph # (Auto) 1.3 th/mm3 (1.0-4.8); Lymph % (Auto) 26.4 % (9.0-44.0); Mean Corpuscular HGB Conc 32.5 % (32.0-36.0); Mean Corpuscular Hemoglobin 27.3 pg (27.0-34.0); Mean Platelet Volume 9.7 fL (7.0-11.0); Mono # (Auto) 0.7 th/mm3 (0.0-0.9); Mono % (Auto) 14.5 % (0.0-8.0); Neut # (Auto) 2.9 th/mm3 (1.8-7.7); Neut % (Auto) 56.8 % (16.0-70.0); Platelet Count 162 th/mm3 (150-450); Red Blood Count 4.26 mil/mm3 (4.50-5.90); Red Cell Distribution Width 12.6 % (11.6-17.2)
[2018-01-14] MEDS: Pantoprazole Inj 40 MG Vial IV.PUSH SCH (06:30)
--- NOTE | 2018-01-14 07:49 | P.PN ---
Subjective Interval history: Follow-up aspiration pneumonitis. Patient seen and examined lying in bed with a headache. Otherwise he is uneventful night, states that his nausea is improved. Has not attempted to feed through PEG yet. Awaiting Gastrografin x- ray to verify placement. Patient is stable at this time. Denies any shortness of breath or chest pain. He is agreeable to going home later today if PEG in place. Vital signs stable. Afebrile. Physical Exam Vital signs: Vital Signs 01/13/18 07:54 01/13/18 08:50 01/13/18 11:21 Temperature 96.7 F L 97.3 F L Pulse Rate 98 H 96 H 94 H Respiratory Rate 18 20 20 Blood Pressure 142/73 H 165/74 H 125/59 L Pulse Oximetry 99 98 97 01/13/18 12:00 01/13/18 15:02 01/13/18 16:00 Temperature 97.3 F L Pulse Rate 94 H Respiratory Rate 17 20 18 Blood Pressure 125/59 L Pulse Oximetry 97 01/13/18 18:14 01/13/18 20:00 01/14/18 00:00 Temperature 97.9 F 96.8 F L Pulse Rate 70 83 96 H Respiratory Rate 20 18 18 Blood Pressure 131/63 134/61 Pulse Oximetry 97 96 Intake & Output 01/13/18 01/14/18 01/14/18 18:59 06:59 18:59 Intake Total 1100 / 1100 2125 / 2125 100 / 100 Output Total 250 / 250 Balance 850 / 850 2125 / 2125 100 / 100 Weight 69.1 kg 68.1 kg Intake: IV 1100 / 1100 2124 / 212 100 / 100 NS Inj 1,000 ML @ 100 mls/hr IV 5 / 192 .CONT .Q10H NADEEM Rx#:[id number] Unasyn Inj 1,500 MG In NS Inj 100 / 100 200 / 200 100 / 100 100 ML @ 200 mls/hr IV.SIG Q6H NADEEM Rx#:[id number] NS Inj 1,000 ML @ Wide Open IV. 1000 / 1000 SIG BOLUS ONE Rx#:[id number] Output: Urine 250 / 250 Other: # Voids 2 3 Weight On Admission 69.1 kg Narrative: GENERAL: Well-developed, thin appearing male patient in NAD. With the headache. SKIN: Warm and dry. No rash. HEAD: Normocephalic. Atraumatic. EYES: Pupils equal and round. No scleral icterus. No injection or drainage. ENT: No nasal bleeding or discharge. Mucous membranes pink and moist. NECK: Supple. Trachea midline. CARDIOVASCULAR: Regular rate and rhythm. S1, S2 noted. No murmur appreciated. RESPIRATORY: No accessory muscle use. Clear to auscultation. Breath sounds equal bilaterally. GASTROINTESTINAL: Abdomen soft, non-tender, nondistended. Normoactive bowel sounds x4. PEG tube in place, surrounding area without erythema or drainage. MUSCULOSKELETAL: No obvious deformities. Extremities without clubbing, cyanosis , or edema. NEUROLOGICAL: Awake and alert. No obvious cranial nerve deficits. Motor grossly within normal limits. 5/5 muscle strength in bilateral upper and lower extremities. Normal speech. PSYCHIATRIC: Appropriate mood and affect; insight and judgment normal. Results - Labs CBC & Chem 7: 01/14/18 05:05 01/13/18 06:15 Laboratory Results - last 24 hr 01/14/18 05:05 CBC w Diff Auto diff final WBC 5.0 D RBC 4.26 L Hgb 11.6 L Hct 35.8 L MCV 84.0 MCH 27.3 MCHC 32.5 RDW 12.6 Plt Count 162 MPV 9.7 Neut % (Auto) 56.8 Lymph % (Auto) 26.4 Barth[place]omew % (Auto) 14.5 H Eos % (Auto) 1.4 Baso % (Auto) 0.9 Neut # (Auto) 2.9 Lymph # (Auto) 1.3 Bartholomew # (Auto) 0.7 Eos # (Auto) 0.1 Baso # (Auto) 0.0 WBC Differential . Differential Comment . Assessment and Plan - Assessment (1) Aspiration pneumonitis Code(s): J69.0 - Pneumonitis due to inhalation of food and vomit Status: Acute - Plan This is a 71-year-old female with a known medical history of tongue cancer status post resection and chronic PEG tube, history of COPD and frequent aspiration pneumonia who presented to the ED with complaints of GERD 1 week as well as an episode of shortness of breath overnight. SIRS Aspiration pneumonitis -Met SIRS criteria with leukocytosis WBC 13.4, and tachycardia. Unknown source, possible aspiration pneumonia. Leukocytosis improved. Tachycardia improved. -Chest x-ray reviewed showing no acute abnormality. Although patient does complain of possible aspiration with bout and nausea and vomiting at home. No signs of infection for now. -Continue on Unasyn IV for now. Switch to p.o. antibiotic of discharge today. Aspiration precautions. -Monitor CBC. Acute on chronic GERD Chronic dysphagia and PEG placement History of carcinoma of the tongue with history of radiation -For now will keep NPO. Awaiting Gastrografin x-ray to verify placement today. -Last PEG change was at the [facility] at October 2017. -Zofran available for nausea. -Placed on Protonix IV. Continue. -Ensure hydration, continue IVF. Was given 1 L in ED. DVT Prophylaxis: SCDs, ambulation. Discharge Planning: Possible discharge later today pending clinical improvement as well as placement of PEG tube verified.
[2018-01-14] MEDS: Docusate Sodium Liq 100 MG/10 ML UDC PO SCH ×2 (08:46→21:29)
[2018-01-14] MEDS: Sennosides Liq 8.8 MG/5 ML UDC PO SCH ×2 (08:46→21:30)
[2018-01-14] MEDS: Budesonide-Formoterol 160/4.5 MCG 6 GM Inhaler INH SCH ×2 (08:55→21:29)
--- NOTE | 2018-01-14 09:51 | XR ---
EXAM DATE: 01/14/2018 9:36 AM EDT AGE/SEX: 72 years / Male INDICATIONS: Confirm placement of PEG tube CLINICAL DATA: This is the patient's initial encounter. Patient reports that signs and symptoms have been present for 2 days and indicates a pain score of 0/10. MEDICAL/SURGICAL HISTORY: . Carcinoma, tongue. Chronic obstructive pulmonary disease. Gastroes ophageal reflux disease. . Gastronomy tube. Jejunostomy tube. Hernia repair COMPARISON: [facility], CT ABDOMEN & PELVIS W CONTRAST, 01/10/2018. . FINDINGS: Examination of the abdomen demonstrates a normal bowel gas pattern. No free air is identified. No o rganomegaly is evident. Osseous structures are intact. A percutaneous gastrostomy tube is identified . The balloon is noted at the level of the body of the stomach, and there is contrast seen within the stomach and proximal small bowel. CONCLUSION: Gastrostomy tube as above. Electronically signed by: Max Arriaza MD 01/14/2018 9:49 AM EDT
[2018-01-14 15:42] VITALS: RESP 18
--- NOTE | 2018-01-14 16:47 | P.DIET ---
Nutritional Evaluation Type of nutrition evaluation: initial Nutrition consult regarding: Tube Feeding Subjective Subjective Comments: Pt w/ tongue resection and chronic G/J tube. No PO intake. Objective - Diagnosis Aspiration Pneumonitis - Objective % IBW: 84 (QIV=539#) Body Weight Used for Calculations: IBW (81kg) Energy Needs - Lower Range (kCal/kg): 25 Energy Needs - Upper Range (kCal/kg): 30 Lower Limit kCal/kg (kCals): 2,025 Upper Limit kCal/kg (kCals): 2,430 Lower Limit Protein Factor (Grams per Kg): 1.1 Upper Limit Protein Factor (Grams per Kg): 1.3 Lower Protein Needs (Protein): 89 Upper Protein Needs (Protein): 105 Dietitian Reviewed in Medical Record: Curent medications, Intake & Output, Labs , Medical history, Tube feeding Diet Order: TF Only Objective Comments: Meds: Synthroid (-) BM Recurrent aspiration pneumonia, has G/J tube Assessment Assessment: Pt admitted for aspiration pneumonia. He has hx of tongue cancer s/p resection and chronic G/J tube. Current TF order is for Osmolite 1.0 @ 80mls/hr. To meet 100% of pts nutritional needs he will require a goal rate of 95mls/hr x 22hrs ( hold 1hr before/after Synthroid dose) via J tube. This would provide pt w/ 2090kcals, 93g PRO, and 1760mls fluid. Dietitian following. Recommendations: 1. Recommend Osmolite 1.0 @ 95mls/hr x 22hrs (hold 1hr before/after Synthroid dose). Dietitian to Monitor: Lab values, Intake & Output, Tube feeding tolerance, Weight change, Medical course
[2018-01-15] MEDS: Ampicillin/Sulbactam Inj 1,500 MG in Sodium Chloride 0.9% Inj 100 ML IV.SIG SCH ×2 (01:02→06:07)
[2018-01-15] MEDS: Pantoprazole Inj 40 MG Vial IV.PUSH SCH (06:06)
[2018-01-15] MEDS: Levothyroxine 75 MCG Tablet PO SCH (06:06)
[2018-01-15] MEDS: Sod Chloride 0.9% Inj 1,000 ML IV.CONT SCH (06:07)
[2018-01-15] MEDS: Sennosides Liq 8.8 MG/5 ML UDC PO SCH (08:36)
[2018-01-15] MEDS: Budesonide-Formoterol 160/4.5 MCG 6 GM Inhaler INH SCH (08:36)
[2018-01-15] MEDS: Docusate Sodium Liq 100 MG/10 ML UDC PO SCH (08:37)
[2018-01-15 09:46] VITALS: BP 147/73; TEMP 96.8; O2SAT 99
--- NOTE | 2018-01-15 10:20 | P.DIET ---
Nutritional Evaluation Type of nutrition evaluation: follow-up Nutrition consult regarding: Tube Feeding Subjective Subjective Comments: Pt w/ tongue resection and chronic G/J tube. No PO intake. Objective - Diagnosis Aspiration Pneumonitis - Objective % IBW: 84 (SQJ=888#) Body Weight Used for Calculations: IBW (81kg) Energy Needs - Lower Range (kCal/kg): 25 Energy Needs - Upper Range (kCal/kg): 30 Lower Limit kCal/kg (kCals): 2,025 Upper Limit kCal/kg (kCals): 2,430 Lower Limit Protein Factor (Grams per Kg): 1.1 Upper Limit Protein Factor (Grams per Kg): 1.3 Lower Protein Needs (Protein): 89 Upper Protein Needs (Protein): 105 Fluid Factor (ml/kg): 30 Estimated Fluid Needs (ml): 2,430 Dietitian Reviewed in Medical Record: Curent medications, Intake & Output, Labs , Medical history, Tube feeding Diet Order: TF Only Objective Comments: Meds: Synthroid (-) BM Recurrent aspiration pneumonia, has G/J tube Assessment Assessment: Per MD, pt does not take any food PO. Nutritional needs as assessed above. To meet his needs with TF from 6pm-10am, recommend a more calorie-dense formula, Nutren 1.5 @ rate of 85 ml/hr for 16 hrs. This will provide pt with 2040 kcals, 92 gms protein and 1039 mls free water. Recommend 240 mls free water flushes before and after TF. To meet pt's fluid requirements, recommend 300 mls free water flush at 12pm, 2pm, 4pm. Recommendations: 1. TF Nutren 1.5 @ rate of 85 ml/hr from 6pm-10am (16 hours) 2. 240mls free water flushes before and after TF 3. 300mls free water flushes at 12pm, 2pm, 4pm Comments: Pt to discharge today.
[2018-01-15 11:22] VITALS: PULSE 71
--- NOTE | 2018-01-15 11:25 | P.DS ---
Date of admission: 01/13/18 07:16 Primary care physician: [facility] Attending physician on discharge: Kamikaila Juráez Anticipated date of discharge: 01/15/18 Brief History from admission: This is a 71-year-old female with a known medical history of tongue cancer status post resection and chronic PEG tube, history of COPD and frequent aspiration pneumonia who presented to the ED with complaints of GERD 1 week as well as an episode of shortness of breath overnight. Patient states that he does have a history of dysphasia, completely n.p.o. and has a GJ tube in place secondary to basal tongue cancer. Patient states that over the past week he has been having worsening burning when he flushes his PEG tube with both water and medications. He states he went to the emergency department a couple days ago for abdominal pain, and CT scan was done which was reviewed and reportedly negative. Over the past couple days the burning has been pretty consistent, has attempted to take omeprazole without relief. Around 1130 last evening while he was in bed he had severe burning as well as associated shortness of breath, states he attempted to use his inhaler without relief. He does state that he feels like he aspirated. Denies any recent antibiotic use. Last seen his PCP in August, was last hospitalized from 08/19-08/27/2017 for persistent nausea, vomiting, c diff infection and aspiration pneumonia. Patient states his PEG tube was last replaced at the [facility] in October of this year. He does admit to cough with blood-tinged sputum. Denies any bloody or black stools. Does admit to one bout of nausea resolved with Zofran. Denies any recent fever, chills, headache, dysuria. DS: Diagnosis - Discharge Diagnosis (1) Aspiration pneumonitis Status: Acute DS: Medications - Discharge Medications Prescriptions: amoxicillin-pot clavulanate [Augmentin] 15 ml FEEDING TUBE BID #300 ml DS: Summary Hospital Course: 72-year-old male with known who presented to the hospital because of burning sensation in his abdomen. Patient states that whenever he gets any reflux can cause him to have aspiration pneumonia. He has been having increased burning sensation in his abdomen so he came to the emergency department for evaluation. Chest x-ray was performed which did not indicate any acute abnormality. Patient was started on empirical antibiotic to include Unasyn. Patient had evaluation done of his PEG tube which showed proper functioning. Patient was continued on tube feeding. Dietary evaluated the patient and made recommendations for tube feeding upon discharge. Patient clinically improved at this time. Plan for discharge accordingly. Stressed with the patient extensively his tube feeding and gave him a copy of the dietary 's recommendations. Patient should follow-up with his primary doctor within 31- 5 days. - Time Spent with Patient Total time spent providing and/or coordinating discharge services: - Quality: VTE Deep Vein Thrombosis/Pulmonary Embolism Present on Admission: No Exam Vital signs: Vital Signs 01/14/18 12:00 01/14/18 13:20 01/14/18 15:41 Temperature 97.7 F 97.2 F L Pulse Rate 85 76 Respiratory Rate 18 0 L 18 Blood Pressure 118/63 128/71 Pulse Oximetry 98 97 01/14/18 19:45 01/14/18 20:00 01/15/18 00:00 Temperature 97.0 F L 97.5 F L Pulse Rate 72 78 73 Respiratory Rate 18 18 18 Blood Pressure 137/72 132/69 Pulse Oximetry 99 96 01/15/18 08:00 Temperature 96.8 F L Pulse Rate 69 Respiratory Rate 18 Blood Pressure 147/73 H Pulse Oximetry 99 Intake & Output 01/14/18 01/15/18 01/15/18 18:59 06:59 18:59 Intake Total 300 / 300 3555 / 3555 Output Total 450 / 450 Balance 300 / 300 3105 / 3105 Weight 68.1 kg Intake: IV 300 / 300 2200 / 2200 NS Inj 1,000 ML @ 100 mls/hr IV 1999 / 1999 .CONT .Q10H NADEEM Rx#:[id number] Ofirmev Inj 1,000 mg In 100 ml 100 / 100 @ 400 mls/hr IV.SIG ONCE ONE Rx #:[id number] Unasyn Inj 1,500 MG In NS Inj 200 / 200 200 / 200 100 ML @ 200 mls/hr IV.SIG Q6H NADEEM Rx#:[id number] Tube Feeding 855 / 855 Tube Irrigant 500 / 500 Output: Urine 450 / 450 Other: # Voids 3 Narrative: GENERAL: Well-developed, cachectic, in no acute distress. alert and orientated HEENT: Head is normocephalic without any lesions or masses noted. Facial features are symmetric. Eyes: Extraocular muscles are intact. Conjunctivae were clear. NECK: Supple without any masses. Trachea midline no deviation. No JVD, CARDIAC: Regular rhythm, regular rate. S1/S2 are heard. No murmurs gallops or rubs. LUNGS: Clear to auscultation bilaterally. No wheeze, rhonchi or rales. No use of accessory muscles on inspiration or expiration. ABDOMEN: Soft, nontender. Nondistended. Bowel sounds heard in all 4 quadrants. No organomegaly or masses. Negative rebound, negative guarding EXTREMITIES: No edema, pulses are equal bilaterally. No cyanosis or clubbing NEUROLOGY: Mood and affect appear appropriate. Cranial nerves II through XII grossly intact. Moving all extremities, speech is clear Results Procedures completed during hospitalization: None - Impressions ITS Impressions Chest X-Ray 01/13/18 06:05 CONCLUSION: 1. No acute abnormality or significant interval change. Abdomen X-Ray 01/14/18 00:00 CONCLUSION: Gastrostomy tube as above. Discharge Plan - Discharge Disposition Patient Disposition: Discharge Home - Discharge Condition Condition: Stable - Discharge Order Discharge Orders: Discharge Order (Routine); Ordered 01/15/18 Ordered By: Guille Keita - Discharge Details Anticipated Discharge Date: 01/15/18 - Physicians Team Primary Care Provider: [facility],Physician 's Attending Provider: Kami Juárez
== END 2018-01-15 13:30 | disposition home or self-care (01) ==
LOC: PH3 05:40 → PHED 05:40 → PH3 08:54
PROVIDERS: ADMIT Hospitalist; ATTEND Hospitalist

== ENCOUNTER 2018-05-06 15:08 | Observation (INO) ==
[2018-05-06] MEDS ORDERED: Morphine Inj 4 MG/ML Vial IV.PUSH ONE (15:33)
--- NOTE | 2018-05-06 15:38 | ED ---
HPI General Chief Complaint: Back Pain/Injury Stated Complaint: back pain x2-3 hrs Time Seen by Provider: 05/06/18 15:33 Source: patient Mode of arrival: ambulatory Limitations: no limitations History of Present Illness HPI Narrative: 72-year-old male patient with history of throat cancer status post G-tube placement, presents to the ER today because of several days of right flank pains that started on its own. He has been nauseous, vomiting, currently states that the flank pain is a 7 out of 10. He denies any fevers, but states he has had 3 bowel movements today. He denies any chest pains, shortness of breath. He does not know of any exacerbating or alleviating factors. Modifying Factors: None Associated Signs & Symptoms:rt flank pains Risk Factors: None Related Data Home Medications Medication Instructions Recorded Confirmed albuterol sulfate 1.25 mg INHALATION Q4-6H PRN 01/13/18 05/06/18 budesonide-formoterol [Symbicort] 2 puff INHALATION BID 01/13/18 05/06/18 levothyroxine 75 mcg FEEDING TUBE DAILY 01/13/18 05/06/18 ranitidine HCl 5 ml GJ-TUBE DAILY 05/06/18 05/06/18 Allergies Allergy/AdvReac Type Severity Reaction Status Date / Time No Known Allergies Allergy Verified 05/06/18 15:16 Review of Systems ROS: all other systems reviewed are negative PMFSH History History Provided By: Patient Medical History Medical History Aspiration pneumonia (Acute) COPD (chronic obstructive pulmonary disease) (Acute) G tube feedings (Acute) GERD (gastroesophageal reflux disease) (Acute) Gastrojejunostomy tube status (Acute) Hypothyroid (Acute) Tongue cancer (Acute) Surgical History Surgical History Hx of inguinal hernia surgery (Acute) H/O hernia repair (Acute) S/P radiation therapy (Acute) Status post chemotherapy (Acute) Social History Social History Substance History: No History of Abuse Second Hand Smoke Exposure: No Smoking Status: Never smoker How Often Do You Have a Drink Containing Alcohol: Never Recent Travel in [facility] within the Last 8 Weeks: No Recent Out of Country Travel within the Last 8 Weeks: No Exam Narrative Exam Narrative: GENERAL: Well-developed elderly male patient currently in moderate distress. Awake and oriented x3. SKIN: Focused skin assessment warm/dry. HEAD: Atraumatic. Normocephalic. EYES: Pupils equal and round. No scleral icterus. No injection or drainage. ENT: No nasal bleeding or discharge. Mucous membranes pink and moist. NECK: Trachea midline. No JVD. CARDIOVASCULAR: Regular rate and rhythm. No murmur appreciated. RESPIRATORY: No accessory muscle use. Clear to auscultation. Breath sounds equal bilaterally. GASTROINTESTINAL: Abdomen soft, non-tender, nondistended. Hepatic and splenic margins not palpable. BACK: Right CVA tenderness. No rash. No point tenderness on palpation of the spine. MUSCULOSKELETAL: No obvious deformities. No clubbing. No cyanosis. No edema. NEUROLOGICAL: Awake and alert. No obvious cranial nerve deficits. Motor grossly within normal limits. Normal speech. PSYCHIATRIC: Appropriate mood and affect; insight and judgment normal. Course Initial Documented Vital Signs Temperature 98.6 F 05/06/18 15:13 Pulse Rate 109 H 05/06/18 15:13 Respiratory Rate 16 05/06/18 15:13 Blood Pressure 158/72 H 05/06/18 15:13 Pulse Oximetry 98 05/06/18 15:13 Last Documented Vital Signs Temperature 98.6 F 05/06/18 15:13 Pulse Rate 96 H 05/06/18 16:07 Respiratory Rate 16 05/06/18 16:30 Blood Pressure 110/52 L 05/06/18 16:07 Pulse Oximetry 99 05/06/18 16:07 Medical Decision Making [facility] Narrative Medical decision making narrative: Initial chest x-ray did not show any signs of acute pulmonary processes. CT the abdomen pelvis actually does show a right lower lobe pneumonia. Lab work shows some leukocytosis. At this point, IV antibiotics were initiated in the ER after cultures were drawn. Planning to admit the patient for further treatment. UA did not show any signs of UTI.Case is discussed with Dr. Valencia for admission. Medical Screen Exam Complete: Yes Emergency Medical Condition: Yes Differential Diagnosis Differential Diagnosis: Musculoskeletal versus renal colic versus pyelonephritis versus cholecystitis Lab Data Lab results reviewed: Yes I reviewed the patient's lab results. Result diagrams: 05/06/18 15:57 05/06/18 15:57 Lab Results 1105/06/18 05/06/18 Range/Units 15:57 15:57 18:02 CBC w Diff Auto diff final WBC 11.7 H (4.0-11.0) th/mm3 RBC 4.77 (4.50-5.90) mil/mm3 Hgb 12.4 L (13.0-17.0) gm/dL Hct 38.0 L (39.0-51.0) % MCV 79.7 L (80.0-100.0) fL MCH 25.9 L (27.0-34.0) pg MCHC 32.5 (32.0-36.0) % RDW 14.9 (11.6-17.2) % Plt Count 229 (150-450) th/mm3 MPV 8.5 (7.0-11.0) fL Neut % (Auto) 77.2 H (16.0-70.0) % Lymph % (Auto) 8.2 L (9.0-44.0) % [place] % (Auto) 10.1 H (0.0-8.0) % Eos % (Auto) 0.4 (0.0-4.0) % Baso % (Auto) 4.1 H (0.0-2.0) % Neut # (Auto) 9.0 H (1.8-7.7) th/mm3 Lymph # (Auto) 1.0 (1.0-4.8) th/mm3 [place] # (Auto) 1.2 H (0.0-0.9) th/mm3 Eos # (Auto) 0.0 (0.0-0.4) th/mm3 Baso # (Auto) 0.5 H (0.0-0.2) th/mm3 WBC Differential . Differential Comment . Sodium 137 (136-145) meq/L Potassium 4.1 (3.5-5.1) meq/L Chloride 100 (98-107) meq/L Carbon Dioxide 30.9 (21.0-32.0) meq/L Anion Gap 6 (5-15) meq/L BUN 19 H (7-18) mg/dL Creatinine 0.86 (0.60-1.30) mg/dL Estimated GFR 88 L (>89) mL/min Random Glucose 133 H (74-106) mg/dL Calcium 8.4 L (8.5-10.1) mg/dL Magnesium 2.1 (1.5-2.5) mg/dL Total Bilirubin 0.8 (0.2-1.0) mg/dL AST 24 (15-37) U/L ALT 24 (12-78) U/L Alkaline Phosphatase 87 (45-117) U/L Total Protein 7.4 (6.4-8.2) g/dL Albumin 3.5 (3.4-5.0) g/dL Lipase 135 (73-393) U/L Urine Color Straw (Yellw/Straw) Urine Clarity Clear (Clear) Urine pH 7.0 (5.0-8.5) Ur Specific [place] Less/equal 1.005 (1.002-1.035) Urine Protein Negative (Neg-Trace) mg/dL Urine Glucose (UA) Negative (Negative) mg/dL Urine Ketones Negative (Negative) mg/dL Urine Occult Blood Moderate H (Negative) Urine Nitrate Negative (Negative) Urine Bilirubin Negative (Negative) Urine Urobilinogen 0.2 (Less than 2) mg/dL Ur Leukocyte Esterase Negative (Negative) Urine RBC 4-15 H (0-3) /hpf Urine WBC 0-5 (0-5) /hpf Micro UA Comment Culture not ind Ur Microscopic Review Microscopic reviewed Urine Culture Comments Culture not ind Imaging Data Attestation: I personally reviewed and interpreted this imaging study as follows : Radiologist's impression: Abdomen/Pelvis CT 05/06/18 15:33 CONCLUSION: 1. Partial visualization of focal consolidation in the right lower lobe of concern for pneumonia. 2. 1 mm nonobstructing right renal calculus. The kidneys are otherwise unremarkable. 3. The gastrojejunostomy tube remains in place. 4. Unremarkable gallbladder. Chest X-Ray 05/06/18 15:33 CONCLUSION: Negative examination. Discharge Plan Discharge Disposition Patient Disposition: 30 Still Patient Discharge Condition Condition: Stable Discharge Details Anticipated Discharge Date: 05/06/18 Diagnosis: Pneumonia Physicians Team ED Provider: Kevin Hastings Primary Care Provider: [facility],Physician [place] /Orders / Referrals /Forms Prescriptions: No Action budesonide-formoterol [Symbicort] 160-4.5 mcg/actuation Hfa Aerosol Inhaler 2 puff INHALATION BID RF: 0 levothyroxine 75 mcg Capsule 75 mcg Feeding Tube DAILY RF: 0 albuterol sulfate 1.25 mg/3 mL Solution For Nebulization 1.25 mg INHALATION Q4-6H PRN (Reason: Respiratory Distress) RF: 0 ranitidine HCl 5 ml GJ-Tube DAILY RF: 0 Status ED Status: With Doctor
--- NOTE | 2018-05-06 15:53 | XR ---
EXAM DATE: 05/06/2018 3:49 PM EST AGE/SEX: 72 years / Male INDICATIONS: Upper back pain, no known trauma. CLINICAL DATA: This is the patient's initial encounter. Patient reports that signs and symptoms have been present for 1 day and indicates a pain score of 7/10. MEDICAL/SURGICAL HISTORY: . Carcinoma, tongue. Chronic obstructive pulmonary disease. Gastroeso phageal reflux disease. None. COMPARISON: [facility], CHEST 1V SINGLE AP, 01/13/2018. . FINDINGS: A single AP view of the chest demonstrates the lungs to be symmetrically aerated without evidence of mass, infiltrate or effusion. The cardiomediastinal contours are unremarkable. Osseous structures a re intact. CONCLUSION: Negative examination. Electronically signed by: Rafy Bee MD 05/06/2018 3:52 PM EST
[2018-05-06 16:07] LABS: Baso # (Auto) 0.5 th/mm3 (0.0-0.2); Baso % (Auto) 4.1 % (0.0-2.0); Eos % (Auto) 0.4 % (0.0-4.0); Hemoglobin 12.4 gm/dL (13.0-17.0); Lymph % (Auto) 8.2 % (9.0-44.0); Mean Corpuscular HGB Conc 32.5 % (32.0-36.0); Mean Corpuscular Hemoglobin 25.9 pg (27.0-34.0); Mean Corpuscular Volume 79.7 fL (80.0-100.0); Mean Platelet Volume 8.5 fL (7.0-11.0); Mono # (Auto) 1.2 th/mm3 (0.0-0.9); Mono % (Auto) 10.1 % (0.0-8.0); Neut % (Auto) 77.2 % (16.0-70.0); Platelet Count 229 th/mm3 (150-450); Red Blood Count 4.77 mil/mm3 (4.50-5.90); Red Cell Distribution Width 14.9 % (11.6-17.2); White Blood Count 11.7 th/mm3 (4.0-11.0)
[2018-05-06 16:22] LABS: Chloride 100 meq/L (98-107); Potassium 4.1 meq/L (3.5-5.1); Sodium 137 meq/L (136-145)
[2018-05-06 16:27] LABS: Calcium 8.4 mg/dL (8.5-10.1)
[2018-05-06 16:28] LABS: Albumin 3.5 g/dL (3.4-5.0); Anion Gap 6 meq/L (5-15); Blood Urea Nitrogen 19 mg/dL (7-18); Carbon Dioxide 30.9 meq/L (21.0-32.0); Glucose,Random 133 mg/dL (74-106); Lipase 135 U/L (73-393); Magnesium 2.1 mg/dL (1.5-2.5)
[2018-05-06 16:31] LABS: Alanine Aminotransferase 24 U/L (12-78); Aspartate Aminotransferase 24 U/L (15-37); Glomerular Filtration Rate 88 mL/min (>89)
[2018-05-06 16:32] LABS: Total Protein 7.4 g/dL (6.4-8.2)
[2018-05-06 16:34] LABS: Alkaline Phosphatase 87 U/L (45-117)
--- NOTE | 2018-05-06 17:32 | CT ---
EXAM DATE: 05/06/2018 5:20 PM EST AGE/SEX: 72 years / Male INDICATIONS: Right flank pain. CLINICAL DATA: This is the patient's initial encounter. Patient reports that signs and symptoms have been present for 1 day and indicates a pain score of 7/10. MEDICAL/SURGICAL HISTORY: Chronic obstructive pulmonary disease. Gastroesophageal reflux disea se. Hypothyroidism. Tongue cancer. . Hernia repair. G-tube placement. ORAL CONTRAST: No oral contrast ingested. RADIATION DOSE: 6.26 CTDI (mGy) COMPARISON: [facility], CHEST 1V SINGLE AP, 05/06/2018. . TECHNIQUE: Multiple contiguous axial images were obtained through the abdomen and pelvis following b olus infusion of 95 ml Omnipaque 350 (iohexol) nonionic water-soluble contrast as a single exam dos e. No oral contrast ingested. Using automated exposure control and adjustment of the mA and/or kV ac cording to patient size, radiation dose was kept as low as reasonably achievable to obtain optimal di agnostic quality images. DICOM format image data is available electronically for review and comparis on. FINDINGS: Lower Lungs: Area of consolidation in the right lower lobe which is only partially visualized. Liver: The liver has a homogeneous density without space-occupying lesion. There is no dilation of th e biliary tree. Spleen: Homogeneous density without enlargement. Pancreas: Unremarkable without mass or calcification. Kidneys: Normal in size and shape. No evidence of mass or hydronephrosis. There is a small nonobstru cting right renal calculus. Adrenal Glands: Unremarkable. Aorta: The aorta and proximal iliac vessels are grossly unremarkable without aneurysmal dilation. Bowel/Mesentery: No oral contrast was given limiting the sensitivity exam. The gastrojejunostomy tube remains in place. Bowel gas pattern is nonobstructive. The cecum and sigmoid colon have a normal co nfiguration. Abdominal Wall: Intact. Retroperitoneum: No evidence of adenopathy in the retrocrural, para-aortic, or deep pelvic regions. Bladder: Contours are smooth. Reproductive Organs: No abnormal masses or calcifications seen. Inguinal: The inguinal region is unremarkable without evidence of adenopathy. Bony Structures: Unremarkable. CONCLUSION: 1. Partial visualization of focal consolidation in the right lower lobe of concern for pneumonia. 2. 1 mm nonobstructing right renal calculus. The kidneys are otherwise unremarkable. 3. The gastrojejunostomy tube remains in place. 4. Unremarkable gallbladder. Electronically signed by: Jax Valdes MD 05/06/2018 5:30 PM EST
[2018-05-06 18:09] LABS: Bilirubin,Urine Negative (Negative); Clarity,Urine Clear (Clear); Glucose,Urine (UA) Negative (Negative); Leukocyte Esterase,Urine Negative (Negative); Nitrite,Urine Negative (Negative); Specific Gravity,Urine Less/Equal 1.005 (1.002-1.035); Urobilinogen,Urine 0.2 mg/dL (Less than 2)
[2018-05-06 18:11] LABS: Color,Urine Straw (Yellw/Straw)
[2018-05-06 18:19] LABS: WBC,Urine 0-5 /hpf (0-5)
[2018-05-06] MEDS ORDERED: Azithromycin Inj 500 MG in Sodium Chlor 0.9% Inj 250 ML IV.SIG ONE (18:25)
[2018-05-06] MEDS: Dextrose 5%/NaCl 0.9% Inj 1,000 ML IV.CONT SCH (20:47)
[2018-05-06] MEDS: Budesonide-Formoterol 160/4.5 MCG 6 GM Inhaler INH SCH (20:57)
[2018-05-07] MEDS: Levothyroxine 75 MCG Tablet G-TUBE SCH (06:07)
[2018-05-07 06:37] LABS: Baso # (Auto) 0.1 th/mm3 (0.0-0.2); Baso % (Auto) 0.7 % (0.0-2.0); Eos % (Auto) 0.2 % (0.0-4.0); Hematocrit 34.9 % (39.0-51.0); Hemoglobin 11.2 gm/dL (13.0-17.0); Lymph # (Auto) 1.4 th/mm3 (1.0-4.8); Lymph % (Auto) 15.2 % (9.0-44.0); Mean Corpuscular Hemoglobin 25.2 pg (27.0-34.0); Mean Corpuscular Volume 78.9 fL (80.0-100.0); Mean Platelet Volume 8.9 fL (7.0-11.0); Mono # (Auto) 1.1 th/mm3 (0.0-0.9); Mono % (Auto) 12.1 % (0.0-8.0); Neut # (Auto) 6.7 th/mm3 (1.8-7.7); Neut % (Auto) 71.8 % (16.0-70.0); Platelet Count 213 th/mm3 (150-450); Red Blood Count 4.43 mil/mm3 (4.50-5.90); Red Cell Distribution Width 14.4 % (11.6-17.2); White Blood Count 9.3 th/mm3 (4.0-11.0)
[2018-05-07 06:53] LABS: Chloride 102 meq/L (98-107); Sodium 138 meq/L (136-145)
[2018-05-07 06:58] LABS: Calcium 8.1 mg/dL (8.5-10.1)
[2018-05-07 06:59] LABS: Anion Gap 7 meq/L (5-15); Blood Urea Nitrogen 15 mg/dL (7-18); Carbon Dioxide 29.1 meq/L (21.0-32.0); Glucose,Random 110 mg/dL (74-106); Magnesium 2.1 mg/dL (1.5-2.5)
[2018-05-07 07:02] LABS: Glomerular Filtration Rate Greater Than 89 mL/min (>89)
[2018-05-07] MEDS: Budesonide-Formoterol 160/4.5 MCG 6 GM Inhaler INH SCH ×2 (08:10→20:29)
[2018-05-07] MEDS ORDERED: Levothyroxine 75 MCG Tablet G-TUBE ONE (09:00)
--- NOTE | 2018-05-07 09:04 | P.HP ---
History of Present Illness Primary Care Physician: Physician 's [facility] History of Present Illness: 72-year-old white male who was admitted with intractable back pain. Patient was in his usual state of health until sometime yesterday when he was relaxing watching TV and felt gradual increase in new onset right mid back pain. Says that pain worsened up to an intensity of about a 7-8. Could not find any alleviating or exacerbating factors despite repositioning or coughing. Patient does report noticing mildly worsening shortness of breath since the day prior and on the day of his pain he ended up having more whitish sputum than usual. Says he also had some nausea but no vomiting. Says he coughs daily at baseline. Denies any fevers or chest pain. Denies any diarrhea or urinary issues. Emergency department he had chest x-ray done which was negative. A CT abdomen pelvis and was independently reviewed and I see no actual findings impressive enough for any pneumonia over the lung blanc are recovered in the CT scan spite the radiology read for possible pneumonia in the right lung base. Patient has a nonobstructing 1 mm renal calculus, when I informed the patient of this, he says he has had that for a long time. Blood work was unremarkable. Was started on antibiotics Since being arriving to the medical floor since last night he reports having some hemoptysis but did not give that sample to anyone. Back and flank pain is gone at this time. 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 Review of Systems All other systems reviewed negative except as stated in HPI PMFSH - History History Provided By: Patient - Medical / Surgical Hx Neg / Unobtainable Medical Problems Denied: Yes - Medical History Medical History: Medical History (Last Reviewed 05/07/18 @ 09:10 by J Carlos Holly MD) Aspiration pneumonia COPD (chronic obstructive pulmonary disease) G tube feedings GERD (gastroesophageal reflux disease) Gastrojejunostomy tube status Hypothyroid Tongue cancer - Surgical History Surgical History: Surgical History (Last Reviewed 05/07/18 @ 09:10 by J Carlos Holly MD) H/O hernia repair Hx of inguinal hernia surgery S/P radiation therapy Status post chemotherapy - Family History Family History: Family History (Last Updated 05/09/18 @ 08:09 by J Carlos Holly MD) Brother Pancreatic cancer - Social History I have reviewed the patient's Social History: Yes - Tobacco History Second Hand Smoke Exposure: No Tobacco Use In Past 30 Days: No Smoking Status: Unknown if ever smoked - Alcohol History How Often Do You Have a Drink Containing Alcohol: Never - Substance Use History Substance History: No History of Abuse - Travel History Recent Travel in the [place] Within the Last 8 Weeks: No Recent Travel Out of the Country Within the Last 8 Weeks: No - Immunization History Tetanus Immunization: >5 Years Hx Influenza Vaccine This Season: Yes Medications and Allergies Active Medications: Active Medications Albuterol (Ventolin Hfa Inh) 2 puff INH Q6H PRN PRN Reason: SHORTNESS OF BREATH Albuterol (Duoneb Neb (Prn)) 1 ampul NEB Q4HR NEB PRN PRN Reason: sob Budesonide/Formoterol Fumarate (Symbicort 160/4.5 Mcg Inh) 2 puff INH BID [facility] Last Admin: 05/07/18 08:10 Dose: 2 puff Ceftriaxone Sodium 1,000 mg/ (Sodium Chloride) 100 mls @ 200 mls/hr IV.SIG Q24H NADEEM Azithromycin 250 mg/ Sodium (Chloride) 250 mls @ 250 mls/hr IV.SIG Q24H NADEEM Metronidazole/Sodium Chloride (Flagyl 500 Mg Inj) 100 mls @ 100 mls/hr IV.SIG Q8H [facility] Last Infusion: 05/07/18 05:20 Dose: Infused Dextrose/Sodium Chloride (D5w/Normal Saline Inj) 1,000 mls @ 42 mls/hr IV.CONT .[id number] [facility] Last Admin: 05/06/18 20:47 Dose: 42 mls/hr Levothyroxine Sodium (Synthroid) 75 mcg G-TUBE DAILY@0600 [facility] Last Admin: 05/07/18 06:07 Dose: 75 mcg Ondansetron HCl (Zofran Inj) 4 mg IV.PUSH Q8H PRN PRN Reason: NAUSEA OR VOMITING Sodium Chloride (Ns Flush) 2 ml IV.FLUSH PRN PRN PRN Reason: FLUSH AFTER USING IV ACCESS Allergies Allergy/AdvReac Type Severity Reaction Status Date / Time No Known Allergies Allergy Verified 05/06/18 15:16 Home Medications Medication Instructions Recorded Confirmed Type albuterol sulfate 1.25 mg INHALATION Q4-6H PRN 01/13/18 05/06/18 History budesonide-formoterol [Symbicort] 2 puff INHALATION BID 01/13/18 05/06/18 History levothyroxine 75 mcg FEEDING TUBE DAILY 01/13/18 05/06/18 History ranitidine HCl 5 ml GJ-TUBE DAILY 05/06/18 05/06/18 History Exam Vital signs: Vital Signs 05/06/18 15:13 05/06/18 16:07 05/06/18 16:30 Temperature 98.6 F Pulse Rate 109 H 96 H Respiratory Rate 16 16 16 Blood Pressure 158/72 H 110/52 L Pulse Oximetry 98 99 05/06/18 18:59 05/06/18 19:56 05/06/18 20:00 Temperature 97.5 F L Pulse Rate 98 H 95 H 87 Respiratory Rate 20 20 18 Blood Pressure 125/63 134/66 116/65 Pulse Oximetry 99 96 95 05/07/18 00:00 Temperature 96.7 F L Pulse Rate 85 Respiratory Rate 18 Blood Pressure 118/58 L Pulse Oximetry 96 Intake & Output 05/06/18 05/07/18 05/07/18 18:59 06:59 18:59 Intake Total 550 / 550 Output Total 600 / 600 Balance -50 / -50 Weight 68 kg 69.2 kg Intake: IV 550 / 550 Azithromycin Inj 500 MG In NS 250 / 250 Inj 250 ML @ 250 mls/hr IV.SIG ONCE ONE Rx#:[id number] Rocephin Inj 1,000 MG In NS Inj 100 / 100 100 ML @ 200 mls/hr IV.SIG ONCE ONE Rx#:[id number] Flagyl 500 MG Inj 100 ML @ 100 200 / 200 mls/hr IV.SIG Q8H NADEEM Rx#: [id number] Output: Urine 600 / 600 Other: Weight On Admission 69.1 kg Narrative: VS: afebrile GENERAL: Elderly male well-nourished, lying in bed, no acute distress SKIN: Warm and dry. EYES: No scleral icterus. No injection or drainage. ENT: No nasal bleeding or discharge. Mucous membranes pink and moist. CARDIOVASCULAR: Regular rate and rhythm. no murmurs RESPIRATORY: No accessory muscle use. Very mild wheezing heard with slightly diminished breath sounds in the bases, unlabored breathing GASTROINTESTINAL: Abdomen soft, non-tender, nondistended. G-tube in place Extremities: No clubbing, cyanosis, or edema. No obvious deformities. MUSCULOSKELETAL: adequate muscle bulk and tone for age and habitus NEUROLOGICAL: Awake and alert. No obvious cranial nerve deficits. No facial droop nor slurred speech noted. PSYCHIATRIC: Appropriate mood and affect; insight and judgment normal. Results - Labs CBC & Chem 7: 05/07/18 05:45 05/07/18 05:45 Labs: Laboratory Results - last 24 hr 05/06/18 05/06/18 05/06/18 15:57 15:57 18:02 CBC w Diff Auto diff final WBC 11.7 H RBC 4.77 Hgb 12.4 L Hct 38.0 L MCV 79.7 L MCH 25.9 L MCHC 32.5 RDW 14.9 Plt Count 229 MPV 8.5 Neut % (Auto) 77.2 H Lymph % (Auto) 8.2 L [place] % (Auto) 10.1 H Eos % (Auto) 0.4 Baso % (Auto) 4.1 H Neut # (Auto) 9.0 H Lymph # (Auto) 1.0 [place] # (Auto) 1.2 H Eos # (Auto) 0.0 Baso # (Auto) 0.5 H WBC Differential . Differential Comment . Sodium 137 Potassium 4.1 Chloride 100 Carbon Dioxide 30.9 Anion Gap 6 BUN 19 H Creatinine 0.86 Estimated GFR 88 L Random Glucose 133 H Calcium 8.4 L Magnesium 2.1 Total Bilirubin 0.8 AST 24 ALT 24 Alkaline Phosphatase 87 Total Protein 7.4 Albumin 3.5 Lipase 135 Urine Color Straw Urine Clarity Clear Urine pH 7.0 Ur Specific [place] Less/equal 1.005 Urine Protein Negative Urine Glucose (UA) Negative Urine Ketones Negative Urine Occult Blood Moderate H Urine Nitrate Negative Urine Bilirubin Negative Urine Urobilinogen 0.2 Ur Leukocyte Esterase Negative Urine RBC 4-15 H Urine WBC 0-5 Micro UA Comment Culture not ind Ur Microscopic Review Microscopic reviewed Urine Culture Comments Culture not ind 05/07/18 05/07/18 05:45 05:45 CBC w Diff Auto diff final WBC 9.3 RBC 4.43 L Hgb 11.2 L Hct 34.9 L MCV 78.9 L MCH 25.2 L MCHC 32.0 RDW 14.4 Plt Count 213 MPV 8.9 Neut % (Auto) 71.8 H Lymph % (Auto) 15.2 [place] % (Auto) 12.1 H Eos % (Auto) 0.2 Baso % (Auto) 0.7 Neut # (Auto) 6.7 Lymph # (Auto) 1.4 [place] # (Auto) 1.1 H Eos # (Auto) 0.0 Baso # (Auto) 0.1 WBC Differential . Differential Comment . Sodium 138 Potassium 4.0 Chloride 102 Carbon Dioxide 29.1 Anion Gap 7 BUN 15 Creatinine 0.72 Estimated GFR Greater than 89 Random Glucose 110 H Calcium 8.1 L Magnesium 2.1 Total Bilirubin AST ALT Alkaline Phosphatase Total Protein Albumin Lipase Urine Color Urine Clarity Urine pH Ur Specific [place] Urine Protein Urine Glucose (UA) Urine Ketones Urine Occult Blood Urine Nitrate Urine Bilirubin Urine Urobilinogen Ur Leukocyte Esterase Urine RBC Urine WBC Micro UA Comment Ur Microscopic Review Urine Culture Comments - Imaging Impressions Abdomen/Pelvis CT 05/06/18 15:33 CONCLUSION: 1. Partial visualization of focal consolidation in the right lower lobe of concern for pneumonia. 2. 1 mm nonobstructing right renal calculus. The kidneys are otherwise unremarkable. 3. The gastrojejunostomy tube remains in place. 4. Unremarkable gallbladder. Chest X-Ray 05/06/18 15:33 CONCLUSION: Negative examination. Caprini VTE Risk Assessment Caprini VTE Risk Assessment: Moderate/High Risk (score >= 2) Caprini Risk Assessment Model: Point Value = 1 Point Value = 2 Point Value = 3 Point Value = 5 Age 41-60 Minor surgery BMI > 25 kg/m2 Swollen legs Varicose veins or History of unexplained or recurrent spontaneous Oral contraceptives or hormone replacement Sepsis (< 1 month) Serious lung disease, including pneumonia (< 1 month) Abnormal pulmonary function Acute myocardial infarction Congestive heart failure (< 1 month) History of inflammatory bowel disease Medical patient at bed rest Age 61-74 Arthroscopic surgery Major open surgery (> 45 min) Laparoscopic surgery (> 45 min) Malignancy Confined to bed (> 72 hours) Immobilizing plaster cast Central venous access Age >= 75 History of VTE Family history of VTE Factor V Leiden Prothrombin [id number] Lupus anticoagulant Anticardiolipin antibodies Elevated serum homocysteine Heparin-induced thrombocytopenia Other congenital or acquired thrombophilia Stroke (< 1 month) Elective arthroplasty Hip, pelvis, or leg fracture Acute spinal cord injury (< 1 month) Prophylaxis Regimen: Total Risk Factor Score Risk Level Prophylaxis Regimen 0-1 Low Early ambulation 2 Moderate Order ONE of the following: *Sequential Compression Device (SCD) *Heparin 5000 units SQ BID 3-4 Higher Order ONE of the following medications: *Heparin 5000 units SQ TID *Enoxaparin/Lovenox 40 mg SQ daily (WT < 150 kg, CrCl > 30 mL/min) *Enoxaparin/Lovenox 30 mg SQ daily (WT < 150 kg, CrCl > 10-29 mL/min) *Enoxaparin/Lovenox 30 mg SQ BID (WT < 150 kg, CrCl > 30 mL/min) AND/OR *Sequential Compression Device (SCD) 5 or more Highest Order ONE of the following medications: *Heparin 5000 units SQ TID (Preferred with Epidurals) *Enoxaparin/Lovenox 40 mg SQ daily (WT < 150 kg, CrCl > 30 mL/min) *Enoxaparin/Lovenox 30 mg SQ daily (WT < 150 kg, CrCl > 10-29 mL/min) *Enoxaparin/Lovenox 30 mg SQ BID (WT < 150 kg, CrCl > 30 mL/min) AND *Sequential Compression Device (SCD) Assessment and Plan - Plan 72-year-old white male presenting to the ER with right-sided back pain, shortness of breath, and increase sputum production Shortness of breath -Likely secondary to a COPD exacerbation and already improving towards baseline per patient Start antibiotics since yesterday evening for possible pneumonia, ordering pro- calcitonin since my impression is that this patient does not have any pneumonia clinically nor radiographically Starting steroids, continue breathing treatments -Sputum collection for Gram stain and culture if available Right-sided back pain -Gone at this time, could have been due to deep muscle pain at best, self resolved. No longer requiring pain medications. Hypothyroidism Continue home medications Lovenox
[2018-05-07] MEDS ORDERED: MethylPREDNISolone Sod Succinate Inj 125 MG/2 ML Vial IV.PUSH ONE (10:00)
[2018-05-07] MEDS: MethylPREDNISolone Sod Succinate Inj 40 MG/ML Vial IV.PUSH SCH ×2 (14:19→21:09)
--- NOTE | 2018-05-07 14:51 | P.DIET ---
Nutritional Evaluation Type of nutrition evaluation: initial Nutrition consult regarding: Tube Feeding Subjective Barriers to Nutrition: Chewing problem, Swallowing problem Subjective Comments: Assessment here uses previous admission HT 182.9cm Objective - Diagnosis Pneumonia - Objective % IBW: 85 Body Weight Used for Calculations: Actual (69.2 kg) Energy Needs - Lower Range (kCal/kg): 30 Energy Needs - Upper Range (kCal/kg): 35 Lower Limit kCal/kg (kCals): 2,076 Upper Limit kCal/kg (kCals): 2,422 Lower Limit Protein Factor (Grams per Kg): 1.2 Upper Limit Protein Factor (Grams per Kg): 1.4 Lower Protein Needs (Protein): 83 Upper Protein Needs (Protein): 97 Dietitian Reviewed in Medical Record: Curent medications, Intake & Output, Labs , Medical history, Tube feeding Diet Order: TF'ing Glucerna 1.5 @ goal rate 60ml/hr Objective Comments: PMH includes: Aspiration Pneumonia, COPD, GERD, Hypothyroidism, Tongue Cancer s/ p radiation therapy, s/p chemotherapy; G-J tube inplace Meds include: Synthroid Glucose 110 Assessment Assessment: Pt is at nutritional risk r/t need for TF'ing for primary source of nutrition. For TF'ing w/Glucerna 1.5, Rec Goal Rate @ 65ml/hr x 22-hr(TF'ing held 1-hr before and 1-hr after administering Synthroid), to offer 2145 kcal, 118g protein and 1085ml free water. Labs reviewed. For a non CHO-controlled TF'ing formula, Rec Vital 1.5 @ goal rate 65ml/hr x 22-hr, to offer 2145 kcal, 97g protein and 1093ml free water. Additional Recs to follow r/t Clinical Course. Recommendations: 1. For TF'ing w/Glucerna 1.5, Rec Goal Rate @ 65ml/hr x 22-hr(TF'ing held 1-hr before and 1-hr after administering Synthroid) 2. For a non CHO-controlled TF'ing formula, Rec Vital 1.5 @ goal rate 65ml/hr x 22-hr 3. Additional Recs to follow r/t Clinical Course Dietitian to Monitor: Lab values, Glucose level, Intake & Output, Tube feeding tolerance, Weight change, Medical course
[2018-05-07] MEDS ORDERED: Enoxaparin Inj 30 MG/0.3 ML Syringe SQ SCH (17:00)
[2018-05-07] MEDS ORDERED: Azithromycin Inj 250 MG in Sodium Chlor 0.9% Inj 250 ML IV.SIG SCH (18:00)
[2018-05-07] MEDS: Dextrose 5%/NaCl 0.9% Inj 1,000 ML IV.CONT SCH (21:13)
[2018-05-08] MEDS: Famotidine 20 MG Tablet PO SCH ×2 (01:23→09:10)
[2018-05-08] MEDS: Levothyroxine 75 MCG Tablet G-TUBE SCH (06:37)
[2018-05-08] MEDS: MethylPREDNISolone Sod Succinate Inj 40 MG/ML Vial IV.PUSH SCH (09:09)
[2018-05-08] MEDS: Budesonide-Formoterol 160/4.5 MCG 6 GM Inhaler INH SCH (09:13)
--- NOTE | 2018-05-08 10:11 | P.PN ---
Subjective Interval history: Nursing denies any acute changes overnight except for the patient complaining that his GJ tube is clogged and is now working. He is requesting for it to be exchanged. G-tube for medications and J-tube for his feeds. Says that he has hospital did not carry his particular type of feeds that are good at keeping his J-tube patent. Otherwise patient says he feels good, has no shortness of breath, denies coughing up any productive sputum today. Physical Exam Vital signs: Vital Signs 05/07/18 12:00 05/07/18 12:03 05/07/18 15:46 Temperature 98.1 F 98.0 F Pulse Rate 75 82 87 Respiratory Rate 16 19 16 Blood Pressure 140/68 144/64 H Pulse Oximetry 95 98 05/07/18 20:00 05/08/18 00:00 05/08/18 00:10 Temperature 97.7 F 97.2 F L Pulse Rate 87 81 84 Respiratory Rate 18 18 16 Blood Pressure 125/61 124/65 Pulse Oximetry 99 97 05/08/18 08:00 Temperature 96.6 F L Pulse Rate 81 Respiratory Rate 18 Blood Pressure 132/64 Pulse Oximetry 98 Intake & Output 05/07/18 05/08/18 05/08/18 18:59 06:59 18:59 Intake Total 1225 / 1225 1305 / 1305 Output Total 700 / 700 Balance 1225 / 1225 605 / 605 Weight 69.4 kg Intake: IV 1083 / 1083 1015 / 1015 D5W/Normal Saline Inj 1,000 ML 733 / 733 1015 / 1015 @ 42 mls/hr IV.CONT .[id number] NADEEM Rx#:[id number] Azithromycin Inj 250 MG In NS 250 / 250 Inj 250 ML @ 250 mls/hr IV.SIG Q24H NADEEM Rx#:[id number] Rocephin Inj 1,000 MG In NS Inj 100 / 100 100 ML @ 200 mls/hr IV.SIG Q24H NADEEM Rx#:[id number] Oral 200 / 200 Tube Feeding 142 / 142 Water Bolus Amount 90 / 90 Output: Urine 700 / 700 Other: Date of Last Bowel Movement 05/06/18 05/07/18 Narrative: Abdomen soft, nontender, nondistended Clear lungs bilaterally, labored breathing Ambulating around room, no acute distress Results - Labs CBC & Chem 7: 05/07/18 05:45 05/07/18 05:45 Laboratory Results - last 24 hr 05/07/18 09:17 Procalcitonin 0.10 H Microbiology 05/07/18 09:14 Sputum - Expectorated Sputum Gram Stain - Final 05/06/18 18:35 Blood - Peripheral Aerobic Blood Culture - Preliminary No growth in 1 day 05/06/18 18:35 Blood - Peripheral Anaerobic Blood Culture - Preliminary No growth in 1 day 05/06/18 18:30 Blood - Peripheral Aerobic Blood Culture - Preliminary No growth in 1 day 05/06/18 18:30 Blood - Peripheral Anaerobic Blood Culture - Preliminary No growth in 1 day Assessment and Plan - Plan 72-year-old white male presenting to the ER with right-sided back pain, shortness of breath, and increase sputum production Shortness of breath -Resolved once he was started on steroids to be discharged on steroid taper as well as continuing his home bronchodilators. We will discharge him home on Augmentin for anaerobic coverage given his history of aspiration risk. GJ tube malfunction Exchange of tube will be performed as an outpatient today at interventional radiology Hypothyroidism Continue home medications Patient has met maximum benefit from hospitalization and is clinically stable for discharge.
== END 2018-05-08 11:07 | disposition home or self-care (01) ==
LOC: PHED 15:08 → PHEDA 15:08 → PH3 20:04
PROVIDERS: ADMIT Hospitalist; ATTEND Hospitalist

== ENCOUNTER 2018-06-28 23:05 | Observation (INO) ==
[2018-06-28] MEDS ORDERED: Mag Sulf 1 gm/100 ml Premix 100 ML IV.SIG ONE (23:14)
[2018-06-28] MEDS ORDERED: MethylPREDNISolone Sod Succinate Inj 125 MG/2 ML Vial IV.PUSH ONE (23:14)
--- NOTE | 2018-06-28 23:23 | ED ---
HPI General Chief Complaint: Shortness of Breath/Dyspnea Stated Complaint: Difficulty breathing Time Seen by Provider: 06/28/18 23:14 Source: patient and family Mode of arrival: ambulatory Limitations: no limitations History of Present Illness Per patient he woke up with a runny nose and cough this morning, it progressively got worse. By 3 PM today according to the patient he started to have worsening shortness of breath, and back to back coughing episodes which culminated in posttussive emesis x2. Patient states that he saw dark coffee- ground colored emesis. The patient states that he has a history of ENT cancer after which he had a G-tube placed because of multiple recurrent aspiration pneumonia, due to poor swallowing. Patient states that he was last admitted in May for aspiration pneumonia recurrence. Patient is not currently on any antibiotics. Patient is a [facility] Complaint: Reports shortness of breath and cough Context: Reports recent illness Severity: moderate Consistency/Duration: intermittent Relieving factors: nothing Exacerbating factors: nothing Known history of: Reports COPD and aspiration pneumonia Associated symptoms: Reports nausea/vomiting Treatment prior to arrival: Reports none Related Data Home Medications Medication Instructions Recorded Confirmed albuterol sulfate 1.25 mg INHALATION Q4-6H PRN 01/13/18 06/28/18 budesonide-formoterol [Symbicort] 2 puff INHALATION BID 01/13/18 06/28/18 levothyroxine 75 mcg FEEDING TUBE DAILY 01/13/18 06/28/18 ranitidine HCl 15 mg FEEDING TUBE BID #0 05/06/18 06/28/18 ondansetron HCl [Zofran] 4 mg PO TID-QID PRN 06/10/18 06/28/18 Allergies Allergy/AdvReac Type Severity Reaction Status Date / Time No Known Allergies Allergy Verified 06/10/18 14:50 Review of Systems ROS: all other systems reviewed are negative PMFSH History History Provided By: Patient Medical History Medical History Aspiration pneumonia (Acute) COPD (chronic obstructive pulmonary disease) (Acute) G tube feedings (Acute) GERD (gastroesophageal reflux disease) (Acute) Gastrojejunostomy tube status (Acute) H/O tongue cancer (Acute) Hypothyroid (Acute) Tongue cancer (Acute) Surgical History Surgical History H/O hernia repair (Acute) Hx of inguinal hernia surgery (Acute) S/P radiation therapy (Acute) Status post chemotherapy (Acute) Family History Family History Brother Pancreatic cancer Social History Social History Substance History: No History of Abuse Second Hand Smoke Exposure: No Smoking Status: Former smoker How Often Do You Have a Drink Containing Alcohol: Never Recent Travel in [facility] within the Last 8 Weeks: No Recent Out of Country Travel within the Last 8 Weeks: No Exam Narrative Exam Narrative: GENERAL: Cachectic male elderly SKIN: Warm and dry. HEAD: Atraumatic. Normocephalic. EYES: Pupils equal and round. No scleral icterus. No injection or drainage. ENT: No nasal bleeding or discharge. Mucous membranes pink and moist. NECK: Trachea midline. No JVD. CARDIOVASCULAR: Tachycardic rate with regular rhythm. no rubs or gallops RESPIRATORY: Supraspinatus accessory muscle use. Bilateral rhonchi scattered mild wheeze. Decreased tidal volume bilaterally. Pursed lip breathing, tripoding, 2 word dyspnea GASTROINTESTINAL: Abdomen soft, non-tender, nondistended. No rebound or guarding MUSCULOSKELETAL: Extremities without clubbing, cyanosis, or edema. No obvious deformities. NEUROLOGICAL: Awake and alert. No obvious cranial nerve deficits. Motor grossly within normal limits. Five out of 5 muscle strength in the arms and legs. Normal speech. PSYCHIATRIC: Appropriate mood and affect; insight and judgment normal. Course Initial Documented Vital Signs Temperature 98.6 F 06/28/18 23:11 Pulse Rate 115 H 06/28/18 23:11 Respiratory Rate 28 H 06/28/18 23:11 Blood Pressure 150/78 H 06/28/18 23:11 Pulse Oximetry 95 06/28/18 23:11 Last Documented Vital Signs Temperature 98.6 F 06/28/18 23:11 Pulse Rate 99 H 06/28/18 23:35 Respiratory Rate 24 06/28/18 23:35 Blood Pressure 150/78 H 06/28/18 23:11 Pulse Oximetry 97 06/28/18 23:26 Critical Care Time Critical Care Time: Yes Total Critical Care Time: 30 Attestation: Aggregate critical care time was 30 minutes. Time to perform other separately billable procedures was not included in the critical care time. My time did not include minutes spent treating any other patients simultaneously or on activities that did not directly contribute to the patient's treatment. The services I provided to this patient were to treat and/or prevent clinically significant deterioration I provided critical care services requiring my management, as noted below: Chart data review, documentation time, medication orders and management, vital sign assessments/reviewing monitor data, ordering and reviewing lab tests, ordering and interpreting/reviewing x-rays and diagnostic studies, care of the patient and discussion of the patient with the admitting physicians. Sign Out Sign Out Data: Patient Sign Out occurred on 06/28/18 at 23:58. Patient's care was discussed, and care was transferred from Anival Rodarte to Chiquita Leon MD. Sign Out Comment: 72-year-old male previous history of tongue cancer status post radiation after which she developed COPD. He has a working PEG tube, because he has problems with aspiration pneumonia. Last treated before [place] with Augmentin. Now the patient returns today complaining of episodes of vomiting black coffee-ground posttussive emesis x2, patient woke up this morning with a runny nose and cough. Currently awaiting sepsis workup results and disposition. Last updated by Anival Rodarte at 06/28/18 23:33 Post-Handoff Eval: Accepted in transfer of care Medical Decision Making MDM Narrative Medical decision making narrative: Leukocytosis of 13.8, no anemia with an H&H of 12 and 36, normal platelet count, however left shift neutrophilia of 87% Electrolytes, normal kidney, normal liver. Accepted in transfer of care from Dr. Rodarte for follow-up of pending labs patient with exacerbation of COPD history of aspiration pneumonia leukocytosis of 13,800 also 2 episodes of coffee-ground emesis concerning for gastritis/ upper GI bleed with recommendation for observation admission per Dr. Rodarte lab values pending also imaging study of the abdomen pelvis ordered. discussed with Dr Mason --OBS Medical Screen Exam Complete: Yes Emergency Medical Condition: Yes Medical Records Medical records reviewed: Yes I reviewed the patient's medical records. Lab Data Result diagrams: 06/28/18 23:01 06/28/18 23:01 Lab Results 06/28/18 06/28/18 06/28/18 Range/Units 23:01 23:01 23:01 CBC w Diff Auto diff final WBC 13.8 H (4.0-11.0) th/mm3 RBC 4.78 (4.50-5.90) mil/mm3 Hgb 12.0 L (13.0-17.0) gm/dL Hct 36.6 L (39.0-51.0) % MCV 76.5 L (80.0-100.0) fL MCH 25.1 L (27.0-34.0) pg MCHC 32.9 (32.0-36.0) % RDW 14.7 (11.6-17.2) % Plt Count 233 (150-450) th/mm3 MPV 8.5 (7.0-11.0) fL Neut % (Auto) 87.3 H (16.0-70.0) % Lymph % (Auto) 3.8 L (9.0-44.0) % [place] % (Auto) 5.4 (0.0-8.0) % Eos % (Auto) 0.0 (0.0-4.0) % Baso % (Auto) 3.5 H (0.0-2.0) % Neut # (Auto) 12.1 H (1.8-7.7) th/mm3 Lymph # (Auto) 0.5 L (1.0-4.8) th/mm3 [place] # (Auto) 0.7 (0.0-0.9) th/mm3 Eos # (Auto) 0.0 (0.0-0.4) th/mm3 Baso # (Auto) 0.5 H (0.0-0.2) th/mm3 WBC Differential . Differential Comment . Sodium 134 L (136-145) meq/L Potassium 4.0 (3.5-5.1) meq/L Chloride 100 (98-107) meq/L Carbon Dioxide 27.5 (21.0-32.0) meq/L Anion Gap 7 (5-15) meq/L BUN 20 H (7-18) mg/dL Creatinine 0.75 (0.60-1.30) mg/dL Estimated GFR Greater than 89 (>89) mL/min Random Glucose 142 H (74-106) mg/dL Lactic Acid (0.4-2.0) mmol/L Calcium 8.2 L (8.5-10.1) mg/dL Total Bilirubin 0.6 (0.2-1.0) mg/dL AST 19 (15-37) U/L ALT 21 (12-78) U/L Alkaline Phosphatase 76 (45-117) U/L Troponin I Less than 0.02 L (0.02-0.05) ng/mL Total Protein 7.1 (6.4-8.2) g/dL Albumin 3.5 (3.4-5.0) g/dL Blood Type O Positive 06/28/18 Range/Units 23:36 CBC w Diff WBC (4.0-11.0) th/mm3 RBC (4.50-5.90) mil/mm3 Hgb (13.0-17.0) gm/dL Hct (39.0-51.0) % MCV (80.0-100.0) fL MCH (27.0-34.0) pg MCHC (32.0-36.0) % RDW (11.6-17.2) % Plt Count (150-450) th/mm3 MPV (7.0-11.0) fL Neut % (Auto) (16.0-70.0) % Lymph % (Auto) (9.0-44.0) % [place] % (Auto) (0.0-8.0) % Eos % (Auto) (0.0-4.0) % Baso % (Auto) (0.0-2.0) % Neut # (Auto) (1.8-7.7) th/mm3 Lymph # (Auto) (1.0-4.8) th/mm3 [place] # (Auto) (0.0-0.9) th/mm3 Eos # (Auto) (0.0-0.4) th/mm3 Baso # (Auto) (0.0-0.2) th/mm3 WBC Differential Differential Comment Sodium (136-145) meq/L Potassium (3.5-5.1) meq/L Chloride (98-107) meq/L Carbon Dioxide (21.0-32.0) meq/L Anion Gap (5-15) meq/L BUN (7-18) mg/dL Creatinine (0.60-1.30) mg/dL Estimated GFR (>89) mL/min Random Glucose (74-106) mg/dL Lactic Acid 1.1 (0.4-2.0) mmol/L Calcium (8.5-10.1) mg/dL Total Bilirubin (0.2-1.0) mg/dL AST (15-37) U/L ALT (12-78) U/L Alkaline Phosphatase (45-117) U/L Troponin I (0.02-0.05) ng/mL Total Protein (6.4-8.2) g/dL Albumin (3.4-5.0) g/dL Blood Type Imaging Data Radiologist's impression: Abdomen/Pelvis CT 06/29/18 00:04 CONCLUSION: 1. No acute abnormality is identified within the abdomen or pelvis. 2. Stable nonacute findings include 2 mm nonobstructing right renal stone and moderate to severe atherosclerotic disease. Chest X-Ray 06/29/18 00:09 CONCLUSION: No acute cardiopulmonary abnormality is identified. ECG Data EKG Prior to Arrival: No Attestation: I personally reviewed and interpreted this ECG as follows: Prior ECG tracings: not available for review Interpretation: Sinus tachycardia, 106 bpm, left atrial enlargement, no U waves , no prolonged QTC, no acute ST elevation LA pattern noted Discharge Plan Discharge Order Discharge Orders: ED Use Only Admit Order (Routine); Ordered 06/29/18 Ordered By: Chiquita Leon Physicians Team ED Provider: Chiquita Leon Primary Care Provider: [facility],Physician 's Rxs /Orders / Referrals /Forms Prescriptions: No Action ondansetron HCl [Zofran] 4 mg Tablet 4 mg PO TID-QID PRN (Reason: Nausea) RF: 0 budesonide-formoterol [Symbicort] 160-4.5 mcg/actuation Hfa Aerosol Inhaler 2 puff INHALATION BID RF: 0 levothyroxine 75 mcg Capsule 75 mcg Feeding Tube DAILY RF: 0 albuterol sulfate 1.25 mg/3 mL Solution For Nebulization 1.25 mg INHALATION Q4-6H PRN (Reason: Respiratory Distress) RF: 0 ranitidine HCl 15 mg/mL Syrup 15 mg Feeding Tube BID Qty: 0 RF: 0 Status ED Status: With Doctor
[2018-06-28] MEDS ORDERED: Sod Chloride 0.9% Inj 1,000 ML IV.SIG ONE (23:24)
[2018-06-28 23:31] LABS: Baso # (Auto) 0.5 th/mm3 (0.0-0.2); Baso % (Auto) 3.5 % (0.0-2.0); Hematocrit 36.6 % (39.0-51.0); Lymph # (Auto) 0.5 th/mm3 (1.0-4.8); Lymph % (Auto) 3.8 % (9.0-44.0); Mean Corpuscular HGB Conc 32.9 % (32.0-36.0); Mean Corpuscular Hemoglobin 25.1 pg (27.0-34.0); Mean Corpuscular Volume 76.5 fL (80.0-100.0); Mean Platelet Volume 8.5 fL (7.0-11.0); Mono # (Auto) 0.7 th/mm3 (0.0-0.9); Mono % (Auto) 5.4 % (0.0-8.0); Neut # (Auto) 12.1 th/mm3 (1.8-7.7); Neut % (Auto) 87.3 % (16.0-70.0); Platelet Count 233 th/mm3 (150-450); Red Blood Count 4.78 mil/mm3 (4.50-5.90); Red Cell Distribution Width 14.7 % (11.6-17.2); White Blood Count 13.8 th/mm3 (4.0-11.0)
[2018-06-28] MEDS ORDERED: Levofloxacin 500 mg Premix Inj 500 MG/100 ML PIGGYBACK IV.SIG ONE (23:34)
[2018-06-28 23:38] LABS: Chloride 100 meq/L (98-107); Sodium 134 meq/L (136-145)
[2018-06-28 23:42] LABS: Albumin 3.5 g/dL (3.4-5.0); Anion Gap 7 meq/L (5-15); Blood Urea Nitrogen 20 mg/dL (7-18); Calcium 8.2 mg/dL (8.5-10.1); Carbon Dioxide 27.5 meq/L (21.0-32.0); Glucose,Random 142 mg/dL (74-106)
[2018-06-28 23:45] LABS: Alanine Aminotransferase 21 U/L (12-78); Aspartate Aminotransferase 19 U/L (15-37); Glomerular Filtration Rate Greater Than 89 mL/min (>89)
[2018-06-28 23:47] LABS: Total Protein 7.1 g/dL (6.4-8.2)
[2018-06-28 23:48] LABS: Alkaline Phosphatase 76 U/L (45-117)
--- NOTE | 2018-06-29 00:13 | XR ---
EXAM DATE: 06/29/2018 12:10 AM EST AGE/SEX: 72 years / Male INDICATIONS: Shortness of breath, cough, congestion. CLINICAL DATA: This is the patient's initial encounter. Patient reports that signs and symptoms have been present for 1 day and indicates a pain score of 0/10. MEDICAL/SURGICAL HISTORY: Chronic obstructive pulmonary disease. None. COMPARISON: [facility], CHEST 1V SINGLE AP, 06/10/2018. . FINDINGS: 2 AP views of the chest demonstrate a normal-sized cardiac silhouette. Multiple EKG lines overlie the patient. No effusion, consolidation, or pneumothorax is identified. The bones and soft tissues demon strate no acute abnormality. CONCLUSION: No acute cardiopulmonary abnormality is identified. Electronically signed by: Bc Figueredo MD Board Certified Radiologist 06/29/2018 12:12 AM EST
--- NOTE | 2018-06-29 00:42 | CT ---
EXAM DATE: 06/29/2018 12:17 AM EST AGE/SEX: 72 years / Male INDICATIONS: Difficulty breathing. Nausea, vomiting, diarrhea. CLINICAL DATA: This is the patient's initial encounter. Patient reports that signs and symptoms have been present for 1 day and indicates a pain score of 4/10. MEDICAL/SURGICAL HISTORY: Chronic obstructive pulmonary disease. Gastroesophageal reflux disea se. Aspiration pneumonia. Tongue cancer. Hypothyroid. . Hernia repair. Radiation therapy. Chemothera py. ORAL CONTRAST: No oral contrast ingested. RADIATION DOSE: 6.13 CTDI (mGy) COMPARISON: [facility], CT ABDOMEN & PELVIS W CONTRAST, 05/06/2018. . TECHNIQUE: Multiple contiguous axial images were obtained through the abdomen and pelvis following b olus infusion of 85 ml Omnipaque 350 (iohexol) nonionic water-soluble contrast as a single exam dos e. No oral contrast ingested. Using automated exposure control and adjustment of the mA and/or kV ac cording to patient size, radiation dose was kept as low as reasonably achievable to obtain optimal di agnostic quality images. DICOM format image data is available electronically for review and comparis on. FINDINGS: Lower chest: No acute abnormality is identified. Hepatobiliary: No focal liver lesion is identified. Hepatic vasculature demonstrates no abnormality. No calcified gallstones are present. Kidneys: No hydronephrosis or mass. There is a stable 2 mm nonobstructing stone in the right upper po le collecting system. Adrenal Glands: Within normal limits. Spleen: Within normal limits. Pancreas: Within normal limits. Vascular: The aorta is nonaneurysmal. There is moderate to severe atherosclerotic disease. Bowel/Mesentery: The stomach and small bowel demonstrate no abnormality. No acute colon abnormality i s seen. There is no free intraperitoneal air or fluid. GJ tube is in place with distal tip of the jej unostomy tube in the proximal jejunum. Abdominal Wall: No hernia is visualized. Retroperitoneum: No lymphadenopathy. Bladder: No wall thickening or mass. Reproductive: Within normal limits. Inguinal: No lymphadenopathy or hernia. Musculoskeletal: No acute osseous abnormality is identified. There are degenerative changes of the wesly mbar spine. CONCLUSION: 1. No acute abnormality is identified within the abdomen or pelvis. 2. Stable nonacute findings include 2 mm nonobstructing right renal stone and moderate to severe ath erosclerotic disease. Electronically signed by: Bc Figueredo MD Board Certified Radiologist 06/29/2018 12:41 AM EST
[2018-06-29] MEDS ORDERED: Bisacodyl 10 MG Supp RECTAL PRN (01:13)
[2018-06-29] MEDS ORDERED: Acetaminophen 325 MG Tablet PO PRN (01:13)
[2018-06-29] MEDS: Pantoprazole Inj 40 MG Vial IV.PUSH SCH ×2 (02:07→14:03)
[2018-06-29] MEDS: Sod Chloride 0.9% Inj 1,000 ML IV.CONT SCH ×2 (02:32→11:30)
[2018-06-29] MEDS: Senna/Docusate Sodium 8.6/50 MG Tablet PO SCH ×2 (10:05→20:33)
[2018-06-29] MEDS: Budesonide-Formoterol 160/4.5 MCG 6 GM Inhaler INH SCH (10:05)
--- NOTE | 2018-06-29 10:58 | P.HPIM ---
History of Present Illness Service: Patient is a pleasant 72 yo male, with PMH of tongue cancer, on tube feedings with h/o multiple aspiration PNA, COPD, GERD, hypothyroidism. The patient he woke up with a runny nose and cough yesterday morning, it progressively got worse. By 3 PM according to the patient he started to have worsening shortness of breath, and back to back coughing episodes which culminated in posttussive emesis x2. Patient states that he saw dark coffee- ground colored emesis. The patient states that he has a history of ENT cancer after which he had a G-tube placed because of multiple recurrent aspiration pneumonia, due to poor swallowing. Patient states that he was last admitted in May for aspiration pneumonia recurrence. Patient is not currently on any antibiotics. Patient follows at [place]. HGB so far stable, and vomiting did no reoccur, however patient says he had yesterday a significant coffee ground emesis. Patient has a h/o COPD not on O2. He is sattign fairy well on room air at this time. No fever or chills. No more nausea or vomiting. Primary Care Physician: [facility] Review of Systems Review of Systems: all other systems reviewed are negative [facility] Medical History Medical History Aspiration pneumonia (Acute) COPD (chronic obstructive pulmonary disease) (Acute) G tube feedings (Acute) GERD (gastroesophageal reflux disease) (Acute) Gastrojejunostomy tube status (Acute) H/O tongue cancer (Acute) Hypothyroid (Acute) Tongue cancer (Acute) Surgical History Surgical History H/O hernia repair (Acute) Hx of inguinal hernia surgery (Acute) S/P radiation therapy (Acute) Status post chemotherapy (Acute) Family History Family History Brother Pancreatic cancer Social History Social History Substance History: No History of Abuse Second Hand Smoke Exposure: No Smoking Status: Never smoker How Often Do You Have a Drink Containing Alcohol: Never Recent Travel in [facility] within the Last 8 Weeks: No Recent Out of Country Travel within the Last 8 Weeks: No Immunization History Tetanus Immunization: >5 Years Medications and Allergies Allergies Allergy/AdvReac Type Severity Reaction Status Date / Time No Known Allergies Allergy Verified 06/10/18 14:50 Home Medications Medication Instructions Recorded Confirmed Type albuterol sulfate 1.25 mg INHALATION Q4-6H PRN 01/13/18 06/28/18 History budesonide-formoterol [Symbicort] 2 puff INHALATION BID 01/13/18 06/28/18 History levothyroxine 75 mcg FEEDING TUBE DAILY 01/13/18 06/28/18 History ranitidine HCl 15 mg FEEDING TUBE BID #0 05/06/18 06/28/18 History ondansetron HCl [Zofran] 4 mg PO TID-QID PRN 06/10/18 06/28/18 History Active Medications: Active Medications Acetaminophen (Tylenol) 650 mg PO Q4H PRN PRN Reason: Temp > 100.4 Al Hydroxide/Mg Hydroxide (Milk Of Magnesia Liq) 30 ml PO Q12H PRN PRN Reason: Mild Constipation Albuterol (Duoneb Neb (Prn)) 1 ampul NEB Q4HR NEB PRN PRN Reason: SOB/WHEEZING Last Admin: 06/29/18 07:58 Dose: 1 ampul Bisacodyl (Dulcolax Supp) 10 mg RECTAL DAILY PRN PRN Reason: SEVERE CONSITIPATION Budesonide/Formoterol Fumarate (Symbicort 160/4.5 Mcg Inh) 2 puff INH BID [facility] Last Admin: 06/29/18 10:05 Dose: 2 puff Metronidazole/Sodium Chloride (Flagyl 500 Mg Inj) 100 mls @ 100 mls/hr IV.SIG Q8H [facility] Last Infusion: 06/29/18 08:47 Dose: Infused Sodium Chloride (Ns Inj) 1,000 mls @ 100 mls/hr IV.CONT .Q10H [facility] Last Infusion: 06/29/18 07:53 Dose: 100 mls/hr Lactulose (Lactulose Liq) 30 ml PO DAILY PRN PRN Reason: SEVERE CONSITIPATION Ondansetron HCl (Zofran Inj) 4 mg IV.PUSH Q6H PRN PRN Reason: NAUSEA OR VOMITING Pantoprazole Sodium (Protonix Inj) 40 mg IV.PUSH Q12H [facility] Last Admin: 06/29/18 02:07 Dose: 40 mg Senna/Docusate Sodium (Talia-Colace) 1 tab PO BID [facility] Last Admin: 06/29/18 10:05 Dose: Not Given Sennosides (Senokot) 17.2 mg PO Q12H PRN PRN Reason: Moderate Constipation Sodium Chloride (Ns Flush) 2 ml IV.FLUSH PRN PRN PRN Reason: FLUSH AFTER USING IV ACCESS Last Admin: 06/29/18 02:33 Dose: 2 ml Sodium Chloride (Ns Flush) 2 ml IV.FLUSH PRN PRN PRN Reason: FLUSH AFTER USING IV ACCESS Sodium Chloride (Ns Flush) 2 ml IV.FLUSH BID [facility] Last Admin: 06/29/18 08:47 Dose: Not Given Physical Exam Vital signs: Vital Signs 06/28/18 23:11 06/28/18 23:25 06/28/18 23:26 Temperature 98.6 F Pulse Rate 115 H 98 H Respiratory Rate 28 H 22 Blood Pressure 150/78 H Pulse Oximetry 95 97 06/28/18 23:35 06/29/18 01:10 06/29/18 02:08 Temperature Pulse Rate 99 H 106 H 102 H Respiratory Rate 24 24 16 Blood Pressure 145/85 H 152/85 H Pulse Oximetry 98 98 06/29/18 02:44 06/29/18 08:00 Temperature 97 F L 96.8 F L Pulse Rate 102 H 78 Respiratory Rate 20 16 Blood Pressure 153/68 H 113/55 L Pulse Oximetry 95 99 Intake & Output 06/28/18 06/29/18 06/29/18 18:59 06:59 18:59 Intake Total 1300 / 1300 610 / 610 Output Total 700 / 700 Balance 1300 / 1300 -90 / -90 Weight 68.7 kg Intake: IV 1300 / 1300 610 / 610 NS Inj 1,000 ML @ 100 mls/hr IV 510 / 510 .CONT .Q10H [facility] Rx#:[id number] Levaquin 500 mg Premix Inj 500 100 / 100 mg In 100 ml @ 100 mls/hr IV. SIG ONCE ONE Rx#:[id number] Magnesium Sulfate 1 gm/D5W 100 100 / 100 ml Premix 100 ML @ 100 mls/hr IV.SIG ONCE ONE Rx#:[id number] NS Inj 1,000 ML @ Wide Open IV. 1000 / 1000 SIG BOLUS ONE Rx#:[id number] Flagyl 500 MG Inj 100 ML @ 100 100 / 100 100 / 100 mls/hr IV.SIG Q8H [facility] Rx#: [id number] Output: Urine 700 / 700 Other: # Voids 3 Date of Last Bowel Movement 06/28/18 06/28/18 Weight On Admission 69.4 kg Results Labs CBC & Chem 7: 06/28/18 23:01 06/28/18 23:01 Imaging Impressions Abdomen/Pelvis CT 06/29/18 00:04 CONCLUSION: 1. No acute abnormality is identified within the abdomen or pelvis. 2. Stable nonacute findings include 2 mm nonobstructing right renal stone and moderate to severe atherosclerotic disease. Chest X-Ray 06/29/18 00:09 CONCLUSION: No acute cardiopulmonary abnormality is identified. Caprini VTE Risk Assessment Caprini VTE Risk Assessment: Moderate/High Risk (score >= 2) VTE Pharmacological Exception Reason: Active bleeding Caprini Risk Assessment Model: Point Value = 1 Point Value = 2 Point Value = 3 Point Value = 5 Age 41-60 Minor surgery BMI > 25 kg/m2 Swollen legs Varicose veins or History of unexplained or recurrent spontaneous Oral contraceptives or hormone replacement Sepsis (< 1 month) Serious lung disease, including pneumonia (< 1 month) Abnormal pulmonary function Acute myocardial infarction Congestive heart failure (< 1 month) History of inflammatory bowel disease Medical patient at bed rest Age 61-74 Arthroscopic surgery Major open surgery (> 45 min) Laparoscopic surgery (> 45 min) Malignancy Confined to bed (> 72 hours) Immobilizing plaster cast Central venous access Age >= 75 History of VTE Family history of VTE Factor V Leiden Prothrombin [id number] Lupus anticoagulant Anticardiolipin antibodies Elevated serum homocysteine Heparin-induced thrombocytopenia Other congenital or acquired thrombophilia Stroke (< 1 month) Elective arthroplasty Hip, pelvis, or leg fracture Acute spinal cord injury (< 1 month) Prophylaxis Regimen: Total Risk Factor Score Risk Level Prophylaxis Regimen 0-1 Low Early ambulation 2 Moderate Order ONE of the following: *Sequential Compression Device (SCD) *Heparin 5000 units SQ BID 3-4 Higher Order ONE of the following medications: *Heparin 5000 units SQ TID *Enoxaparin/Lovenox 40 mg SQ daily (WT < 150 kg, CrCl > 30 mL/min) *Enoxaparin/Lovenox 30 mg SQ daily (WT < 150 kg, CrCl > 10-29 mL/min) *Enoxaparin/Lovenox 30 mg SQ BID (WT < 150 kg, CrCl > 30 mL/min) AND/OR *Sequential Compression Device (SCD) 5 or more Highest Order ONE of the following medications: *Heparin 5000 units SQ TID (Preferred with Epidurals) *Enoxaparin/Lovenox 40 mg SQ daily (WT < 150 kg, CrCl > 30 mL/min) *Enoxaparin/Lovenox 30 mg SQ daily (WT < 150 kg, CrCl > 10-29 mL/min) *Enoxaparin/Lovenox 30 mg SQ BID (WT < 150 kg, CrCl > 30 mL/min) AND *Sequential Compression Device (SCD) Assessment and Plan Plan Pleasant 72 yo male with PMH of tongue CA on tube feedings, COPD, GERD, hypothyroidism presented to ED with exacerbation of COPD history of aspiration pneumonia leukocytosis of 13,800 also 2 episodes of coffee-ground emesis concerning for gastritis/upper GI bleed COPD with exacerbation Start duonebs continue symbicort Monitor O2 sat, O2 supplement to keep O2 sat > 92% Upper GIB with ground coffee emesis Anemia, mild decreased in HGB Monitor for bleeding Monitor H/H and transfuse if need Pantoprazole Consult GI Hypothyroidism. Continue home meds H/o throat CA on tube feedings DVT ppx scd/teds, chemical ppx CI at this time as patient with GIB H&P: Quality VTE Deep Vein Thrombosis/Pulmonary Embolism Present on Admission: No
--- NOTE | 2018-06-29 15:12 | ECG ---
Date Performed: 06/28/2018 Time Performed: 23:11:34 PTAGE: 72 years EKG: SINUS TACHYCARDIA POSSIBLE LEFT ATRIAL ENLARGEMENT ABNORMAL RHYTHM ECG INTERPRETATION BASED ON A DEFAULT AGE OF 40 YEARS PREVIOUS TRACING : 01/13/2018 06.21 Since the previous tracing, no significant change not ed DOCTOR: Roel Posada Interpretating Date/Time 06/29/2018 15:11:19
--- NOTE | 2018-06-29 21:46 | MB ---
cc: Michel Clayton MD DATE: 06/29/2018 REASON FOR CONSULTATION: Coffee-grounds gastric secretion. HISTORY OF PRESENT ILLNESS: This is a 72-year-old male patient who is known to have tongue cancer diagnosed 1 year ago. Subsequently, after therapy, he had GJ tube placement for nutrition and was kept n.p.o. since that time. He had previous dilatations several times for esophageal stricture. The patient has history of aspiration pneumonia several times. The patient presented at this time to the hospital with shortness of breath and features suggestive of aspiration pneumonia. As part of the evaluation, the patient was reported to have 1 episode of dark secretion coming out from the G-port of the PEG tube that was described as possibly coffee-grounds in appearance, but a little bit brownell operator. The patient intermittently has similar problem and intermittently reporting dark stools for the last 1 year. The patient himself denies any other symptoms including nausea, vomiting. Denies any heartburn. No evidence of hemodynamic instability. The hemoglobin and hematocrit appear to be stable to his baseline. REVIEW OF SYSTEMS: Other than the ones mentioned in the history of present illness, all were negative including a 14-system review. PAST MEDICAL HISTORY: Recurrent aspiration pneumonia, chronic obstructive pulmonary disease, tongue carcinoma, chronic enteral nutrition via GJ-tube, hypothyroidism. SURGICAL HISTORY: Hernia repair, radiation therapy, and chemotherapy. FAMILY HISTORY: Brother with pancreatic carcinoma. PSYCHOSOCIAL HISTORY: The patient denies alcohol use or smoking. No history of IV drug abuse. MEDICATIONS: 1. Budesonide-Symbicort combination. 2. Levothyroxine. 3. Ranitidine. 4. Zofran. ALLERGIES: NO KNOWN DRUG ALLERGIES. PHYSICAL EXAMINATION: GENERAL: The patient found to be comfortable, not in distress or in pain. Hemodynamically stable. HEAD AND NECK: He appears to be cachectic, but no pallor or jaundice. Facial muscles appear to be wasted. NECK: Muscle as well appeared to be wasted. LUNGS: Clear to auscultation bilaterally with decreased air entry bilaterally. HEART: Regular rate and rhythm. No murmurs. ABDOMEN: Soft, nontender. No hepatosplenomegaly. No palpable masses. Clean PEG tube site, and drainage appeared to be clear in color at the current time. EXTREMITIES: Normal pulses. No edema. NEUROLOGIC: Cranial nerves 2-12 grossly intact. No focal motor or sensory deficits. SKIN: No rashes. LABORATORY DATA: Hemoglobin of 12, hematocrit of 36, white count 13.8 and platelet count of 233. Chemistry within normal limit except for sodium of 134. Liver enzymes within normal limits. CT scan of the chest and abdomen showed no acute abnormalities in the abdomen or pelvis. ASSESSMENT AND PLAN: This is a 72-year-old male patient who has the following problems: 1 episode of emesis that is described as dark in color, never recurred afterward, with the currently GJ and G-tube both draining normal-colored secretions. 2. History of intermittent dark stool reported by the patient. 3. Previous PEG including GJ-tube placement was done 1 year ago to prevent aspiration pneumonia, and the last endoscopy was reported at that time. 4. Multiple esophageal strictures requiring dilatations. RECOMMENDATIONS: At the current time, we will check the gastric secretion for Hemoccult. Will follow serial H and H. Start tube feedings as before with aspiration precautions. Continue high-dose proton pump inhibitor. We will consider EGD if any signs of bleeding in the following few days during observation. The patient at the current time refusing colonoscopy examination. We will continue supportive care and will follow up with you for further management. Thank you for the consultation. MD EDWARD Smith/yesica , 08:56 PM , 09:04 PM MARAL
[2018-06-30] MEDS: Budesonide-Formoterol 160/4.5 MCG 6 GM Inhaler INH SCH ×2 (00:32→08:00)
[2018-06-30] MEDS: Sod Chloride 0.9% Inj 1,000 ML IV.CONT SCH ×2 (00:32→08:01)
[2018-06-30] MEDS: Pantoprazole Inj 40 MG Vial IV.PUSH SCH ×2 (01:31→13:45)
[2018-06-30] MEDS: Senna/Docusate Sodium 8.6/50 MG Tablet PO SCH (08:04)
[2018-06-30 09:03] LABS: Baso % (Auto) 0.1 % (0.0-2.0); Eos % (Auto) 0.2 % (0.0-4.0); Hematocrit 32.2 % (39.0-51.0); Hemoglobin 10.2 gm/dL (13.0-17.0); Lymph # (Auto) 0.6 th/mm3 (1.0-4.8); Lymph % (Auto) 5.6 % (9.0-44.0); Mean Corpuscular HGB Conc 31.8 % (32.0-36.0); Mean Corpuscular Hemoglobin 24.5 pg (27.0-34.0); Mean Corpuscular Volume 76.9 fL (80.0-100.0); Mean Platelet Volume 9.4 fL (7.0-11.0); Mono # (Auto) 0.9 th/mm3 (0.0-0.9); Mono % (Auto) 8.2 % (0.0-8.0); Neut % (Auto) 85.9 % (16.0-70.0); Platelet Count 189 th/mm3 (150-450); Red Blood Count 4.18 mil/mm3 (4.50-5.90); Red Cell Distribution Width 15.6 % (11.6-17.2); White Blood Count 11.5 th/mm3 (4.0-11.0)
[2018-06-30 09:18] LABS: Chloride 107 meq/L (98-107); Potassium 5.1 meq/L (3.5-5.1); Sodium 138 meq/L (136-145)
[2018-06-30 10:09] LABS: Alanine Aminotransferase 16 U/L (12-78); Albumin 2.7 g/dL (3.4-5.0); Alkaline Phosphatase 66 U/L (45-117); Anion Gap 6 meq/L (5-15); Aspartate Aminotransferase 14 U/L (15-37); Blood Urea Nitrogen 20 mg/dL (7-18); Carbon Dioxide 25.2 meq/L (21.0-32.0); Glomerular Filtration Rate Greater Than 89 mL/min (>89); Glucose,Random 142 mg/dL (74-106); Total Protein 5.9 g/dL (6.4-8.2)
[2018-06-30 10:20] LABS: Platelet Estimate Normal (Normal); Platelet Morphology Normal (Normal)
--- NOTE | 2018-06-30 13:28 | P.DS ---
DS: Providers Date of admission: 06/29/18 01:06 Primary care physician: [facility] Consults: 06/29/18 01:15 Consult to Gastroenterology Routine Consulting Provider: Michel Clayton Reason for Consultation: Erosive Gastritis/GI Bleed CONSULT FOR AM Notified:: Service Spoke with:: Sacha Date Notified:: 06/29/18 Time Notified:: 01:18 Ordering Provider: KEYA DS: Summary Pleasant 72 yo male with PMH of tongue CA on tube feedings, COPD, GERD, hypothyroidism presented to ED with exacerbation of COPD history of aspiration pneumonia leukocytosis of 13,800 also 2 episodes of coffee-ground emesis concerning for gastritis/upper GI bleed COPD with exacerbation on admission Received duonebs continue symbicort Monitor O2 sat, O2 supplement to keep O2 sat > 92% Patient at baseline. Off O2 Upper GIB with ground coffee emesis Anemia, mild decreased in HGB Monitor for bleeding Monitor H/H and transfuse if need Pantoprazole Consult GI, appreciate recommendations Patient is refusing EGD and colonoscopy Patient had 2 normal BMs non bloody and normal color Patient also had gastric emptying and no fluid and no blood in it. Patient H/H is stable cnad no bleeding DC home in stable condition to follow up as OP with GI Hypothyroidism. Continue home meds H/o throat CA on tube feedings DVT ppx scd/teds, chemical ppx CI at this time as patient with poss GIB Time Spent with Patient Total time spent providing and/or coordinating discharge services: > 30 min Quality: VTE Deep Vein Thrombosis/Pulmonary Embolism Present on Admission: No Exam Narrative Exam Narrative: GENERAL: Very pleasant 72 yo male, skinny, not in acute distress. CARDIOVASCULAR: Regular rate and rhythm. no murmurs RESPIRATORY: No accessory muscle use. Very mild wheezing heard with slightly diminished breath sounds in the bases, unlabored breathing GASTROINTESTINAL: Abdomen soft, non-tender, nondistended. G-tube in place. Extremities: No clubbing, cyanosis, or edema. No obvious deformities. MUSCULOSKELETAL: adequate muscle bulk and tone for age and habitus NEUROLOGICAL: Awake and alert. No obvious cranial nerve deficits. Ambulated without problems. PSYCHIATRIC: Appropriate mood and affect; insight and judgment normal. Results Labs on day of discharge: Labs from last 24 hours 06/30/18 06/30/18 07:40 07:40 CBC w Diff Slide review pending WBC 11.5 H RBC 4.18 L Hgb 10.2 L Hct 32.2 L MCV 76.9 L MCH 24.5 L MCHC 31.8 L RDW 15.6 Plt Count 189 MPV 9.4 Neut % (Auto) 85.9 H Lymph % (Auto) 5.6 L [place] % (Auto) 8.2 H Eos % (Auto) 0.2 Baso % (Auto) 0.1 Neut # (Auto) 10.0 H Lymph # (Auto) 0.6 L [place] # (Auto) 0.9 Eos # (Auto) 0.0 Baso # (Auto) 0.0 WBC Differential . Diff Scan Auto diff confirmed Differential Comment . Platelet Estimate Normal Platelet Morphology Normal Sodium 138 Potassium 5.1 D Chloride 107 Carbon Dioxide 25.2 Anion Gap 6 BUN 20 H Creatinine 0.73 Estimated GFR Greater than 89 Random Glucose 142 H Calcium 8.0 L Total Bilirubin 0.3 AST 14 L ALT 16 Alkaline Phosphatase 66 Total Protein 5.9 L D Albumin 2.7 L D Preliminary micro results at discharge 06/28/18 23:15 Aerobic Blood Culture - Preliminary Blood - Peripheral No growth in 2 days Anaerobic Blood Culture - Preliminary No growth in 2 days 06/28/18 23:30 Aerobic Blood Culture - Preliminary Blood - Peripheral No growth in 2 days Anaerobic Blood Culture - Preliminary No growth in 2 days Impressions ITS Impressions Abdomen/Pelvis CT 06/29/18 00:04 CONCLUSION: 1. No acute abnormality is identified within the abdomen or pelvis. 2. Stable nonacute findings include 2 mm nonobstructing right renal stone and moderate to severe atherosclerotic disease. Chest X-Ray 06/29/18 00:09 CONCLUSION: No acute cardiopulmonary abnormality is identified. Discharge Plan Discharge Disposition Patient Disposition: Discharge Home Discharge Condition Condition: Stable Discharge Order Discharge Orders: Discharge Order (Routine); Ordered 06/30/18 Ordered By: Zoey Strickland Discharge Details Anticipated Discharge Date: 06/30/18 Discharge Comment: DC when cleared by Dr Clayton Physicians Team Primary Care Provider: [facility] Attending Provider: Zoey Strickland Other Providers: Michel Clayton Rxs /Orders / Referrals /Forms Prescriptions: New pantoprazole 40 mg tablet,delayed release (DR/EC) 40 mg PO DAILY 28 Days Qty: 28 RF: 0 Continue ondansetron HCl [Zofran] 4 mg Tablet 4 mg PO TID-QID PRN (Reason: Nausea) RF: 0 budesonide-formoterol [Symbicort] 160-4.5 mcg/actuation Hfa Aerosol Inhaler 2 puff INHALATION BID RF: 0 levothyroxine 75 mcg Capsule 75 mcg Feeding Tube DAILY RF: 0 albuterol sulfate 1.25 mg/3 mL Solution For Nebulization 1.25 mg INHALATION Q4-6H PRN (Reason: Respiratory Distress) RF: 0 ranitidine HCl 15 mg/mL Syrup 15 mg Feeding Tube BID Qty: 0 RF: 0 Referrals: [facility] [Primary Care Provider] - See Instructions ( Please call the physician's office to book the appointment to be seen within [ 2-3 days].) Michel Clayton MD [Physician] - See Instructions ( Please call the physician's office to book the appointment to be seen within [1-2 weeks].) Discharge Instructions Patient Printed Instructions: Pantoprazole (By mouth) Post Discharge Care Plan Care Plan Goals: Your Health Problems: VOMITING Goals to Promote Your Health: * To prevent worsening of your condition * To maintain your health at the optimal level Directions to Meet Your Goals: * Take your medications as prescribed * Follow your dietary instruction * Follow activity as directed * Keep your appointments as scheduled * Take your immunizations and boosters as scheduled * If your symptoms worsen call your PCP * If no PCP go to Urgent Care or Emergency Room Smoking is dangerous to your health. Avoid second hand smoke. You may reach the 24-hour crisis hotline for domestic abuse at . Status ED Status: Left Department
[2018-06-30 13:30] VITALS: BP 135/66; PULSE 85; RESP 17; TEMP 97.1; O2SAT 97
== END 2018-06-30 17:16 | disposition home or self-care (01) ==
LOC: PHEDA 23:05 → PHED 23:05 → PHEDA 06-29 02:12 → PH3 06-29 02:30
PROVIDERS: ADMIT Hospitalist; ATTEND Hospitalist
CPT/HCPCS: 71010; 71045; 74177; 80053; 83605; 84484; 85025; 86850; 86900; 86901; 87040; 90765; 90767; 90775; 93005; 94150; 94640; 94664; 94665; 96361; 96365; 96366; 96367; 96375; 96376; 99291; C9113; G0378; J1956; J2405; J2930; J3475; J7030; Q9967